=== PATIENT | female | born 1960 | race Caucasian/White ===

== ENCOUNTER 2016-11-03 15:41 | Emergency (ER) | payer BC, OTHER ==
[~2016-11-03] VITALS: Ht 160 cm; Wt 48.4 kg
[~2016-11-03 15:41] MED LIST: ACET-1256 PO; APR10 PO; ASPEC81 PO; ATV5 PO; B-COTAB18 PO; DICY20TA10 PO; HYDR25TA5 PO; LSN40 PO; MELO15TA4 PO; MORP1TAB13 PO; MULTTAB58 PO; NIFE60TA57 PO; OMEP40CA41 PO; OXYC-609 PO; POTA1CAP PO; PROP40TA5 PO; ZNF4 PO
[2016-11-03 15:48] VITALS: O2SAT 94
[2016-11-03 15:54] VITALS: TEMP 36.9; Ht 160 cm; Wt 48.4 kg
[2016-11-03] MEDS ORDERED: NIFEdipine 30 MG CR TAB PO STA (15:54)
[2016-11-03] MEDS ORDERED: PROPRANOLOL HCL 80 MG TAB PO STA (15:54)
[2016-11-03] MEDS ORDERED: LISINOPRIL 20 MG TAB PO STA (15:54)
[2016-11-03] MEDS ORDERED: ONDANSETRON INJ 2 MG/ML 2 ML VIAL IV STA (15:54)
[2016-11-03] MEDS ORDERED: HydrALAZINE HCL 20 MG/ML VIAL IV. STA (15:54)
[2016-11-03] MEDS ORDERED: MoRPHine SULFATE 4 MG/ML 1 ML CARP\\VIAL IV PRN (16:00)
[2016-11-03 16:04] LABS: BASO % 0.8 %; BASO ABS # 0.08 K/uL (0-0.2); COMPLETE YES; EOS % 1.3 %; HEMATOCRIT 40.8 % (37-47); IG% 0.3 %; LYMPH % 30.1 %; LYMPH ABS # 3.11 K/uL (1.2-3.4); MEAN CELL VOLUME 91.9 fL (80-100); MEAN CORPUSCULAR HEMOGLOBIN 29.7 pg (25-34); MEAN CORPUSCULAR HGB CONC 32.4 g/dl (32-36); MEAN PLATELET VOLUME 9.3 fL (7.4-10.4); NEUT % 61.5 %; PLATELET COUNT 314 K/uL (130-400); RED BLOOD COUNT 4.44 M/uL (4.2-5.4); WHITE BLOOD COUNT 10.34 K/uL (4.8-10.8)
--- NOTE | 2016-11-03 16:04 | EMERGENCY ROOM VISIT NOTE ---
History Report prepared by Candido: Ghada Manzanares Under the Supervision of: Dr. Fam Miller D.O. First contact with patient: 15:44 Chief Complaint: CHEST PAIN Stated Complaint: CHEST PAIN, HTN, HEADACHE History of Present Illness The patient is a 56 year old female who presents to the Emergency Room with complaints of persistent left chest pain that began prior to arrival. The patient states that today she developed a migraine today and additionally noted dizziness and nausea. She reports a history of migraines. The patient states that she was found to be hypertensive today. She reports a history of hypertension, but states that she has not taken her medications in many months because she cannot afford it. Today, the patient additionally notes left jaw pain and shortness of breath. She reports that she is a smoker, but denies any alcohol use. Source of History: patient Onset: prior to arrival Position: chest (left) Symptom Intensity: 10 Timing: other (persistent) Associated Symptoms: + headache (migraine), + SOB, + nausea Note: Associated Symptoms: left jaw pain, dizziness Review of Systems See HPI for pertinent positives & negatives. A total of 10 systems reviewed and were otherwise negative. Past Medical & Surgical Medical Problems: (1) Chronic abdominal pain (2) Chronic back pain (3) HTN (hypertension) (4) Right cervical radiculopathy (5) Right shoulder pain Family History Cancer Diabetes mellitus Gallbladder disease Heart disease Hypertension Lung disease Social History Smoking Status: Current Every Day Smoker Alcohol Use: none Marital Status: Housing Status: lives with significant other Occupation Status: employed Current/Historical Medications Scheduled Aspirin (Aspirin Ec), 81 MG PO DAILY Dicyclomine Hcl (Dicyclomine Hcl), 20 MG PO BID Hydralazine Hcl (Apresoline), 10 MG PO TID Hydralazine Hcl (Apresoline), 1 TAB PO TID Hydrochlorothiazide (Hydrochlorothiazide), 12.5 MG PO DAILY Hydrochlorothiazide (Hctz), 1 CAP PO DAILY Lisinopril (Lisinopril), 40 MG PO DAILY Lisinopril (Zestril), 1 TAB PO DAILY Meloxicam (Meloxicam), 15 MG PO DAILY Morphine Sulfate (Morphine Sulfate Er), 1 TAB PO BID Multiple Vitamin (Multivitamin), 1 TAB PO DAILY Nifedipine (Procardia Xl Ext Rel), 1 TAB PO DAILY Nifedipine Ext Rel (Procardia Xl Ext Rel), 60 MG PO DAILY Omeprazole (Prilosec), 40 MG PO DAILY Oxycodone HCl (Oxycodone HCl), 10 MG PO DIRECTED Propranolol Hcl (Propranolol Hcl), 80 MG PO BID Propranolol Hcl (Propranolol Hcl), 2 TAB PO BID Tizanidine (Zanaflex ), 4 MG PO TID Scheduled PRN Ytjzjbc-Kdhbjxcbrfmuq-Mpxnnuyu (Excedrin Migraine), 1 TAB PO DIRECTED PRN for Migraine Allergies Coded Allergies: No Known Allergies (Unverified , 11/03/16) Physical Exam Vital Signs Date Time Temp Pulse Resp B/P (MAP) Pulse Ox O2 Delivery O2 Flow Rate FiO2 11/03/16 17:10 81 18 163/95 94 Room Air 11/03/16 16:02 80 11/03/16 15:54 95 Room Air 11/03/16 15:54 36.9 87 17 150/98 95 Room Air 11/03/16 15:48 94 Room Air Physical Exam GENERAL: Patient is awake, alert, and in no acute distress. Patient is resting comfortably and showing no signs of anxiety EYES: The conjunctivae are clear. The pupils are round and reactive. EARS, NOSE, MOUTH AND THROAT: The nose is without any evidence of any deformity. Mucous membranes are moist tongue is midline NECK: The neck is nontender and supple. RESPIRATORY: Normal respiratory effort is noted there is no evidence of wheezing rhonchi or rales CARDIOVASCULAR: Regular rate and rhythm noted there no murmurs rubs or gallops normal S1 normal S2 GASTROINTESTINAL: The abdomen is soft. Bowel sounds are present in all quadrants. Abdomen is nontender MUSCULOSKELETAL/EXTREMITIES: There is no evidence of gross deformity full range of motion is noted in the hips and shoulders SKIN: There is no obvious evidence of any rash. There are no petechiae, pallor or cyanosis noted. NEUROLOGIC: Patient is awake alert and oriented x3 strength is symmetric patellar reflexes are 2+ bilaterally Medical Decision & Procedures ER Provider Diagnostic Interpretation: Radiology results as stated below per my review and radiologist interpretation: CT HEAD WITHOUT CONTRAST (CT) CLINICAL HISTORY: Headache COMPARISON STUDY: 01/19/2016 TECHNIQUE: Axial CT of the brain is performed from the vertex to the skull base. IV contrast was not administered for this examination. CT DOSE: 537.48 mGy.cm FINDINGS: No intra or extra-axial mass lesions are visualized. There is no CT evidence of acute cortical infarction. There is no evidence of midline shift. There is no acute hemorrhage. No calvarial fractures are visualized. There is no evidence of pathologic ventricular dilatation. There is no evidence of acute sinusitis IMPRESSION: No acute intracranial findings Electronically signed by: Roque Goodwin M.D. 11/03/2016 4:31 PM Dictated Date/Time: 11/03/2016 4:29 PM CHEST ONE VIEW PORTABLE CLINICAL HISTORY: Difficult chest pain. Hypertension. Headache. COMPARISON STUDY: 01/19/2016 FINDINGS: The cardiac and mediastinal contours remain stable. There is mild elevation of the interstitium unchanged the prior study. There is no focal pulmonary consolidation. There are no pleural effusions.[ IMPRESSION: Subtle interstitial thickening, likely chronic. No evidence of focal pulmonary consolidation Electronically signed by: Roque Goodwin M.D. 11/03/2016 4:15 PM Dictated Date/Time: 11/03/2016 4:14 PM Laboratory Results 11/03/16 15:45 Red Blood Count 4.44, Mean Corpuscular Volume 91.9, Mean Corpuscular Hemoglobin 29.7, Mean Corpuscular Hemoglobin Concent 32.4, Mean Platelet Volume 9.3, Neutrophils (%) (Auto) 61.5, Lymphocytes (%) (Auto) 30.1, Monocytes (%) (Auto) 6.0, Eosinophils (%) (Auto) 1.3, Basophils (%) (Auto) 0.8, Neutrophils # (Auto) 6.37, Lymphocytes # (Auto) 3.11, Monocytes # (Auto) 0.62, Eosinophils # (Auto) 0.13, Basophils # (Auto) 0.08 11/03/16 15:45 Test 11/03/16 15:45 White Blood Count 10.34 K/uL (4.8-10.8) Red Blood Count 4.44 M/uL (4.2-5.4) Hemoglobin 13.2 g/dL (12.0-16.0) Hematocrit 40.8 % (37-47) Mean Corpuscular Volume 91.9 fL (80-100) Mean Corpuscular Hemoglobin 29.7 pg (25-34) Mean Corpuscular Hemoglobin Concent 32.4 g/dl (32-36) Platelet Count 314 K/uL (130-400) Mean Platelet Volume 9.3 fL (7.4-10.4) Neutrophils (%) (Auto) 61.5 % Lymphocytes (%) (Auto) 30.1 % Monocytes (%) (Auto) 6.0 % Eosinophils (%) (Auto) 1.3 % Basophils (%) (Auto) 0.8 % Neutrophils # (Auto) 6.37 K/uL (1.4-6.5) Lymphocytes # (Auto) 3.11 K/uL (1.2-3.4) Monocytes # (Auto) 0.62 K/uL (0.11-0.59) Eosinophils # (Auto) 0.13 K/uL (0-0.5) Basophils # (Auto) 0.08 K/uL (0-0.2) RDW Standard Deviation 46.8 fL (36.4-46.3) RDW Coefficient of Variation 14.1 % (11.5-14.5) Immature Granulocyte % (Auto) 0.3 % Immature Granulocyte # (Auto) 0.03 K/uL (0.00-0.02) Prothrombin Time 10.0 SECONDS (9.0-12.0) Prothromb Time International Ratio 0.9 (0.9-1.1) Activated Partial Thromboplast Time 28.5 SECONDS (21.0-31.0) Partial Thromboplastin Ratio 1.1 Anion Gap 11.0 mmol/L (3-11) Est Creatinine Clear Calc Drug Dose 49.1 ml/min Estimated GFR () 74.0 Estimated GFR (Non- 63.8 BUN/Creatinine Ratio 17.7 (10-20) Calcium Level 8.4 mg/dl (8.5-10.1) Magnesium Level 2.2 mg/dl (1.8-2.4) Total Bilirubin 0.3 mg/dl (0.2-1) Direct Bilirubin < 0.1 mg/dl (0-0.2) Aspartate Amino Transf (AST/SGOT) 15 U/L (15-37) Alanine Aminotransferase (ALT/SGPT) 17 U/L (12-78) Alkaline Phosphatase 92 U/L (45-117) Total Creatine Kinase 68 U/L (26-192) Creatine Kinase MB 0.6 ng/ml (0.5-3.6) Creatine Kinase MB Ratio 0.9 (0-3.0) Troponin I < 0.015 ng/ml (0-0.045) Total Protein 7.3 gm/dl (6.4-8.2) Albumin 3.7 gm/dl (3.4-5.0) Lipase 106 U/L (73-393) Laboratory results per my review. Medications Administered Medications (Trade) Dose Ordered Sig/Akshat Route Start Time Stop Time Status Last Admin Dose Admin Morphine Sulfate (MoRPHine SULFATE INJ) 4 mg Q15M PRN IV 11/03/16 16:00 11/17/16 15:59 11/03/16 16:09 4 MG Ondansetron HCl (Zofran Inj) 4 mg NOW STAT IV 11/03/16 15:54 11/03/16 15:58 DC 11/03/16 16:08 4 MG Hydralazine HCl (HydrALAZINE INJ) 10 mg NOW STAT IV. 11/03/16 15:54 11/03/16 15:58 DC 11/03/16 16:08 10 MG Lisinopril (Zestril Tab) 40 mg NOW STAT PO 11/03/16 15:54 11/03/16 15:58 DC 11/03/16 16:08 40 MG Nifedipine (Procardia Xl Tab) 60 mg NOW STAT PO 11/03/16 15:54 11/03/16 15:58 DC 11/03/16 16:08 60 MG Propranolol HCl (Inderal Tab) 80 mg ONE STAT PO 11/03/16 15:54 11/03/16 15:58 DC 11/03/16 16:09 80 MG ECG Indication: chest pain Rate (beats per minute): 84 Rhythm: normal sinus Findings: no ectopy, other (no acute ST segment abnormalities) Comparison ECG Date: 01/19/16 Change: no significant change ED Course 1548: The patient was evaluated in room C7. A complete history and physical examination were performed. 1554: Ordered Inderal Tab 80 mg PO, Nifedipine 60 mg PO, Lisinopril 40 mg PO, Hydralazine HCl 10 mg IV, Zofran Inj 4 mg IV. 1600: Ordered Morphine Sulfate 4 mg IV. 1657: I reevaluated the patient and she is resting comfortably. I discussed the exam findings with her and I discussed the treatment plan. She verbalized complete understanding and agreement. She is ready to go home. Medical Decision Differential diagnosis: Etiologies such as cardiac ischemia, aortic dissection, pulmonary embolism, pneumonia, pneumothorax, musculoskeletal, infections, pericarditis, myocarditis , esophageal rupture, gastrointestinal, as well as others were entertained. Medication Reconciliation: I attest that I have personally reviewed the patient' s current medications list. Blood pressure screening: Patient was found to have an elevated blood pressure and was referred to their primary doctor for recheck and further treatment. The patient is a 56-year-old female who presented to the emergency department for an evaluation of blood pressure which was out of control as well as chest pain. The patient has been having problems over the last 5-6 months with elevated blood pressure as well as headache. The patient does not have any focal neurologic deficit. She was seen in our facility recently and had a workup previous. The patient was seen by her primary care physician for her chest discomfort and elevated blood pressure today and was sent to the emergency department. The patient was treated with her blood pressure medication in the emergency department. She was also treated with some pain medication. On subsequent reevaluation her blood pressure was significantly improved. I discussed the patient's laboratory and radiographic studies with her. I also discussed the limitations of the emergency department workup with her. She was encouraged to rest and avoid any strenuous activity. She was also encouraged to follow-up with her family doctor this week for reevaluation. I discussed her case with the emergency Department case hardener. The patient has not had her blood pressure medication prescriptions filled since April of 2016. She was encouraged to restart her blood pressure medication and I was able to give her prescriptions for 30 days. She was also encouraged to discuss the possibility with her family doctor that she may require further studies such as a stress test or further neuro imaging or even a referral to a neurologist. She was also encouraged return to the emergency department immediately if symptoms change worsen or the need arises. Impression Primary Impression: Precordial chest pain Additional Impressions: Hypertension Noncompliance with medication regimen Scribe Attestation The scribe's documentation has been prepared under my direction and personally reviewed by me in its entirety. I confirm that the note above accurately reflects all work, treatment, procedures, and medical decision making performed by me. Departure Information Dispostion Home / Self-Care Prescriptions Hydrochlorothiazide (HCTZ) 12.5 Mg Cap 1 CAP PO DAILY for 30 Days, #30 CAP Prov: Fam Miller, DO 11/03/16 Propranolol Hcl (PROPRANOLOL HCL) 40 Mg Tab 2 TAB PO BID for 30 Days, #120 TAB Prov: Fam Miller, DO 11/03/16 Nifedipine (PROCARDIA XL EXT REL) 60 Mg Tab 1 TAB PO DAILY for 30 Days, #30 TAB Prov: Fam Miller, DO 11/03/16 Lisinopril (ZESTRIL) 40 Mg Tab 1 TAB PO DAILY for 30 Days, #30 TAB Prov: Fam Miller, DO 11/03/16 Hydralazine Hcl (APRESOLINE) 10 Mg Tab 1 TAB PO TID, #90 TAB Prov: Fam Miller, DO 11/03/16 Referrals Bekah Wong (PCP) Forms HOME CARE DOCUMENTATION FORM, IMPORTANT VISIT INFORMATION, Work Instructions Patient Instructions ED Chest Pain Atypical Unkn Cause, Hypertension Control, [facility] Additional Instructions Call your family doctor in the morning to schedule a follow-up appointment. Continue all medications as prescribed. Rest and avoid any strenuous activity. Discussed the possibility with your doctor that you may require further studies to evaluate the cause of your headache possibly a referral to a neurologist. You may also require a stress test in the near future. Discussed this with your family doctor. Problem Qualifiers
[2016-11-03 16:13] LABS: INR 0.9 (0.9-1.1); PARTIAL THROMBOPLASTIN RATIO 1.1
[2016-11-03 16:16] LABS: ALT/SGPT 17 U/L (12-78); AST/SGOT 15 U/L (15-37); BLOOD UREA NITROGEN 18 mg/dl (7-18); BUN/CREATININE RATIO 17.7 (10-20); CALCIUM 8.4 mg/dl (8.5-10.1); CARBON DIOXIDE 25 mmol/L (21-32); CHLORIDE 105 mmol/L (98-107); GLUCOSE 91 mg/dl (70-99); MAGNESIUM 2.2 mg/dl (1.8-2.4); POTASSIUM 3.5 mmol/L (3.5-5.1); SODIUM 141 mmol/L (136-145)
--- NOTE | 2016-11-03 16:16 | DIAGNOSTIC IMAGING REPORT ---
CHEST ONE VIEW PORTABLE CLINICAL HISTORY: Difficult chest pain. Hypertension. Headache. COMPARISON STUDY: 01/19/2016 FINDINGS: The cardiac and mediastinal contours remain stable. There is mild elevation of the interstitium unchanged the prior study. There is no focal pulmonary consolidation. There are no pleural effusions.[ IMPRESSION: Subtle interstitial thickening, likely chronic. No evidence of focal pulmonary consolidation Electronically signed by: Roque Goodwin M.D. 11/03/2016 4:15 PM Dictated Date/Time: 11/03/2016 4:14 PM
[2016-11-03 16:19] LABS: ALKALINE PHOSPHATASE 92 U/L (45-117); CKMB/CK RATIO 0.9 (0-3.0)
--- NOTE | 2016-11-03 16:32 | DIAGNOSTIC IMAGING REPORT ---
CT HEAD WITHOUT CONTRAST (CT) CLINICAL HISTORY: Headache COMPARISON STUDY: 01/19/2016 TECHNIQUE: Axial CT of the brain is performed from the vertex to the skull base. IV contrast was not administered for this examination. CT DOSE: 537.48 mGy.cm FINDINGS: No intra or extra-axial mass lesions are visualized. There is no CT evidence of acute cortical infarction. There is no evidence of midline shift. There is no acute hemorrhage. No calvarial fractures are visualized. There is no evidence of pathologic ventricular dilatation. There is no evidence of acute sinusitis IMPRESSION: No acute intracranial findings Electronically signed by: Roque Goodwin M.D. 11/03/2016 4:31 PM Dictated Date/Time: 11/03/2016 4:29 PM
[2016-11-03] MEDS ORDERED: ASPI-390 PO (16:40)
[2016-11-03] MEDS ORDERED: ASPI81TA28 PO (16:40)
[2016-11-03] MEDS ORDERED: HYDR-4715 PO ×2 (16:40→17:26)
[2016-11-03] MEDS ORDERED: LISI40TA PO (17:26)
[2016-11-03] MEDS ORDERED: PROP40TA5 PO (17:27)
[2016-11-03] MEDS ORDERED: NIFE60TA55 PO (17:27)
[2016-11-03] MEDS ORDERED: HYDR12.56 PO (17:27)
[2016-11-03 18:08] VITALS: BP 156/101; PULSE 79; O2SAT 97
== END 2016-11-03 18:10 | disposition home or self-care (01) ==
LOC: EDBD 15:41 → C.EDC 15:42
DX: R07.2 Precordial pain (principal); I10 Essential (primary) hypertension; Z91.19 Patient's noncompliance with other medical treatment and regimen; G89.29 Other chronic pain; F17.200 Nicotine dependence, unspecified, uncomplicated; Z79.82 Long term (current) use of aspirin; Z79.899 Other long term (current) drug therapy; Z80.9 Family history of malignant neoplasm, unspecified; Z83.3 Family history of diabetes mellitus; Z83.79 Family history of other diseases of the digestive system; Z82.49 Family history of ischemic heart disease and other diseases of the circulatory system

== ENCOUNTER 2017-04-25 16:52 | Emergency (ER) | payer OTHER ==
[~2017-04-25] VITALS: Ht 162.6 cm; Wt 52.3 kg
[~2017-04-25 16:52] MED LIST changes: -ACET-1256 PO; -APR10 PO; -ASPEC81 PO; +ASPI-390 PO; +ASPI81TA28 PO; -ATV5 PO; -B-COTAB18 PO; +HYDR-4715 PO; -POTA1CAP PO
[2017-04-25 16:55] VITALS: TEMP 36.5; Ht 162.6 cm; Wt 52.3 kg
--- NOTE | 2017-04-25 17:08 | EMERGENCY ROOM VISIT NOTE ---
History Report prepared by Candido: Parish Smith Under the Supervision of: Dr. Fam Miller D.O. First contact with patient: 16:59 Chief Complaint: EYE ASSESSMENT Stated Complaint: EYE SWELLING PAIN BEHIND EYE FEVER History of Present Illness The patient is a 56 year old female who presents to the Emergency Room with complaints of worsening left eye discomfort that started a few days ago. She states that the "other day" she was in the passenger seat of a car heading to work, and then abruptly something flew into her eye. She says that it was something like dust, but she looked in the mirror and did not see anything. The patient states that when she got to work, she put in eye drops, which did not help. She says that that same day she was using "some sort of chemical" at work , which caused more irritation in the left eye. She states that she saw a "little dot' on her eye, and then it started swelling. The patient adds that she then began to get severe pain and pressure behind the eye, and the pain was the most severe this morning. She notes that she also had an episode of numbness down her cheek into her jaw bone. The patient adds that her left eye feels dry. She notes that she still is having blurry vision. The patient states that she went to [facility] prior to arrival and was told to come here because she may have a cyst. She notes that she has not taken her blood pressure medication today. Source of History: patient Onset: A few days ago Position: eye (left) Symptom Intensity: severe Quality: other (something flew into eye) Timing: worsening Associated Symptoms: + numbness (down left side of face) Note: Associated symptoms: Blurry vision. Pain and pressure on and behind left eye. Swelling in eye. Review of Systems See HPI for pertinent positives & negatives. A total of 10 systems reviewed and were otherwise negative. Past Medical & Surgical Medical Problems: (1) Chronic abdominal pain (2) Chronic back pain (3) HTN (hypertension) (4) Right cervical radiculopathy (5) Right shoulder pain Family History Cancer Diabetes mellitus Gallbladder disease Heart disease Hypertension Lung disease Social History Smoking Status: Current Every Day Smoker Alcohol Use: none Marital Status: Housing Status: lives with significant other Occupation Status: employed Current/Historical Medications Scheduled Aspirin (Aspirin Ec), 81 MG PO DAILY Cephalexin Monohydrate (Keflex), 500 MG PO QID Dicyclomine Hcl (Dicyclomine Hcl), 20 MG PO BID Hydralazine Hcl (Apresoline), 10 MG PO TID Hydrochlorothiazide (Hydrochlorothiazide), 12.5 MG PO DAILY Lisinopril (Lisinopril), 40 MG PO DAILY Meloxicam (Meloxicam), 15 MG PO DAILY Morphine Sulfate (Morphine Sulfate Er), 1 TAB PO BID Multiple Vitamin (Multivitamin), 1 TAB PO DAILY Nifedipine Ext Rel (Procardia Xl Ext Rel), 60 MG PO DAILY Omeprazole (Prilosec), 40 MG PO DAILY Oxycodone HCl (Oxycodone HCl), 10 MG PO DIRECTED Propranolol Hcl (Propranolol Hcl), 80 MG PO BID Sulfa/Trimethoprim (Bactrim Ds 800MG/160MG), 1 TAB PO BID Tizanidine (Zanaflex ), 4 MG PO TID Scheduled PRN Zqjehep-Xxyxiulskwiou-Roxgcmvl (Excedrin Migraine), 1 TAB PO DIRECTED PRN for Migraine Allergies Coded Allergies: No Known Allergies (Unverified , 04/25/17) Physical Exam Vital Signs Date Time Temp Pulse Resp B/P (MAP) Pulse Ox O2 Delivery O2 Flow Rate FiO2 04/25/17 20:17 68 18 173/118 98 Room Air 04/25/17 18:25 90 18 164/129 98 Room Air 04/25/17 16:55 36.5 99 18 195/122 97 Room Air Physical Exam GENERAL: Patient is awake, alert, and in no acute distress. Patient is resting comfortably and showing no signs of anxiety EYES: Pupils are equal, round, and reactive to light. Conjunctiva are clear. There was a small sub-centimeter ulceration on the inner lower lid. There is erythema on the lower periorbital region of his left eye. EARS, NOSE, MOUTH AND THROAT: The nose is without any evidence of any deformity. Mucous membranes are moist tongue is midline NECK: The neck is nontender and supple. RESPIRATORY: Normal respiratory effort is noted there is no evidence of wheezing rhonchi or rales CARDIOVASCULAR: Regular rate and rhythm noted there no murmurs rubs or gallops normal S1 normal S2 GASTROINTESTINAL: The abdomen is soft. Bowel sounds are present in all quadrants. Abdomen is nontender MUSCULOSKELETAL/EXTREMITIES: There is no evidence of gross deformity full range of motion is noted in the hips and shoulders SKIN: There is no obvious evidence of any rash. There are no petechiae, pallor or cyanosis noted. NEUROLOGIC: Patient is awake alert and oriented x3 strength is symmetric patellar reflexes are 2+ bilaterally Medical Decision & Procedures ER Provider Diagnostic Interpretation: CT results as stated below per my review and radiologist interpretation. FACIAL-MAXILLOFACIAL WITH HISTORY: 56 years-old Female pain behind left eye acute left-sided pain COMPARISON: CT head 11/03/2016 TECHNIQUE: Multiaxial CT images of the maxillofacial bones were obtained following the intravenous administration of 94 no Optiray 320 IV contrast. A dose lowering technique was used consistent with the principals of JUNO. FINDINGS: No significant periportal soft tissue swelling, post septal or intraconal inflammatory changes. Bilateral globes appear normal and are symmetric. No focal mass or abnormal enhancement identified. No focal fluid collections. Parotid and submandibular glands are within normal limits. No pathologic adenopathy of the neck identified. Image intracranial structures demonstrate no acute abnormality. The left vertebral artery appears dominant. There is mild plaquing of the bilateral carotid bulbs with patency of the bilateral carotid vasculature. Mastoid air cells and middle ear cavities are clear. Paranasal sinuses are also generally clear. Multilevel facet arthropathy and endplate spurring of the cervical spine. The patient is edentulous. Sigmoidal curvature of the nasal septum. No acute facial bone fracture or subluxation. IMPRESSION: 1. No significant soft tissue swelling, abnormal enhancement or focal orbital abnormality. 2. No acute facial bone fracture or subluxation. 3. No significant paranasal sinus disease. The above report was generated using voice recognition software. It may contain grammatical, syntax or spelling errors. Electronically signed by: Weston Holman M.D. 04/25/2017 7:12 PM Dictated Date/Time: 04/25/2017 7:01 PM Laboratory Results 04/25/17 17:30 Red Blood Count 4.78, Mean Corpuscular Volume 94.1, Mean Corpuscular Hemoglobin 32.6, Mean Corpuscular Hemoglobin Concent 34.7, Mean Platelet Volume 9.6, Neutrophils (%) (Auto) 63.6, Lymphocytes (%) (Auto) 29.0, Monocytes (%) (Auto) 5.3, Eosinophils (%) (Auto) 1.2, Basophils (%) (Auto) 0.6, Neutrophils # (Auto) 6.66, Lymphocytes # (Auto) 3.03, Monocytes # (Auto) 0.55, Eosinophils # (Auto) 0.13, Basophils # (Auto) 0.06 04/25/17 17:30 Test 04/25/17 17:30 04/25/17 17:41 White Blood Count 10.46 K/uL (4.8-10.8) Red Blood Count 4.78 M/uL (4.2-5.4) Hemoglobin 15.6 g/dL (12.0-16.0) Hematocrit 45.0 % (37-47) Mean Corpuscular Volume 94.1 fL (80-100) Mean Corpuscular Hemoglobin 32.6 pg (25-34) Mean Corpuscular Hemoglobin Concent 34.7 g/dl (32-36) Platelet Count 289 K/uL (130-400) Mean Platelet Volume 9.6 fL (7.4-10.4) Neutrophils (%) (Auto) 63.6 % Lymphocytes (%) (Auto) 29.0 % Monocytes (%) (Auto) 5.3 % Eosinophils (%) (Auto) 1.2 % Basophils (%) (Auto) 0.6 % Neutrophils # (Auto) 6.66 K/uL (1.4-6.5) Lymphocytes # (Auto) 3.03 K/uL (1.2-3.4) Monocytes # (Auto) 0.55 K/uL (0.11-0.59) Eosinophils # (Auto) 0.13 K/uL (0-0.5) Basophils # (Auto) 0.06 K/uL (0-0.2) RDW Standard Deviation 46.1 fL (36.4-46.3) RDW Coefficient of Variation 13.4 % (11.5-14.5) Immature Granulocyte % (Auto) 0.3 % Immature Granulocyte # (Auto) 0.03 K/uL (0.00-0.02) Erythrocyte Sedimentation Rate 40 mm/hr (0-21) Est Creatinine Clear Calc Drug Dose 67.2 ml/min Estimated GFR () 98.4 Estimated GFR (Non- 84.9 BUN/Creatinine Ratio 21.6 (10-20) Calcium Level 9.3 mg/dl (8.5-10.1) Total Bilirubin 0.4 mg/dl (0.2-1) Direct Bilirubin < 0.1 mg/dl (0-0.2) Aspartate Amino Transf (AST/SGOT) 24 U/L (15-37) Alanine Aminotransferase (ALT/SGPT) 24 U/L (12-78) Alkaline Phosphatase 95 U/L (45-117) C-Reactive Protein < 0.29 mg/dl (0-0.29) Total Protein 8.4 gm/dl (6.4-8.2) Albumin 4.2 gm/dl (3.4-5.0) Bedside Hemoglobin 15.6 g/dl (12.0-16.0) Bedside Hematocrit 46 % (37-47) Bedside Sodium 139 mEq/L (135-144) Bedside Potassium 3.3 mEq/L (3.3-5.0) Bedside Chloride 101 mEq/L (101-112) Bedside Total CO2 26 mEq/l (24-31) Anion Gap 16.0 mmol/L (16-25) Bedside Blood Urea Nitrogen 18 mg/dl (7-18) Bedside Creatinine 0.7 mg/dl (0.6-1.3) Bedside Glucose (other) 101 mg/dl (70-99) Bedside Ionized Calcium (Chriss) 1.11 mmol/l (1.12-1.32) Laboratory results per my review. Medications Administered Medications (Trade) Dose Ordered Sig/Akshat Route Start Time Stop Time Status Last Admin Dose Admin Lisinopril (Zestril Tab) 40 mg NOW STAT PO 04/25/17 17:11 04/25/17 17:13 DC 04/25/17 17:58 40 MG Nifedipine (Procardia Xl Tab) 60 mg NOW STAT PO 04/25/17 17:11 04/25/17 17:13 DC 04/25/17 18:24 60 MG Propranolol HCl (Inderal LA Cap) 80 mg ONE STAT PO 04/25/17 17:11 04/25/17 17:13 DC 04/25/17 17:58 80 MG Proparacaine HCl (Alcaine 0.5% Oph Soln) 2 drops NOW STAT OP 04/25/17 17:11 04/25/17 17:13 DC 04/25/17 17:58 2 DROPS Hydralazine HCl (Apresoline Tab) 10 mg NOW STAT PO 04/25/17 17:46 04/25/17 17:47 DC 04/25/17 17:57 10 MG Oxycodone HCl (Roxicodone Immediate Rel 5MG Home Pack) 1 homepack UD ONCE PO 04/25/17 20:00 04/25/17 20:01 DC 04/25/17 20:22 1 HOMEPACK Cephalexin Monohydrate (Keflex Cap) 500 mg NOW ONCE PO 04/25/17 20:00 04/25/17 20:01 DC 04/25/17 20:22 500 MG Cephalexin Monohydrate (Keflex 500MG Home Pack) 1 homepack NOW ONCE PO 04/25/17 20:00 04/25/17 20:01 DC 04/25/17 20:22 1 HOMEPACK Trimethoprim/ Sulfamethoxazole (Septra Ds 800/ 160MG Tab) 1 tab NOW ONCE PO 04/25/17 20:00 04/25/17 20:01 DC 04/25/17 20:21 1 TAB Trimethoprim/ Sulfamethoxazole (Sulfameth/ Trimeth Ds 800/ 160MG Home Pack) 1 homepack UD ONCE PO 04/25/17 20:00 04/25/17 20:01 DC 04/25/17 20:22 1 HOMEPACK Procedure Slit Lamp Examination Indication: Left eye swelling and pain. The left eye was prepped with 2 drops of Alcaine. Slit lamp examination was performed in the standard fashion. Fluorescein was placed on left eye with no uptake on cornea. Anterior chamber was clear. Fluorescein examination performed and revealed no uptake on cornea. No foreign bodies noted under upper or lower lid. Negative Florencio sign. The patient tolerated the procedure well without complication. ED Course 1700: The patient was evaluated in room B6. A complete history and physical examination were performed. 1710: Ordered Alcaine 0.5% Oph Soln 2 drops OP, Inderal LA Cap 80 mg PO, Procardia Xl Tab 60 mg PO, Zestril Tab 40 mg PO, Apresoline Tab 10 mg PO. 3: I reevaluated the patient and her intraocular pressure in the right eye was17, the left eye was 14. A slit lamp exam was performed (see procedure note). 0: Upon reevaluation, the patient is resting. I discussed the results and treatment plan with her. She verbalized agreement of the treatment plan. She will be discharged home. 1944: I discussed the patient with Dr. Jonna Albrecht [facility] - ophthalmology - he will see the patient tomorrow. 2000: Ordered Sulfameth/Trimeth Ds 800/160MG Home Pack 1 homepack PO, Septra Ds 800/160MG Tab 1 tab PO, Keflex 500MG Home Pack 1 homepack PO, Keflex Cap 500 mg PO, Roxicodone Immediate Rel 5MG Home Pack 1 homepack PO. Medical Decision Differential diagnosis: Etiologies such as trauma, corneal abrasion, corneal ulcer, foreign body, globe penetration, hyphema, hypopyon, and orbital cellulitis, periorbital cellulitis, as well as others were entertained. Nursing notes reviewed. The patient is a 56-year-old female who presented to the emergency department for an evaluation of left eye pain. The patient was found have very significantly elevated blood pressure. She states that she has not refilled her antihypertensive medication. She was treated with her blood pressure medication in the emergency department as well as antibiotics. I discussed the patient's laboratory and radiographic studies with her. She does not have any signs of orbital cellulitis. She may have mild periorbital cellulitis but given the small ulceration under her lower eyelid it is possible this represents a viral infection. I discussed her case with the on-call general education instructor. The patient was encouraged to follow-up with the general education instructor tomorrow for reevaluation or return to the emergency department immediately if symptoms change worsen or the need arises. Otherwise she was encouraged to continue all medications as prescribed and follow-up with her primary care physician about her hypertension. I encouraged her to go to the pharmacy and have her blood pressure medications refilled. Medication Reconcilliation Current Medication List: was personally reviewed by me Blood Pressure Screening Patient's blood pressure: Elevated blood pressure Due to medication noncompliance. Consults Time Called: 1939 Consulting Physician: Dr. Jonna [facility] Returned Call: 1944 I discussed the patient with Dr. Jonna Albrecht [facility] - ophthalmology - he will see the patient tomorrow. Impression Primary Impression: Periorbital cellulitis Scribe Attestation The scribe's documentation has been prepared under my direction and personally reviewed by me in its entirety. I confirm that the note above accurately reflects all work, treatment, procedures, and medical decision making performed by me. Departure Information Dispostion Home / Self-Care Prescriptions Sulfa/Trimethoprim (Bactrim Ds 800MG/160MG) Tab 1 TAB PO BID, #14 TAB Prov: Fam Miller, DO 04/25/17 Cephalexin Monohydrate (KEFLEX) 500 Mg Cap 500 MG PO QID, #28 CAP Prov: Fam Miller, DO 04/25/17 Referrals Bekah Wong (PCP) Tristin Coyle M.D. Forms HOME CARE DOCUMENTATION FORM, IMPORTANT VISIT INFORMATION, WORK / SCHOOL INSTRUCTIONS, Work Instructions Patient Instructions ED Cellulitis Kaylee Orbital, Hypertension Dc, My [facility] Additional Instructions Continue all medications as prescribed. Call the general education instructor in the morning to schedule a follow-up appointment. Go to the pharmacy to get your medications that your taking previously especially your blood pressure medications filled. Call your family to schedule a follow-up appointment for your blood pressure because it was very elevated in the emergency department today. Problem Qualifiers Primary Impression: Periorbital cellulitis Laterality: left Qualified Codes: L03.213 - Periorbital cellulitis
[2017-04-25] MEDS ORDERED: LISINOPRIL 20 MG TAB PO STA (17:11)
[2017-04-25] MEDS ORDERED: PROPRANOLOL HCL 80 MG LA CAP PO STA (17:11)
[2017-04-25] MEDS ORDERED: PROPARACAINE HCL 0.5% OP SOLN 15 ML BTL OP STA (17:11)
[2017-04-25] MEDS ORDERED: NIFEdipine 30 MG CR TAB PO STA (17:11)
[2017-04-25] MEDS ORDERED: OPTIRAY 320 IV PRN (17:45)
[2017-04-25] MEDS ORDERED: HydrALAZINE 10 MG TAB PO STA (17:46)
[2017-04-25 17:48] LABS: BASO % 0.6 %; BASO ABS # 0.06 K/uL (0-0.2); COMPLETE YES; EOS % 1.2 %; IG% 0.3 %; LYMPH ABS # 3.03 K/uL (1.2-3.4); MEAN CELL VOLUME 94.1 fL (80-100); MEAN CORPUSCULAR HEMOGLOBIN 32.6 pg (25-34); MEAN CORPUSCULAR HGB CONC 34.7 g/dl (32-36); MEAN PLATELET VOLUME 9.6 fL (7.4-10.4); MONO % 5.3 %; NEUT % 63.6 %; PLATELET COUNT 289 K/uL (130-400); RED BLOOD COUNT 4.78 M/uL (4.2-5.4); WHITE BLOOD COUNT 10.46 K/uL (4.8-10.8)
[2017-04-25 18:13] LABS: ALT/SGPT 24 U/L (12-78); AST/SGOT 24 U/L (15-37); BLOOD UREA NITROGEN 17 mg/dl (7-18); BUN/CREATININE RATIO 21.6 (10-20); CALCIUM 9.3 mg/dl (8.5-10.1); CARBON DIOXIDE 27 mmol/L (21-32); CHLORIDE 101 mmol/L (98-107); CREATININE 0.79 mg/dl (0.60-1.20); GLUCOSE 98 mg/dl (70-99); POTASSIUM 3.3 mmol/L (3.5-5.1); SODIUM 135 mmol/L (136-145)
[2017-04-25 18:16] LABS: ALKALINE PHOSPHATASE 95 U/L (45-117); C-REACTIVE PROTEIN < 0.29 mg/dl (0-0.29)
[2017-04-25 18:26] LABS: ISTAT CREATININE 0.7 mg/dl (0.6-1.3); ISTAT HEMOGLOBIN 15.6 g/dl (12.0-16.0); ISTAT IONIZED CALCIUM 1.11 mmol/l (1.12-1.32)
--- NOTE | 2017-04-25 19:13 | DIAGNOSTIC IMAGING REPORT ---
FACIAL-MAXILLOFACIAL WITH HISTORY: 56 years-old Female pain behind left eye acute left-sided pain COMPARISON: CT head 11/03/2016 TECHNIQUE: Multiaxial CT images of the maxillofacial bones were obtained following the intravenous administration of 94 no Optiray 320 IV contrast. A dose lowering technique was used consistent with the principals of JUNO. FINDINGS: No significant periportal soft tissue swelling, post septal or intraconal inflammatory changes. Bilateral globes appear normal and are symmetric. No focal mass or abnormal enhancement identified. No focal fluid collections. Parotid and submandibular glands are within normal limits. No pathologic adenopathy of the neck identified. Image intracranial structures demonstrate no acute abnormality. The left vertebral artery appears dominant. There is mild plaquing of the bilateral carotid bulbs with patency of the bilateral carotid vasculature. Mastoid air cells and middle ear cavities are clear. Paranasal sinuses are also generally clear. Multilevel facet arthropathy and endplate spurring of the cervical spine. The patient is edentulous. Sigmoidal curvature of the nasal septum. No acute facial bone fracture or subluxation. IMPRESSION: 1. No significant soft tissue swelling, abnormal enhancement or focal orbital abnormality. 2. No acute facial bone fracture or subluxation. 3. No significant paranasal sinus disease. The above report was generated using voice recognition software. It may contain grammatical, syntax or spelling errors. Electronically signed by: Weston Holman M.D. 04/25/2017 7:12 PM Dictated Date/Time: 04/25/2017 7:01 PM
[2017-04-25] MEDS ORDERED: SULF800T23 PO (19:50)
[2017-04-25] MEDS ORDERED: CEPH500C2 PO (19:50)
[2017-04-25] MEDS ORDERED: CEPHALEXIN MONOHYDRATE 250 MG CAP PO ONE (20:00)
[2017-04-25] MEDS ORDERED: OXYCODONE IR HOME PACK PO ONE (20:00)
[2017-04-25] MEDS ORDERED: SEPTRA DS HOME PACK 1 EA VIAL PO ONE (20:00)
[2017-04-25] MEDS ORDERED: SULFAMETHOXAZOLE/TRIMETHOPRIM DS 800/160MG TAB PO ONE (20:00)
[2017-04-25] MEDS ORDERED: CEPHALEXIN 500MG HOME PACK 1 EA BTL PO ONE (20:00)
[2017-04-25 20:17] VITALS: BP 173/118; PULSE 68; O2SAT 98
== END 2017-04-25 20:20 | disposition home or self-care (01) ==
LOC: C.EDB 16:53
DX: L03.213 Periorbital cellulitis (principal); I10 Essential (primary) hypertension; M54.5 Low back pain; R10.9 Unspecified abdominal pain; G89.29 Other chronic pain; M54.12 Radiculopathy, cervical region; Z80.9 Family history of malignant neoplasm, unspecified; Z83.3 Family history of diabetes mellitus; Z83.79 Family history of other diseases of the digestive system; Z82.49 Family history of ischemic heart disease and other diseases of the circulatory system; Z83.6 Family history of other diseases of the respiratory system; F17.210 Nicotine dependence, cigarettes, uncomplicated; Z79.82 Long term (current) use of aspirin; Z79.899 Other long term (current) drug therapy

== ENCOUNTER 2023-06-18 13:11 | Observation (INO) ==
[2023-06-18 14:00] LABS: iSTAT Creatinine 1.7 mg/dl (0.6-1.3); iSTAT Hemoglobin 12.6 g/dl (12.0-16.0); iSTAT Ionized Calcium 1.27 mmol/l (1.12-1.32); iSTAT Potassium 4.7 mmol/L (3.3-5.0)
--- NOTE | 2023-06-18 14:26 | Emergency Department Note ---
History of Present Illness General Chief complaint: Stroke/CVA Symptoms Stated complaint: R SIDE WEAKNESS Time Seen by Provider: 06/18/23 13:40 Source: patient, RN notes reviewed and old records reviewed (Attempted but there are no old records in the EMR) Mode of arrival: EMS Limitations: no limitations History of Present Illness This patient is a 62-year-old female who comes in after having right-sided numbness and weakness. This actually started last Wednesday evening. She said she felt like she got hot and she was weak and numb on the right side she said throughout the week is persisted but gotten better at times but since sometime last night she has been worse although she says at present she feels better than she was. She was seen at the [facility] and they sent her here she had no fall no fever she has had a slight chronic cough and she has been on oxygen since having pneumonia at the end of last year. No change in vision she has had some mild fuzziness in her head. Some's difficulty speaking at times Home Medications Medication Instructions Recorded Confirmed Type amlodipine 10 mg tablet 10 mg PO QAM 06/18/23 06/18/23 History aspirin 81 mg tablet,delayed 81 mg PO QAM 06/18/23 06/18/23 History release atorvastatin 40 mg tablet 40 mg PO QAM 06/18/23 06/18/23 History buspirone 15 mg tablet 15 mg PO TID 06/18/23 06/18/23 History escitalopram oxalate 20 mg tablet 20 mg PO QAM 06/18/23 06/18/23 History hydroxyzine pamoate 50 mg capsule 50 mg PO Q6 PRN Anxiety 06/18/23 06/18/23 History labetalol 200 mg tablet 200 mg PO DAILY 06/18/23 06/18/23 History losartan 50 mg tablet 50 mg PO QAM 06/18/23 06/18/23 History trazodone 50 mg tablet 50 mg PO HS PRN Insomnia 06/18/23 06/18/23 History Allergies Allergy/AdvReac Type Severity Reaction Status Date / Time No Known Allergies Allergy Unverified 06/18/23 16:30 Past Med/Surg History Medical History CKD (chronic kidney disease), stage III History of tobacco use Generalized anxiety disorder Depression Hyperlipidemia HTN (hypertension) Surgical History History of endometrial ablation Social History (Updated 06/18/23 @ 16:58 by ANDRE Castro) Smoking Status: Former smoker Feels Safe at Home: Yes Immunizations: Past medical historyhypertension and renal insufficiency. She tells me her kidney doctor told her she cannot have IV contrast. No diabetes. 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 She quit smoking. Does not drink or use drugs. Review of Systems A total of 10 systems reviewed and were otherwise negative Physical Exam Vital Signs Vital Signs - 24 hr 06/18/23 13:22 06/18/23 14:51 06/18/23 15:34 Temperature 36.8 C Temperature Source Oral Pulse Rate 55 L Pulse Rate [Apical] 51 L 77 Pulse Rhythm Regular Pulse Rhythm [Apical] Regular Regular Pulse Strength Normal Pulse Strength [Apical] Normal Normal Respiratory Rate 16 19 18 Respiratory Effort / Characteristics Non-Labored Spontaneous Non-Labored Spontaneous Non-Labored Spontaneous Respiratory Depth Normal Normal Normal Respiratory Pattern Regular Regular Regular Blood Pressure 161/102 H Blood Pressure [Right Arm] 138/70 171/112 H Blood Pressure Mean 121 Blood Pressure Mean [Right Arm] 92 131 Blood Pressure Position [Right Arm] Pulse Oximetry 99 98 95 Oxygen Delivery Method Room Air Room Air Room Air Sepsis Recent Fever Within 48 Hours No Sepsis New/Unexplained Change in Mental Status No Sepsis Action Taken by Nursing No Action Required 06/18/23 16:12 06/18/23 16:50 06/18/23 17:30 Temperature Temperature Source Pulse Rate 69 Pulse Rate [Apical] 57 L 64 Pulse Rhythm Pulse Rhythm [Apical] Regular Regular Pulse Strength Pulse Strength [Apical] Normal Normal Respiratory Rate 18 19 Respiratory Effort / Characteristics Non-Labored Spontaneous Non-Labored Spontaneous Respiratory Depth Normal Normal Respiratory Pattern Regular Regular Blood Pressure Blood Pressure [Right Arm] 139/99 156/111 H Blood Pressure Mean Blood Pressure Mean [Right Arm] 112 126 Blood Pressure Position [Right Arm] Pulse Oximetry 95 95 Oxygen Delivery Method Room Air Room Air Sepsis Recent Fever Within 48 Hours Sepsis New/Unexplained Change in Mental Status Sepsis Action Taken by Nursing 06/18/23 19:00 Temperature Temperature Source Pulse Rate Pulse Rate [Apical] 56 L Pulse Rhythm Pulse Rhythm [Apical] Regular Pulse Strength Pulse Strength [Apical] Normal Respiratory Rate 19 Respiratory Effort / Characteristics Non-Labored Spontaneous Respiratory Depth Normal Respiratory Pattern Regular Blood Pressure Blood Pressure [Right Arm] 130/75 Blood Pressure Mean Blood Pressure Mean [Right Arm] 93 Blood Pressure Position [Right Arm] Lying Pulse Oximetry 96 Oxygen Delivery Method Room Air Sepsis Recent Fever Within 48 Hours Sepsis New/Unexplained Change in Mental Status Sepsis Action Taken by Nursing General: Well developed well nourished middle-age male who appears in no acute distress, breathing comfortably on room air. Speech is not slurred and there is no word salad but seems slightly thick. HEENT: Normal cephalic atraumatic. Pupils are equal round and reactive to light. Extraocular movements are intact. Oropharynx is pink with moist mucous membranes. No swelling of the mouth lips or tongue. Neck: Supple with a midline trachea. No meningeal signs or stiffness, no JVD or bruits. No Stridor. Chest: Clear to auscultation bilaterally. No wheezes or rhonchi. No increased work of breathing. Heart: Regular rate and rhythm without murmurs or gallops. Abdomen: Soft nontender, nondistended without rebound guarding or rigidity. Extremities: No cyanosis clubbing or edema. No calf tenderness or assymetry Spine/Back. Non tender to palpation. No CVA tenderness Skin: Good turgor without rashes. Neurologic exam: Cranial nerves two through 12 are intact. Motor and sensation are intact and symmetrical throughout with exception she feels some decrease sensation on the right arm and leg and on my exam she may be slightly weaker than the left. There is no definite facial droop. Course Administered Medications Discontinued Medications Aspirin (Aspirin 81 Mg Chew) 324 mg PO NOW STA Stop: 06/18/23 15:26 Last Admin: 06/18/23 15:32 Dose: 324 mg Documented By: SUSAN Medical Decision Making Differential Diagnosis CVA, TIA, intracranial process, electrolyte or metabolic abnormality, infection Medical Records Attestation: I reviewed the patient's medical records. Home Medications Current Medication List: was personally reviewed by me Laboratory Data Attestation: I reviewed the patient's lab results. 06/18/23 Unknown 06/18/23 Unknown Lab Results 06/18/23 06/18/23 06/18/23 Range/Units 13:45 13:46 14:19 WBC (4.8-10.8) K/ul RBC (4.20-5.40) M/uL Hgb (12.0-16.0) g/dl POC Hgb 12.6 (12.0-16.0) g/dl Hct (37.0-47.0) % POC Hct 37 (37-47) % MCV (80.0-100.0) fL MCH (25.0-34.0) pg MCHC (32.0-36.0) g/dL RDW Std Deviation (36.4-46.3) fL RDW Coeff of Khoa (11.5-14.5) % Plt Count (130-400) K/uL MPV (9.4-12.4) fL Immature Gran % (Auto) % Neut % (Auto) % Lymph % (Auto) % [place] % (Auto) % Eos % (Auto) % Baso % (Auto) % Neut # (Auto) (1.40-6.50) K/uL Lymph # (Auto) (1.20-3.40) K/uL [place] # (Auto) (0.11-0.59) K/uL Eos # (Auto) (0.00-0.50) K/uL Baso # (Auto) (0.00-0.20) K/uL Immature Gran # (Auto) (0.01-0.20) K/uL PT (9.0-12.0) Seconds INR (0.9-1.1) APTT (21-31) Seconds PTT Ratio POC Sodium 142 (135-144) mmol/L Sodium (136-145) mmol/L POC Potassium 4.7 (3.3-5.0) mmol/L Potassium (3.5-5.1) mmol/L POC Chloride 108 (101-112) mmol/L Chloride (98-107) mmol/L Carbon Dioxide (21-32) mmol/L POC Total CO2 22 L (24-31) mmol/L Anion Gap (3-11) POC Anion Gap 17.0 (16-25) mmol/L POC BUN 21 H (7-18) mg/dl BUN (6-23) mg/dl Creatinine (0.6-1.2) mg/dl POC Creatinine 1.7 H (0.6-1.3) mg/dl Est Cr Clr Drug Dosing ml/min Est GFR ( Amer) ml/min Est GFR (Non-Af Amer) ml/min BUN/Creatinine Ratio (10-20) Glucose (70-99(Fasting)) mg/dl POC Glucose 95 (70-99) mg/dl POC Glucose (other) 95 (70-99) mg/dl Calcium (8.6-10.3) mg/dl POC Ioniz Calcium Chriss 1.27 (1.12-1.32) mmol/l Magnesium (1.7-2.4) mg/dl Total Bilirubin (0.2-1.0) mg/dl AST (13-39) U/L ALT (7-52) U/L Alkaline Phosphatase (34-104) U/L Troponin I High Sens (0-14) pg/ml Total Protein (6.0-8.3) gm/dl Albumin (3.4-5.0) gm/dl Globulin (2.5-4.0) gm/dl Albumin/Globulin Ratio (0.9-2) Blood Type A Positive Antibody Screen NEGATIVE 06/18/23 Range/Units Unknown WBC 7.33 (4.8-10.8) K/ul RBC 4.12 L (4.20-5.40) M/uL Hgb 12.1 (12.0-16.0) g/dl POC Hgb (12.0-16.0) g/dl Hct 37.3 (37.0-47.0) % POC Hct (37-47) % MCV 90.5 (80.0-100.0) fL MCH 29.4 (25.0-34.0) pg MCHC 32.4 (32.0-36.0) g/dL RDW Std Deviation 44.0 (36.4-46.3) fL RDW Coeff of Khoa 13.4 (11.5-14.5) % Plt Count 253 (130-400) K/uL MPV 9.6 (9.4-12.4) fL Immature Gran % (Auto) 0.3 % Neut % (Auto) 65.8 % Lymph % (Auto) 22.1 % [place] % (Auto) 8.5 % Eos % (Auto) 2.2 % Baso % (Auto) 1.1 % Neut # (Auto) 4.83 (1.40-6.50) K/uL Lymph # (Auto) 1.62 (1.20-3.40) K/uL [place] # (Auto) 0.62 H (0.11-0.59) K/uL Eos # (Auto) 0.16 (0.00-0.50) K/uL Baso # (Auto) 0.08 (0.00-0.20) K/uL Immature Gran # (Auto) 0.02 (0.01-0.20) K/uL PT 10.9 (9.0-12.0) Seconds INR 1.0 (0.9-1.1) APTT 28 (21-31) Seconds PTT Ratio 1.0 POC Sodium (135-144) mmol/L Sodium 139 (136-145) mmol/L POC Potassium (3.3-5.0) mmol/L Potassium 4.5 (3.5-5.1) mmol/L POC Chloride (101-112) mmol/L Chloride 108 H (98-107) mmol/L Carbon Dioxide 23 (21-32) mmol/L POC Total CO2 (24-31) mmol/L Anion Gap 8 (3-11) POC Anion Gap (16-25) mmol/L POC BUN (7-18) mg/dl BUN 20 (6-23) mg/dl Creatinine 1.55 H (0.6-1.2) mg/dl POC Creatinine (0.6-1.3) mg/dl Est Cr Clr Drug Dosing 36.5 ml/min Est GFR ( Amer) 41.7 ml/min Est GFR (Non-Af Amer) 36.0 ml/min BUN/Creatinine Ratio 12.9 (10-20) Glucose 91 (70-99(Fasting)) mg/dl POC Glucose (70-99) mg/dl POC Glucose (other) (70-99) mg/dl Calcium 9.8 (8.6-10.3) mg/dl POC Ioniz Calcium Chriss (1.12-1.32) mmol/l Magnesium 2.0 (1.7-2.4) mg/dl Total Bilirubin 0.8 (0.2-1.0) mg/dl AST 30 (13-39) U/L ALT 26 (7-52) U/L Alkaline Phosphatase 71 (34-104) U/L Troponin I High Sens 3.6 (0-14) pg/ml Total Protein 7.3 (6.0-8.3) gm/dl Albumin 4.5 (3.4-5.0) gm/dl Globulin 2.8 (2.5-4.0) gm/dl Albumin/Globulin Ratio 1.6 (0.9-2) Blood Type Antibody Screen Imaging Data Attestation: I personally reviewed and interpreted this imaging study as follows: My Impression: Head CTno hemorrhage or mass effect seen Radiologist's Impression: Head CT 06/18/23 13:[address] DOSE: 547.75 mGy.cm HISTORY: Right-sided weakness. Slurred speech. neuro deficit, acute stroke suspected TECHNIQUE: Multiaxial CT images of the head were performed without the use of intravenous contrast. Automated exposure control was utilized for this study. A dose lowering technique was utilized adhering to the principles of ALARA. Comparison: Head CT 11/03/2016. Findings: The paranasal sinuses and mastoid air cells are clear. The calvarium and skull base are intact. There is no mass, hematoma, midline shift, acute infarct. White matter hypodensity is nonspecific but suggestive of microvascular ischemic change. The ventricles and sulci demonstrate mild age-related involutional changes. Old punctate lacunar infarcts within the right basal ganglia and left thalamus. There is an old small infarct within the left cerebellar hemisphere. Impression: No acute intracranial abnormality. Atrophy and microvascular ischemic changes. Old small infarcts as described above. ACT 112: Negative or not required by law. Electronically signed by: Marek Abrams M.D. 06/18/2023 2:41 PM Brain MRI 06/18/23 16:30 MR brain wo con CLINICAL HISTORY: stroke symptoms TECHNIQUE: Multiplanar and multisequence MR images of the brain were obtained without intravenous contrast. Comparison: Comparison is made to CT head performed June 18, 2023 FINDINGS: No abnormal restricted diffusion is identified. Foci of T2 and FLAIR hyperintensity are noted in the paraventricular areas consistent with chronic small vessel ischemic disease. Ex vacuo ventriculomegaly and sulcal enlargement is noted compatible with diffuse volume loss. Focal encephalomalacia is seen in the bilateral basal ganglia as well as in the left cerebellum which may represent prior infarcts. No mass is seen. There is no mass effect or midline shift. There is no evidence of acute intraparenchymal hemorrhage. No extra axial fluid collections are seen. The corpus callosum, pituitary gland, and cerebellar tonsils appear grossly unremarkable. Flow voids of the major intracranial arterial vessels are identified. The imaged portions of the paranasal sinuses, mastoid air cells, and orbits are unremarkable. IMPRESSION: Chronic volume loss and age related white matter changes without evidence of acute abnormality. ACT 112: Negative or not required by law. Electronically signed by: Adan Fonseca M.D. 06/18/2023 6:33 PM ECG Data Attestation: I personally reviewed and interpreted this ECG as follows: Indication: + weakness Rate (beats per minute): 55 Rhythm: + sinus bradycardia ECG Intervals/blocks: + Normal QRS, + Normal QT and + Normal ME ECG Monitor: + Normal ECG Findings: no PACs or no PVCs Comparison ECG Date: from (11/03/2016) Change: no significant change MDM Narrative This patient comes in as described above. She was placed in room B11 I went and saw her promptly. Her symptoms been going on for 6 days therefore she is well outside the window for tPA and intervention from a vascular standpoint. They have gotten worse since last night. I did a full stroke workup I did not do angiography as initially because she does have significant renal insufficiency and her wellness manager told her never to have IV contrast according the patient. Multiple blood testing was obtained was placed on a residential monitor. CAT scan of the head was unremarkable. EKG shows no acute ischemic changes or ectopy. Her troponin is not elevated. She has baseline renal insufficiency but no other acute abnormalities. Her symptoms seem to be vague and do wax and wane. I do think she needs to be admitted/observed for further neurologic workup. At this point, she is certainly not a candidate for vascular intervention or thrombolytics. I did consult the [facility] Hospitalist team Dr. Miri roper and they saw the patient and will admit/observe for further further neurologic workup and observation. Continuous cardiac monitoring: Orders placed in EMR for continuous residential monitor: Pulm evaluation patient to be normal sinus rhythm rate of 60 Impression & Plan Right sided weakness, CKD (chronic kidney disease), stage III, HTN (hypertension), Hyperlipidemia Discharge Plan Visit Data Chief Complaint: Stroke/CVA Symptoms Stated Complaint: R SIDE WEAKNESS ED Provider: Clarence Erickson Discharge Problem: Right sided weakness, CKD (chronic kidney disease), stage III, HTN (hypertension), Hyperlipidemia Forms Stand Alone Forms: My [facility] [address] Prescriptions Prescriptions: No Action hydroxyzine pamoate 50 mg capsule 50 mg PO Q6 PRN (Reason: Anxiety) aspirin 81 mg tablet,delayed release (DR/EC) 81 mg PO QAM escitalopram oxalate 20 mg tablet 20 mg PO QAM atorvastatin 40 mg tablet 40 mg PO QAM buspirone 15 mg tablet 15 mg PO TID losartan 50 mg tablet 50 mg PO QAM labetalol 200 mg tablet 200 mg PO DAILY trazodone 50 mg tablet 50 mg PO HS PRN (Reason: Insomnia) amlodipine 10 mg tablet 10 mg PO QAM Referrals Referrals: Sunshine Capellan DO [Primary Care Provider] - Discharge Problem: CKD (chronic kidney disease), stage III Qualifiers: Chronic kidney disease stage 3 subtype: unspecified whether 3a or 3b Qualified Code(s): N18.30 - Chronic kidney disease, stage 3 unspecified
[2023-06-18 14:30] LABS: Basophils # (auto) 0.08 K/uL (0.00-0.20); Basophils % (auto) 1.1 %; Eosinophils # (auto) 0.16 K/uL (0.00-0.50); Eosinophils % (auto) 2.2 %; Hematocrit (blood only) 37.3 % (37.0-47.0); Hemoglobin 12.1 g/dl (12.0-16.0); Immature Granulocytes # (auto) 0.02 K/uL (0.01-0.20); Immature Granulocytes % (auto) 0.3 %; Lymphocytes # (auto) 1.62 K/uL (1.20-3.40); Lymphocytes % (auto) 22.1 %; Mean Corpuscular Hemoglobin 29.4 pg (25.0-34.0); Mean Corpuscular Hgb Conc 32.4 g/dL (32.0-36.0); Mean Corpuscular Volume 90.5 fL (80.0-100.0); Mean Platelet Volume 9.6 fL (9.4-12.4); Monocytes # (auto) 0.62 K/uL (0.11-0.59); Monocytes % (auto) 8.5 %; Neutrophils # (auto) 4.83 K/uL (1.40-6.50); Neutrophils % (auto) 65.8 %; Platelet Count 253 K/uL (130-400); RDW Coefficient of Variation 13.4 % (11.5-14.5); Red Blood Count 4.12 M/uL (4.20-5.40); White Blood Count 7.33 K/ul (4.8-10.8)
[2023-06-18 14:43] LABS: Albumin Globulin Ratio 1.6 (0.9-2); Albumin Level 4.5 gm/dl (3.4-5.0); BUN Creatinine Ratio 12.9 (10-20); Bilirubin,Total 0.8 mg/dl (0.2-1.0); Calcium 9.8 mg/dl (8.6-10.3); Creatinine Clr Calc Pharmacy 36.5 ml/min; Est GFR (African American) 41.7 ml/min; Globulin 2.8 gm/dl (2.5-4.0); Potassium 4.5 mmol/L (3.5-5.1); Total Protein 7.3 gm/dl (6.0-8.3)
--- NOTE | 2023-06-18 14:43 | CT Scan Report ---
HEAD CT NONCONTRAST CT DOSE: 547.75 mGy.cm HISTORY: Right-sided weakness. Slurred speech. neuro deficit, acute stroke suspected TECHNIQUE: Multiaxial CT images of the head were performed without the use of intravenous contrast. A utomated exposure control was utilized for this study. A dose lowering technique was utilized adheri ng to the principles of ALARA. Comparison: Head CT 11/03/2016. Findings: The paranasal sinuses and mastoid air cells are clear. The calvarium and skull base are int act. There is no mass, hematoma, midline shift, acute infarct. White matter hypodensity is nonspecifi c but suggestive of microvascular ischemic change. The ventricles and sulci demonstrate mild age-rela lopez involutional changes. Old punctate lacunar infarcts within the right basal ganglia and left thala mus. There is an old small infarct within the left cerebellar hemisphere. Impression: No acute intracranial abnormality. Atrophy and microvascular ischemic changes. Old small infarcts as described above. ACT 112: Negative or not required by law. Electronically signed by: Marek Abrams M.D. 06/18/2023 2:41 PM
[2023-06-18 14:48] LABS: Troponin I High Sensitivity 3.6 pg/ml (0-14)
[2023-06-18 14:55] LABS: Partial Thromboplastin Time 28 Seconds (21-31); Prothrombin Time 10.9 Seconds (9.0-12.0)
[2023-06-18] MEDS: ASPIRIN 81 MG CHEW PO STA (15:32)
--- NOTE | 2023-06-18 16:49 | History & Physical Report ---
Date of Service June 18, 2023 Assessment & Plan (1) Right sided weakness: Plan: Admit to telemetry Patient presenting by referral PCPs office for evaluation of right-sided weakness and right facial numbness x 6 days. In the ED, head CT negative for acute findings, shows old small infarcts. Brain MRI, carotid ultrasound, echo History of contrast-induced HERMILO, would avoid CTA studies S/p full dose aspirin in the ED, continue with home ASA 81mg and statin Consider neurology consult pending MRI results (2) CKD (chronic kidney disease), stage III: Plan: Creatinine 1.5, at baseline Monitor renal functions (3) HTN (hypertension): Plan: BP intermittently elevated ED, may be situational Continue home amlodipine, labetalol, losartan for now, making adjustments as needed (4) Depression: (5) Generalized anxiety disorder: Plan: Chronic, stable Continue home meds DVT PROPHYLAXIS SCDs for now Patient seen in collaboration with Dr. Lamb. I spent a total of 75 minutes coordinating, documenting, and providing care for this patient excluding time spent in the performance of separately billed services. This included personally reviewing all current laboratories and imaging studies, medication reconciliation, outpatient chart review, and discussion with specialists. History of Present Illness Chief Complaint: Right-sided weakness Primary Care Provider: Sunshine Capellan DO 62-year-old female PMH HLD, HTN, osteoarthritis, depression, anxiety, former tobacco use, and other problems listed below who presents to the ED for evaluation of right-sided weakness. History is obtained from the patient and review of outpatient PCP records. Patient reports that 6 days ago, she developed right arm and right leg weakness. Symptoms have been progressively getting worse. Patient reports difficulty ambulating. Yesterday, she reports she developed right cheek numbness and a right-sided headache. She has had some intermittent difficulty swallowing and feels as though her speech is abnormal. Patient was seen by PCP today and sent to the ED for further evaluation. Patient denies headache and blurred vision. No lightheadedness, dizziness, diaphoresis, syncopal events. She denies chest pain or shortness of breath. No abdominal pain, nausea, vomiting, diarrhea. Denies any other recent illnesses, fevers, chills. No urinary symptoms. In the ED, labs are unremarkable. Head CT negative for acute findings. Patient was given full dose aspirin. Allergies Allergy/AdvReac Type Severity Reaction Status Date / Time No Known Allergies Allergy Unverified 06/18/23 16:30 Home Medications Medication Instructions Recorded Confirmed Type amlodipine 10 mg tablet 10 mg PO QAM 06/18/23 06/18/23 History aspirin 81 mg tablet,delayed 81 mg PO QAM 06/18/23 06/18/23 History release atorvastatin 40 mg tablet 40 mg PO QAM 06/18/23 06/18/23 History buspirone 15 mg tablet 15 mg PO TID 06/18/23 06/18/23 History escitalopram oxalate 20 mg tablet 20 mg PO QAM 06/18/23 06/18/23 History hydroxyzine pamoate 50 mg capsule 50 mg PO Q6 PRN Anxiety 06/18/23 06/18/23 History labetalol 200 mg tablet 200 mg PO DAILY 06/18/23 06/18/23 History losartan 50 mg tablet 50 mg PO QAM 06/18/23 06/18/23 History trazodone 50 mg tablet 50 mg PO HS PRN Insomnia 06/18/23 06/18/23 History Past Med/Surg History Medical History CKD (chronic kidney disease), stage III History of tobacco use Generalized anxiety disorder Depression Hyperlipidemia HTN (hypertension) Surgical History History of endometrial ablation Social History (Updated 06/18/23 @ 16:58 by ANDRE Castro) Smoking Status: Former smoker Second Hand Exposure: Yes; Do You Dip or Chew Tobacco: No; Tobacco Cessation Education Requested by Patient: No Hx Alcohol Use: No Hx Substance Use: No Preferred Language: Zambian Communication Ability: Effective Leather Dresser Required: No Beliefs That Will Affect Care: None Current Living Situation: Rehab Current Living Situation Comment: [facility] Other Information That Helps Us Care for You: No Feels Safe at Home: Yes Safety Concerns: Feels Safe At This Time Assistive Devices: Cane Physical Exam Constitutional: WD/WN, vitals as above no acute distress Eyes: PERRL, conjunctivae normal, anicteric sclerae ENMT: external ear and nose normal, oropharynx normal Respiratory: normal respiratory effort, lungs clear to auscultation Cardiovascular: Rate/Rhythm: regular rate and regular rhythm Vessels: normal peripheral pulses Extremities: no edema Gastrointestinal (Abdomen): normal bowel sounds, soft, nontender, no hepatosplenomegaly Musculoskeletal: Extremities: no cyanosis and no clubbing Skin: no rashes, warm and dry Neurologic: PERRL, EOMI, accommodation nl, no face palsy, no dysarthria moves all extremities Motor/Sensory: + sensory deficit (Decree sensation right cheek); no pronator drift Coordination: + abnormal joalob-wz-ivjm test (slower on right, no ataxia) and + abnormal ajjr-ly-vyaf test (slower on right, no ataxia) mild RLE weakness, strength 4/5 RLE, 5/5 LLE Psychiatric: A+Ox3, euthymic affect Results & Data Results & Data Vital Signs (Past 12 Hours) Vital Signs Temp Pulse Pulse Resp BP BP Pulse Ox 06/18/23 16:12 69 06/18/23 15:34 77 18 171/112 H 95 06/18/23 14:51 51 L 19 138/70 98 06/18/23 13:22 36.8 C 55 L 16 161/102 H 99 O2 Del Method 06/18/23 16:12 06/18/23 15:34 Room Air 06/18/23 14:51 Room Air 06/18/23 13:22 Room Air Laboratory Results Short CBC 06/18/23 Range/Units Unknown WBC 7.33 (4.8-10.8) K/ul Hgb 12.1 (12.0-16.0) g/dl Hct 37.3 (37.0-47.0) % Plt Count 253 (130-400) K/uL BMP 06/18/23 Unknown Sodium 139 Potassium 4.5 Chloride 108 H Carbon Dioxide 23 BUN 20 Creatinine 1.55 H Glucose 91 Calcium 9.8 Liver Function 06/18/23 Range/Units Unknown Total Bilirubin 0.8 (0.2-1.0) mg/dl AST 30 (13-39) U/L ALT 26 (7-52) U/L Alkaline Phosphatase 71 (34-104) U/L Albumin 4.5 (3.4-5.0) gm/dl Diagnostic Findings Head CT 06/18/23 13:[address] DOSE: 547.75 mGy.cm HISTORY: Right-sided weakness. Slurred speech. neuro deficit, acute stroke suspected TECHNIQUE: Multiaxial CT images of the head were performed without the use of intravenous contrast. Automated exposure control was utilized for this study. A dose lowering technique was utilized adhering to the principles of ALARA. Comparison: Head CT 11/03/2016. Findings: The paranasal sinuses and mastoid air cells are clear. The calvarium and skull base are intact. There is no mass, hematoma, midline shift, acute infarct. White matter hypodensity is nonspecific but suggestive of microvascular ischemic change. The ventricles and sulci demonstrate mild age-related involutional changes. Old punctate lacunar infarcts within the right basal ganglia and left thalamus. There is an old small infarct within the left cerebellar hemisphere. Impression: No acute intracranial abnormality. Atrophy and microvascular ischemic changes. Old small infarcts as described above. ACT 112: Negative or not required by law. Electronically signed by: Marek Abrams M.D. 06/18/2023 2:41 PM Code Status & VTE Plan VTE Prophylaxis Plan VTE Prophylaxis will be ordered: Yes Supervising Physician Co-Signing Physician Notes Pt seen and examined by myself, Rachelle Lamb MD on the day of service. Care was coordinated with Miri Jim PA-C. 62yoF with PMHx significant for CKD, HLD, HTN, osteoarthritis, depression, anxiety, former tobacco use presenting with concerning R sided weakness. Pt states that the right sided weakness started on Wednesday, about 5 days [employer] and worsened the next day. Weakness is in right arm and leg and has a right sided headache/pain. States she was seen by her PCP and advised to present to the ED. Cr 1.[address] noting old small infarcts, no new lesions Brain MRI with no acute abnormalities Carotid doppler with no significant stenosis EKG with sinus bradycardia On exam, alert and oriented. Strength 5/5 on the left, decreased on the right in both upper and lower extremities R sided muscle weakness/headache- Stroke workup, PT/OT eval, speech eval, Neurology consult-appreciate recs. CKD- cr appears to be at baseline, monitor with AM labs, avoid contrast as able, continue home ARB at this time. Otherwise as above.
--- NOTE | 2023-06-18 18:34 | Magnetic Resonance Report ---
MR brain wo con CLINICAL HISTORY: stroke symptoms TECHNIQUE: Multiplanar and multisequence MR images of the brain were obtained without intravenous con trast. Comparison: Comparison is made to CT head performed June 18, 2023 FINDINGS: No abnormal restricted diffusion is identified. Foci of T2 and FLAIR hyperintensity are noted in the paraventricular areas consistent with chronic small vessel ischemic disease. Ex vacuo ventriculomegal y and sulcal enlargement is noted compatible with diffuse volume loss. Focal encephalomalacia is seen in the bilateral basal ganglia as well as in the left cerebellum which may represent prior infarcts. No mass is seen. There is no mass effect or midline shift. There is no evidence of acute intraparenc hymal hemorrhage. No extra axial fluid collections are seen. The corpus callosum, pituitary gland, an d cerebellar tonsils appear grossly unremarkable. Flow voids of the major intracranial arterial vessels are identified. The imaged portions of the para nasal sinuses, mastoid air cells, and orbits are unremarkable. IMPRESSION: Chronic volume loss and age related white matter changes without evidence of acute abnormality. ACT 112: Negative or not required by law. Electronically signed by: Adan Fonseca M.D. 06/18/2023 6:33 PM
[2023-06-18] MEDS ORDERED: hydrOXYzine HCl 25 MG TAB PO PRN (19:38)
[2023-06-18] MEDS ORDERED: PHARMACIST DISCHARGE MED REC CONSULT PRN (19:38)
[2023-06-18] MEDS: busPIRone 15 MG TAB PO SCH (20:37)
[2023-06-18] MEDS: traZODone HCL 50 MG TAB PO PRN (21:22)
--- OUTSIDE RECORDS SUMMARY | 2023-06-19 04:31 | External Medical Summary | Summary of Care ---
Author Name Unknown Organization [facility] Address [address] [facility] [place] [address] Phone [phone] Care Team Providers Care Licensed Clinical Social Worker Name Role Phone CapellanSunshine carter Primary Care Provider [phone] Encounter Details Date Type Department Care Team (Late st Contact Info) Description 05/24/2023 2:30 PM EST Imaging Radiology [address] [place] [address] Encounter for screening mammogram for breast cancer Allergies No known active allergiesdocumented as of this encounter (statuses as of 05/25/2023) Medications Medication Sig Dispensed Refills Start Date End Date Status oxygen IN GAS Administer 2 L/min(Oxygen) into nostril continuous. 1 Each 0 02/03/2023 Active amLODIPine Besylate 10 MG Oral Tablet (Norvasc) Take 1 Tablet by mouth in the morning. 90 Tablet 1 02/16/2023 Active Atorvastatin Calcium 40 MG Oral Tablet (Lipitor) Take 1 Tablet by mouth in the morning. 90 Tablet 1 02/16/2023 Active Labetalol HCl 200 MG Oral Tablet (Normodyne) Take 1 Tablet by mouth daily. 90 Tablet 1 02/16/2023 Active Losartan Potassium 50 MG Oral Tablet (Cozaar) Take 1 Tablet by mouth in the morning. 90 Tablet 1 02/16/2023 Active traZODone HCl 50 MG Oral Tablet (Desyrel) Take 1 Tablet by mouth at bedtime. 30 Tablet 0 02/16/2023 Active Nicotine 7 MG/24HR Transdermal Patch 24 Hour (Nicoderm CQ) One 7 mg patch daily for 2 weeks; Remove old patch daily; and then stop. 14 Patch 1 02/16/2023 Active Aspirin 81 MG Oral Tablet Delayed Release (Aspirin 81) Take 1 Tablet by mouth in the morning. 90 Tablet 1 02/25/2023 Active Nicotine 14 MG/24HR Transdermal Patch 24 Hour (Nicoderm CQ) One 14 mg patch daily for 2 wks; then one 7 mg patch daily for 2 wks. Remove old patch daily Do not start before March 30, 2023. 14 Patch 2 03/30/2023 Active Naltrexone HCl 50 MG Oral Tablet (Revia) Take 0.5 Tablets by mouth in the morning. 0 03/16/2023 Active busPIRone HCl 5 MG Oral Tablet (Buspar) Take 1 Tablet by mouth in the morning and 1 Tablet before bedtime. 0 03/16/2023 Active hydrOXYzine HCl 50 MG Oral Tablet Take 1 Tablet by mouth every 6 hours as needed for Anxiety. 0 03/16/2023 Active Escitalopram Oxalate 20 MG Oral Tablet (Lexapro) Take 1 Tablet by mouth in the morning. 0 04/02/2023 Active documented as of this encounter (statuses as of 05/25/2023) Active Problems Problem Noted Date Diagnosed Date Abnormal CXR 03/16/2023 History of pneumonia 02/16/2023 Hyperlipidemia with target LDL less than 100 07/2022 Major depressive disorder in partial remission 1 History of alcohol abuse 02/16/2023 History of tobacco use 02/16/2023 Degeneration of lumbosacral intervertebral disc 10/21/2009 Overview: L4-5 HTN, GOAL BELOW 140/90 03/22/2009 Overview: Modified per HTN Taxonomy. Tobacco use disorder Generalized osteoarthritis Generalized anxiety disorder documented as of this encounter (statuses as of 05/25/2023) Resolved Problems Problem Noted Date Diagnosed Date Resolved Date Alcohol abuse 02/16/2023 02/16/2023 Shortness of breath 02/03/2023 02/17/20 23 HTN, goal below 140/90 03/22 Overview: Modified per HTN Taxonomy. Adjustment disorder with depressed mood 02/16/2023 documented as of this encounter (statuses as of 05/25/2023) Immunizations Name Administration Dates Next Due Pneumococcal Conjugate Vaccine, 20-valent (Prevn ar20) 03/16/2023 Pneumococcal Polysaccharide PPV23 (Pneumovax) Seasonal Influenza, PF, 6 M & above, IM , (FluLaval or Fluzone) 03/05/2023 Seasonal Influenza, Split, IIV3, With Preserve, Inj 04/11/2010 TDAP (age 11 and older)(Adacel) 08/15/2008 documented as of this encounter Social History Tobacco Use Types Packs/Day Years Used Date Smoking Tobacco: Former Cigarettes 0.5 31 Q uit: 09/2022 Smokeless Tobacco: Never Comments:age 18, did quit in Alcohol Use Standard Drinks/Week Comments Not Currently 0 (1 standard drink = 0.6 oz pure alcohol) heavy alcohol use in the past Sex and Gender Information Value Date Recorded Sex Assigned at Not on file Gender Identity Not on file Sexual Orientation Not on file Job Start Date Occupation Industry Not on file Not on file Not on file documented as of this encounter Plan of Treatment Upcoming Encounters Date Type Department Care Team (Latest Contact Info) Description 08/05/2023 1:00 PM EDT Hospital Encounter ENDO [facility], Endoscopy Room [facility] [address] [place] [phone] Blair Card MD [address] [place] [address] 08/05/2023 1:00 PM EDT - 08/05/2023 1:30 PM EDT Surgery ENDO [facility], Endoscopy Room [facility] [address] [place] [phone] Blair Card MD [address] [place] [address] COLONOSCOPY FLEXIBLE PROXIMAL DIAGNOSTIC 09/14/2023 1:50 PM EDT Office Visit Family [address] [phone] Timi Sunshine Franco, [address] [place] [address] 10/15/2023 2:30 PM EDT Office Visit Nephrology, Mistylisbeth Jacki [address] [facility] [place] [address] Zemait[place], Glendy Hinton PA-C [address] [place] [address] Scheduled Procedures Name Priority Associated Diagnoses Date/Ti me COLONOSCOPY FLEXIBLE PROXIMAL DIAGNOSTIC Special screening for malignant neoplasms, colon 08/05/2023 1:00 PM EDT Health Maintenance Due Date Last Done Comments COVID-19 Vaccine (#1) 1962 Depression Screening 1974 HIV Screening 1977 Hepatitis C Screening 1980 HPV/Co-Test 1992 Cologuard 2007 Colonoscopy 2007 Colorectal Cancer Screening 2007 Fecal Occult Blood Test 2007 Sigmoidoscopy 2007 Cervical Cancer Screening 07/20/2011 Pap Smear 07/20/2011 07/19/2008 (Done elsewhere) Zoster Vaccines (1 of 2) 2012 DTaP,Tdap,and Td Vaccines (2 - Td or Tdap) 08/15/2018 08/15/2008 GFR 05/24/2024 05/24/2023, 03/17, 03/26/2023, Additional history exists Mammogram 05/24/2024 05/24/2023, 07/15, 10/01/2011, Additional history exists Albumin/Creatinine Ratio 03/16/2026 03/16/2023, 07/2022 Diabetes Screening 05/24/2026 05/24/2023, 1 06/02/2022, 03/26/2023, Additional history exists Lipid Panel 03/03/2028 03/03/2023, 06/2022, 10/22/2008 Influenza Vaccine (FLU shot) Completed 03/05/2023, 04/11/2010 Pneumococcal Vaccine: Pediatrics (0 to 5 Years) and At-Risk Patients (6 to 64 Years) Aged Out 03/16/2023, 10/22/2008 No longer eligibl e based on patient's age to complete this topic GARDASIL-HPV IMMUNIZATION SERIES Aged Out No longer eligible based on patient's age to complete this topic Hepatitis B Aged Out No longer eligi ble based on patient's age to complete this topic MENINGOCOCCAL (MENACTRA/MENVEO) Aged Out No longer eligible based on patient's age to complete this topic documented as of this encounter Medical Devices Not on filedocumented as of this encounter Procedures Procedure Name Priority Date/Time Associated Diagnosis Comments MAMMOGRAM SCREENING ARTHUR BILATERAL Routine 05/24/2023 2:41 PM EST Encounter for screening mammogram for breast cancer documented in this encounter Results * MAMMOGRAM SCREENING ARTHUR BILATERAL (05/24/2023 2:41 PM EST) Anatomical Region Laterality Modality Breast Bilateral Mammography Narrative 05/24/2023 4:47 PM EST Result MAMMOGRAM SCREENING ARTHUR BILATERAL History Encounter for screening mammogram for breast cancer The patient has no documented relevant family history. Films Compared 07/26/2012 MAMMOGRAM, DIAGNOSTIC, BILAT, 07/26/2012 US - BREAST(S), 10/02/2011 MAMMOGRAM, SCREENING, BILAT, 10/01/2011 MAMMOGRAM, SCREENING, BILAT, 09/23/2010 MAMMOGRAM, SCREENING, BILAT, and 08/01/2008 MAMMOGRAM SCREENING-BILATERAL Findings The breasts have scattered areas of fibroglandular density. There is no evidence of suspicious masses, calcifications, or other abnormal findings. Impression Bilateral No mammographic evidence of malignancy. BI-RADS Category: 1 - Negative. Recommendation Screening mammogram in 1 year is recommended for both breasts. Digital breast tomosynthesis was performed. This digital mammogram has been analyzed with the computer aided detection system. This notice contains the results of your recent mammogram, including information about breast density. If your mammogram shows that your breast tissue is dense, you should know that dense breast tissue is a common finding and is not abnormal. Statistics show many women could have dense or highly dense breasts. Dense breast tissue can make it harder to find cancer on a mammogram and may be associated with an increased risk of cancer. This information about the result of your mammogram is given to you to raise your awareness and to inform your conversations with your physician. Together, you can decide which screening options are right for you, based on your mammogram results, individual risk factors or physical examination. A report of your results was sent to your physician. Your mammographic breast density on today's study is described above. There are four categories of breast density on mammography. Fatty breasts and those with scattered fibroglandular tissue are not considered dense. Heterogeneously dense or extremely dense tissue is considered "dense". Please understand that assessment of breast density may vary from year to year. This examination was performed at [facility], [address] [place] [address] [place] [address]. Sunshine Capellan DO RAD MAMMOGRAPHY documented in this encounter Visit Diagnoses Diagnosis Encounter for screening mammogram for breast cancer Special screening for malignant neoplasms, colon documented in this encounter Care Teams Licensed Clinical Social Worker Relationship Specialty Start Date End Date Sunshine Capellan DO [address] [place] [address] [place] [address] PCP - General Internal Medicine 02/16/23 documented as of this encounter
--- OUTSIDE RECORDS SUMMARY | 2023-06-19 04:32 | External Medical Summary | Summary of Care ---
Author Name Unknown Organization [facility] Address [address] [facility] [address] Phone [phone] Care Team Providers Care Ice Skater Name Role Phone Sunshine Capellan DO Primary Care Provider Reason for Visit * Reason Onset Date Comments Advice 03/29/2023 Encounter Details Date Type Department Care Team (Late st Contact Info) Description 03/29/2023 Telephone Family Medicine [address] [phone] Sunshine Capellan DO [address] [place], [place] [address] [address] Advice Allergies No known active allergiesdocumented as of this encounter (statuses as of 03/29/2023) Medications Medication Sig Dispensed Refills Start Date [...] then stop. 14 Patch 1 02/16/2023 Active hydroCHLOROthiazide 12.5 MG Oral Capsule (Hydrodiuril) Take 1 Capsule by mouth in the morning. 90 Capsule 1 02/16/2023 Active Aspirin 81 MG Oral [...] mouth in the morning. 0 03/16/2023 Active Escitalopram Oxalate 10 MG Oral Tablet (Lexapro)Indication s:Major depressive disorder in partial remission, unspecified whether recurrent (HCC) Take 2 Tablets by mouth in the morning. 0 03/16/2023 Active busPIRone HCl 5 MG Oral Tablet (Buspar) Take 1 Tablet by mouth in the morning and 1 Tablet before bedtime. 0 03/16/2023 Active hydrOXYzine HCl 50 MG Oral Tablet Take 1 Tablet by mouth every 6 hours as needed for Anxiety. 0 03/16/2023 Active documented as of this encounter (statuses as of 03/29/2023) Active Problems Problem Noted Date Diagnosed Date [...] as of this encounter (statuses as of 03/29/2023) Resolved Problems Problem Noted Date Diagnosed Date Resolved Date Alcohol abuse 02/16/2023 02/16/2023 Shortness of breath 02/03/2023 02/17/20 23 HTN, goal below 140/90 03/22 Overview: Modified per HTN Taxonomy. Adjustment disorder with depressed mood 02/16/2023 documented as of this encounter (statuses as of 03/29/2023) Immunizations Name Administration Dates Next Due Pneumococcal Conjugate Vaccine, 20-valent (Prevn ar20) 03/16/2023 Pneumococcal Polysaccharide PPV23 (Pneumovax) SEASONAL INFLUENZA, PF, 6 M & Above, IM , (FLULAVAL or FLUZONE) 03/05/2023 Seasonal Influenza, Split, IIV3, With Preserve, [...] on file documented as of this encounter Miscellaneous Notes * Telephone Encounter - Lilly Copeland OSA - 03/29/2023 10:[address] Jon is calling in regards to discharging the PT today from the hospital and is looking to speakto someone regarding it. Transferred to [place] in clinic for further assistance. documented in this encounter Plan of Treatment Upcoming Encounters Date Type Department Care Team (Late st Contact Info) Description 04/02/2023 12:30 PM EST Office Visit [address] [phone] Capellan, Sunshine Franco[address] [place] [address] 04/19/2023 1:00 PM EST Imaging Radiology [address] [place] [address] 09/14/2023 1:50 PM EDT Office Visit Family Medicine [address] [place] [phone] Sunshine Capellan[address] [place] [address] Health Maintenance Due Date Last Done Comments COVID-19 Vaccine (#1) 1962 Depression Screening 1974 HIV Screening 1977 Hepatitis C Screening 1980 HPV/Co-Test 1992 Cologuard 2007 Colonoscopy 2007 Colorectal Cancer Screening 2007 Fecal Occult Blood Test 2007 Sigmoidoscopy 2007 Cervical Cancer Screening 07/20/2011 Pap Smear 07/20/2011 07/19/2008 (Done elsewhere) Zoster Vaccines (1 of 2) 2012 Mammogram 07/26/2013 07/26/2012, 09/14, 10/01/2011, Additional history exists DTaP,Tdap,and Td Vaccines (2 - Td or Tdap) 08/15/2018 08/15/2008 GFR 03/16/2024 03/16/2023, 02/14, 03/02/2023, Additional history exists Albumin/Creatinine Ratio 03/16/2026 03/16/2023, 07/2022 Diabetes Screening 03/16/2026 03/16/2023, 1 , 03/02/2023, Additional history exists Lipid Panel 03/03/2028 03/03/2023, 090 06/2022, 10/22/2008 Influenza Vaccine (FLU shot) Completed [...] Not on filedocumented as of this encounter Care Teams Ice Skater Relationship Specialty Start Date End Date Sunshine Capellan DO [address] [place] [address] [place] [address] PCP - General Internal Medicine 02/16/23 documented as of this encounter
--- OUTSIDE RECORDS SUMMARY | 2023-06-19 04:32 | External Medical Summary | Summary of Care ---
Author Name Unknown Organization [facility] Address [address] [facility] [address] Phone [phone] Care Team Providers Care Assistant City Attorney Name Role Phone Sunshine Capellan Primary Care Provider + [phone] Reason for Visit * Reason Comments Outpatient Testing Encounter Details Date Type Department Care Team (Late st Contact Info) Description 05/24/2023 2:50 PM EST Laboratory Laboratory [address] [place] [phone] [place] [address] Stage 3b chronic kidney disease (HCC) Allergies No known active allergiesdocumented as of this encounter (statuses as of 05/24/2023) Medications Medication Sig Dispensed Refills Start Date [...] as of this encounter (statuses as of 05/24/2023) Active Problems Problem Noted Date Diagnosed Date [...] as of this encounter (statuses as of 05/24/2023) Resolved Problems Problem Noted Date Diagnosed Date Resolved Date Alcohol abuse 02/16/2023 02/16/2023 Shortness of breath 02/03/2023 02/17/20 23 HTN, goal below 140/90 03/22 Overview: Modified per HTN Taxonomy. Adjustment disorder with depressed mood 02/16/2023 documented as of this encounter (statuses as of 05/24/2023) Immunizations Name Administration Dates Next Due Pneumococcal [...] EDT Hospital Encounter [facility], Endoscopy Room [facility] [address] [place] [phone] Blair Card MD [address] [place] [address] 08/05/2023 1:00 PM EDT - 08/05/2023 1:30 PM EDT Surgery ENDO [facility], Endoscopy Room [facility] [address] [place] [phone] Blair Card MD [address] [place] [address] COLONOSCOPY FLEXIBLE PROXIMAL DIAGNOSTIC 09/14/2023 1:50 PM EDT Office Visit Family Medicine [address] [place] [phone] Timi Sunshine [address] [place] [address] 10/15/2023 2:30 PM EDT Office Visit Nephrology, [place] [address] [place] [address] ZemaitisGlendy PA-C [address] [place] [address] Pending Results Name Type Priority Associated Diagnoses Date /Time BASIC METABOLIC PANEL Lab Routine Stage 3b chronic kidney disease (HCC) 05/24/2023 2:30 PM EST PROTEIN/ CREATININE RATIO, URINE Lab Routine Stage 3b chronic kidney disease (HCC) 05/24/2023 2:30 PM EST Scheduled Procedures Name Priority Associated Diagnoses Date/Ti [...] - Td or Tdap) 08/15/2018 08/15/2008 GFR 04/02/2024 04/02/2023, 03/17, 03/16/2023, Additional history exists Albumin/Creatinine Ratio 03/16/2026 03/16/2023, 07/2022 Diabetes Screening 04/02/2026 04/02/2023, 1 05/26/2022, 03/16/2023, Additional history exists Lipid Panel 03/03/2028 03/03/2023, [...] Not on filedocumented as of this encounter Visit Diagnoses Diagnosis Stage 3b chronic kidney disease (HCC) Special screening for malignant neoplasms, colon documented in this encounter Care Teams Assistant City Attorney Relationship Specialty Start Date End Date Sunshine Capellan DO [address] [place] [address] [place] [address] PCP - General Internal Medicine 02/16/23 documented as of this encounter
--- OUTSIDE RECORDS SUMMARY | 2023-06-19 04:32 | External Medical Summary | Summary of Care ---
Author Name Unknown Organization [facility] Address [address] [facility] [address] Phone [phone] Care Team Providers Care Contract Technical Writer Name Role Phone Sunshine Capellan DO Primary Care Provider [phone] Encounter Details Date Type Department Care Team (Late st Contact Info) Description 03/29/2023 Orders Only Family Medicine [address] [place] [address] Sunshine Capellan DO [address] [place] [address] [place] [address] Allergies No known active allergiesdocumented as of [...] Description 04/02/2023 12:30 PM EST Office Visit Family Medicine [address] [phone] Sunshine Capellan, [address] [place] [address] 04/19/2023 1:00 PM EST Imaging Radiology [address] [place] [address] 09/14/2023 1:50 PM EDT Office Visit Family Medicine [address] [place] [phone] Sunshine Capellan, [address] [place] [address] Health Maintenance Due Date Last Done Comments [...] Td or Tdap) 08/15/2018 08/15/2008 GFR 03/16/2024 03/26/2023, 02/16, 03/03/2023, Additional history exists Albumin/Creatinine Ratio 03/16/2026 03/16/2023, 1007/2022 Diabetes Screening 03/16/2026 03/26/2023, 1 , 03/03/2023, Additional history exists Lipid Panel 03/03/2028 03/03/2023, [...] Procedure Name Priority Date/Time Associated Diagnosis Comments CHEMISTRY-OUTSIDE Routine 03/26/2023 documented in this encounter Results * (ABNORMAL) CHEMISTRY-OUTSIDE (03/26/2023) Not all results display below - see scan for full detail OUTSIDE LAB (SEE SCANNED REPORT) Comment:SCAN INCLUDES: UA, C BCD, CMP, LIPASE, MG, TROP, FLU A&B RNA, SARS COV2 RNA CREATININE-OUTSI DE LAB 1.96(A) 0.55 - 1.02 MG/DL OUTSIDE LAB (SEE SCANNED REPORT) EGFR-OUTSIDE LAB 29(A) >=60 ML/MIN O UTSIDE LAB (SEE SCANNED REPORT) POTASSIUM-OUTSID E LAB 4.5 3.5 - 5.1 MMOL/L OUTSIDE LAB (SEE SCANNED REPORT) GLUCOSE-OUTSIDE LAB 97 70 - 110 MG/DL OUTSIDE LAB (SEE SCANNED REPORT) HOURS FASTING OUTSID E LAB (SEE SCANNED REPORT) TRIGLYCERIDES-OU TSIDE LAB OUTSIDE LAB (SEE SCANNED REPORT) CHOLESTEROL-OUTS [facility] OUTSIDE LAB (SEE SCANNED REPORT) HDL-OUTSIDE LAB OUTS [facility] (SEE SCANNED REPORT) CHOL/HDL RATIO-OUTSIDE LAB OUTSIDE LAB (SEE SCANNED REPORT) LDL (CALCULATED)-OUT SIDE LAB OUTSIDE LAB (SEE SCANNED REPORT) LDL (DIRECT MEASURE)-OUTSIDE LAB OUTSIDE LAB (SEE SCANNED REPORT) HEMOGLOBIN, N9X-APRBHZM LAB OUTSIDE LAB (SEE SCANNED REPORT) PHOSPHORUS-OUTSI DE LAB OUTSIDE LAB (SEE SCANNED REPORT) PTH-OUTSIDE LAB OUTS [facility] (SEE SCANNED REPORT) MICROALBUMIN RATIO-OUTSIDE LAB OUTSIDE LAB (SEE SCANNED REPORT) PROTEIN, UA-OUTSIDE LAB TRACE(A) NEGATIVE OUTSIDE LAB (SEE SCANNED REPORT) HEMOGLOBIN-OUTSI DE LAB 11.6(A) 12.0 - 16.0 GM/DL OUTSIDE LAB (SEE SCANNED REPORT) 03/26/2023 History Per Patient LABORATORY OUTSIDE LAB (SEE SCANNED REPORT) documented in this encounter Care Teams Contract Technical Writer Relationship Specialty Start Date End Date Sunshine Capellan DO [address] [place] [address] [place] [phone] PCP - General Internal Medicine 02/16/23 documented as of this encounter
--- OUTSIDE RECORDS SUMMARY | 2023-06-19 04:32 | External Medical Summary | Summary of Care ---
Author Name Unknown Organization [facility] Address [address] [place] [facility] [place] [address] Phone [phone] Care Team Providers Care Rustic Terrazzo Setter Name Role Phone Sunshine Capellan DO Primary Care Provider + [phone] Reason for Visit * Reason Onset Date Comments Medical Records Request 05/24/2023 SAMEER BARRY [employer] Encounter Details Date Type Department Care Team (Late st Contact Info) Description 05/24/2023 Telephone Family [address] [phone] Sunshine Capellan [address] [place] [phone] Medical Records Request (HALINA BARRY ... Allergies No known active allergiesdocumented as of [...] encounter Miscellaneous Notes * Telephone Encounter - Irwin Hester OSA - 05/24/2023 2:46 PM EST Recd request for records 05/24/2023 from HALINA BARRY MANAGER OF [employer]ODUCTION. Auth and legal release was faxed to HIM at [phone] on 05/24/2023. Faxed due to pt signed auth back in February, but records weren't sent. To check status of records, please call HIM directly at [phone]. documented in this encounter Plan of Treatment Upcoming Encounters Date Type Department Care Team (Latest Contact Info) Description 08/05/2023 1:00 PM EDT Hospital Encounter ENDO [facility], Endoscopy Room [facility] [address] [place] [phone] Blair Card MD [address] [place] [address] 08/05/2023 1:00 PM EDT - 08/05/2023 1:30 PM EDT Surgery ENDO [facility], Endoscopy Room [facility] [address] [place] [phone] Blair Card MD [address] [place] [address] COLONOSCOPY FLEXIBLE PROXIMAL DIAGNOSTIC 09/14/2023 1:50 PM EDT Office Visit Family Medicine [address] [phone] Sunshine Capellan[address] [place] [address] 10/15/2023 2:30 PM EDT Office Visit Nephrology, Demi [place] [address] [place] [address] ZemaitisGlendy PA-C [address] [place] [address] Scheduled Procedures Name Priority Associated Diagnoses Date/Ti [...] filedocumented as of this encounter Care Teams Rustic Terrazzo Setter Relationship Specialty Start Date End Date Sunshine Capellan DO [address] [place] [address] [place] [address] PCP - General Internal Medicine 02/16/23 documented as of this encounter
--- OUTSIDE RECORDS SUMMARY | 2023-06-19 04:32 | External Medical Summary | Summary of Care ---
Author Name Unknown Organization [facility] Address [address] [facility] [address] Phone [phone] Care Team Providers Care Transport Tech Name Role Phone Sunshine Capellan DO Primary Care Provider Reason for Visit * Reason Onset Date Comments Test Results 03/26/2023 Encounter Details Date Type Department Care Team (Late st Contact Info) Description 03/26/2023 Telephone Family Medicine [address] [phone] Sunshine Capellan DO [address] [place], [place] [address] [address] Test Results Allergies No known active allergiesdocumented as of this encounter (statuses as of 03/26/2023) Medications Medication Sig Dispensed Refills Start Date [...] as of this encounter (statuses as of 03/26/2023) Active Problems Problem Noted Date Diagnosed Date [...] as of this encounter (statuses as of 03/26/2023) Resolved Problems Problem Noted Date Diagnosed Date Resolved Date Alcohol abuse 02/16/2023 02/16/2023 Shortness of breath 02/03/2023 02/17/20 23 HTN, goal below 140/90 03/22 Overview: Modified per HTN Taxonomy. Adjustment disorder with depressed mood 02/16/2023 documented as of this encounter (statuses as of 03/26/2023) Immunizations Name Administration Dates Next Due Pneumococcal [...] encounter Miscellaneous Notes * Telephone Encounter - Sunshine Capellan DO - 03/26/2023 4:02 PM EST Noted. * Telephone Encounter - Barb Peter CMA - 03/26/2023 3:52 PM EST I called and spoke to Chaplain Watson and she said Cynthia went to the ER because she has been in bed due to pain x 2 days. She is at the [facility]. * Telephone Encounter - Sunshine Capellan DO - 03/26/2023 10:00 AM EST See message below as well and discuss that with patient as well. Kidney ultrasound shows multiple cysts. Given this finding and her decreased kidney function, I want her to see a kidney doctor. Route back to me after speaking with patient. * Telephone Encounter - Sunshine Capellan DO - 03/26/2023 8:31 AM EST Please call patient: The spot on her CXR is still there. I would like to get a CT scan to evaluate this further. Route back to me after speaking with patient and I will place the order. documented in this encounter Plan of Treatment Upcoming Encounters Date Type Department Care Team (Late st Contact Info) Description 04/19/2023 1:00 PM EST Imaging Radiology [address] [place] [address] 09/14/2023 1:50 PM EDT Office Visit Family Medicine [address] [place] [phone] Sunshine Capellan DO [address] [place] [address] [place] [address] Health Maintenance Due Date Last Done Comments [...] filedocumented as of this encounter Care Teams Transport Tech Relationship Specialty Start Date End Date Sunshine Capellan DO [address] [place] [address] [place] [address] PCP - General Internal Medicine 02/16/23 documented as of this encounter
--- OUTSIDE RECORDS SUMMARY | 2023-06-19 04:32 | External Medical Summary | Summary of Care ---
Author Name Unknown Organization [facility] Address [address] [facility] [address] Phone [phone] Care Team Providers Care Clothing And Textiles Teacher Name Role Phone Sunshine Capellan Primary Care Provider + [phone] Reason for Visit * Reason Onset Date Comments Advice 02/09/2023 Still not O2 Encounter Details Date Type Department Care Team (Late st Contact Info) Description 02/09/2023 Telephone Family [address] [phone] Estelle Joy PA-C [address] [place] [address] [place] [address] Advice (Still not O2 ) Allergies No known active allergiesdocumented as of this encounter (statuses as of 05/11/2023) Medications Medication Sig Dispensed Refills Start Date End Date Status oxygen IN GAS Administer 2 L/min(Oxygen) into nostril continuous. 1 Each 0 02/03/2023 Active Escitalopram Oxalate 10 MG Oral Tablet (Lexapro) Take 1 Tablet by mouth in the morning. 0 3 Discontinued(Refi ll) Labetalol HCl 200 MG Oral Tablet (Normodyne) Take 1 Tablet by mouth daily. 0 3 Discontinued(Refi ll) LORazepam 0.5 MG Oral Tablet (Ativan) Take 1 Tablet by mouth 2 times a day as needed. 0 3 Discontinued Nicotine 21 MG/24HR Transdermal Patch 24 Hour (Nicoderm CQ) Place 1 Patch topically on the skin daily. 0 3 Discontinued traZODone HCl 50 MG Oral Tablet (Desyrel) Take 1 Tablet by mouth at bedtime. 0 3 Discontinued(Refi ll) amLODIPine Besylate 10 MG Oral Tablet (Norvasc) Take 1 Tablet by mouth in the morning. 0 3 Discontinued(Refi ll) Aspirin 81 MG Oral Tablet Delayed Release (Aspirin 81) Take 1 Tablet by mouth in the morning. 0 3 Discontinued(Refi ll) Atorvastatin Calcium 40 MG Oral Tablet (Lipitor) Take 1 Tablet by mouth in the morning. 0 3 Discontinued(Refi ll) Losartan Potassium 50 MG Oral Tablet (Cozaar) Take 1 Tablet by mouth in the morning. 0 3 Discontinued(Refi ll) documented as of this encounter (statuses as of 05/11/2023) Active Problems Problem Noted Date Diagnosed Date [...] as of this encounter (statuses as of 05/11/2023) Resolved Problems Problem Noted Date Diagnosed Date Resolved Date Alcohol abuse 02/16/2023 02/16/2023 Shortness of breath 02/03/2023 02/17/20 23 HTN, goal below 140/90 03/22 Overview: Modified per HTN Taxonomy. Adjustment disorder with depressed mood 02/16/2023 documented as of this encounter (statuses as of 05/11/2023) Immunizations Name Administration Dates Next Due Pneumococcal Polysaccharide PPV23 (Pneumovax) Seasonal Influenza, Split, IIV3, With Preserve, Inj 04/11/2010 TDAP (age 11 and older)(Adacel) 08/15/2008 documented as of this encounter Social History Tobacco Use Types Packs/Day Years Used Date Smoking Tobacco: Every Day Cigarettes 0.5 31 Comments:age 18, did quit in Alcohol Use Standard Drinks/Week Comments Yes 0 (1 standard drink = 0.6 oz pur e alcohol) Sex and Gender Information Value Date Recorded Sex Assigned at Not on file Gender Identity Not on file Sexual Orientation Not on file Job Start Date Occupation Industry Not on file Not on file Not on file documented as of this encounter Miscellaneous Notes * Telephone Encounter - Yuriy Ward LPN - 02/10/2023 5:37 PM EDT Provider to address: Estelle Joy PA-C Reason for Call: Advice (Still not O2 ) Contact: In Clinic Contact Type: Orders Outcome: Called patient Received fax from [facility] stating they need new oxygen order with COPD J44.9 dx on script Tried to contact patient to see if she got her oxygen yet or if order still needs corrected due to note below was being supplied by P Left VM on pt home # Total Time including non face to face (minutes): 5 * Telephone Encounter - Regina Yadav LPN - 02/09/2023 10:20 AM EDT Re faxed all information to P & told them we were not notified that anything was wrong with the order & they need to contact us, if there is an issue with this. Put STAT on the cover sheet, as this has been a week & pt is still without oxygen. Spoke with Ghada, states that pt is taking it easy & if her oxygen continues to drop, they will go to the ER but right now they are monitoring it. * Telephone Encounter - Verena Roger OSA - 02/09/2023 9:38 AM EDT Pt was to be on Oxygen & there was no diagnosis was on the order so the [facility] [employer] [facility] sent it back & never told them. So now she is still does not have Oxygen & SATS are in the 80's. [facility] documented in this encounter Plan of Treatment Upcoming Encounters Date Type Department Care Team (Latest Contact Info) Description 05/24/2023 2:30 PM EST Imaging Radiology [address] [place] [address] 08/05/2023 1:00 PM EDT Hospital Encounter [facility], Endoscopy Room [facility] [address] [place] [phone] Blair Card MD [address] [place] [address] 08/05/2023 1:00 PM EDT - 08/05/2023 1:30 PM EDT Surgery ENDO [facility], Endoscopy Room [facility] [address] [place] [phone] Blair Card MD [address] [place] [address] COLONOSCOPY FLEXIBLE PROXIMAL DIAGNOSTIC 09/14/2023 1:50 PM EDT Office Visit Family Medicine [address] [place] [phone] Sunshine Capellan [address] [place] [address] 10/15/2023 2:30 PM EDT [facility] [address] [facility] [place] [address] ZeGlendy armendariz PA-C [address] [place] [address] Scheduled Procedures Name Priority Associated Diagnoses Date/Ti [...] Albumin/Creatinine Ratio 03/16/2026 03/16/2023, 1007/2022 Diabetes Screening 04/02/2026 04/02/2023, 1 05/26/2022, 03/16/2023, Additional history exists Lipid Panel 03/03/2028 03/03/2023, 0906/2022, 10/22/2008 Influenza Vaccine (FLU shot) Completed 03/05/2023, [...] filedocumented as of this encounter Care Teams Clothing And Textiles Teacher Relationship Specialty Start Date End Date Sunshine Capellan DO [address] [place] [address] [place] [phone] PCP - General Internal Medicine 02/16/23 documented as of this encounter
--- OUTSIDE RECORDS SUMMARY | 2023-06-19 04:32 | External Medical Summary | Summary of Care ---
Author Name Unknown Organization [facility] Address [address] [facility] [place] [address] Phone [phone] Care Team Providers Care Improvement Analyst Name Role Phone Sunshine Capellan DO Primary Care Provider + [phone] Reason for Visit * Reason Comments NEW PATIENT * Evaluate & Treat - Unlimited Visits (Within 10 days (routine)) - Pending Review Specialty Diagnoses / Procedures Referred By Qasim gallegos Referred To Contact Nephrology Diagnoses Stage 3 chronic kidney disease, unspecified whether stage 3a or 3b CKD (HCC) Sunshine Capellan, [address] [place] [address] [place] [address] Referral ID Status Reason Start Date Expiration Date Visits Requested Visits Authorized [id number] Pending Review Specialty Services Required [phone] Encounter Details Date Type Department Care Team (Late st Contact Info) Description 04/12/2023 2:20 PM EST Office Visit Nephrology, [address] [place] [address] Annie Vraghese MD [address] [place] [address] [place] [id number] Stage 3b chronic kidney disease (HCC)*; HERMILO (acute kidney injury) (HCC); HTN, goal below 140/90; Complex renal cyst Allergies No known active allergiesdocumented as of this encounter (statuses as of 04/12/2023) Medications Medication Sig Dispensed Refills Start Date [...] as of this encounter (statuses as of 04/12/2023) Active Problems Problem Noted Date Diagnosed Date [...] as of this encounter (statuses as of 04/12/2023) Resolved Problems Problem Noted Date Diagnosed Date Resolved Date Alcohol abuse 02/16/2023 02/16/2023 Shortness of breath 02/03/2023 02/17/20 23 HTN, goal below 140/90 03/22 Overview: Modified per HTN Taxonomy. Adjustment disorder with depressed mood 02/16/2023 documented as of this encounter (statuses as of 04/12/2023) Immunizations Name Administration Dates Next Due Pneumococcal [...] on file documented as of this encounter Last Filed Vital Signs Vital Sign Reading Time Taken Comments Blood Pressure 142/76 04/12/2023 2:24 PM EST Pulse 67 04/12/2023 2:24 PM EST Temperature 36 C (96.8 F) 04/12/2023 2:24 PM EST Respiratory Rate - - Oxygen Saturation - - Inhaled Oxygen Concentration - - Weight 69.4 kg (153 lb 1.6 oz) 04/12/2023 2:24 P M EST Height 158 cm (5' 2.21") 04/12/2023 2:24 PM EST Body Mass Index 27.82 04/12/2023 2:24 PM EST documented in this encounter Progress Notes * Annie Varghese MD - 04/12/2023 2:45 PM EST REASON FOR CONSULT: Acute kidney injury Requesting physician:Sunshine Capellan DO HPI: Cynthia Whittaker is a 62 year old female seen in initial consultation for acute kidney injury. Past medical history of hypertension, osteoarthritis, anxiety, ex-smoker quit in December 2022 and recent hospitalization for colitis complicated by acute kidney injury with creatinine peak of 1.9 on 02/23/2023. Patient also received CT for contrast as well as Ketoralac for pain the same day. She was on ibuprofen for her chronic pain but stopped a month ago. Now on tylenol. She was admitted in [facility] for Pneumonia and just got out 2 weeks ago. Does not drink enough fluids. No urinary symptoms and no shortness of breath. Recent labs reviewed with patient Review of Systems: General ROS: negative for - chills or fever Psychological ROS: negative for - mood swings ENT ROS: negative for - nasal congestion or nasal discharge Endocrine ROS: negative Respiratory ROS: no cough, shortness of breath, or wheezing Cardiovascular ROS: no chest pain or dyspnea on exertion Gastrointestinal ROS: no abdominal pain, change in bowel habits, or black or bloody stools Genito-Urinary ROS: no dysuria, trouble voiding, or hematuria Musculoskeletal ROS: negative for - muscle pain Neurological ROS: no TIA or stroke symptoms Dermatological ROS: negative for rash Past Medical History: Diagnosis Date Adjustment disorder with depressed mood Degeneration of lumbosacral intervertebral disc 10/21/09 L4-5 Generalized anxiety disorder Generalized osteoarthritis HTN, goal below 140/90 Tobacco use disorder Past Surgical History: Procedure Laterality Date HYSTEROSCOPY;ENDOMETRIAL ABLAT 02/21/2009 [facility] MRI LUMBAR SPINE WO CONTRAST 12/09/09 Lower lumbar degenerative changes, with herniations MAMMOGRAM SCREENING-BILATERAL 07/23/08 category 1 normal Review of patient's allergies indicates: No Known Allergies Current Outpatient Medications Medication Sig Dispense Refill oxygen IN GAS Administer 2 L/min(Oxygen) into nostril continuous. 1 Each 0 amLODIPine Besylate 10 MG Oral Tablet (Norvasc) Take 1 Tablet by mouth in the morning. 90 Tablet 1 Atorvastatin Calcium 40 MG Oral Tablet (Lipitor) Take 1 Tablet by mouth in the morning. 90 Tablet 1 Labetalol HCl 200 MG Oral Tablet (Normodyne) Take 1 Tablet by mouth daily. 90 Tablet 1 Losartan Potassium 50 MG Oral Tablet (Cozaar) Take 1 Tablet by mouth in the morning. 90 Tablet 1 traZODone HCl 50 MG Oral Tablet (Desyrel) Take 1 Tablet by mouth at bedtime. 30 Tablet 0 Nicotine 7 MG/24HR Transdermal Patch 24 Hour (Nicoderm CQ) One 7 mg patch daily for 2 weeks; Removeold patch daily; and then stop. 14 Patch 1 Aspirin 81 MG Oral Tablet Delayed Release (Aspirin 81) Take 1 Tablet by mouth in the morning. 90 Tablet 1 Nicotine 14 MG/24HR Transdermal Patch 24 Hour (Nicoderm CQ) One 14 mg patch daily for 2 wks; then one 7 mg patch daily for 2 wks. Remove old patch daily Do not start before March 30, 2023. 14 Patch 2 busPIRone HCl 5 MG Oral Tablet (Buspar) Take 1 Tablet by mouth in the morning and 1 Tablet before bedtime. hydrOXYzine HCl 50 MG Oral Tablet Take 1 Tablet by mouth every 6 hours as needed for Anxiety. Escitalopram Oxalate 20 MG Oral Tablet (Lexapro) Take 1 Tablet by mouth in the morning. Naltrexone HCl 50 MG Oral Tablet (Revia) Take 0.5 Tablets by mouth in the morning. (Patient not taking: Reported on 04/12/2023) No current facility-administered medications for this visit. Family History Problem Relation Age of Onset Cancer Father Hypertension Father No Past Hx None NO FM HX of [employer] [place] Social History Socioeconomic History Marital status: Spouse name: Not on file Number of children: Not on file Years of education: Not on file Highest education level: Not on file Occupational History Not on file Tobacco Use Smoking status: Former Packs/day: 0.50 Years: 31.00 Additional pack years: 0.00 Total pack years: 15.50 Types: Cigarettes Quit date: 09/2022 Years since quittin.5 Smokeless tobacco: Never Tobacco comments: age 18, did quit in Vaping Use Vaping Use: Some days Substances: THC Substance and Sexual Activity Alcohol use: Not Currently Comment: heavy alcohol use in the past Drug use: No Sexual activity: Yes Partners: Male Other Topics Concern Not on file Social History Narrative Not on file Social Determinants of Health Financial Resource Strain: Not on file Food Insecurity: Not on file Transportation Needs: Not on file Physical Activity: Not on file Stress: Not on file Social Connections: Not on file Intimate Partner Violence: Not on file Housing Stability: Not on file Filed Vitals: 04/12/23 1424 BP: 142/76 Pulse: 67 Temp: 36 C (96.8 F) TempSrc: Tympanic Weight: 69.4 kg (153 lb 1.6 oz) Height: 1.58 m (5' 2.21") PHYSICAL EXAM: GENERAL: Well-appearing, Alert, in no acute distress. EYES: PERRL, conjunctivae anicteric. ENT: Mucous membranes moist, oropharynx clear. NECK: Supple, no JVD. LYMPH: No cervical or supraclavicular lymphadenopathy. LUNGS: Clear to auscultation bilaterally, no respiratory distress. CARDIAC: Regular rate and rhythm, normal S1/S2, no murmurs, rubs, or gallops. ABDOMEN: Soft, non-tender, non-distended, bowel sounds present. EXT/MSK: No clubbing, cyanosis, or edema. SKIN: No rash, no jaundice. NEURO: Oriented x3, No tremor, no asterixis. LABS/STUDIES: Recent Labs Units 04/02/23 1312 03/26/23 0000 03/16/23 1349 03/03/23 0000 03/02/23 1237 02/03/23 0903 SODIUM - [facility] mmol/L 143 -- 139 -- 142 141 POTASSIUM - [facility] mmol/L 4.6 -- 5.1 -- 4.8 4.4 POTASSIUM-OUTSIDE LAB MMOL/L -- 4.5 -- 4.5 -- -- CHLORIDE - [facility] mmol/L 106 -- 106 -- 106 104 CO2 - [facility] mmol/L 24 -- 23 -- BUN - [facility] mg/dL 45* -- 31* -- 26* 28* CREATININE - [facility] mg/dL 1.6* -- 1.5* -- 1.3* 1.4* CREATININE-OUTSIDE LAB MG/DL -- 1.96* -- 1.36* -- -- Recent Labs Units 03/26/23 0000 03/03/23 0000 02/03/23 0903 WBC AUTO - [facility] K/uL -- -- 10.30 HGB - [facility] g/dL -- -- 11.4* HEMOGLOBIN-OUTSIDE LAB GM/DL 11.6* 11.7* -- PLATELET AUTO - [facility] K/uL -- -- 273 Recent Labs Units 04/02/23 1312 03/16/23 1349 03/02/23 1237 02/03/23 0903 01/16/23 0000 CALCIUM - [facility] mg/dL 9.9 9.4 9.5 9.6 -- PHOSPHORUS - [facility] mg/dL -- 4.8 -- -- -- PHOSPHORUS-OUTSIDE LAB MG/DL -- -- -- -- 4.3 Recent Labs Units 01/16/23 0000 HEMOGLOBIN, [id number] LAB % 5.7* No results for input(s): "MICROALBUMIN", "PROCRRATIO" in the last 62777 hours. ASSESSMENT/PLAN: Cynthia was seen today for new patient. 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 Baseline creatinine is around 1. Patient with recent worsening renal function with a creatinine peak of 1.9 during recent hospitalization for colitis. Creatinine is downtrending to most recently 1.6. other etiologies for worsening renal function include NSAID use and infection. Discussed need to avoid NSAIDs going forward. Patient will increase water intake aiming for at least 64 oz of fluids daily. Repeat BMP and urine protein next week. HTN, goal below 140/90 Blood pressure is controlled on current regimen Complex renal cyst: Patient has the minimally complex renal cyst which is stable on recent CT abdomen. She will need follow-up imaging in about a year. Follow Up: Return in about 6 months (around 10/11/2023). Annie Varghese MD Nephrology, [facility] [address] [place] [address] This note was generated with the help of voice recognition software. Please excuse for errors. documented in this encounter Nursing Notes * Mela Solares LPN - 04/12/2023 2:19 PM EST New patient- referred by PCP for "Stage 3 chronic kidney disease, unspecified whether stage 3a or 3b CKD" Pt has been in the hospital on and off since Jan. Pt has swelling in her legs. documented in this encounter Plan of Treatment Upcoming Encounters Date Type Department Care Team (Latest Contact Info) Description 04/19/2023 1:00 PM EST Imaging Radiology [address] [place] [address] 08/05/2023 1:00 PM EDT Hospital Encounter ENDO [facility], Endoscopy Room [facility] [address] [place] [phone] Blair Card MD [address] [place] [address] 08/05/2023 1:00 PM EDT - 08/05/2023 1:30 PM EDT Surgery ENDO [facility], Endoscopy Room [facility] [address] [place] [phone] Blair Card MD [address] [place] [address] COLONOSCOPY FLEXIBLE PROXIMAL DIAGNOSTIC 09/14/2023 1:50 PM EDT Office Visit Family Medicine [address] [place] [phone] [address] [place] [address] 12/20/2023 2:20 PM EDT Office Visit Nephrology, [facility] [address] [place] [address] Annie Varghese MD [address] [place] [phone] Scheduled Orders Name Type Priority Associated Diagnoses Orde r Schedule BASIC METABOLIC PANEL Lab Routine Stage 3b chronic kidney disease (HCC) Expected: 04/19/2023, Expires: 04/12/2024 PROTEIN/ CREATININE RATIO, URINE Lab Routine Stage 3b chronic kidney disease (HCC) Expected: 04/19/2023, Expires: 04/12/2024 Scheduled Procedures Name Priority Associated Diagnoses Date/Ti [...] Diagnoses Diagnosis Stage 3b chronic kidney disease (HCC)- Primary HERMILO (acute kidney injury) (HCC) Acute kidney failure, unspecified HTN, goal below 140/90 Unspecified essential hypertension Complex renal cyst Other specified congenital cystic kidney disease Special screening for malignant neoplasms, colon documented in this encounter Care Teams Improvement Analyst Relationship Specialty Start Date End Date Sunshine Capellan DO [address] [place] [address] [place] [address] PCP - General Internal Medicine 02/16/23 documented as of this encounter
--- OUTSIDE RECORDS SUMMARY | 2023-06-19 04:32 | External Medical Summary | Summary of Care ---
Author Name Unknown Organization [facility] [address] [facility] [address] Phone [phone] Care Team Providers Care Gasket Maker Name Role Phone Sunshine Capellan Primary Care Provider [phone] Reason for Visit * Reason Onset Date Comments Appointment 04/06/2023 Encounter Details Date Type Department Care Team (Late st Contact Info) Description 04/06/2023 Telephone NephrologyDemi [address] [place] [address] Marquez Arrieta MD [address] [facility] [place] [place] [address] Appointment Allergies No known active allergiesdocumented as of this encounter (statuses as of 04/06/2023) Medications Medication Sig Dispensed Refills Start Date [...] as of this encounter (statuses as of 04/06/2023) Active Problems Problem Noted Date Diagnosed Date [...] as of this encounter (statuses as of 04/06/2023) Resolved Problems Problem Noted Date Diagnosed Date Resolved Date Alcohol abuse 02/16/2023 02/16/2023 Shortness of breath 02/03/2023 02/17/20 23 HTN, goal below 140/90 03/22 Overview: Modified per HTN Taxonomy. Adjustment disorder with depressed mood 02/16/2023 documented as of this encounter (statuses as of 04/06/2023) Immunizations Name Administration Dates Next Due Pneumococcal [...] encounter Miscellaneous Notes * Telephone Encounter - Chelsea Galvan RN - 04/06/2023 12:44 PM EST Please schedule pt with next available with Dr Arrieta due to worsening labs. * Telephone Encounter - Chelsea Galvan RN - 04/06/2023 12:44 PM EST ----- Message from Marquez Arrieta MD sent at 04/06/2023 12:35 PM EST ----- Regarding: RE: nephro referral Will do. ----- Message ----- From: Sunshine Capellan DO Sent: 04/05/2023 2:25 PM EST To: Marquez Arrieta MD Subject: nephro referral Dr. Arrieta, This patient is schedule to see you in consultation for worsening renal function, but didn't get anappointment until November. Her renal function has dropped significantly in the past few months - normal in early January, creatinine now 1.6. Is there any way she can be seen sooner or added to a cance llation list? Sunshine Capellan DO documented in this encounter Plan of Treatment Upcoming Encounters Date Type Department Care Team (Late st Contact Info) Description 04/19/2023 1:00 PM EST Imaging Radiology [address] [place] [address] 09/14/2023 1:50 PM EDT Office Visit Family Medicine [address] [place] [phone] Sunshine Capellan DO [address] [place] [address] [place] [address] 12/10/2023 10:00 AM EDT Office Visit Nephrology, [facility] [address] [facility] [place] [address] Marquez Arrieta MD [address] [facility] [place] [address] Health Maintenance Due Date Last Done Comments [...] filedocumented as of this encounter Care Teams Gasket Maker Relationship Specialty Start Date End Date Sunshine Capellan DO [address] [place] [address] [place] [address] PCP - General Internal Medicine 02/16/23 documented as of this encounter
--- OUTSIDE RECORDS SUMMARY | 2023-06-19 04:32 | External Medical Summary ---
Author Name Unknown Address Unknown Organization K01:[facility] - [address] [place] [address] Laboratory Report Ordering Provider Test Date Status KENDAL MCNAMARA 05/24/2023 14:30:13 Final Normal: <150 mg/ g creatinine
High: 150-500 mg/g creatinine
Very High: >500 mg/g creatinine
Nephrotic: >3000 mg/g creatinine Observation Date Value Abnormality Reference (Units ) Status Protein/Creatinine [Ratio] in Urine 05/24/2023 14:30:13 133 <150 (mg/g ) Final Protein, Urine 05/24/2023 14:30:13 13 (mg/dL) Final Creatinine, Urine 05/24/2023 14:30:13 98 (mg/dL) Final Performing Location [facility] - [address] [place] [address]
--- OUTSIDE RECORDS SUMMARY | 2023-06-19 04:32 | External Medical Summary | Summary of Care ---
Author Name Unknown Organization [facility] Address [address] [facility] [place] [address] Phone [phone] Care Team Providers Care Production Recovery Operator Name Role Phone CapellanShannanSunshine Franco Primary Care Provider [phone] Encounter Details Date Type Department Care Team (Late st Contact Info) Description 03/27/2023 Result Scan Unspecified Department <No scans attached> Allergies No known active allergiesdocumented as of [...] Description 04/19/2023 1:00 PM EST Imaging Radiology [address] [place] [address] 09/14/2023 1:50 PM EDT Office Visit Family Medicine [address] [place] [phone] [place] [address] Health Maintenance Due Date Last Done Comments [...] Procedure Name Priority Date/Time Associated Diagnosis Comments RADIOLOGY SCANNED RESULT 03/27/2023 RADIOLOGY SCANNED RESULT 03/27/2023 RADIOLOGY SCANNED RESULT 03/26/2023 documented in this encounter Results * RADIOLOGY SCANNED RESULT (03/27/2023) 03/27/2023 No Physician Data Unknown DIAGNOSTIC RAD IOLOGY SERVICES * RADIOLOGY SCANNED RESULT (03/27/2023) 03/27/2023 No Physician Data Unknown DIAGNOSTIC RAD IOLOGY SERVICES * RADIOLOGY SCANNED RESULT (03/26/2023) 03/26/2023 No Physician Data Unknown DIAGNOSTIC RAD IOLOGY SERVICES documented in this encounter Care Teams Production Recovery Operator Relationship Specialty Start Date End Date Sunshine Capellan DO [address] [place] [address] [place] [phone] PCP - General Internal Medicine 02/16/23 documented as of this encounter
--- OUTSIDE RECORDS SUMMARY | 2023-06-19 04:32 | External Medical Summary | Summary of Care ---
Author Name Unknown Organization [facility] Address 100 [facility] [address] Phone [phone] Care Team Providers Care Set Up Mechanic Stamping Machines Name Role Phone Sunshine Capellan DO Primary Care Provider [phone] Reason for Referral * Ancillary Services (Within 10 days (routine)) - Pending Review Specialty Diagnoses / Procedures Referred By Qasim gallegos Referred To Contact Gastroenterology Diagnoses Special screening for malignant neoplasms, colon Sunshine Capellan DO [address] [place] [address] [place] [address] Referral ID Status Reason Start Date Expiration Date Visits Requested Visits Authorized [id number] Pending Review Ancillary Services Required 3 [phone] Question Answer Referral Priority Within 10 days (routine) Where should this appointment be scheduled? [facility] Comments ALERT: Do not order for pediatric patients (18 years or younger). Cancel off screen and order PEDS GASTROENTEROLOGY CONSULT (Type: 1 visit only-Evaluate and Treat) The following Pt. Instructions are available: - Gastro Colonoscopy Prep Instructions [[id number]] - Gastro Colonoscopy Prep Instructions (Armenian Version) [[id number]] Go to the Pt. Instructions section within the Visit Navigator to access. Colonoscopy ASGE Guidelines: Average risk screening (begin at age 50, 10 year intervals) ADDITIONAL INFORMATION 1. Is the patient on Coumadin? No 2. Is the patient on Pradaxa? No * Evaluate & Treat - Unlimited Visits (Within 10 days (routine)) - Pending Review Specialty Diagnoses / Procedures Referred By Qasim gallegos Referred To Contact Nephrology Diagnoses Stage 3 chronic kidney disease, unspecified whether stage 3a or 3b CKD (HCC) Sunshine Capellan [address] [place] [address] Referral ID Status Reason Start Date Expiration Date Visits Requested Visits Authorized [id number] Pending Review Specialty Services Required 3 [phone] Question Answer Referral Priority Within 10 days (routine) Where should this appointment be scheduled? [facility] What condition is this patient being seen for? Chronic kidney disease * Precert (Within 10 days (routine)) - Pending Review Specialty Diagnoses / Procedures Referred By Qasim gallegos Referred To Contact Radiology Diagnoses Abnormal CXR Procedures CT CHEST WO CONTRAST Sunshine Capellan [address] [place] [address] Referral ID Status Reason Start Date Expiration Date V isits Requested Visits Authorized [id number] Pending Review 04/02/[phone] Reason for Visit * Reason Onset Date Comments Hospital Follow-Up Pt states fee ling " Hospital Follow-Up 04/02/2023 Encounter Details Date Type Department Care Team (Late st Contact Info) Description 04/02/2023 12:30 PM EST Office Visit Family Medicine [address] [place] [phone] Sunshine Capellan [address] [place] [address] Hospital discharge follow-up*; HERMILO (acute kidney injury) (HCC); Stage 3 chronic kidney disease, unspecified whether stage 3a or 3b CKD (HCC); Viral gastroenteritis; Abnormal CXR; Major depressive disorder in partial remission, unspecified whether recurrent (HCC); Special screening for malignant neoplasms, colon Allergies No known active allergiesdocumented as of this encounter (statuses as of 04/02/2023) Medications Medication Sig Dispensed Refills Start Date [...] mouth in the morning. 0 04/02/2023 Active hydroCHLOROthiazi de 12.5 MG Oral Capsule (Hydrodiuril) Take 1 Capsule by mouth in the morning. 90 Capsule 1 02/16/2023 3 Discontinued Escitalopram Oxalate 10 MG Oral Tablet (Lexapro)Indicati ons:Major depressive disorder in partial remission, unspecified whether recurrent (HCC) Take 2 Tablets by mouth in the morning. 0 03/16/2023 3 Discontinued documented as of this encounter (statuses as of 04/02/2023) Active Problems Problem Noted Date Diagnosed Date [...] as of this encounter (statuses as of 04/02/2023) Resolved Problems Problem Noted Date Diagnosed Date Resolved Date Alcohol abuse 02/16/2023 02/16/2023 Shortness of breath 02/03/2023 02/17/20 23 HTN, goal below 140/90 03/22 Overview: Modified per HTN Taxonomy. Adjustment disorder with depressed mood 02/16/2023 documented as of this encounter (statuses as of 04/02/2023) Immunizations Name Administration Dates Next Due Pneumococcal [...] Sign Reading Time Taken Comments Blood Pressure 122/68 04/02/2023 12:30 PM EST Pulse 66 04/02/2023 12:30 PM EST Temperature 36.1 C (96.9 F) 04/02/2023 12:[address] Respiratory Rate - - Oxygen Saturation 94% 04/02/2023 12:30 PM EST Inhaled Oxygen Concentration - - Weight 66 kg (145 lb 9.6 oz) 04/02/2023 12:30 PM EST Height - - Body Mass Index 26.63 03/16/2023 12:59 PM EDT documented in this encounter Progress Notes * Sunshine Capellan, - 04/02/2023 12:31 PM EST SUBJECTIVE: Cynthia Whittaker is a 62 year old female. Chief Complaint Patient presents with Hospital Follow-Up Pt states feeling " Hospital Follow-Up Recent Admission: Patient was recently admitted to [facility]. The date of discharge was 03/29/23. Discharge report received and reviewed. Admitted with HERMILO secondary to viral enteritis. Hospital coursewas unremarkable. HPI: Cynthia Whittaker presents today for HD follow up. There was a viral illness doing around the place she lives prior to her becoming sick. She spent the day before her hospitalization in bed. Today she still feels a bit weak, but she appears to be stronger than she was. No n/v/d. Appetite is not as good as it was. A caregiver in her facility is making sure she is drinking regularly and eating as well. She has not taken her water pill for the past few days - BP is good here today. She is willing to see nephrology for her decreased renal function. Also willing to have a chest CT in follow up of her lung opacity that has not completely resolved. Mental health is doing okay; she continues to follow with psychiatry. Patient Active Problem List Diagnosis Code Tobacco use disorder F17.200 Generalized osteoarthritis M15.9 Generalized anxiety disorder F41.1 HTN, GOAL BELOW 140/90 I10 Degeneration of lumbosacral intervertebral disc M51.37 History of pneumonia Z87.01 Hyperlipidemia with target LDL less than 100 E78.5 Major depressive disorder in partial remission (HCC) F32.4 History of alcohol abuse F10.11 History of tobacco use Z87.891 Abnormal CXR R93.89 Current Outpatient Medications Medication Sig Dispense Refill [...] daily; and then stop. 14 Patch 1 hydroCHLOROthiazide 12.5 MG Oral Capsule (Hydrodiuril) Take 1 Capsule by mouth in the morning. 90 Capsule 1 Aspirin 81 MG Oral Tablet Delayed Release (Aspirin 81) Take 1 Tablet by mouth in the morning. 90 Tablet 1 Nicotine 14 MG/24HR Transdermal Patch 24 Hour (Nicoderm CQ) One 14 mg patch daily for 2 wks; then one 7 mg patch daily for 2 wks. Remove old patch daily Do not start before March 30, 2023. 14 Patch 2 Naltrexone HCl 50 MG Oral Tablet (Revia) Take 0.5 Tablets by mouth in the morning. Escitalopram Oxalate 10 MG Oral Tablet (Lexapro) Take 2 Tablets by mouth in the morning. busPIRone HCl 5 MG Oral Tablet (Buspar) Take 1 Tablet by mouth in the morning and 1 Tablet before bedtime. hydrOXYzine HCl 50 MG Oral Tablet Take 1 Tablet by mouth every 6 hours as needed for Anxiety. No current facility-administered medications for this visit. Current and discharge medications have been reconciled. Review of patient's allergies indicates: No Known Allergies OBJECTIVE: BP 122/68 | Pulse 66 | Temp 36.1 C (96.9 F) | Wt 66 kg (145 lb 9.6 oz) | SpO2 94% | BMI 26.63 kg/m | BSA 1.7 m Review Of Systems: Skin: negative Eyes: negative Ears/Nose/Throat: negative Respiratory: negative Cardiovascular: negative Gastrointestinal: negative Genitourinary: negative Musculoskeletal: negative Neurologic: negative Psychiatric: doing well Hematologic/Lymphatic/Immunologic: negative Endocrine: negative PHYSICAL EXAM: General: alert, healthy, no distress, well nourished, and well developed Neck: supple, no adenopathy, thyroid normal size, non-tender, without nodularity Heart: regular rate & rhythm and no murmur Lungs: chest symmetric with normal AP diameter, no chest deformities noted, normal respiratory rateand rhythm, lungs clear to auscultation Abdomen: abdomen soft, non-tender, and normal bowel sounds Extremities: no joint deformities, effusion, or inflammation, no edema Neuro Exam: alert & oriented x 3 with fluent speech, no focal motor/sensory deficits, gait normal Skin: skin color, texture, turgor are normal, no rashes or significant lesions ASSESSMENT/PLAN: Hospital discharge follow-up (Primary) - DISCH MED RECON CUR MED LIS HERMILO (acute kidney injury) (HCC) - update BMP. Continue to push fluids. Stage 3 chronic kidney disease, unspecified whether stage 3a or 3b CKD (HCC) - BASIC METABOLIC PANEL; Future; Expected date: 04/02/2023 - NEPHROLOGY REFERRAL OP Viral gastroenteritis - resolved. Abdominal pain is improved. Abnormal CXR - check CT chest - CT CHEST WO CONTRAST Major depressive disorder in partial remission, unspecified whether recurrent (HCC) - stable, follows with psychiatry. Special screening for malignant neoplasms, colon - COLONOSCOPY, GI REFERRAL OP Follow Up: Return for as scheduled. | For: as scheduled | Check-out note: Labs today. I spent a total of 40-54 minutes (exact time 45 mins) minutes on the date of service in preparation, delivery, and documentation of the care provided to Cynthia Whittaker excluding any time spent in performance of separately billed services. Sunshine Capellan DO documented in this encounter Plan of Treatment Upcoming Encounters Date Type Department Care Team (Late st Contact Info) Description 04/05/2023 1:30 PM EST Imaging Radiology [facility] 1st Floor, [address] [place] [address] 04/19/2023 1:00 PM EST Imaging Radiology [address] [place] [address] 09/14/2023 1:50 PM EDT Office Visit Family Medicine [address] [place] [phone] [place] [address] 12/10/2023 10:00 AM EDT Office Visit Nephrology, Demi Echeverria [address] [place] [address] Marquez Arrieta MD [address] [place] [address] Pending Results Name Type Priority Associated Diagnoses Date /Time BASIC METABOLIC PANEL Lab Routine Stage 3 chronic kidney disease, unspecified whether stage 3a or 3b CKD (HCC) 04/02/2023 1:12 PM EST Scheduled Orders Name Type Priority Associated Diagnoses Orde r Schedule BASIC METABOLIC PANEL Lab Routine Stage 3 chronic kidney disease, unspecified whether stage 3a or 3b CKD (HCC) Expected: 04/02/2023 (Approximate), Expires: 04/01/2024 CT CHEST WO CONTRAST Medical Imaging Routine Abnormal CXR Ordered: 04/02/2023 Scheduled Referrals Name Type Priority Associated Diagnoses Orde r Schedule NEPHROLOGY REFERRAL OP Referral Within 10 days (routine) Stage 3 chronic kidney disease, unspecified whether stage 3a or 3b CKD (HCC) Ordered: 04/02/2023 COLONOSCOPY, GI REFERRAL OP Referral Within 10 days (routine) Special screening for malignant neoplasms, colon Ordered: 04/02/2023 Health Maintenance Due Date Last Done Comments [...] - Td or Tdap) 08/15/2018 08/15/2008 GFR 03/26/2024 03/26/2023, 02/16, 03/03/2023, Additional history exists Albumin/Creatinine Ratio 03/16/2026 03/16/2023, 1007/2022 Diabetes Screening 03/26/2026 03/26/2023, 1 , 03/03/2023, Additional history exists [...] as of this encounter Visit Diagnoses Diagnosis Hospital discharge follow-up- Primary Other follow-up examination HERMILO (acute kidney injury) (HCC) Acute kidney failure, unspecified Stage 3 chronic kidney disease, unspecified whether stage 3a or 3b CKD (HCC) Viral gastroenteritis Intestinal infection due to other organism, not elsewhere classified Abnormal CXR Other nonspecific abnormal finding of lung field Major depressive disorder in partial remission, unspecified whether recurrent (HCC) Special screening for malignant neoplasms, colon documented in this encounter Care Teams Set Up Mechanic Stamping Machines Relationship Specialty Start Date End Date Sunshine Capellan DO [address] [place] [address] [place] [phone] PCP - General Internal Medicine 02/16/23 documented as of this encounter
--- OUTSIDE RECORDS SUMMARY | 2023-06-19 04:32 | External Medical Summary | Summary of Care ---
Author Name Unknown Organization [facility] Address 100 [facility] [place] [address] Phone [phone] Care Team Providers Care Leasing Machine Tender Name Role Phone Sunshine Capellan DO Primary Care Provider [phone] Reason for Visit * Reason Onset Date Comments Hospital Follow-Up 03/29/2023 Encounter Details Date Type Department Care Team (Late st Contact Info) Description 03/29/2023 Telephone Family Medicine [address] [phone] Sunshine Capellan DO [address] [place] [address] [place] [address] Hospital Follow-Up Allergies No known active allergiesdocumented as of [...] Telephone Encounter - Sunshine Capellan DO - 04/02/2023 1:46 PM EST Pt seen. * Telephone Encounter - Tammy Martin LPN - 03/29/2023 10:[address] Pena from [facility] calling- pt is hospitalized for HERMILO, kidney function still elevated, good urine output, sx have improved. In her records she said there was something abnormal from [facility]- I let her know that was the CXR and labs, which Dr. Capellan recommends CT and then referred to nephrology for her abnormal lab. She plans to discharge her today, follow up outpatient. Pt scheduled with Dr. Capellan for Wednesday at 12:15. * Telephone Encounter - Sunshine Hernandez OSA - 03/29/2023 10:56 AM EST No Appointments Available Patient declined appointments?: No What Visit Type is needed? Hospital Discharge If Acute Visit Type is needed, were surrounding clinics offered to patient (Yes/No)? N/A Was patient offered appointments with other available providers (Yes/No)? N/A See Call Details? (Yes or No): Yes documented in this encounter Plan of Treatment Upcoming Encounters Date Type Department Care Team (Late st Contact Info) Description 04/05/2023 1:30 PM EST Imaging Radiology [facility] [address] [place] [address] 04/19/2023 1:00 PM EST Imaging Radiology [address] [place] [address] 09/14/2023 1:50 PM EDT Office Visit Family Medicine [address] [place] [phone] [place] [address] 12/10/2023 10:00 AM EDT Office Visit Nephrology, Demi Echeverria [facility] [place] [address] Marquez Arrieta MD [facility] [place] [address] Health Maintenance Due Date Last Done Comments [...] Albumin/Creatinine Ratio 03/16/2026 03/16/2023, 07/2022 Diabetes Screening 03/26/2026 03/26/2023, 1 , 03/03/2023, [...] filedocumented as of this encounter Care Teams Leasing Machine Tender Relationship Specialty Start Date End Date Sunshine Capellan DO [address] [place] [address] [place] [address] PCP - General Internal Medicine 02/16/23 documented as of this encounter
--- OUTSIDE RECORDS SUMMARY | 2023-06-19 04:32 | External Medical Summary | Summary of Care ---
Author Name Unknown Organization [facility] Address 100 [facility] [address] Phone [phone] Care Team Providers Care Occupational Health Coordinator Name Role Phone Sunshine Capellan DO Primary Care Provider [phone] Reason for Visit * Reason Comments Outpatient Testing Encounter Details Date Type Department Care Team (Late st Contact Info) Description 04/02/2023 1:10 PM EST Laboratory Laboratory [address] [place] [phone] [address] [place] [address] Stage 3 chronic kidney disease, unspecified whether stage 3a or 3b CKD (HCC) Allergies No known active allergiesdocumented as [...] Description 04/05/2023 1:30 PM EST Imaging Radiology [address] [place] [address] 04/19/2023 1:00 PM EST Imaging Radiology [address] [place] [address] 09/14/2023 1:50 PM EDT Office Visit Family Medicine [address] [place] [phone] [address] [place] [address] 12/10/2023 10:00 AM EDT Office Visit Nephrology, [address] [place] [address] Marquez Arrieta MD [address] [place] [address] Pending Results Name Type Priority Associated Diagnoses Date /Time BASIC METABOLIC PANEL Lab Routine Stage 3 chronic kidney disease, unspecified whether stage 3a or 3b CKD (HCC) 04/02/2023 1:12 PM EST Health Maintenance Due Date Last Done Comments [...] of this encounter Visit Diagnoses Diagnosis Stage 3 chronic kidney disease, unspecified whether stage 3a or 3b CKD (HCC) documented in this encounter Care Teams Occupational Health Coordinator Relationship Specialty Start Date End Date Sunshine Capellan DO [address] [place] [address] [place] [phone] PCP - General Internal Medicine 02/16/23 documented as of this encounter
--- OUTSIDE RECORDS SUMMARY | 2023-06-19 04:32 | External Medical Summary | Summary of Care ---
Author Name Unknown Organization [facility] Address [address] [facility] [address] Phone [phone] Care Team Providers Care Damper Worker Name Role Phone Sunshine Capellan Primary Care Provider [phone] Reason for Visit * Reason Onset Date Comments Appointment 04/06/2023 Encounter Details Date Type Department Care Team (Late st Contact Info) Description 04/06/2023 Telephone NephrologyDemi [address] [place] [address] Marquez Arrieta MD 200 [facility] [place] [address] Appointment Allergies No known active allergiesdocumented as of this encounter (statuses as of 04/07/2023) Medications Medication Sig Dispensed Refills Start Date [...] as of this encounter (statuses as of 04/07/2023) Active Problems Problem Noted Date Diagnosed Date [...] as of this encounter (statuses as of 04/07/2023) Resolved Problems Problem Noted Date Diagnosed Date Resolved Date Alcohol abuse 02/16/2023 02/16/2023 Shortness of breath 02/03/2023 02/17/20 23 HTN, goal below 140/90 03/22 Overview: Modified per HTN Taxonomy. Adjustment disorder with depressed mood 02/16/2023 documented as of this encounter (statuses as of 04/07/2023) Immunizations Name Administration Dates Next Due Pneumococcal [...] Telephone Encounter - Chelsea Galvan RN - 04/07/2023 8:54 AM EST Please schedule with next available nephro provider at [facility]. * Telephone Encounter - Chelsea Galvan RN [...] Description 04/19/2023 1:00 PM EST Imaging Radiology [address] [place] [address] 09/14/2023 1:50 PM EDT Office Visit Family Medicine [address] [place] [phone] Sunshine Capellan DO [address] [place] [address] [place] [address] 12/10/2023 10:00 AM EDT Office Visit Nephrology, Demi Mabie 200 [facility] [place] [address] Marquez Arrieta MD 200 [facility] [place] [address] Health Maintenance Due Date Last Done Comments [...] filedocumented as of this encounter Care Teams Damper Worker Relationship Specialty Start Date End Date Sunshine Capellan DO [address] [place] [address] [place] [address] PCP - General Internal Medicine 02/16/23 documented as of this encounter
--- OUTSIDE RECORDS SUMMARY | 2023-06-19 04:32 | External Medical Summary | Summary of Care ---
Author Name Unknown Organization [facility] Address [address] [facility] [place] [address] Phone [phone] Care Team Providers Care Powertrain Calibration Engineer Name Role Phone Sunshine Capellan DO Primary Care Provider [phone] Reason for Visit * Reason Onset Date Comments Appointment 04/02/2023 Colonoscopy Encounter Details Date Type Department Care Team (Late st Contact Info) Description 04/02/2023 Telephone Family [address] [place] [phone] Sunshine Capellan DO [address] [place] [address] [place] [address] Appointment (Colonoscopy ) Allergies No known active allergiesdocumented as of this encounter (statuses as of 04/09/2023) Medications Medication Sig Dispensed Refills Start Date [...] as of this encounter (statuses as of 04/09/2023) Active Problems Problem Noted Date Diagnosed Date [...] as of this encounter (statuses as of 04/09/2023) Resolved Problems Problem Noted Date Diagnosed Date Resolved Date Alcohol abuse 02/16/2023 02/16/2023 Shortness of breath 02/03/2023 02/17/20 HTN, goal below 140/90 03/22 Overview: Modified per HTN Taxonomy. Adjustment disorder with depressed mood 02/16/2023 documented as of this encounter (statuses as of 04/09/2023) Immunizations Name Administration Dates Next Due Pneumococcal [...] encounter Miscellaneous Notes * Telephone Encounter - Lj Rose OSA - 04/09/2023 12:23 PM EST Spoke to pt, colonoscopy scheduled on 08/04 w/ ezequiel * Telephone Encounter - Lj Rose OSA - 04/02/2023 2:56 PM EST LMOM for pt to call back to schedule * Telephone Encounter - Lynette Chávez OSA - 04/02/2023 2:48 PM EST Cynthia needs scheduled for colonoscopy for: Special screening for malignant neoplasms, colon [Z12.11] documented in this encounter Plan of Treatment Upcoming Encounters Date Type Department Care Team (Latest Contact Info) Description 04/12/2023 2:20 PM EST Office Visit Nephrology, [facility] 200 [facility] [address] Annie Varghese MD [address] [facility] [address] 04/19/2023 1:00 PM EST Imaging Radiology [address] [place] [address] 08/05/2023 1:00 PM EDT Hospital Encounter ENDO [facility], Endoscopy Room [facility] [address] [place] [phone] Blair Card MD [address] [place] [address] 08/05/2023 1:00 PM EDT - 08/05/2023 1:30 PM EDT Surgery ENDO [facility], Endoscopy Room [facility] [address] [place] [phone] Blair Card MD [address] [place] [address] COLONOSCOPY [facility] 09/14/2023 1:50 PM EDT Office Visit Family Medicine [address] [place] [phone] Sunshine Capellan [address] [place] [address] Scheduled Procedures Name Priority Associated Diagnoses Date/Ti [...] filedocumented as of this encounter Care Teams Powertrain Calibration Engineer Relationship Specialty Start Date End Date Sunshine Capellan DO [address] [place] [address] [place] [phone] PCP - General Internal Medicine 02/16/23 documented as of this encounter
--- OUTSIDE RECORDS SUMMARY | 2023-06-19 04:32 | External Medical Summary ---
Author Name Unknown Address Unknown Organization K01:LABORATORY [facility] - [facility] [address] [facility] [address] [facility] [address] Laboratory Report Ordering Provider Test Date Status KENDAL MCNAMARA 05/24/2023 14:30:13 Final Observation Date Value Abnormality Reference (Units ) Status BUN 05/24/2023 14:30:13 33 Above high normal 6-20 (mg/dL) Final Creatinine 05/24/2023 14:30:13 1.5 Above high normal 0.5-1.0 (mg/dL) Final Glomerular filtration rate/1.73 sq M.predicted [Volume Rate/Area] in Serum, Plasma or Blood by Creatinine-based formula (CKD-EPI) 05/24/2023 14:30:13 41 Below low normal >=60 (mL/min) Final eGFR is calculated based on the CKD-EPI 2020 equation SODIUM 05/24/2023 14:30:13 140 135-146 (m mol/L) Final Potassium 05/24/2023 14:30:13 4.7 3.5-5.1 (m mol/L) Final Cl 05/24/2023 14:30:13 103 98-107 (mm ol/L) Final CO2 05/24/2023 14:30:13 22 22-32 (mmo l/L) Final Anion gap 05/24/2023 14:30:13 15 7-15 (mmol /L) Final Glucose 05/24/2023 14:30:13 86 70-120 (mg /dL) Final Calcium 05/24/2023 14:30:13 9.3 8.4-10.2 ( mg/dL) Final Performing Location LABORATORY [facility] - [address] [place] [address]
--- OUTSIDE RECORDS SUMMARY | 2023-06-19 04:32 | External Medical Summary | Summary of Care ---
Author Name Unknown Organization [facility] Address [address] [facility] [address] Phone [phone] Care Team Providers Care Rn Orthopaedic Name Role Phone Sunshine Capellan DO Primary Care Provider [phone] Reason for Visit * Reason Onset Date Comments Appointment 04/02/2023 Colonoscopy Encounter Details Date Type Department Care Team (Late st Contact Info) Description 04/02/2023 Telephone Family Medicine [address] [phone] Sunshine Capellan DO [address] [place], [place] [address] [address] Appointment (Colonoscopy ) Allergies No known [...] Description 04/05/2023 1:30 PM EST Imaging Radiology [address] [place] [address] [phone] 04/19/2023 1:00 PM EST Imaging Radiology [address] [place] [address] 09/14/2023 1:50 PM EDT Office Visit Family Medicine [address] [place] [phone] Sunshine Capellan[address] [place] [address] 12/10/2023 10:00 AM EDT Office Visit Nephrology, Demi [place] [address] [facility] [place] [address] Marquez Arrieta MD [address] [place] [address] Health Maintenance Due Date Last Done Comments [...] filedocumented as of this encounter Care Teams Rn Orthopaedic Relationship Specialty Start Date End Date Sunshine Capellan DO [address] [place] [address] [place] [address] PCP - General Internal Medicine 02/16/23 documented as of this encounter
--- OUTSIDE RECORDS SUMMARY | 2023-06-19 04:32 | External Medical Summary ---
Author Name Unknown Address Unknown Organization K01:[place] [facility] [facility] [place] [facility] [address] [facility] [address] Laboratory Report Ordering Provider Test Date Status KEL LUND 04/02/2023 13:12:33 Final Observation Date Value Abnormality Reference (Units ) Status BUN 04/02/2023 13:12:33 45 Above high normal 6-20 (mg/dL) Final Creatinine 04/02/2023 13:12:33 1.6 Above high normal 0.5-1.0 (mg/dL) Final Glomerular filtration rate/1.73 sq M.predicted [Volume Rate/Area] in Serum, Plasma or Blood by Creatinine-based formula (CKD-EPI) 04/02/2023 13:12:33 37 Below low normal >=60 (mL/min) Final eGFR is calculated based on the CKD-EPI 2020 equation SODIUM 04/02/2023 13:12:33 143 135-146 (m mol/L) Final Potassium 04/02/2023 13:12:33 4.6 3.5-5.1 (m mol/L) Final Cl 04/02/2023 13:12:33 106 98-107 (mm ol/L) Final CO2 04/02/2023 13:12:33 24 22-32 (mmo l/L) Final Anion gap 04/02/2023 13:12:33 13 7-15 (mmol /L) Final Glucose 04/02/2023 13:12:33 70 70-120 (mg /dL) Final Calcium 04/02/2023 13:12:33 9.9 8.4-10.2 ( mg/dL) Final Performing Location [facility] [place] [facility] [place] [address]
--- OUTSIDE RECORDS SUMMARY | 2023-06-19 04:33 | External Medical Summary | Summary of Care ---
Author Name Unknown Organization [facility] Address [address] [facility] [address] Phone [phone] Care Team Providers Care Reefer Engineer Name Role Phone Ashely Begum DO Primary Care Provider [phone] Reason for Visit * Reason Onset Date Comments Med Request 03/02/2023 Encounter Details Date Type Department Care Team Description 03/02/2023 Refill Family Medicine [address] [phone] Ashely Begum DO [address] [place] [address] [place] [phone] Allergies No known active allergiesdocumented as of this encounter (statuses as of 03/02/2023) Medications Medication Sig Dispensed Refills Start Date End Date Status oxygen IN GAS Administer 2 L/min(Oxygen) into nostril continuous. 1 Each 0 02/03/2023 Active Escitalopram Oxalate 10 MG Oral Tablet (Lexapro)Indicati ons:Major depressive disorder in partial remission, unspecified whether recurrent (HCC) Take 1 Tablet by mouth in the morning. 30 Tablet 0 02/16/2023 Active amLODIPine Besylate 10 MG Oral Tablet [...] then stop. 14 Patch 1 02/16/2023 Active hydroCHLOROthiazi de 12.5 MG Oral Capsule [...] 30, 2023. 14 Patch 2 03/30/2023 Active Nicotine 14 MG/24HR Transdermal Patch 24 Hour (Nicoderm CQ) One 14 mg patch daily for 2 wks; then one 7 mg patch daily for 2 wks. Remove old patch daily Do not start before March 30, 2023. 14 Patch 2 03/30/2023 3 Discontinue d(Refill) documented as of this encounter (statuses as of 03/02/2023) Active Problems Problem Noted Date History of pneumonia 02/16/2023 Hyperlipidemia with target LDL less than 100 02/16/2023 Major depressive disorder in partial rem ission 02/16/2023 History of alcohol abuse 02/16/2023 History of tobacco use 02/16/2023 Degeneration of lumbosacral intervertebr al disc 10/21/2009 Overview: L4-5 HTN, GOAL BELOW 140/90 03/22/2009 Overview: Modified per HTN Taxonomy. Tobacco use disorder Generalized osteoarthritis Generalized anxiety disorder documented as of this encounter (statuses as of 03/02/2023) Resolved Problems Problem Noted Date Resolved Date Alcohol abuse 02/16/2023 02/16/2023 Shortness of breath 02/03/2023 02/16/2023 HTN, goal below 140/90 9 Overview: Modified per HTN Taxonomy. Adjustment disorder with depressed mood 02/16/2023 documented as of this encounter (statuses as of 03/02/2023) Immunizations Name Administration Dates Next Due Pneumococcal [...] heavy alcohol use in the past Sex Assigned at Date Recorded Not on file Job Start Date Occupation Industry Not on file Not on file Not on file documented as of this encounter Miscellaneous Notes * Telephone Encounter - Ashely Begum DO - 03/02/2023 4:10 PM EDTSigned Prescriptions: Disp Refills Nicotine 14 MG/24HR Transdermal Patch 24 H*14 Pat*2 Sig: One 14 mg patch daily for 2 wks; then one 7 mg patch daily for 2 wks. Remove old patch daily Do not start before March 30, 2023.Authorizing Provider: ASHELY BEGUM * Telephone Encounter - Barb Peter CMA - 03/02/2023 2:13 PM EDT Patient called because the pharmacy said they don't have her 14mg patches. It says it is futured inthe chart for 03/30/2023. Can you send it now? I pended a new prescription to be [facility] to [facility]. documented in this encounter Plan of Treatment Upcoming Encounters Date Type Specialty Care Team Description 03/19/2023 Imaging Radiology 09/14/2023 Office Visit Family Medicine Ashely Begum, [address] [place] [address] Health Maintenance Due Date Last Done Comments [...] (2 - Td or Tdap) 08/15/2018 08/15/2008 Influenza Vaccine (FLU shot) (#1) 2023 04/11/2010 GFR 02/04/2024 02/03/2023, 01/16/2023 Diabetes Screening 02/03/2026 02/03/2023, 0 01/16/2023, 10/22/2008 Albumin/Creatinine Ratio 02/16/2026 02/16/2023 Lipid Panel 01/17/2028 01/16/2023, 10/22/2008 Pneumococcal Vaccine: Pediatrics (0 to 5 Years) and At-Risk Patients (6 to 64 Years) Aged Out 10/22/2008 No longer eligible based on patient's age [...] filedocumented as of this encounter Care Teams Reefer Engineer Relationship Specialty Start Date End Date Ashely Begum, [address] [place] [address] PCP - General Internal Medicine 02/16/23 documented as of this encounter
--- OUTSIDE RECORDS SUMMARY | 2023-06-19 04:33 | External Medical Summary ---
Author Name Unknown Address Unknown Organization K01:[facility] [place] [address] [place] [address] Laboratory Report Ordering Provider Test Date Status KEL LUND 03/16/2023 13:49:37 Final Normal: <30 mg/g creatinine< br/>High: 30-300 mg/g creatinine
Very High: >300 mg/g creatinine
Nephrotic: >2200 mg/g creatinine Observation Date Value Abnormality Reference (Units ) Status Albumin, Urine 03/16/2023 13:49:37 <1.20 (mg/dL) Final Creatinine, Urine 03/16/2023 13:49:37 93 (mg/dL) Final Albumin/Creatinine [Mass Ratio] in Urine 03/16/2023 13:49:37 <13 <30 (mg/g Creat) Final Performing Location [facility] [place] [address] [place] [address]
--- OUTSIDE RECORDS SUMMARY | 2023-06-19 04:33 | External Medical Summary | Summary of Care ---
Author Name Unknown Organization [facility] Address [address] [facility] [address] Phone [phone] Care Team Providers Care Clay Transporter Name Role Phone Sunshine Capellan DO Primary Care Provider [phone] Reason for Visit * Reason Comments Outpatient Testing Encounter Details Date Type Department Care Team (Late st Contact Info) Description 03/16/2023 1:50 PM EDT Laboratory Laboratory [address] [place] [phone] [address] [place] [address] Stage 3 chronic kidney disease, unspecified whether stage 3a or 3b CKD (HCC) Allergies No known active allergiesdocumented as of this encounter (statuses as of 03/16/2023) Medications Medication Sig Dispensed Refills Start Date [...] as of this encounter (statuses as of 03/16/2023) Active Problems Problem Noted Date Diagnosed Date [...] as of this encounter (statuses as of 03/16/2023) Resolved Problems Problem Noted Date Diagnosed Date Resolved Date Alcohol abuse 02/16/2023 02/16/2023 Shortness of breath 02/03/2023 02/17/20 23 HTN, goal below 140/90 03/22 Overview: Modified per HTN Taxonomy. Adjustment disorder with depressed mood 02/16/2023 documented as of this encounter (statuses as of 03/16/2023) Immunizations Name Administration Dates Next Due Pneumococcal [...] Care Team (Late st Contact Info) Description 03/19/2023 1:00 PM EDT Imaging Radiology [address] [place] [address] 03/19/2023 1:30 PM EDT Imaging Radiology [address] [place] [address] 04/19/2023 1:00 PM EST Imaging Radiology [address] [place] [address] 09/14/2023 1:50 PM EDT Office Visit Family Medicine [address] [place] [phone] [address] [place] [address] Pending Results Name Type Priority Associated Diagnoses Date /Time RENAL FUNCTION PANEL Lab Routine Stage 3 chronic kidney disease, unspecified whether stage 3a or 3b CKD (HCC) 03/16/2023 1:49 PM EDT ALBUMIN / CREATININE RATIO, URINE Lab Routine Stage 3 chronic kidney disease, unspecified whether stage 3a or 3b CKD (HCC) 03/16/2023 1:49 PM EDT Health Maintenance Due Date Last [...] - Td or Tdap) 08/15/2018 08/15/2008 GFR 03/03/2024 03/03/2023, 02/14, 02/03/2023, Additional history exists Albumin/Creatinine Ratio 02/16/2026 02/16/2023 Diabetes Screening 03/03/2026 03/03/2023, 1 , 02/03/2023, Additional history exists Lipid Panel 01/17/2028 01/16/2023, 10/22/2008 Influenza Vaccine (FLU shot) Completed 03/05/2023, [...] (HCC) documented in this encounter Care Teams Clay Transporter Relationship Specialty Start Date End Date Sunshine Capellan DO [address] [place] [address] [place] [address] PCP - General Internal Medicine 02/16/23 documented as of this encounter
--- OUTSIDE RECORDS SUMMARY | 2023-06-19 04:33 | External Medical Summary | Summary of Care ---
Author Name Unknown Organization [facility] Address [address] [facility] [address] Phone [phone] Care Team Providers Care Market Maker Name Role Phone Sunshine Capellan DO Primary Care Provider [phone] Encounter Details Date Type Department Care Team (Late st Contact Info) Description 03/18/2023 Orders Only Family Medicine [address] [place] [phone] Sunshine Capellan DO [address] [place] [address] [place] [address] Allergies No known active allergiesdocumented as of this encounter (statuses as of 03/18/2023) Medications Medication Sig Dispensed Refills Start Date [...] as of this encounter (statuses as of 03/18/2023) Active Problems Problem Noted Date Diagnosed Date [...] as of this encounter (statuses as of 03/18/2023) Resolved Problems Problem Noted Date Diagnosed Date Resolved Date Alcohol abuse 02/16/2023 02/16/2023 Shortness of breath 02/03/2023 02/17/20 23 HTN, goal below 140/90 03/22 Overview: Modified per HTN Taxonomy. Adjustment disorder with depressed mood 02/16/2023 documented as of this encounter (statuses as of 03/18/2023) Immunizations Name Administration Dates Next Due Pneumococcal [...] Description 03/19/2023 1:00 PM EDT Imaging Radiology [address] [place] [address] 03/19/2023 1:30 PM EDT Imaging Radiology [address] [place] [address] 04/19/2023 1:00 PM EST Imaging Radiology [address] [place] [address] 09/14/2023 1:50 PM EDT Office Visit Family Medicine [address] [place] [phone] Capellan, Sunshine Franco[address] [place] [address] Health Maintenance Due Date Last Done Comments [...] , 03/02/2023, Additional history exists Lipid Panel 01/17/2028 03/03/2023, 06/2022, 10/22/2008 Influenza Vaccine (FLU shot) [...] Procedure Name Priority Date/Time Associated Diagnosis Comments OUTSIDE LAB-CORONAVIRUS (COVID-19) Routine 03/03/2023 CHEMISTRY-OUTSIDE Routine 03/03/2023 documented in this encounter Results * (ABNORMAL) CHEMISTRY-OUTSIDE (03/03/2023) Not all results display below - see scan for full detail OUTSIDE LAB (SEE SCANNED REPORT) Comment:SCAN INCLUDES - INPT LABS: LIPID PANEL CREATININE-OUTSID E LAB OUTSIDE LAB (SEE SCANNED REPORT) EGFR-OUTSIDE LAB OUT SIDE LAB (SEE SCANNED REPORT) POTASSIUM-OUTSIDE LAB OUTSIDE LAB (SEE SCANNED REPORT) GLUCOSE-OUTSIDE LAB OUTSIDE LAB (SEE SCANNED REPORT) HOURS FASTING OUTSID E LAB (SEE SCANNED REPORT) TRIGLYCERIDES-OUT SIDE LAB 115 30 - 200 MG/DL OUTSIDE LAB (SEE SCANNED REPORT) CHOLESTEROL-OUTSI DE LAB 165 <=200 MG/DL OUTSIDE LAB (SEE SCANNED REPORT) HDL-OUTSIDE LAB 64.0(A) 40.0 - 59.0 MG/DL OUTSIDE LAB (SEE SCANNED REPORT) CHOL/HDL RATIO-OUTSIDE LAB OUTSIDE LA B (SEE SCANNED REPORT) LDL (CALCULATED)-OUTS [facility] 78.00 <=100 MG/DL OUTSIDE LAB (SEE SCANNED REPORT) LDL (DIRECT MEASURE)-OUTSIDE LAB OUTSIDE LAB (SEE SCANNED REPORT) HEMOGLOBIN, [id number] LAB OUTSIDE LAB (SEE SCANNED REPORT) PHOSPHORUS-OUTSID E LAB OUTSIDE LAB (SEE SCANNED REPORT) PTH-OUTSIDE LAB OUTS [facility] (SEE SCANNED REPORT) MICROALBUMIN RATIO-OUTSIDE LAB OUTSIDE LA B (SEE SCANNED REPORT) PROTEIN, UA-OUTSIDE LAB OUTSIDE LAB (SEE SCANNED REPORT) HEMOGLOBIN-OUTSID E LAB OUTSIDE LAB (SEE SCANNED REPORT) 03/03/2023 History Per Patient LABORATORY OUTSIDE LAB (SEE SCANNED REPORT) * OUTSIDE LAB-CORONAVIRUS (COVID-19) (03/03/2023) [id number] DE LAB NOT DETECTED NOT DETECTED OUTSIDE LAB (SEE SCANNED REPORT) 03/03/2023 Josh Hastings MD LABORATORY OUTSIDE LAB (SEE SCANNED REPORT) documented in this encounter Care Teams Market Maker Relationship Specialty Start Date End Date Sunshine Capellan DO [address] [place] [address] [place] [phone] PCP - General Internal Medicine 02/16/23 documented as of this encounter
--- OUTSIDE RECORDS SUMMARY | 2023-06-19 04:33 | External Medical Summary | Summary of Care ---
Author Name Unknown Organization [facility] Address [address] [facility] [address] Phone [phone] Care Team Providers Care Biology Instructor Name Role Phone Sunshine Capellan DO Primary Care Provider [phone] Reason for Visit * Reason Onset Date Comments Med Request 02/22/2023 Encounter Details Date Type Department Care Team Description 02/22/2023 Telephone Family Medicine [address] [phone] Sunshine Capellan DO [address] [place] [address] [place] [address] Med Request Allergies No known active allergiesdocumented as of this encounter (statuses as of 03/05/2023) Medications Medication Sig Dispensed Refills Start Date [...] the morning. 90 Tablet 1 02/25/2023 Active Aspirin 81 MG Oral Tablet Delayed Release (Aspirin 81) Take 1 Tablet by mouth in the morning. 0 3 Discontinue d(Refill) Nicotine 14 MG/24HR Transdermal Patch 24 Hour (Nicoderm CQ) One 14 mg patch daily for 2 wks; then one 7 mg patch daily for 2 wks. Remove old patch daily Do not start before March 30, 2023. 14 Patch 2 03/30/2023 3 Discontinue d(Refill) documented as of this encounter (statuses as of 03/05/2023) Active Problems Problem Noted Date History of [...] as of this encounter (statuses as of 03/05/2023) Resolved Problems Problem Noted Date Resolved Date Alcohol abuse 02/16/2023 02/16/2023 Shortness of breath 02/03/2023 02/16/2023 HTN, goal below 140/90 9 Overview: Modified per HTN Taxonomy. Adjustment disorder with depressed mood 02/16/2023 documented as of this encounter (statuses as of 03/05/2023) Immunizations Name Administration Dates Next Due Pneumococcal [...] encounter Miscellaneous Notes * Telephone Encounter - Barb Peter CMA - 03/05/2023 10:23 AM EDT The patches were sent in from a separate phone encounter when the patient called again. * Telephone Encounter - Kenna Knapp RN - 02/24/2023 9:58 AM EDT Message left for pt to call us back, there are 2 doses of patches that have been sent to pharmacy, what dose is she currently taking? [facility]? * Telephone Encounter - NICHOLE Polk - 02/22/2023 10:35 AM EDT Rev Vannesa Watson is calling. [phone]. Pt was supposed to about have a lower does of her prescribed of her Nicotine patches. Has not been called in yet. Along with baby Asprin. Please advise. documented in this encounter Plan of Treatment Upcoming Encounters Date Type Specialty Care Team Description 03/19/2023 Imaging Radiology 09/14/2023 Office Visit Family Medicine Sunshine Capellan[address] [place] [phone] Health Maintenance Due Date Last Done Comments [...] Vaccine (FLU shot) (#1) 2023 04/11/2010 GFR 03/03/2024 03/03/2023, 02/14, 02/03/2023, Additional history exists Albumin/Creatinine Ratio 02/16/2026 02/16/2023 Diabetes Screening 03/03/2026 03/03/2023, 1 , 02/03/2023, Additional history exists Lipid Panel 01/17/2028 01/16/2023, 10/22/2008 Pneumococcal Vaccine: [...] filedocumented as of this encounter Care Teams Biology Instructor Relationship Specialty Start Date End Date Sunshine Capellan, [address] [place] [phone] PCP - General Internal Medicine 02/16/23 documented as of this encounter
--- OUTSIDE RECORDS SUMMARY | 2023-06-19 04:33 | External Medical Summary | Summary of Care ---
Author Name Unknown Organization [facility] Address [address] [facility] [address] Phone [phone] Care Team Providers Care Rack Maker Name Role Phone Sunshine Capellan Primary Care Provider [phone] Encounter Details Date Type Department Care Team Description 03/03/2023 Result Scan Unspecified Department <No scans attached> Allergies No known active allergiesdocumented as of this encounter (statuses as of 03/04/2023) Medications Medication Sig Dispensed Refills Start Date [...] 30, 2023. 14 Patch 2 03/30/2023 Active documented as of this encounter (statuses as of 03/04/2023) Active Problems Problem Noted Date History of [...] as of this encounter (statuses as of 03/04/2023) Resolved Problems Problem Noted Date Resolved Date Alcohol abuse 02/16/2023 02/16/2023 Shortness of breath 02/03/2023 02/16/2023 HTN, goal below 140/90 200 9 Overview: Modified per HTN Taxonomy. Adjustment disorder with depressed mood 02/16/2023 documented as of this encounter (statuses as of 03/04/2023) Immunizations Name Administration Dates Next Due Pneumococcal [...] Radiology 09/14/2023 Office Visit Family Medicine Sunshine Capellan[address] [place] [address] Health Maintenance Due [...] Vaccine (FLU shot) (#1) 2023 04/11/2010 GFR 03/02/2024 03/03/2023, 02/14, 02/03/2023, Additional history exists Albumin/Creatinine Ratio 02/16/2026 02/16/2023 Diabetes Screening 03/02/2026 03/03/2023, 1 , 02/03/2023, Additional history exists [...] Procedure Name Priority Date/Time Associated Diagnosis Comments EKG SCANNED RESULT 03/03/2023 EKG SCANNED RESULT 03/03/2023 documented in this encounter Results * EKG SCANNED RESULT (03/03/2023) 03/03/2023 No Physician Data Unknown EKG * EKG SCANNED RESULT (03/03/2023) 03/03/2023 No Physician Data Unknown EKG documented in this encounter Care Teams Rack Maker Relationship Specialty Start Date End Date Sunshine Capellan, [address] [place] [phone] PCP - General Internal Medicine 02/16/23 documented as of this encounter
--- OUTSIDE RECORDS SUMMARY | 2023-06-19 04:33 | External Medical Summary | Summary of Care ---
Author Name Unknown Organization [facility] Address [address] [facility] [place] [address] Phone [phone] Care Team Providers Care Steel Post Installer Supervisor Name Role Phone Sunshine Capellan DO Primary Care Provider + [phone] Encounter Details Date Type Department Care Team Description 03/04/2023 Orders Only Family Medicine [address] [phone] Sunshine Capellan [address] [place] [address] Allergies No known active allergiesdocumented as of [...] Radiology 09/14/2023 Office Visit Family Medicine Sunshine Capellan, [address] [place] [address] Health Maintenance Due [...] Priority Date/Time Associated Diagnosis Comments CHEMISTRY-OUTSIDE Routine 03/03/2023 documented in this encounter Results * (ABNORMAL) CHEMISTRY-OUTSIDE (03/03/2023) Not all results display below - see scan for full detail OUTSIDE LAB (SEE SCANNED REPORT) Comment:SEE SCAN; CBCD CREATININE-OUTSID E LAB OUTSIDE LAB (SEE SCANNED REPORT) EGFR-OUTSIDE LAB OUT SIDE LAB (SEE SCANNED REPORT) POTASSIUM-OUTSIDE LAB OUTSIDE LAB (SEE SCANNED REPORT) GLUCOSE-OUTSIDE LAB OUTSIDE LAB (SEE SCANNED REPORT) HOURS FASTING OUTSID E LAB (SEE SCANNED REPORT) TRIGLYCERIDES-OUT SIDE LAB OUTSIDE LAB (SEE SCANNED REPORT) CHOLESTEROL-OUTSI DE LAB OUTSIDE LAB (SEE SCANNED REPORT) HDL-OUTSIDE LAB OUTS [facility] (SEE SCANNED REPORT) CHOL/HDL RATIO-OUTSIDE LAB OUTSIDE LA B (SEE SCANNED REPORT) LDL (CALCULATED)-OUTS [facility] OUTSIDE LAB (SEE SCANNED REPORT) LDL (DIRECT MEASURE)-OUTSIDE LAB OUTSIDE LAB (SEE SCANNED REPORT) HEMOGLOBIN, [id number] LAB OUTSIDE LAB (SEE SCANNED REPORT) PHOSPHORUS-OUTSID E LAB OUTSIDE LAB (SEE SCANNED REPORT) PTH-OUTSIDE LAB OUTS [facility] (SEE SCANNED REPORT) MICROALBUMIN RATIO-OUTSIDE LAB OUTSIDE LA B (SEE SCANNED REPORT) PROTEIN, UA-OUTSIDE LAB OUTSIDE LAB (SEE SCANNED REPORT) HEMOGLOBIN-OUTSID E LAB 11.7(A) 12 - 16 G/DL OUTSIDE LAB (SEE SCANNED REPORT) 03/03/2023 History Per Patient LABORATORY OUTSIDE LAB (SEE SCANNED REPORT) documented in this encounter Care Teams Steel Post Installer Supervisor Relationship Specialty Start Date End Date Sunshine Capellan, [address] [place] [address] PCP - General Internal Medicine 02/16/23 documented as of this encounter
--- OUTSIDE RECORDS SUMMARY | 2023-06-19 04:33 | External Medical Summary | Summary of Care ---
Author Name Unknown Organization [facility] Address [address] [facility] [place] [address] Phone [phone] Care Team Providers Care Glass Wool Blanket Machine Feeder Name Role Phone Sunshine Capellan DO Primary Care Provider [phone] Reason for Visit * Reason Onset Date Comments Re-Check Hospital Follow-Up Hospital Follow-Up 03/16/2023 Encounter Details Date Type Department Care Team (Late st Contact Info) Description 03/16/2023 1:10 PM EDT Office Visit Family Medicine [address] [phone] Sunshine Capellan [address] [place] [id number] Hospital discharge follow-up*; Major depressive disorder in partial remission, unspecified whether recurrent (HCC); Need for pneumococcal vaccination; HTN, GOAL BELOW 140/90; Hyperlipidemia with target LDL less than 100; Abnormal CXR; Stage 3 chronic kidney disease, unspecified whether stage 3a or 3b CKD (HCC); Encounter for screening mammogram for breast cancer [...] for Anxiety. 0 03/16/2023 Active Escitalopram Oxalate 10 MG Oral Tablet (Lexapro)Indicati ons:Major depressive disorder in partial remission, unspecified whether recurrent (HCC) Take 1 Tablet by mouth in the morning. 30 Tablet 0 02/16/2023 3 Discontinue d(Refill) documented as of this [...] Sign Reading Time Taken Comments Blood Pressure 118/70 03/16/2023 12:59 PM EDT Pulse 56 03/16/2023 12:59 PM EDT Temperature 36 C (96.8 F) 03/16/2023 12:59 PM EDT Respiratory Rate 18 03/16/2023 12:59 PM EDT Oxygen Saturation - - Inhaled Oxygen Concentration - - Weight 66.2 kg (146 lb) 03/16/2023 12:59 PM EDT Height 157.5 cm (5' 2") 03/16/2023 12:59 PM EDT Body Mass Index 26.7 03/16/2023 12:59 PM EDT documented in this encounter Progress Notes * Sunshine Capellan, DO - 03/16/2023 1:03 PM EDT SUBJECTIVE: Cynthia Whittaker is a 62 year old female. Chief Complaint Patient presents with Re-Check Hospital Follow-Up Hospital Follow-Up Recent Admission: Patient was recently admitted to [facility]. The date of discharge was 03/08/23. ER notereviewed. Discharge summary requested but unavailable at the time of the appointment. Admitted for anxiety/depression; felt her meds needed adjusted. HPI: Cynthia Whittaker presents today for HD follow up. Today she reports feeling much better. A little anxious today as she came at the wrong time for her appointment this morning. She was also prescribed naltrexone. The plan is to eventually transition her to injection based naltrexone. She continues to live in a [facility] based program. Someone who lived at the program and was disruptive has since gone to live elsewhere. She will see [facility] back tomorrow. BP is well controlled here today. No lightheadedness or dizziness. She was advised to follow up here for her newly diagnosed CKD. She does use ibuprofen - up 400 mg BID. Willing to use tylenol instead. She admits to probably not drinking enough fluid. Patient Active Problem List Diagnosis Code Tobacco use disorder F17.200 Generalized osteoarthritis M15.9 Generalized anxiety disorder F41.1 HTN, GOAL BELOW 140/90 I10 Degeneration of lumbosacral intervertebral disc M51.37 History of pneumonia Z87.01 Hyperlipidemia with target LDL less than 100 E78.5 Major depressive disorder in partial remission (HCC) F32.4 History of alcohol abuse F10.11 History of tobacco use Z87.891 Current Outpatient Medications Medication Sig Dispense Refill Naltrexone HCl 50 MG Oral Tablet (Revia) [...] every 6 hours as needed for Anxiety. oxygen IN GAS Administer 2 L/min(Oxygen) into [...] mouth in the morning. 90 Tablet 1 [START ON 03/30/2023] Nicotine 14 MG/24HR Transdermal Patch 24 Hour (Nicoderm CQ) One 14 mg patch daily for 2 wks; then one 7 mg patch daily for 2 wks. Remove old patch daily Do not start before March 30, 2023. 14 Patch 2 No current facility-administered medications for this visit. Current and discharge medications have been reconciled. Review of patient's allergies indicates: No Known Allergies OBJECTIVE: Temp 36 C (96.8 F) | Resp 18 | Ht 1.575 m (5' 2") | Wt 66.2 kg (146 lb) | BMI 26.70 kg/m | BSA 1.7 m Review Of Systems: Skin: negative Eyes: negative Ears/Nose/Throat: negative Respiratory: negative Cardiovascular: negative Gastrointestinal: negative Genitourinary: negative Musculoskeletal: (+) arthritis pain Neurologic: negative Psychiatric: (+) see HPI Hematologic/Lymphatic/Immunologic: negative Endocrine: negative PHYSICAL EXAM: General: alert, healthy, no distress, well nourished, and well developed Neck: supple, no adenopathy, thyroid normal size, non-tender, without nodularity Heart: regular rate & rhythm and no murmur Lungs: chest symmetric with normal AP diameter, no chest deformities noted, normal respiratory rateand rhythm, lungs clear to auscultation Abdomen: abdomen soft and non-tender Extremities: no joint deformities, effusion, or inflammation, no edema Neuro Exam: alert & oriented x 3 with fluent speech, no focal motor/sensory deficits, gait normal Skin: skin color, texture, turgor are normal, no rashes or significant lesions ASSESSMENT/PLAN: Hospital discharge follow-up (Primary) - DISCH MED RECON CUR MED LIS Major depressive disorder in partial remission, unspecified whether recurrent (HCC) - with associated anxiety. She is doing much better on her current regimen and has follow up scheduled with psychiatry tomorrow. Need for pneumococcal vaccination - PNEUMOCOCCAL VACC, PCV20, IM ([id number]) HTN, GOAL BELOW 140/90 - much better on current regimen, although may need to adjust her meds depending upon her LE edema/renal function. Hyperlipidemia with target LDL less than 100 - continue atorvastatin. Abnormal CXR - will do repeat imaging later this week. Stage 3 chronic kidney disease, unspecified whether stage 3a or 3b CKD (HCC) - RENAL FUNCTION PANEL; Future; Expected date: 03/16/2023 - ALBUMIN / CREATININE RATIO, URINE; Future; Expected date: 03/16/2023 - US RENAL; Future; Expected date: 03/16/2023 Encounter for screening mammogram for breast cancer - MAMMOGRAM SCREENING ARTHUR BILATERAL; Future; Expected date: 03/16/2023 Follow Up: Return for as scheduled. | For: as scheduled | Check-out note: Coordinate renal US with CXR schedule on 03/19/23. Sunshine Capellan DO I spent a total of 30-39 minutes (exact time 38 mins) on the date of service in preparation, delivery, and documentation of the care provided to Cynthia Jeaneth Whittaker excluding any time spent in the performance of separately billed services. documented in this encounter Nursing Notes * Kenna Knapp RN - 03/16/2023 12:59 PM EDT Hospital follow up pt is on 1/2 tab of Naltrexone daily, buspar, lexapr and hydroxyzine. Feeling better now documented in this encounter Plan of Treatment Upcoming Encounters Date Type Department Care Team (Late st Contact Info) Description 03/19/2023 1:00 PM EDT Imaging Radiology [address] [place] [id number] 03/19/2023 1:30 PM EDT Imaging Radiology [address] [place] [address] 09/14/2023 1:50 PM EDT Office Visit Family Medicine [address] [place] [phone] Sunshine Capellan DO [address] [place] [address] [place] [id number] Pending Results Name Type Priority Associated Diagnoses Date /Time RENAL FUNCTION PANEL Lab Routine Stage 3 chronic kidney disease, unspecified whether stage 3a or 3b CKD (HCC) 03/16/2023 1:49 PM EDT ALBUMIN / CREATININE RATIO, URINE Lab Routine Stage 3 chronic kidney disease, unspecified whether stage 3a or 3b CKD (HCC) 03/16/2023 1:49 PM EDT Scheduled Orders Name Type Priority Associated Diagnoses Orde r Schedule RENAL FUNCTION PANEL Lab Routine Stage 3 chronic kidney disease, unspecified whether stage 3a or 3b CKD (HCC) Expected: 03/16/2023 (Approximate), Expires: 03/15/2024 ALBUMIN / CREATININE RATIO, URINE Lab Routine Stage 3 chronic kidney disease, unspecified whether stage 3a or 3b CKD (HCC) Expected: 03/16/2023 (Approximate), Expires: 03/15/2024 US RENAL Medical Imaging Routine Stage 3 chronic kidney disease, unspecified whether stage 3a or 3b CKD (HCC) Expected: 03/16/2023, Expires: 04/15/2024 MAMMOGRAM SCREENING ARTHUR BILATERAL Medical Imaging Routine Encounter for screening mammogram for breast cancer Expected: 03/16/2023, Expires: 04/15/2024 Health Maintenance Due Date Last Done Comments [...] Hospital discharge follow-up- Primary Other follow-up examination Major depressive disorder in partial remission, unspecified whether recurrent (HCC) Need for pneumococcal vaccination Need for prophylactic vaccination against streptococcus pneumoniae (pneumococcus) HTN, GOAL BELOW 140/90 Unspecified essential hypertension Hyperlipidemia with target LDL less than 100 Other and unspecified hyperlipidemia Abnormal CXR Other nonspecific abnormal finding of lung field Stage 3 chronic kidney disease, unspecified whether stage 3a or 3b CKD (HCC) Encounter for screening mammogram for breast cancer documented in this encounter Care Teams Glass Wool Blanket Machine Feeder Relationship Specialty Start Date End Date Sunshine Capellan DO [address] [place] [address] [place] [id number] PCP - General Internal Medicine 02/16/23 documented as of this encounter
--- OUTSIDE RECORDS SUMMARY | 2023-06-19 04:33 | External Medical Summary ---
Author Name Unknown Address Unknown Organization [id number]:LABORATORY [facility] [place] - [facility] [address] [id number] Laboratory Report Ordering Provider Test Date Status KEL LUND 03/16/2023 13:49:37 Final Observation Date Value Abnormality Reference (Units ) Status BUN 03/16/2023 13:49:37 31 Above high normal 6-20 (mg/dL) Final Creatinine 03/16/2023 13:49:37 1.5 Above high normal 0.5-1.0 (mg/dL) Final Glomerular filtration rate/1.73 sq M.predicted [Volume Rate/Area] in Serum, Plasma or Blood by Creatinine-based formula (CKD-EPI) 03/16/2023 13:49:37 39 Below low normal >=60 (mL/min) Final eGFR is calculated based on the CKD-EPI 2020 equation SODIUM 03/16/2023 13:49:37 139 135-146 (m mol/L) Final Potassium 03/16/2023 13:49:37 5.1 3.5-5.1 (m mol/L) Final Cl 03/16/2023 13:49:37 106 98-107 (mm ol/L) Final CO2 03/16/2023 13:49:37 23 22-32 (mmo l/L) Final Anion gap 03/16/2023 13:49:37 10 7-15 (mmol /L) Final Glucose 03/16/2023 13:49:37 82 70-120 (mg /dL) Final Calcium 03/16/2023 13:49:37 9.4 8.4-10.2 ( mg/dL) Final Albumin 03/16/2023 13:49:37 4.7 3.8-5.0 (g /dL) Final Phosphate 03/16/2023 13:49:37 4.8 2.5-4.8 (m g/dL) Final Performing Location [facility]ORY [facility] [place] - [address] [place] [address]
--- OUTSIDE RECORDS SUMMARY | 2023-06-19 04:34 | External Medical Summary ---
Author Name Unknown Address Unknown Organization [id number]:LABORATORY [facility] [place] - [facility] [address] [facility] [address] Laboratory Report Ordering Provider Test Date Status KEL LUND 03/02/2023 12:37:47 Final Observation Date Value Abnormality Reference (Units ) Status BUN 03/02/2023 12:37:47 26 Above high normal 6-20 (mg/dL) Final Creatinine 03/02/2023 12:37:47 1.3 Above high normal 0.5-1.0 (mg/dL) Final Glomerular filtration rate/1.73 sq M.predicted [Volume Rate/Area] in Serum, Plasma or Blood by Creatinine-based formula (CKD-EPI) 03/02/2023 12:37:47 46 Below low normal >=60 (mL/min) Final eGFR is calculated based on the CKD-EPI 2020 equation SODIUM 03/02/2023 12:37:47 142 135-146 (m mol/L) Final Potassium 03/02/2023 12:37:47 4.8 3.5-5.1 (m mol/L) Final Cl 03/02/2023 12:37:47 106 98-107 (mm ol/L) Final CO2 03/02/2023 12:37:47 23 22-32 (mmo l/L) Final Anion gap 03/02/2023 12:37:47 13 7-15 (mmol /L) Final Glucose 03/02/2023 12:37:47 90 70-120 (mg /dL) Final Calcium 03/02/2023 12:37:47 9.5 8.4-10.2 ( mg/dL) Final Performing Location LABORATORY [facility] [place] - [facility] [address] [facility] [address]
--- OUTSIDE RECORDS SUMMARY | 2023-06-19 04:34 | External Medical Summary | Summary of Care ---
Author Name Unknown Organization [facility] Address [address] [facility] [place] [address] Phone [phone] Care Team Providers Care Farmworker Rice Name Role Phone Sunshine Capellan DO Primary Care Provider [phone] Reason for Visit * Reason Comments NEW PATIENT Establishing with Dr Racheal Capellan. Medication Problem Pt is not able to ve rify med list. Encounter Details Date Type Department Care Team Description 02/16/2023 Office Visit Family Medicine [address] [place] [phone] Sunshine Capellan DO [address] [place] [address] [place] [address] HTN, GOAL BELOW 140/90*; Tobacco use disorder; History of pneumonia; Hyperlipidemia with target LDL less than 100; Major depressive disorder in partial remission, unspecified whether recurrent (HCC); History of alcohol abuse Allergies No known active allergiesdocumented as of this encounter (statuses as of 02/16/2023) Medications Medication Sig Dispensed Refills Start Date End Date Status Aspirin 81 MG Oral Tablet Delayed Release (Aspirin 81) Take 1 Tablet by mouth in the morning. 0 Active oxygen IN GAS Administer 2 L/min(Oxygen) into nostril continuous. 1 Each 0 3 Active Escitalopram Oxalate 10 MG Oral Tablet (Lexapro)Indicat ions:Major depressive disorder in partial remission, unspecified whether recurrent (HCC) Take 1 Tablet by mouth in the morning. 30 Tablet 0 3 Active amLODIPine Besylate 10 MG Oral Tablet (Norvasc) Take 1 Tablet by mouth in the morning. 90 Tablet 1 3 Active Atorvastatin Calcium 40 MG Oral Tablet (Lipitor) Take 1 Tablet by mouth in the morning. 90 Tablet 1 3 Active Labetalol HCl 200 MG Oral Tablet (Normodyne) Take 1 Tablet by mouth daily. 90 Tablet 1 3 Active Losartan Potassium 50 MG Oral Tablet (Cozaar) Take 1 Tablet by mouth in the morning. 90 Tablet 1 3 Active traZODone HCl 50 MG Oral Tablet (Desyrel) Take 1 Tablet by mouth at bedtime. 30 Tablet 0 3 Active Nicotine 14 MG/24HR Transdermal Patch 24 Hour (Nicoderm CQ) One 14 mg patch daily for 2 wks; then one 7 mg patch daily for 2 wks. Remove old patch daily Do not start before March 30, 2023. 14 Patch 2 3 04/13/20 23 Active Nicotine 7 MG/24HR Transdermal Patch 24 Hour (Nicoderm CQ) One 7 mg patch daily for 2 weeks; Remove old patch daily; and then stop. 14 Patch 1 3 Active hydroCHLOROthiaz liz 12.5 MG Oral Capsule (Hydrodiuril) Take 1 Capsule by mouth in the morning. 90 Capsule 1 3 Active Escitalopram Oxalate 10 MG Oral Tablet (Lexapro) Take 1 Tablet by mouth in the morning. 0 02/17/20 23 Discontinued(Ref ill) Labetalol HCl 200 MG Oral Tablet (Normodyne) Take 1 Tablet by mouth daily. 0 02/17/20 23 Discontinued(Ref ill) LORazepam 0.5 MG Oral Tablet (Ativan) Take 1 Tablet by mouth 2 times a day as needed. 0 02/17/20 23 Discontinued Nicotine 21 MG/24HR Transdermal Patch 24 Hour (Nicoderm CQ) Place 1 Patch topically on the skin daily. 0 02/17/20 23 Discontinued traZODone HCl 50 MG Oral Tablet (Desyrel) Take 1 Tablet by mouth at bedtime. 0 02/17/20 23 Discontinued(Ref ill) amLODIPine Besylate 10 MG Oral Tablet (Norvasc) Take 1 Tablet by mouth in the morning. 0 02/17/20 23 Discontinued(Ref ill) Atorvastatin Calcium 40 MG Oral Tablet (Lipitor) Take 1 Tablet by mouth in the morning. 0 02/17/20 23 Discontinued(Ref ill) Losartan Potassium 50 MG Oral Tablet (Cozaar) Take 1 Tablet by mouth in the morning. 0 02/17/20 23 Discontinued(Ref ill) documented as of this encounter (statuses as of 02/16/2023) Active Problems Problem Noted Date History of [...] as of this encounter (statuses as of 02/16/2023) Resolved Problems Problem Noted Date Resolved Date Alcohol abuse 02/16/2023 02/16/2023 Shortness of breath 02/03/2023 02/16/2023 HTN, goal below 140/90 9 Overview: Modified per HTN Taxonomy. Adjustment disorder with depressed mood 02/16/2023 documented as of this encounter (statuses as of 02/16/2023) Immunizations Name Administration Dates Next Due Pneumococcal [...] Sign Reading Time Taken Comments Blood Pressure 146/84 02/16/2023 10:16 AM EDT Pulse 62 02/16/2023 10:16 AM EDT Temperature 36.4 C (97.5 F) 02/16/2023 10:16 AM E DT Respiratory Rate - - Oxygen Saturation 100% 02/16/2023 10:16 AM EDT Inhaled Oxygen Concentration - - Weight 65.5 kg (144 lb 6.4 oz) 02/16/2023 10:16 AM EDT Height 157.5 cm (5' 2") 02/16/2023 10:16 AM EDT Body Mass Index 26.41 02/16/2023 10:16 AM EDT documented in this encounter Progress Notes * Sunshine Capellan, DO - 02/16/2023 10:11 AM EDT Subjective: Cynthia Whittaker is a 62 year old female. Chief Complaint Patient presents with NEW PATIENT Establishing with Dr. Capellan. Medication Problem Pt is not able to verify med list. HPI: Cynthia Whittaker presents today to establish care. She was recently admitted to [facility] for pneumonia and subsequently transferred to the behavioral health unit for treatment of MDD. She was started on lexapro which has helped some, although she still feels quite depressed. No SI. She did miss her appointment with outpatient behavioral health appointment, but she will call to reschedule. Will give her a short course of lexapro to hold her over until she can get into them. She is currently using nicotine patches to try to quit smoking. She vaped something a friend provided her and tested positive for marijuana but she denies regular drug use. PMH: Patient Active Problem List Diagnosis Code Tobacco use disorder F17.200 Generalized osteoarthritis M15.9 Generalized anxiety disorder F41.1 Adjustment disorder with depressed mood F43.21 HTN, GOAL BELOW 140/90 I10 Degeneration of lumbosacral intervertebral disc M51.37 Shortness of breath R06.02 History of pneumonia Z87.01 Alcohol abuse F10.10 Hyperlipidemia with target LDL less than 100 E78.5 Major depressive disorder in partial remission (HCC) F32.4 Current Outpatient Medications Medication Sig Dispense Refill Escitalopram Oxalate 10 MG Oral Tablet (Lexapro) Take 1 Tablet by mouth in the morning. Labetalol HCl 200 MG Oral Tablet (Normodyne) Take 1 Tablet by mouth daily. Nicotine 21 MG/24HR Transdermal Patch 24 Hour (Nicoderm CQ) Place 1 Patch topically on the skin daily. traZODone HCl 50 MG Oral Tablet (Desyrel) Take 1 Tablet by mouth at bedtime. amLODIPine Besylate 10 MG Oral Tablet (Norvasc) Take 1 Tablet by mouth in the morning. Aspirin 81 MG Oral Tablet Delayed Release (Aspirin 81) Take 1 Tablet by mouth in the morning. Atorvastatin Calcium 40 MG Oral Tablet (Lipitor) Take 1 Tablet by mouth in the morning. Losartan Potassium 50 MG Oral Tablet (Cozaar) Take 1 Tablet by mouth in the morning. oxygen IN GAS Administer 2 L/min(Oxygen) into nostril continuous. 1 Each 0 No current facility-administered medications for this visit. Review of patient's allergies indicates: No Known Allergies Objective: BP 146/84 | Pulse 62 | Temp 36.4 C (97.5 F) | Ht 1.575 m (5' 2") | Wt 65.5 kg (144 lb 6.4 oz) |SpO2 100% | BMI 26.41 kg/m | BSA 1.69 m General: alert, healthy, no distress, well nourished, [...] fluent speech, no focal motor/sensory deficits, gait normal, speech is slow Skin: skin color, texture, turgor are normal, no rashes or significant lesions ASSESSMENT/PLAN: HTN, GOAL BELOW 140/90 (Primary) - continue same meds - refills given. Start HCTZ. - EKG; Future; Expected date: 02/16/2023 - ALBUMIN / CREATININE RATIO, URINE; Future; Expected date: 02/16/2023 - BASIC METABOLIC PANEL; Future; Expected date: 03/02/2023 Tobacco use disorder - she has not been smoking since on nicotine patches. History of pneumonia - repeat CXR in 4 weeks. - XR CHEST 2 VIEWS; Future; Expected date: 03/19/2023 Hyperlipidemia with target LDL less than 100 - continue statin. Major depressive disorder in partial remission, unspecified whether recurrent (HCC) - continue Lexapro. Pt advised to reschedule her follow up with [facility]. - Escitalopram Oxalate 10 MG Oral Tablet (Lexapro); Take 1 Tablet by mouth in the morning. History of alcohol abuse - she states she has not been drinking in many years. Other orders - amLODIPine Besylate 10 MG Oral Tablet (Norvasc); Take 1 Tablet by mouth in the morning. - Atorvastatin Calcium 40 MG Oral Tablet (Lipitor); Take 1 Tablet by mouth in the morning. - Labetalol HCl 200 MG Oral Tablet (Normodyne); Take 1 Tablet by mouth daily. - Losartan Potassium 50 MG Oral Tablet (Cozaar); Take 1 Tablet by mouth in the morning. - traZODone HCl 50 MG Oral Tablet (Desyrel); Take 1 Tablet by mouth at bedtime. - Nicotine 14 MG/24HR Transdermal Patch 24 Hour (Nicoderm CQ); One 14 mg patch daily for 2 wks; then one 7 mg patch daily for 2 wks. Remove old patch daily Do not start before March 30, 2023. - Nicotine 7 MG/24HR Transdermal Patch 24 Hour (Nicoderm CQ); One 7 mg patch daily for 2 weeks; Remove old patch daily; and then stop. - hydroCHLOROthiazide 12.5 MG Oral Capsule (Hydrodiuril); Take 1 Capsule by mouth in the morning. Follow-up: Return in about 6 months (around 08/18/2023). | Check-out note: 40 minutes please. CXR in 1 month. Labs in 2 weeks. Sunshine Capellan DO documented in this encounter Plan of Treatment Scheduled Orders Name Type Priority Associated Diagnoses Orde r Schedule XR CHEST 2 VIEWS Medical Imaging Routine History of pneumonia Expected: 03/19/2023, Expires: 03/19/2024 EKG EKG Routine HTN, GOAL BELOW 140/90 Expected: 02/16/2023 (Approximate), Expires: 03/19/2024 ALBUMIN / CREATININE RATIO, URINE Lab Routine HTN, GOAL BELOW 140/90 Expected: 02/16/2023 (Approximate), Expires: 02/16/2024 BASIC METABOLIC PANEL Lab Routine HTN, GOAL BELOW 140/90 Expected: 03/02/2023 (Approximate), Expires: 02/16/2024 Health Maintenance Due Date Last Done Comments COVID-19 Vaccine (#1) 1962 Depression Screening 1974 HIV Screening 1977 Albumin/Creatinine Ratio 1980 Hepatitis C Screening 1980 HPV/Co-Test 1992 Cologuard 2007 Colonoscopy 2007 Colorectal Cancer Screening 2007 Fecal Occult Blood Test 2007 Sigmoidoscopy 2007 Pneumococcal Vaccine: Pediatrics (0 to 5 Years) and At-Risk Patients (6 to 64 Years) (2 - PCV) 10/22/2009 10/22/2008 Cervical Cancer Screening 07/20/2011 Pap Smear 07/20/2011 07/19/2008 (Done elsewhere) Zoster Vaccines (1 of 2) 2012 Mammogram 07/26/2013 07/26/2012, 09/14, 10/01/2011, Additional history exists DTaP,Tdap,and Td Vaccines (2 - Td or Tdap) 08/15/2018 08/15/2008 Influenza Vaccine (FLU shot) (#1) 2023 04/11/2010 GFR 02/04/2024 02/03/2023, 01/16/2023 Diabetes Screening 02/03/2026 02/03/2023, 0 01/16/2023, 10/22/2008 Lipid Panel 01/17/2028 01/16/2023, 10/22/2008 GARDASIL-HPV IMMUNIZATION SERIES Aged Out No longer [...] as of this encounter Visit Diagnoses Diagnosis HTN, GOAL BELOW 140/90- Primary Unspecified essential hypertension Tobacco use disorder History of pneumonia Personal history of pneumonia (recurrent) Hyperlipidemia with target LDL less than 100 Other and unspecified hyperlipidemia Major depressive disorder in partial remission, unspecified whether recurrent (HCC) History of alcohol abuse Nondependent alcohol abuse, in remission documented in this encounter Care Teams Farmworker Rice Relationship Specialty Start Date End Date Sunshine Capellan[address] [place] [phone] PCP - General Internal Medicine 02/16/23 documented as of this encounter
--- OUTSIDE RECORDS SUMMARY | 2023-06-19 04:34 | External Medical Summary | Summary of Care ---
Author Name Unknown Organization [facility] Address [address] [facility] [place] [address] Phone [phone] Care Team Providers Care Lead Operator Name Role Phone Sunshine Capellan Primary Care Provider [phone] Reason for Visit * Reason Comments Outpatient Testing Encounter Details Date Type Department Care Team Description 03/02/2023 Laboratory Laboratory [address] [place] [address] [facility] Lab [address] [place] [address] HTN, GOAL BELOW 140/90 Allergies No known active allergiesdocumented as of this encounter (statuses as of 03/02/2023) Medications Medication Sig Dispensed Refills Start Date End Date Status oxygen IN GAS Administer 2 L/min(Oxygen) into nostril continuous. 1 Each 0 02/03/2023 Active Escitalopram Oxalate 10 MG Oral Tablet (Lexapro)Indicatio ns:Major depressive disorder in partial remission, unspecified whether [...] bedtime. 30 Tablet 0 02/16/2023 Active Nicotine 14 MG/24HR Transdermal Patch 24 Hour (Nicoderm CQ) One 14 mg patch daily for 2 wks; then one 7 mg patch daily for 2 wks. Remove old patch daily Do not start before March 30, 2023. 14 Patch 2 03/30/2023 04/13/2023 Active Nicotine 7 MG/24HR Transdermal Patch 24 Hour (Nicoderm CQ) One 7 mg patch daily for 2 weeks; Remove old patch daily; and then stop. 14 Patch 1 02/16/2023 Active hydroCHLOROthiazid e 12.5 MG Oral Capsule (Hydrodiuril) Take 1 Capsule by mouth in the morning. 90 Capsule 1 02/16/2023 Active Aspirin 81 MG Oral Tablet Delayed Release (Aspirin 81) Take 1 Tablet by mouth in the morning. 90 Tablet 1 02/25/2023 Active documented as of this encounter (statuses [...] Radiology 09/14/2023 Office Visit Family Medicine Sunshine Capellan[address] [place] [address] Pending Results Name Type Priority Associated Diagnoses Date /Time BASIC METABOLIC PANEL Lab Routine HTN, GOAL BELOW 140/90 03/02/2023 12:37 PM EDT Health Maintenance Due Date Last [...] encounter Visit Diagnoses Diagnosis HTN, GOAL BELOW 140/90 Unspecified essential hypertension documented in this encounter Care Teams Lead Operator Relationship Specialty Start Date End Date Sunshine Capellan[address] [place] [phone] PCP - General Internal Medicine 02/16/23 documented as of this encounter
--- OUTSIDE RECORDS SUMMARY | 2023-06-19 04:34 | External Medical Summary ---
Author Name Unknown Address Unknown Organization [id number]:[facility] [place] [address] [place] [id number] Laboratory Report Ordering Provider Test Date Status KEL LUND 02/16/2023 10:56:45 Final Normal: <30 mg/g creatinine< br/>High: 30-300 mg/g creatinine
Very High: >300 mg/g creatinine
Nephrotic: >2200 mg/g creatinine Observation Date Value Abnormality Reference (Units ) Status Albumin, Urine 02/16/2023 10:56:45 <1.20 (mg/dL) Final Creatinine, Urine 02/16/2023 10:56:45 46 (mg/dL) Final Albumin/Creatinine [Mass Ratio] in Urine 02/16/2023 10:56:45 <26 <30 (mg/g Creat) Final Performing Location LAB[facility]AT[facility] [place] - [address] [place] [id number]
--- OUTSIDE RECORDS SUMMARY | 2023-06-19 04:34 | External Medical Summary | Summary of Care ---
Author Name Unknown Organization [facility] Address [address] [place] [address] Phone [phone] Care Team Providers Care Helmet Hat Sweatband Puncher Name Role Phone Unavailable Primary Care Provider Unavailabl e Reason for Visit * Reason Onset Date Comments Fax 02/03/2023 Encounter Details Date Type Department Care Team Description 02/03/[address] [address] Services, Scheduling [address] [place] [address] Fax Allergies No known active allergiesdocumented as of this encounter (statuses as of 02/03/2023) Medications Medication Sig Dispensed Refills Start Date End Date Status Escitalopram Oxalate 10 MG Oral Tablet (Lexapro) Take 1 Tablet by mouth in the morning. 0 Active Labetalol HCl 200 MG Oral Tablet (Normodyne) Take 1 Tablet by mouth daily. 0 Active LORazepam 0.5 MG Oral Tablet (Ativan) Take 1 Tablet by mouth 2 times a day as needed. 0 Active Nicotine 21 MG/24HR Transdermal Patch 24 Hour (Nicoderm CQ) Place 1 Patch topically on the skin daily. 0 Active traZODone HCl 50 MG Oral Tablet (Desyrel) Take 1 Tablet by mouth at bedtime. 0 Active amLODIPine Besylate 10 MG Oral Tablet (Norvasc) Take 1 Tablet by mouth in the morning. 0 Active Aspirin 81 MG Oral Tablet Delayed Release (Aspirin 81) Take 1 Tablet by mouth in the morning. 0 Active Atorvastatin Calcium 40 MG Oral Tablet (Lipitor) Take 1 Tablet by mouth in the morning. 0 Active Losartan Potassium 50 MG Oral Tablet (Cozaar) Take 1 Tablet by mouth in the morning. 0 Active oxygen IN GAS Administer 2 L/min(Oxygen) into nostril continuous. 1 Each 0 02/03/2023 Active documented as of this encounter (statuses as of 02/03/2023) Active Problems Problem Noted Date Degeneration of lumbosacral intervertebr al disc 10/21/2009 Overview: L4-5 HTN, GOAL BELOW 140/90 03/22/2009 Overview: Modified per HTN Taxonomy. Tobacco use disorder Generalized osteoarthritis Generalized anxiety disorder Adjustment disorder with depressed mood documented as of this encounter (statuses as of 02/03/2023) Resolved Problems Problem Noted Date Resolved Date HTN, goal below 140/90 9 Overview: Modified per HTN Taxonomy. documented as of this encounter (statuses as of 02/03/2023) Immunizations Name Administration Dates Next Due Pneumococcal [...] = 0.6 oz pur e alcohol) Sex Assigned at Date Recorded Not on file Job Start Date Occupation Industry Not on file Not on file Not on file documented as of this encounter Miscellaneous Notes * Telephone Encounter - NICHOLE Jarquin - 02/03/2023 2:22 PM EDT I faxed the notes requested to the fax # provided in message. * Telephone Encounter - NICHOLE Muro - 02/03/2023 1:36 PM EDT Caller requesting the following information to be faxed: Name/Company of caller: [employer] [place] Information requested to be faxed: office notes and walk/at rest test Fax number: [phone] Attention to Name/Company: [employer] Any additional information?: this is in regards to oxygen order documented in this encounter Plan of Treatment Upcoming Encounters Date Type Specialty Care Team Description 02/16/2023 Office Visit Family Medicine Sunshine Capellan, [address] [place] [address] Health Maintenance Due Date Last Done Comments GFR 1962 COVID-19 Vaccine (#1) 1962 Depression Screening 1974 [...] 07/26/2013 07/26/2012, 09/14, 10/01/2011, Additional history exists Lipid Panel 10/22/2013 10/22/2008 DTaP,Tdap,and Td Vaccines (2 - Td or Tdap) 08/15/2018 08/15/2008 Influenza Vaccine (FLU shot) (#1) 2023 04/11/2010 GARDASIL-HPV IMMUNIZATION SERIES Aged Out No longer [...]
--- OUTSIDE RECORDS SUMMARY | 2023-06-19 04:34 | External Medical Summary | Summary of Care ---
Author Name Unknown Organization [facility] Address [address] [place] [facility] [place] [place] [address] Phone [phone] Care Team Providers Care Animal Treatment Investigator Name Role Phone Unavailable Primary Care Provider Unavailabl e Reason for Visit * Reason Comments NEW PATIENT Encounter Details Date Type Department Care Team Description 02/03/2023 Office Visit Family Medicine [address] [place] [address] Estelle Joy PA-C [address] [place] [address] [place] [address] Shortness of breath*; Generalized anxiety disorder; Adjustment disorder with depressed mood; Generalized osteoarthritis; HTN, GOAL BELOW 140/90; Tobacco use disorder Allergies No known active allergiesdocumented as of this encounter (statuses as of 02/05/2023) Medications Medication Sig Dispensed Refills Start Date [...] nostril continuous. 1 Each 0 02/03/2023 Active DAILY MULTIVITAMIN PO TABS one daily 0 07/19/2008 3 Discontinued [facility] NICOTINE 14 MG/24HR TD [id number]:Tob acco use disorder 1 PATCH DAILY 30 Patch 5 10/21/2009 3 Discontinued TRAMADOL HCL 50 MG PO TABSIndications:Deg eneration of lumbosacral intervertebral disc,Sprain lumbar region TAKE 1 TABLET EVERY 4 HOURS NEEDED FOR PAIN. TAKE ALONG WITH 500MGTYLENOL 40 Tab 0 04/05/2010 3 Discontinued HYDROCODONE-ACETAMI NOPHEN 5-500 MG PO TABSIndications:Spr ain lumbar region One pill every 6 hours as needed for pain 30 Tab 0 04/11/2010 3 Discontinued HYDROCHLOROTHIAZIDE 25 MG PO TABSIndications:HTN , goal below 140/90 TAKE ONE TABLET BY MOUTH EVERY DAY 90 Tab 1 04/18/2010 3 Discontinued VERAPAMIL HCL 180 MG PO [id number]:HTN , goal below 140/90 one daily 90 Cap 3 04/18/2010 3 Discontinued VALIUM 5 MG PO TABSIndications:Gen eralized anxiety disorder TAKE ONE TABLET BY MOUTH TWICE DAILY 60 Tab 0 05/06/2010 3 Discontinued BACLOFEN 20 MG PO TABSIndications:Spr ain lumbar region One pill by mouth 2 times a day as needed 30 Tab 0 06/09/2010 3 Discontinued documented as of this encounter (statuses as of 02/05/2023) Active Problems Problem Noted Date Degeneration of lumbosacral intervertebr al disc 10/21/2009 Overview: L4-5 HTN, GOAL BELOW 140/90 03/22/2009 Overview: Modified per HTN Taxonomy. Tobacco use disorder Generalized osteoarthritis Generalized anxiety disorder Adjustment disorder with depressed mood documented as of this encounter (statuses as of 02/05/2023) Resolved Problems Problem Noted Date Resolved Date HTN, goal below 140/90 9 Overview: Modified per HTN Taxonomy. documented as of this encounter (statuses as of 02/05/2023) Immunizations Name Administration Dates Next Due Pneumococcal [...] Sign Reading Time Taken Comments Blood Pressure 128/78 02/03/2023 8:33 AM EDT Pulse 68 02/03/2023 8:33 AM EDT Temperature 36.1 C (97 F) 02/03/2023 8:33 AM EDT Respiratory Rate 18 02/03/2023 8:33 AM EDT Oxygen Saturation - - Inhaled Oxygen Concentration - - Weight 64.5 kg (142 lb 3.2 oz) 02/03/2023 8:33 A M EDT Height - - Body Mass Index - - documented in this encounter Progress Notes * Estelle Joy PA-C - 02/03/2023 8:35 AM EDT Chief Complaint Patient presents with NEW PATIENT Pt here today to establish. Pt with PMH of HTN, COPD, OA, anxiety/depression, tobacco use disorder,dyslipidemia. We have no records. She states that she was seeing a doctor in [place] but hasn't seen him in a long time. She was just in [facility] for pneumonia. She was admitted on 01/11 and dc'd on 01/23. We have no records from this hospital visit. Pulse ox is 81% on room air. She doesn't feel well. She feels SOB. Pt doesn't have any home O2. Pt denies fever, chills. Pt states that she used to see cardiology and pulm but she hasn't seen them in years. Review of patient's allergies indicates: No Known Allergies Current Outpatient Medications Medication Sig Dispense Refill Escitalopram Oxalate 10 MG Oral Tablet (Lexapro) Take 1 Tablet by mouth in the morning. Labetalol HCl 200 MG Oral Tablet (Normodyne) Take 1 Tablet by mouth daily. LORazepam 0.5 MG Oral Tablet (Ativan) Take 1 Tablet by mouth 2 times a day as needed. Nicotine 21 MG/24HR Transdermal Patch 24 Hour [...] 1 Tablet by mouth in the morning. No current facility-administered medications for this visit. Past Medical History: Diagnosis Date Adjustment disorder with depressed mood Degeneration of lumbosacral intervertebral disc 10/21/09 L4-5 Generalized anxiety disorder Generalized osteoarthritis HTN, goal below 140/90 Tobacco use disorder Social History Socioeconomic History Marital status: Spouse name: Not on file Number of children: Not on file Years of education: Not on file Highest education level: Not on file Occupational History Not on file Tobacco Use Smoking status: Every Day Packs/day: 0.50 Years: 31.00 Pack years: 15.50 Types: Cigarettes Smokeless tobacco: Not on file Tobacco comments: age 18, did quit in Substance and Sexual Activity Alcohol use: Yes Drug use: No Sexual activity: Yes Partners: [...] on file Housing Stability: Not on file Past Surgical History: Procedure Laterality Date HYSTEROSCOPY;ENDOMETRIAL ABLAT 02/21/2009 IOF MRI LUMBAR SPINE WO CONTRAST 12/09/09 Lower lumbar degenerative changes, with herniations MAMMOGRAM SCREENING-BILATERAL 07/23/08 category 1 normal Family History Problem Relation Age of Onset Cancer Father Hypertension Father No Past Hx None NO FM 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 rate 18, weight 64.5 kg (142 lb 3.2 oz). GENERAL: alert and no distress. Wearing our O2 NECK: supple, no adenopathy, no bruits, thyroid normal size, non-tender, without nodularity EYES: PERRLA, conjunctiva are pink and non-injected, sclera clear EARS: External ears normal, Canals clear, TM's Normal NOSE: no mucosal erythema, no mucosal edema, no purulent discharge OROPHARYNX: no exudate, no erythema, lips, buccal mucosa, and tongue normal, and mucous membranes are moist HEART: regular rate & rhythm, no murmur, and no gallops LUNGS: chest symmetric with normal AP diameter, no chest deformities noted, no chest wall tenderness, lungs clear to auscultation ABDOMEN: abdomen soft, non-tender, normal bowel sounds, and no masses or organomegaly A:Shortness of breath (Primary) - PULSE OX W/ REST/EXERCISE, MULTIPLE (OP) - XR CHEST 2 VIEWS Generalized anxiety disorder Adjustment disorder with depressed mood Generalized osteoarthritis HTN, GOAL BELOW 140/90 - COMPREHENSIVE METABOLIC PANEL; Future; Expected date: 02/03/2023 - CBC WITH WBC DIFFERENTIAL AND ANEMIA REFLEX WORKUP; Future; Expected date: 02/03/2023 Tobacco use disorder Other orders - oxygen IN GAS; Administer 2 L/min(Oxygen) into nostril continuous. Will xray chest. Will check some labs. Script for home O2. Needs to est with a doc in a couple of weeks. Any questions/problems, please call. If anything changes, worsens, develops new sx, please call [facility]. If SOB worsens, please go to ER [facility]. Follow Up: Return in 2 weeks (on 02/17/2023), or if symptoms worsen or fail to improve, for est witha doc. | For: est with a doc | Check-out note: Make appt with a doc in the next couple weeks. Estelle Joy PA-C documented in this encounter Miscellaneous Notes * Addendum Note - Yuriy Ward LPN - 02/03/2023 9:44 AM EDTAddended by: YURIY WARD on: 02/03/2023 09:44 AM Modules accepted: Orders documented in this encounter Plan of Treatment Upcoming Encounters Date Type Specialty Care Team Description 02/16/2023 Office Visit Family Medicine Sunshine Capellan[address] [place] [address] Health Maintenance Due [...] (FLU shot) (#1) 2023 04/11/2010 GFR 02/04/2024 02/03/2023 GARDASIL-HPV IMMUNIZATION SERIES Aged Out No longer [...] Procedure Name Priority Date/Time Associated Diagnosis Comments XR CHEST 2 VIEWS Routine 02/03/2023 9:12 AM EDT Shortness of breath PULSE OX W/ REST/EXERCISE, MULTIPLE (OP) Routine 02/03/2023 Shortness of breath documented in this encounter Results * XR CHEST 2 VIEWS (02/03/2023 9:12 AM EDT) Anatomical Region Laterality Modality Chest Computed Radiogr aphy 02/04/2023 11:1 2 AM EDT Impressions 02/04/2023 11:09 AM EDT IMPRESSION 1. Subtle opacities in the right mid and lower zones. With this may represent residual inflammatory changes given history of prior pneumonia. Follow-up radiographs recommended in 6 weeks for reassessment. (In compliance with Act 112, the JUMA was contacted to invoke system generated communication of the patient's results.) Narrative 02/04/2023 11:09 AM EDT EXAM XR CHEST 2 VIEWS-02/03/2023 9:12 am HISTORY pneumonia FU COMPARISON None. TECHNIQUE Frontal and lateral chest radiographs obtained. FINDINGS The heart size is within normal limits. Subtle opacities in the right mid and lower zones. With this may represent residual inflammatory changes given history of prior pneumonia. No pleural effusions or pneumothorax. No acute osseous process. Procedure Note Trent Cosby MD - 02/04/2023 EXAM XR CHEST 2 VIEWS-02/03/2023 9:12 am HISTORY pneumonia FU COMPARISON None. TECHNIQUE Frontal and lateral chest radiographs obtained. FINDINGS The heart size is within normal limits. Subtle opacities in the right mid and lower zones. With this mayrepresent residual inflammatory changes given history of priorpneumonia. No pleural effusions or pneumothorax. No acute osseous process. IMPRESSION IMPRESSION 1. Subtle opacities in the right mid and lower zones. With this mayrepresent residual inflammatory changes given history of prior pneumonia.Follow-up radiographs recommended in 6 weeks for reassessment. (In compliance with Act 112, the JU[facility] was contacted to invoke systemgenerated communication of the patient's results.) Estelle Joy PA-C RADIOLOGY (RAD GEN ERAL) * (ABNORMAL) COMPREHENSIVE METABOLIC PANEL (02/03/2023 9:03 AM EDT) BUN 28(H) 6 - 20 mg/dL 02/03/2023 3:03 PM EDT [facility] Creatinine 1.4(H) 0.5 - 1.0 mg/dL 02/03/2023 3:03 PM EDT [facility] Estimated Glomerular Filtration Rate 43(L) >=60 mL/min 02/03/2023 3:03 PM EDT [facility] Comment:eGFR is calculated b ased on the CKD-EPI 2020 equation Sodium 141 135 - 146 mmol/L 02/03/2023 3:03 PM EDT [facility] Potassium 4.4 3.5 - 5.1 mmol/L 02/03/2023 3:03 PM EDT [facility] Chloride 104 98 - 107 mmol/L 02/03/2023 3:03 PM EDT [facility] CO2 23 22 - 32 mmol/L 02/03/2023 3:03 PM EDT [facility] Anion Gap 14 7 - 15 mmol/L 02/03/2023 3:03 PM EDT [facility] Glucose 91 70 - 120 mg/dL 02/03/2023 3:03 PM EDT [facility] Albumin 4.7 3.8 - 5.0 g/dL 02/03/2023 3:03 PM EDT [facility] AST 21 10 - 35 U/L 02/03/2023 3:03 PM EDT [facility] Alkaline Phosphatase 98 35 - 130 U/L 02/03/2023 3:03 PM EDT [facility] Bilirubin, Total 0.6 <=1.2 mg/dL 02/03/2023 3:03 PM EDT [facility] Calcium 9.6 8.4 - 10.2 mg/dL 02/03/2023 3:03 PM EDT [facility] Protein 6.9 6.0 - 8.3 g/dL 02/03/2023 3:03 PM EDT [facility] ALT 21 10 - 35 U/L 02/03/2023 3:03 PM EDT [facility] Blood Venous blood specimen / Unknown Venipuncture / Unknown 02/03/2023 9:03 AM EDT 02/03/2023 9:03 AM EDT Estelle Joy PA-C LAB BLOOD ORDERABL ES [facility] [address], [place] [id number] * PULSE OX W/ REST/EXERCISE, MULTIPLE (OP) (02/03/2023) Pulse Oximetry-Initia l Rest 95% Comment:Pulse 65 Room Air Pulse Oximetry-During Exercise 81% Comment:Pulse 74 Room Air Pulse Oximetry-During Exercise 96% Comment:Pulse 72 O2: 2L/min Pulse Oximetry-Post Exercise 96% Comment:Pulse 64 O2: 2L/min Estelle Joy PA-C MEDICINE documented in this encounter Visit Diagnoses Diagnosis Shortness of breath- Primary Generalized anxiety disorder Adjustment disorder with depressed mood Generalized osteoarthritis Generalized osteoarthrosis, unspecified site HTN, GOAL BELOW 140/90 Unspecified essential hypertension Tobacco use disorder documented in this encounter"
--- OUTSIDE RECORDS SUMMARY | 2023-06-19 04:34 | External Medical Summary | Summary of Care ---
Author Name Unknown Organization [facility] Address [address] [facility] [place] [address] Phone [phone] Care Team Providers Care Winery Worker Name Role Phone Estelle Joy PA-C Primary Care Provider [phone] Reason for Visit * Reason Onset Date Comments Med Request 02/03/2023 Encounter Details Date Type Department Care Team Description 02/03/2023 Telephone Family Medicine [address] [place] [address] Estelle Joy PA-C [address] [place] [address] [place] [address] Med Request Allergies No known active allergiesdocumented as of this encounter (statuses as of 02/08/2023) Medications Medication Sig Dispensed Refills Start Date [...] as of this encounter (statuses as of 02/08/2023) Active Problems Problem Noted Date Degeneration of lumbosacral intervertebr al disc 10/21/2009 Overview: L4-5 HTN, GOAL BELOW 140/90 03/22/2009 Overview: Modified per HTN Taxonomy. Tobacco use disorder Generalized osteoarthritis Generalized anxiety disorder Adjustment disorder with depressed mood documented as of this encounter (statuses as of 02/08/2023) Resolved Problems Problem Noted Date Resolved Date HTN, goal below 140/90 9 Overview: Modified per HTN Taxonomy. documented as of this encounter (statuses as of 02/08/2023) Immunizations Name Administration Dates Next Due Pneumococcal [...] encounter Miscellaneous Notes * Telephone Encounter - Kenna Knapp RN - 02/08/2023 4:48 PM EDT See 02/05/23 encounter regarding Oxygen. Pt was told by Estelle she does not order Lorazepam. She can discuss this with Dr capellan when she establishes on 02-16-23 * Telephone Encounter - Pia Brower CPhT - 02/05/2023 3:13 PM EDT Caregiver calling looking for the Lorazepam.On her discharge summary it states to continue. Patient no longer sees Pysch and would need a script. Also she is looking for the Oxygen. I reached out and spoke to Tammy (nurse) and transferred the call. Thank you, Pia Brower CPhT Director Of Golf [facility] ([facility])(formerly telepharmacy) 02/05/2023,3:19 PM * Telephone Encounter - Estelle Joy PA-C - 02/04/2023 3:53 PM EDT This medicine should continue to come from psych. * Telephone Encounter - Kenna Knapp RN - 02/04/2023 10:19 AM EDT Estelle you saw pt yesterday, nothing was discussed about this. Do you feel she needs it? * Telephone Encounter - Joao Mcnally [facility] - 02/03/2023 3:10 PM EDT I have reviewed the patients controlled substance dispensing history in the Prescription Drug Monitoring Program in compliance with the [place] regulations before prescribing a controlled substance. PDMP checked on 02/03/2023. Pending Prescriptions: Disp Refills LORazepam 0.5 MG Oral Tablet (Ativan) Sig: Take 1 Tablet by mouth 2 times a day as needed for Anxiety. Last Visit: 02/03/2023 (in office), Visit date not found (telemedicine) Next Visit: 02/16/2023 Date medication was last filled: 01/23/23 Date medication is due for refill: 01/27/23 Pharmacy: [id number] Is this request for a controlled substance? Yes and Urine Drug Screen Not completed Toxicology results: No results found for this or any previous visit. Please approve if appropriate. Thanks, Joao Mcnally PharmD Clinical Pharmacist [facility] Services ([facility]) (formerly Telepharmacy) [phone] 02/03/2023, 3:10 PM * Telephone Encounter - JADON Genao - 02/03/2023 2:56 PM EDT Forwarding to [facility] for PDMP Pt calling requesting the following medication below that is listed as "Historical". The following information was provided: Medication Name: Lorazepam Strength: 0.5 MG Directions: 1 TAB by mouth 2 times a day as needed Preferred Quantity: 60 TAB Previous Prescriber: Lenny Sandoval- Psychiatry Preferred Pharmacy: [facility] #[id number] Please review and approve if appropriate. Thank you, Marleni Santoro Cisco Engineer I [facility] Pharm[facility] Services [facility] (formerly Telepharmacy) 02/03/2023,2:57 PM documented in this encounter Plan of Treatment Upcoming Encounters Date Type Specialty Care Team Description 02/16/2023 Office Visit Family Medicine Sunshine Capellan, [address] [place] [address] Health Maintenance Due [...] (#1) 2023 04/11/2010 GFR 02/04/2024 02/03/2023, 01/16/2023 Lipid Panel 01/17/2028 01/16/2023, 10/22/2008 GARDASIL-HPV IMMUNIZATION [...] filedocumented as of this encounter Care Teams Winery Worker Relationship Specialty Start Date End Date Estelle Joy PA-C [address] [place] [address] [place] [address] PCP - General Physician Rocket Scientist 02/05/23 documented as of this encounter
--- OUTSIDE RECORDS SUMMARY | 2023-06-19 04:34 | External Medical Summary | Summary of Care ---
Author Name Unknown Organization [facility] Address [address] [facility] [place] [address] Phone [phone] Care Team Providers Care Aluminum Molder Name Role Phone Unavailable Primary Care Provider Unavailabl e Reason for Visit * Reason Onset Date Comments Med Request 02/03/2023 Encounter Details Date Type Department Care Team Description 02/03/2023 Telephone Family Medicine [address] [place] [address] Estelle Joy PA-C [address] [place] [address] [place] [phone] Med Request Allergies No known active allergiesdocumented [...] encounter Miscellaneous Notes * Telephone Encounter - Estelle Joy PA-C - 02/04/2023 3:53 PM EDT This medicine should continue to come from psych. * Telephone Encounter - Kenna Knapp RN - 02/04/2023 10:19 AM EDT Estelle you saw pt yesterday, nothing was discussed about this. Do you feel she needs it? * Telephone Encounter - Joao Mcnally [facility] - 02/03/2023 3:10 PM EDT I have reviewed the patients controlled substance dispensing history in the Prescription Drug Monitoring Program in compliance with the [facility] regulations before prescribing a controlled substance. PDMP checked on 02/03/2023. Pending Prescriptions: Disp Refills LORazepam 0.5 MG Oral Tablet (Ativan) Sig: Take 1 Tablet by mouth 2 times a day as needed for Anxiety. Last Visit: 02/03/2023 (in office), Visit date not found (telemedicine) Next Visit: 02/16/2023 Date medication was last filled: 01/23/23 Date medication is due for refill: 01/27/23 Pharmacy: [facility] [id number] [place] [address] Is this request for a controlled substance? Yes and Urine Drug Screen Not completed Toxicology results: No results found for this or any previous visit. Please approve if appropriate. Thanks, Joao Mcnally PharmD Clinical Pharmacist [facility] Pharmacy Services (CCPS) (formerly Telepharmacy) [phone] 02/03/2023, 3:10 PM * Telephone Encounter - JADON Genao - 02/03/2023 2:56 PM EDT Forwarding to [facility] for PDMP Pt calling requesting the following medication below that is listed as "Historical". The following information was provided: Medication Name: Lorazepam Strength: 0.5 MG Directions: 1 TAB by mouth 2 times a day as needed Preferred Quantity: 60 TAB Previous Prescriber: Lenny Sandoval- Psychiatry Preferred Pharmacy: [facility] [address] [place] [address] Please review and approve if appropriate. Thank you, Marleni Santoro Wet Roaster I [facility] Pharmacy Services [facility]PS (formerly Telepharmacy) 02/03/2023,2:57 PM documented in this encounter Plan of Treatment Upcoming Encounters Date Type Specialty Care Team Description 02/16/2023 Office Visit Family Medicine Sunshine Capellan[address] [place] [phone] Health Maintenance Due Date Last Done Comments [...]
--- OUTSIDE RECORDS SUMMARY | 2023-06-19 04:34 | External Medical Summary | Summary of Care ---
Author Name Unknown Organization [facility] Address [address] [facility] [place] [address] Phone [phone] Care Team Providers Care Manager Office Name Role Phone Estelle Joy PA-C Primary Care Provider [phone]- [phone] Encounter Details Date Type Department Care Team Description 02/05/[address] [place] [address] Estelle Joy PA-C [address] [place] [address] [place] [address] Allergies No known active allergiesdocumented as of [...] encounter Miscellaneous Notes * Telephone Encounter - Tammy CHRISTOS Martin - 02/05/2023 3:19 PM EDT Pt's caregiver called- states pt is having difficulty breathing with activity, she has still not gotten her oxygen that was ordered yet. I recommended that pt go to the ER if she's having difficulty breathing, pt/pt's caregiver refused and stated they will just have her take it easy at home. I toldthem I'd fax the order, demographics, and note to [facility] in [place], which is where the caregiver states they took the order the first time and they told them they'd call but have not called yet. Pt's caregiver states pt was incarcerated, then she was hospitalized, then sent to [facility] and they picked her up from the hospital, so she doesn't really know what was going on either. * Telephone Encounter - Estelle Joy PA-C - 02/05/2023 9:18 AM EDT Please call pt and let her know that her labs look ok. Her chest xray shows some inflammation from her recent pneumonia. Will repeat chest xray in a few weeks. Make sure she keeps her appt to establish with Dr. Capellan. documented in this encounter Plan of Treatment Upcoming Encounters Date Type Specialty Care Team Description 02/16/2023 Office Visit Family Medicine Sunshine Capellan, [address] [place] [address] Health Maintenance Due [...] filedocumented as of this encounter Care Teams Manager Office Relationship Specialty Start Date End Date Estelle Joy PA-Raza [address] [place] [address] [place] [phone] PCP - General Physician Guide Tour 02/05/23 documented as of this encounter
--- OUTSIDE RECORDS SUMMARY | 2023-06-19 04:34 | External Medical Summary | Summary of Care ---
Author Name Unknown Organization [facility] Address [address] [facility] [place] [address] Phone [phone] Care Team Providers Care Box Blank Machine Operator Name Role Phone Unavailable Primary Care Provider Unavailabl e Reason for Visit * Reason Comments NEW PATIENT Encounter Details Date Type Department Care Team Description 02/03/2023 Office Visit Family Medicine [address] [place] [address] Estelle Joy PA-C [address] [place] [address] [place] [address] Shortness of breath*; Generalized [...] 3 Discontinued [facility] NICOTINE 14 MG/24HR TD [id number]:Tob acco use disorder 1 PATCH DAILY 30 [...] 3 Discontinued VERAPAMIL HCL 180 MG PO [id number]:HTN , goal below 140/90 one daily 90 [...] that she was seeing a doctor in [place] but hasn't seen him in a long time. She was just in [facility] for pneumonia. 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 [place] O:Blood pressure 128/78, pulse 68, temperature [...] Description 02/16/2023 Office Visit Family Medicine Sunshine Capellan[address] [place] [address] Pending Results Name Type Priority Associated Diagnoses Date/Time XR CHEST 2 VIEWS Medical Imaging Routine Shortness of breath 02/03/2023 9:12 AM EDT COMPREHENSIVE METABOLIC PANEL Lab Routine HTN, GOAL BELOW 140/90 02/03/2023 9:03 AM EDT CBC WITH WBC DIFFERENTIAL AND ANEMIA REFLEX WORKUP Lab Routine HTN, GOAL BELOW 140/90 02/03/2023 9:03 AM EDT Scheduled Orders Name Type Priority Associated Diagnoses Orde r Schedule COMPREHENSIVE METABOLIC PANEL Lab Routine HTN, GOAL BELOW 140/90 Expected: 02/03/2023 (Approximate), Expires: 02/03/2024 CBC WITH WBC DIFFERENTIAL AND ANEMIA REFLEX WORKUP Lab Routine HTN, GOAL BELOW 140/90 Expected: 02/03/2023 (Approximate), Expires: 02/04/2024 Health Maintenance Due Date Last Done Comments [...] Procedure Name Priority Date/Time Associated Diagnosis Comments PULSE OX W/ REST/EXERCISE, MULTIPLE (OP) Routine 02/03/2023 Shortness of breath documented in this encounter Results * PULSE OX W/ REST/EXERCISE, MULTIPLE (OP) [...]
--- OUTSIDE RECORDS SUMMARY | 2023-06-19 04:34 | External Medical Summary | Summary of Care ---
Author Name Unknown Organization [facility] Address [address] [facility] [place] [address] Phone [phone] Care Team Providers Care Instructor Adjunct Pharmacy Technician Name Role Phone Sunshine Capellan DO Primary Care Provider [phone] Reason for Visit * Reason Comments NEW PATIENT Establishing with Dr Racheal Capellan. Medication Problem Pt is not able to ve rify med list. Encounter Details Date Type Department Care Team Description 02/16/2023 Office Visit Family Medicine [address] [place] [address] Sunshine Capellan DO [address] [place] [address] [place] [address] HTN, GOAL BELOW 140/90*; [...] establish care. She was recently admitted to [facility] for pneumonia and subsequently transferred to the [...] Sunshine Capellan DO documented in this encounter Miscellaneous Notes * Addendum Note - Tammy Martin LPN - 02/16/2023 11:21 AM EDTAddended by: TAMMY MARTIN on: 02/16/2023 11:21 AM Modules accepted: Orders documented in this encounter Plan of Treatment Upcoming Encounters Date Type Specialty Care Team Description 03/19/2023 Imaging Radiology 09/14/2023 Office Visit Family Medicine Sunshine Capellan, [address] [place] [address] Scheduled Orders Name Type Priority Associated Diagnoses [...] PULSE OX W/ REST/EXERCISE, MULTIPLE (OP) Routine 02/16/2023 History of pneumonia documented in this encounter Results * PULSE OX W/ REST/EXERCISE, MULTIPLE (OP) (02/16/2023) Pulse Oximetry-Initia l Rest 96% Comment:Pulse 56 | Room Air Pulse Oximetry-During Exercise 84% Comment:Pulse 66 | Room Air Pulse Oximetry-During Exercise 98% Comment:Pulse 63 | Oxygen 2L /min via NC Pulse Oximetry-Post Exercise 99% Comment:Pulse 64 | Oxygen 2L /min via NC Sunshine Capellan DO MEDICINE documented in this encounter Visit Diagnoses Diagnosis HTN, GOAL BELOW 140/90- Primary Unspecified essential hypertension Tobacco use disorder History of pneumonia Personal history of pneumonia (recurrent) Hyperlipidemia with target LDL less than 100 Other and unspecified hyperlipidemia Major depressive disorder in partial remission, unspecified whether recurrent (HCC) History of alcohol abuse Nondependent alcohol abuse, in remission documented in this encounter Care Teams Instructor Adjunct Pharmacy Technician Relationship Specialty Start Date End Date Sunshine Capellan DO [address] [place] [address] [place] [address] PCP - General Internal Medicine 02/16/23 documented as of this encounter
--- OUTSIDE RECORDS SUMMARY | 2023-06-19 04:34 | External Medical Summary | Summary of Care ---
Author Name Unknown Organization [facility] Address [address] [place] [place] [place] [address] Phone [phone] Care Team Providers Care Scrap Piler Name Role Phone Unavailable Primary Care Provider Unavailabl e Reason for Visit * Reason Comments NEW PATIENT Encounter Details Date Type Department Care Team Description 02/03/2023 Office Visit Family Medicine [address] [place] [address] Estelle Joy PA-C [address] [place] [address] [place] [address] Shortness of breath*; Generalized [...] 3 Discontinued [facility]S NICOTINE 14 MG/24HR TD [id number]:Tob acco use disorder 1 PATCH DAILY 30 [...] 3 Discontinued VERAPAMIL HCL 180 MG PO [id number]:HTN , goal below 140/90 one daily 90 [...] that she was seeing a doctor in [place] but hasn't seen him in a long time. She was just in [facility] for pneumonia. 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
--- OUTSIDE RECORDS SUMMARY | 2023-06-19 04:34 | External Medical Summary | Summary of Care ---
Author Name Unknown Organization [facility] Address [address] [place] [address] Phone [phone] Care Team Providers Care Artillery Specialist Name Role Phone Unavailable Primary Care Provider Unavailabl e Reason for Visit * Reason Onset Date Comments Test Results 02/04/2023 Unexpected or In determinate Result Encounter Details Date Type Department Care Team Description 02/04/2023 Telephone Laboratory, [place] [address] [place] [address] Estelle Joy PA-C [address] [place] [address] [place] [address] Test Results (Unexpected or Indeterminate ... Allergies No known active allergiesdocumented as of this encounter (statuses as of 02/04/2023) Medications Medication Sig Dispensed Refills Start Date [...] as of this encounter (statuses as of 02/04/2023) Active Problems Problem Noted Date Degeneration of lumbosacral intervertebr al disc 10/21/2009 Overview: L4-5 HTN, GOAL BELOW 140/90 03/22/2009 Overview: Modified per HTN Taxonomy. Tobacco use disorder Generalized osteoarthritis Generalized anxiety disorder Adjustment disorder with depressed mood documented as of this encounter (statuses as of 02/04/2023) Resolved Problems Problem Noted Date Resolved Date HTN, goal below 140/90 9 Overview: Modified per HTN Taxonomy. documented as of this encounter (statuses as of 02/04/2023) Immunizations Name Administration Dates Next Due Pneumococcal [...] Miscellaneous Notes * Telephone Encounter - NICHOLE Guevara - 02/04/2023 1:16 PM EDT Renee- The radiologist discovered an unexpected or indeterminate finding on Cynthia Whittaker ([id number]) and asks that you review the following report. Study Type: XR CHEST 2 VIEWS 02/03/2023 IMPRESSION 1. Subtle opacities in the right mid and lower zones. With this may represent residual inflammatorychanges given history of prior pneumonia. Follow-up radiographs recommended in 6 weeks for reassessment. Please respond to this encounter to acknowledge receipt of this message and take responsibility to ensure this report is reviewed. Thank you, NICHOLE Guevara Client Service Rep [facility] documented in this encounter Plan of Treatment Upcoming Encounters Date Type Specialty Care Team Description 02/16/2023 Office Visit Family Medicine Sunshine Capellan, [address] [place] [address] Health Maintenance Due [...]
--- OUTSIDE RECORDS SUMMARY | 2023-06-19 04:34 | External Medical Summary | Summary of Care ---
Author Name Unknown Organization [facility] Address [address] [facility] [place] [address] Phone [phone] Care Team Providers Care Access Clinician Name Role Phone Estelle Joy PA-C Primary Care Provider +1- [phone] Reason for Visit * Reason Onset Date Comments Med Request 02/03/2023 Encounter Details Date Type Department Care Team Description 02/03/2023 Telephone Family Medicine [address] [place] [address] Estelle Joy PA-C [address] [place] [address] [place] [address] Med Request Allergies No [...] encounter Miscellaneous Notes * Telephone Encounter - Pia Brower CPhT - 02/05/2023 3:13 PM EDT Caregiver calling looking for the Lorazepam.On her discharge summary it states to continue. Patient no longer sees Pysch and would need a script. Also she is looking for the Oxygen. I reached out and spoke to Tammy (nurse) and transferred the call. Thank you, Pia Brower CPhT Sanitation Truck Driver Centralized Clinical Pharmacy Services (CCPS)(formerly telepharmacy) 02/05/2023,3:19 PM * Telephone Encounter - Estelle Joy PA-C - 02/04/2023 3:53 PM EDT This medicine should continue to come from psych. * Telephone Encounter - Kenna Knapp RN - 02/04/2023 10:19 AM EDT Estelle you saw pt yesterday, nothing was discussed about this. Do you feel she needs it? * Telephone Encounter - Joao Mcnally RP - 02/03/2023 3:10 PM EDT I have reviewed the patients controlled substance dispensing history in the Prescription Drug Monitoring Program in compliance with the [facility] regulations before prescribing a controlled substance. PDMP checked on 02/03/2023. Pending Prescriptions: Disp Refills LORazepam 0.5 MG Oral Tablet (Ativan) Sig: Take 1 Tablet by mouth 2 times a day as needed for Anxiety. Last Visit: 02/03/2023 (in office), Visit date not found (telemedicine) Next Visit: 02/16/2023 Date medication was last filled: 01/23/23 Date medication is due for refill: 01/27/23 Pharmacy: [id number] [address] [facility] Is this request for a controlled substance? Yes and Urine Drug Screen Not completed Toxicology results: No results found for this or any previous visit. Please approve if appropriate. Thanks, Joao Mcnally, PharmD Clinical Pharmacist Centralized Clinical Pharmacy Services (CCPS) (formerly Telepharmacy) [phone] 02/03/2023, 3:10 PM * Telephone Encounter - JADON Genao - 02/03/2023 2:56 PM EDT Forwarding to [facility] for PDMP Pt calling requesting the following medication below that is listed as "Historical". The following information was provided: Medication Name: Lorazepam Strength: 0.5 MG Directions: 1 TAB by mouth 2 times a day as needed Preferred Quantity: 60 TAB Previous Prescriber: Lenny Sandoval- Psychiatry Preferred Pharmacy: [facility] [id number] Please review and approve if appropriate. Thank you, Marleni Santoro Assistant I Centralized Clinical Pharmacy Services [facility]PS (formerly Telepharmacy) 02/03/2023,2:57 PM documented in this encounter Plan of Treatment Upcoming Encounters Date Type Specialty Care Team Description 02/16/2023 Office Visit Family Medicine Sunshine Capellan, [address] [place] [address] Health Maintenance Due [...] filedocumented as of this encounter Care Teams Access Clinician Relationship Specialty Start Date End Date Estelle Joy PA-C [address] [place] [address] [place] [address] PCP - General Physician Facility Examiner 02/05/23 documented as of this encounter
--- OUTSIDE RECORDS SUMMARY | 2023-06-19 04:34 | External Medical Summary | Summary of Care ---
Author Name Unknown Organization [facility] Address [address] [facility] [place] [address] Phone [phone] Care Team Providers Care Electrical Technician Name Role Phone Unavailable Primary Care Provider Unavailabl e Reason for Visit * Reason Comments NEW PATIENT Encounter Details Date Type Department Care Team Description 02/03/2023 Office Visit Family Medicine [address] [place] [address] Estelle Joy PA-C [address] [place] [address] [place] [address] Shortness of breath*; Generalized anxiety disorder; Adjustment disorder with depressed mood; Generalized osteoarthritis; HTN, GOAL BELOW 140/90; Tobacco use disorder Allergies No known active allergiesdocumented as of this encounter (statuses as of 02/09/2023) Medications Medication Sig Dispensed Refills Start Date [...] 3 Discontinued [facility]S NICOTINE 14 MG/24HR TD [id number]:Tob acco use disorder 1 PATCH DAILY 30 [...] 3 Discontinued VERAPAMIL HCL 180 MG PO [id number]:HTN , goal below 140/90 one daily 90 [...] as of this encounter (statuses as of 02/09/2023) Active Problems Problem Noted Date Degeneration of lumbosacral intervertebr al disc 10/21/2009 Overview: L4-5 HTN, GOAL BELOW 140/90 03/22/2009 Overview: Modified per HTN Taxonomy. Tobacco use disorder Generalized osteoarthritis Generalized anxiety disorder Adjustment disorder with depressed mood documented as of this encounter (statuses as of 02/09/2023) Resolved Problems Problem Noted Date Resolved Date HTN, goal below 140/90 9 Overview: Modified per HTN Taxonomy. documented as of this encounter (statuses as of 02/09/2023) Immunizations Name Administration Dates Next Due Pneumococcal [...] that she was seeing a doctor in [place] but hasn't seen him in a long time. She was just in [facility] for pneumonia. 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
--- OUTSIDE RECORDS SUMMARY | 2023-06-19 04:34 | External Medical Summary | Summary of Care ---
Author Name Unknown Organization [facility] Address [address] [place] [address] Phone [phone] Care Team Providers Care Safety Instructor Name Role Phone Unavailable Primary Care Provider Unavailabl e Encounter Details Date Type Department Care Team Description 02/05/2023 Orders Only Family Medicine [address] [place] [address] Estelle Joy PA-C [address] [place] [address] [place] [address] Allergies No known active [...] 02/16/2023 Office Visit Family Medicine Sunshine Capellan, [address] [place] [address] Health Maintenance Due [...] 10/01/2011, Additional history exists Lipid Panel 10/22/2013 01/16/2023, 10/22/2008 DTaP,Tdap,and Td Vaccines (2 - Td or Tdap) 08/15/2018 08/15/2008 Influenza Vaccine (FLU shot) (#1) 2023 04/11/2010 GFR 02/04/2024 02/03/2023, 01/16/2023 GARDASIL-HPV IMMUNIZATION SERIES Aged Out No longer [...] Priority Date/Time Associated Diagnosis Comments CHEMISTRY-OUTSIDE Routine 01/16/2023 TSH Routine 01/16/2023 documented in this encounter Results * TSH (01/16/2023) TSH - OUTSIDE LAB 1.130 0.360 - 3.740 MCIU/ML OUTSIDE LAB (SEE SCANNED REPORT) Blood Venous blood specimen / Unknown 01/16/2023 Sheila Bradshaw DO LAB BLOOD OR DERABLES OUTSIDE LAB (SEE SCANNED REPORT) * (ABNORMAL) CHEMISTRY-OUTSIDE (01/16/2023) Not all results display below - see scan for full detail OUTSIDE LAB (SEE SCANNED REPORT) Comment:SEE SCAN - CMP,A1C,M PG,LIPID,MAG,PHOS,FOLATE,T4 FREE,TSH,B12,VIT D,CBC CREATININE-OUTSID E LAB 0.98 0.55 - 1.02 MG/DL OUTSIDE LAB (SEE SCANNED REPORT) EGFR-OUTSIDE LAB 66 >60 ML/MIN/1.7 3M2 OUTSIDE LAB (SEE SCANNED REPORT) POTASSIUM-OUTSIDE LAB 4.0 3.5 - 5.1 MMOL/L OUTSIDE LAB (SEE SCANNED REPORT) GLUCOSE-OUTSIDE LAB 97 70 - 110 MG/DL OUTSIDE LAB (SEE SCANNED REPORT) HOURS FASTING OUTSID E LAB (SEE SCANNED REPORT) TRIGLYCERIDES-OUT SIDE LAB 108 30 - 200 MG/DL OUTSIDE LAB (SEE SCANNED REPORT) CHOLESTEROL-OUTSI DE LAB 136 <200 MG/DL OUTSIDE LAB (SEE SCANNED REPORT) HDL-OUTSIDE LAB 38.0(A) 40.0 - 59.0 MG/DL OUTSIDE LAB (SEE SCANNED REPORT) CHOL/HDL RATIO-OUTSIDE LAB OUTSIDE LA B (SEE SCANNED REPORT) LDL (CALCULATED)-OUTS [facility] 76.40 <100 MG/DL OUTSIDE LAB (SEE SCANNED REPORT) LDL (DIRECT MEASURE)-OUTSIDE LAB OUTSIDE LAB (SEE SCANNED REPORT) HEMOGLOBIN, B3P-IRIQDLG LAB 5.7(A) 3.8 - 5.6 % OUTSIDE LAB (SEE SCANNED REPORT) PHOSPHORUS-OUTSID E LAB 4.3 2.5 - 4.9 MG/DL OUTSIDE LAB (SEE SCANNED REPORT) PTH-OUTSIDE LAB OUTS [facility] (SEE SCANNED REPORT) MICROALBUMIN RATIO-OUTSIDE LAB OUTSIDE LA B (SEE SCANNED REPORT) PROTEIN, UA-OUTSIDE LAB OUTSIDE LAB (SEE SCANNED REPORT) HEMOGLOBIN-OUTSID E LAB 10.9(A) 12.0 - 16.0 GM/DL OUTSIDE LAB (SEE SCANNED REPORT) 01/16/2023 Sheila Bradshaw DO LABORATORY OUTSIDE LAB (SEE SCANNED REPORT) documented in this encounter
--- OUTSIDE RECORDS SUMMARY | 2023-06-19 04:34 | External Medical Summary | Summary of Care ---
Author Name Unknown Organization [facility] Address [address] [facility] [place] [address] Phone [phone] Care Team Providers Care Chargeback Analyst Name Role Phone Sunshine Capellan DO Primary Care Provider [phone] Reason for Visit * Reason Comments NEW PATIENT Establishing with Dr Racheal Capellan. Medication Problem Pt is not able to ve rify med list. Encounter Details Date Type Department Care Team Description 02/16/2023 Office Visit Family Medicine [address] [place] [address] Sunshine Capellan DO [address] [place] [address] [place] [address] HTN, GOAL BELOW 140/90*; [...] establish care. She was recently admitted to [facility] for pneumonia and subsequently transferred to [...] remission documented in this encounter Care Teams Chargeback Analyst Relationship Specialty Start Date End Date Sunshine Capellan[address] [place] [phone] PCP - General Internal Medicine 02/16/23 documented as of this encounter
--- OUTSIDE RECORDS SUMMARY | 2023-06-19 04:35 | External Medical Summary ---
Author Name Unknown Address Unknown Organization K01:LABORATORY [facility] [place] - [address] [place] [address] [place] [address] Laboratory Report Ordering Provider Test Date Status GODFREY MARAVILLA 02/03/2023 09:03:01 Final Observation Date Value Abnormality Reference (Units ) Status BUN 02/03/2023 09:03:01 28 Above high normal 6-20 (mg/dL) Final Creatinine 02/03/2023 09:03:01 1.4 Above high normal 0.5-1.0 (mg/dL) Final Glomerular filtration rate/1.73 sq M.predicted [Volume Rate/Area] in Serum, Plasma or Blood by Creatinine-based formula (CKD-EPI) 02/03/2023 09:03:01 43 Below low normal >=60 (mL/min) Final eGFR is calculated based on the CKD-EPI 2020 equation SODIUM 02/03/2023 09:03:01 141 135-146 (m mol/L) Final Potassium 02/03/2023 09:03:01 4.4 3.5-5.1 (m mol/L) Final Cl 02/03/2023 09:03:01 104 98-107 (mm ol/L) Final CO2 02/03/2023 09:03:01 23 22-32 (mmo l/L) Final Anion gap 02/03/2023 09:03:01 14 7-15 (mmol /L) Final Glucose 02/03/2023 09:03:01 91 70-120 (mg /dL) Final Albumin 02/03/2023 09:03:01 4.7 3.8-5.0 (g /dL) Final AST (Aspartate aminotransferase) 02/03/2023 09:03:01 21 10-35 (U/L) Final Alk Phos 02/03/2023 09:03:01 98 35-130 (U/ L) Final Bilirubin, Total 02/03/2023 09:03:01 0.6 <=1 .2 (mg/dL) Final Calcium 02/03/2023 09:03:01 9.6 8.4-10.2 ( mg/dL) Final Protein 02/03/2023 09:03:01 6.9 6.0-8.3 (g /dL) Final ALT (Alanine aminotransferase) 02/03/2023 09:03:01 21 10-35 (U/L) Final Performing Location LABORATORY [facility] [place] - [address] [facility] [address]
--- OUTSIDE RECORDS SUMMARY | 2023-06-19 04:35 | External Medical Summary ---
Author Name Unknown Address Unknown Organization K01:[place] [facility] [place] [address] [place] [address] Laboratory Report Ordering Provider Test Date Status GODFREY MARAVILLA 02/03/2023 09:03:01 Final Observation Date Value Abnormality Reference (Units ) Status Folic Acid 02/03/2023 09:03:01 10.8 >4.5 (ng/ mL) Final Performing Location [facility] [place] [address] [place] [address]
--- OUTSIDE RECORDS SUMMARY | 2023-06-19 04:35 | External Medical Summary | Summary of Care ---
Author Name Unknown Organization [facility] Address [address] [facility] [place] [address] Phone [phone] Care Team Providers Care Glassware Defect Repairer Name Role Phone Unavailable Primary Care Provider Unavailabl e Reason for Visit * Reason Comments Outpatient Testing Encounter Details Date Type Department Care Team Description 02/03/2023 Laboratory Laboratory [address] [place] [address] [facility] [address] [place] [address] HTN, GOAL BELOW 140/90 Allergies No known [...] 02/16/2023 Office Visit Family Medicine Sunshine Capellan, [address] [place] [address] Pending Results Name Type Priority Associated Diagnoses Date /Time COMPREHENSIVE METABOLIC PANEL Lab Routine HTN, GOAL BELOW 140/90 02/03/2023 9:03 AM EDT CBC WITH WBC DIFFERENTIAL AND ANEMIA REFLEX WORKUP Lab Routine HTN, GOAL BELOW 140/90 02/03/2023 9:03 AM EDT ANEMIA CBC Lab Routine HTN, GOAL BELOW 140/90 02/03/2023 9:03 AM EDT DIFFERENTIAL, AUTOMATED Lab Routine HTN, GOAL BELOW 140/90 02/03/2023 9:03 AM EDT ANEMIA REFLEX CHEMISTRY HOLD Lab Routine HTN, GOAL BELOW 140/90 02/03/2023 9:03 AM EDT Health Maintenance Due Date Last Done [...]
--- OUTSIDE RECORDS SUMMARY | 2023-06-19 04:35 | External Medical Summary ---
Author Name Unknown Address Unknown Organization K01:LABORATORY [facility] [place] - [address] [place] [address] Laboratory Report Ordering Provider Test Date Status GODFREY MARAVILLA 02/03/2023 09:03:01 Final Observation Date Value Abnormality Reference (Units ) Status WBC, Total 02/03/2023 09:03:01 10.30 4.00-10.8 0 (K/uL) Final RBC 02/03/2023 09:03:01 3.97 3.85-5.15 (M/uL) Final Hemoglobin 02/03/2023 09:03:01 11.4 Below low normal 12 .0-15.3 (g/dL) Final Anemia reflex testing trigge rs on a HGB < 12.0 for Females and HGB < 13.0 for Males in accordance with the WHO Anemia Guidelines
Anemia reflex testing triggers on a HGB < 12.0 for Females and HGB < 13.0 for Males in accordance with the WHO Anemia Guidelines HCT 02/03/2023 09:03:01 37.8 36.0-45.2 (%) Final MCV 02/03/2023 09:03:01 95.2 81.5-97.5 (fL) Final MCH 02/03/2023 09:03:01 28.7 27.0-34.0 (pg) Final MCHC 02/03/2023 09:03:01 30.2 32.0-36.0 (g/dL) Final RDW 02/03/2023 09:03:01 13.7 11.5-15.5 (%) Final Platelets 02/03/2023 09:03:01 273 140-400 (K /uL) Final MPV 02/03/2023 09:03:01 10.4 6.6-11.1 ( fL) Final Nucleated erythrocytes/100 leukocytes [Ratio] in Blood by Automated count 02/03/2023 09:03:01 0 <=0 (/100 WBCs) Fi nal Performing Location LABORATORY [facility] [place] - [facility] [address]. [facility] [address]
--- OUTSIDE RECORDS SUMMARY | 2023-06-19 04:35 | External Medical Summary ---
Author Name Unknown Address Unknown Organization K01:[facility]ORY [facility] [place] - [address] [place] [address] Laboratory Report Ordering Provider Test Date Status GODFREY MARAVILLA 02/03/2023 09:03:01 Final Observation Date Value Abnormality Reference (Units ) Status TSH 02/03/2023 09:03:01 1.61 0.27-4.20 (uIU/mL) Final Performing Location LABORATORY C - [address] [place] [address]
--- OUTSIDE RECORDS SUMMARY | 2023-06-19 04:35 | External Medical Summary ---
Author Name Unknown Address Unknown Organization K01:[facility]ATORY [facility] [place] [address] [address] Laboratory Report Ordering Provider Test Date Status DELPHINE MARAVILLAHoney 02/03/2023 09:03:01 Final Observation Date Value Abnormality Reference (Units ) Status Iron 02/03/2023 09:03:01 61 33-151 (ug /dL) Final Iron-binding capacity 02/03/2023 09:03:01 327 250-425 (ug/dL) Final Transferrin Sat % 02/03/2023 09:03:01 19 15 -55 (%) Final Performing Location LABORATORY [facility] [place] - [address] [place] [address]
--- OUTSIDE RECORDS SUMMARY | 2023-06-19 04:35 | External Medical Summary | Summary of Care ---
Author Name Unknown Organization [facility] Address [address] [place] [facility] [place] [address] Phone [phone] Care Team Providers Care Maintenance Chief Name Role Phone Unavailable Primary Care Provider Unavailabl e Reason for Visit * Reason Comments NEW PATIENT Encounter Details Date Type Department Care Team Description 02/03/2023 Office Visit Family Medicine [address] [place] [address] Estelle Joy PA-C [address] [place] [address] [place] [address] Shortness of breath*; Generalized [...] 3 Discontinued [facility] NICOTINE 14 MG/24HR TD [id number]:Tob acco use disorder 1 PATCH DAILY 30 [...] 3 Discontinued VERAPAMIL HCL 180 MG PO [id number]:HTN , goal below 140/90 one daily 90 [...] that she was seeing a doctor in [place] but hasn't seen him in a long time. She was just in [facility] for pneumonia. 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 O:Blood pressure 128/78, pulse 68, temperature [...] 02/16/2023 Office Visit Family Medicine Sunshine Capellan, [address] [place] [address] Pending Results Name Type Priority Associated Diagnoses [...] Pulse Oximetry-Initia l Rest 95% Comment:Pulse 65 Pulse Oximetry-During Exercise 81% Comment:Pulse 74 Pulse Oximetry-Post Exercise 96% Comment:Pulse 66 Pulse Oximetry-Post Nebulizer Estelle Joy PA-C MEDICINE documented in this encounter Visit Diagnoses Diagnosis Shortness of breath- Primary Generalized anxiety disorder Adjustment disorder with depressed mood Generalized osteoarthritis Generalized osteoarthrosis, unspecified site HTN, GOAL BELOW 140/90 Unspecified essential hypertension Tobacco use disorder documented in this encounter"
--- OUTSIDE RECORDS SUMMARY | 2023-06-19 04:35 | External Medical Summary ---
Author Name Unknown Address Unknown Organization K01:[facility] [place] [address] [address] Laboratory Report Ordering Provider Test Date Status GODFREY MARAVILLA 02/03/2023 09:03:01 Final Observation Date Value Abnormality Reference (Units ) Status Vitamin B12 02/03/2023 09:03:01 085 295-9578 (pg/mL) Final Performing Location LABOR[facility] [place] [address] [place] [address]
--- OUTSIDE RECORDS SUMMARY | 2023-06-19 04:35 | External Medical Summary ---
Author Name Unknown Address Unknown Organization K01:LABORATORY [facility] [place] - [address] [place] [address] Laboratory Report Ordering Provider Test Date Status DELPHINE MARAVILLAHoney 02/03/2023 09:03:01 Final Observation Date Value Abnormality Reference (Units ) Status Ferritin 02/03/2023 09:03:01 78 13-150 (ng /mL) Final Postmenopausal women have hi gher ferritin levels than pre-menopausal women. The above reference interval is based on pre-menopausal women. Performing Location LABORATORY [facility] [place] - [address] [place] [address]
--- OUTSIDE RECORDS SUMMARY | 2023-06-19 04:35 | External Medical Summary ---
Author Name Unknown Address Unknown Organization K01:LABORATORY [facility] [place] - [address] [facility][1] [place] [address] Laboratory Report Ordering Provider Test Date Status GODFREY MARAVILLA 02/03/2023 09:03:01 Final Observation Date Value Abnormality Reference (Units ) Status SYNC LEUKOCYTES IN BLOOD BY AUTOMATED COUNT 02/03/2023 09:03:01 10.30 4.00-10.80 (K/uL) Final Segs 02/03/2023 09:03:01 74.4 40.0-75.0 (%) Final Lymphs % 02/03/2023 09:03:01 13.7 Below low normal 18.0-42.0 (%) Final Monos 02/03/2023 09:03:01 7.0 1.0-11.0 (%) Final Eosinophils 02/03/2023 09:03:01 3.8 0.0-6.0 (%) Final Basos 02/03/2023 09:03:01 0.8 0.0-2.0 (%) Final Immature Granulocyte, Percent 02/03/2023 09:03:01 0.3 0.0-2.0 (%) Final Absolute Segs 02/03/2023 09:03:01 7.67 1.80-7.70 (K/uL) Final Lymphs, absolute 02/03/2023 09:03:01 1.41 1.00-4.80 (K/ul) Final Monos, Abs 02/03/2023 09:03:01 0.72 0.00-1.10 (K/uL) Final Eos, Abs 02/03/2023 09:03:01 0.39 0.00-0.70 (K/uL) Final Basos, Abs 02/03/2023 09:03:01 0.08 0.00-0.20 (K/uL) Final Immature Granulocytes, Number 02/03/2023 09:03:01 0.03 0.00-0.20 (K/uL) Final Performing Location LABORATORY [facility] [place] - [facility] [address] [facility] [address]
--- OUTSIDE RECORDS SUMMARY | 2023-06-19 04:35 | External Medical Summary ---
Author Name Unknown Address Unknown Organization K01:LABORATORY [place] [address] [address] [facility] [place] [address] Laboratory Report Ordering Provider Test Date Status DELPHINE MARAVILLAHoney 02/03/2023 09:03:01 Final Observation Date Value Abnormality Reference (Units ) Status Retic, % (auto) 02/03/2023 09:03:01 1.48 0.80-1.90 (%) Final Reticulocytes, Absolute 02/03/2023 09:03:01 59.2 31.3-100.1 (K/uL) Final Reticulocyte fraction, immature 02/03/2023 09:03:01 9.1 2.5-20.6 (%) Final Reticulocyte HGB 02/03/2023 09:03:01 32.6 29.7-37.4 (pg) Final Performing Location [facility] [facility] [place] - [facility] [place] [address]
[2023-06-19 06:31] LABS: Basophils # (auto) 0.06 K/uL (0.00-0.20); Eosinophils # (auto) 0.26 K/uL (0.00-0.50); Eosinophils % (auto) 4.1 %; Hematocrit (blood only) 35.6 % (37.0-47.0); Hemoglobin 11.4 g/dl (12.0-16.0); Immature Granulocytes # (auto) 0.01 K/uL (0.01-0.20); Immature Granulocytes % (auto) 0.2 %; Lymphocytes % (auto) 31.8 %; Mean Corpuscular Hemoglobin 29.2 pg (25.0-34.0); Mean Platelet Volume 9.5 fL (9.4-12.4); Monocytes # (auto) 0.75 K/uL (0.11-0.59); Monocytes % (auto) 11.9 %; Platelet Count 244 K/uL (130-400); RDW Coefficient of Variation 13.4 % (11.5-14.5); RDW Standard Deviation 44.4 fL (36.4-46.3); Red Blood Count 3.91 M/uL (4.20-5.40); White Blood Count 6.28 K/ul (4.8-10.8)
[2023-06-19 06:52] LABS: BUN Creatinine Ratio 20.1 (10-20); Calcium 9.1 mg/dl (8.6-10.3); Chol HDL Ratio 2.4 (0-5); Creatinine Clr Calc Pharmacy 40.5 ml/min; Est GFR (African American) 47.6 ml/min; Est GFR (Non-African American) 41.1 ml/min; Potassium 3.9 mmol/L (3.5-5.1)
[2023-06-19 07:08] LABS: Estimated Average Glucose 111 mg/dl; Hemoglobin A1C 5.5 % (4.5-5.6)
--- NOTE | 2023-06-19 07:25 | Ultrasound Report ---
US carotid doppler BI CLINICAL HISTORY: 62 years-old Female with stroke symptoms. Acute strokelike symptoms COMPARISON: None TECHNIQUE: Multiple real time sonographic images of the carotid bifurcations were obtained assessing barksdale scale, color Doppler and spectral wave form appearance FINDINGS: RIGHT CAROTID: The peak systolic velocity measured 95 cm/sec. The end diastolic velocity measured 3 8 cm/sec. The ICA to CCA ratio measured 1.3 which correlates with a stenosis of 0-50%. There is prom inent atherosclerotic plaque throughout the common and internal carotid artery. LEFT CAROTID: The peak systolic velocity measured 62 cm/sec. The end diastolic velocity measured 22 cm/sec. The ICA to CCA ratio measured 0.8 which correlates with a stenosis of 0-50%. There is promi nent atherosclerotic plaques throughout the common and internal carotid artery. There is normal antegrade vertebral flow bilaterally. IMPRESSION: 1. Atherosclerosis without hemodynamically significant stenosis. 2. Normal antegrade vertebral flow bilaterally. ACT 112: Negative or not required by law. The above report was generated using voice recognition software. It may contain grammatical, syntax o r spelling errors. Electronically signed by: Shlomo Holman M.D. 06/19/2023 7:23 AM
[2023-06-19] MEDS: LABETALOL HCL 200 MG TAB PO SCH (08:09)
[2023-06-19] MEDS: ESCITALOPRAM OXALATE 20 MG TAB PO SCH (08:09)
[2023-06-19] MEDS: LOSARTAN POTASSIUM 50 MG TAB PO SCH (08:09)
[2023-06-19] MEDS: amLODIPine BESYLATE 5 MG TAB PO SCH (08:09)
[2023-06-19] MEDS: ASPIRIN 81 MG ECTAB PO SCH (08:09)
[2023-06-19] MEDS: ATORVASTATIN 40 MG TAB PO SCH (08:09)
--- OUTSIDE RECORDS SUMMARY | 2023-06-19 08:44 | External Medical Summary | Summary of Care ---
Author Name Unknown Organization [facility] Address [address] [facility] [place] [address] Phone [phone] Care Team Providers Care Tin Assorter Name Role Phone Sunshine Capellan Primary Care Provider + [phone] Reason for Visit * Reason Comments Acute Encounter Details Date Type Department Care Team (Late st Contact Info) Description 06/18/2023 12:00 PM EST Office Visit Family Medicine [address] [place] [address] Miles Rivas MD [address] [place] [address] [place] [address] Weakness of right lower extremity*; Weakness of right upper extremity Allergies No known active allergiesdocumented as of this encounter (statuses as of 06/18/2023) Medications Medication Sig Dispensed Refills Start Date [...] at bedtime. 30 Tablet 0 02/16/2023 Active Aspirin 81 MG Oral Tablet Delayed Release (Aspirin 81) Take 1 Tablet by mouth in the morning. 90 Tablet 1 02/25/2023 Active busPIRone HCl 5 MG Oral Tablet (Buspar) Take 1 Tablet by mouth in the morning and 1 Tablet before bedtime. 0 03/16/2023 Active hydrOXYzine HCl 50 MG Oral Tablet Take 1 Tablet by mouth every 6 hours as needed for Anxiety. 0 03/16/2023 Active Escitalopram Oxalate 20 MG Oral Tablet (Lexapro) Take 1 Tablet by mouth in the morning. 0 04/02/2023 Active Nicotine 7 MG/24HR Transdermal Patch 24 Hour (Nicoderm CQ) One 7 mg patch daily for 2 weeks; Remove old patch daily; and then stop. 14 Patch 1 02/16/2023 06/18/2023 Discontinue d(Patient preference/ discontinua tion) Nicotine 14 MG/24HR Transdermal Patch 24 Hour (Nicoderm CQ) One 14 mg patch daily for 2 wks; then one 7 mg patch daily for 2 wks. Remove old patch daily Do not start before March 30, 2023. 14 Patch 2 03/30/2023 06/18/2023 Discontinue d(Patient preference/ discontinua tion) Naltrexone HCl 50 MG Oral Tablet (Revia) Take 0.5 Tablets by mouth in the morning. 0 03/16/2023 06/18/2023 Discontinue d(Patient preference/ discontinua tion) documented as of this encounter (statuses as of 06/18/2023) Active Problems Problem Noted Date Diagnosed Date [...] as of this encounter (statuses as of 06/18/2023) Resolved Problems Problem Noted Date Diagnosed Date Resolved Date Alcohol abuse 02/16/2023 02/16/2023 Shortness of breath 02/03/2023 02/17/20 23 HTN, goal below 140/90 03/22 Overview: Modified per HTN Taxonomy. Adjustment disorder with depressed mood 02/16/2023 documented as of this encounter (statuses as of 06/18/2023) Immunizations Name Administration Dates Next Due Pneumococcal [...] Sign Reading Time Taken Comments Blood Pressure 146/94 06/18/2023 12:07 PM EST Pulse 60 06/18/2023 12:07 PM EST Temperature 36.2 C (97.1 F) 06/18/2023 12:[address] Respiratory Rate - - Oxygen Saturation 95% 06/18/2023 12:07 PM EST Inhaled Oxygen Concentration - - Weight 70.6 kg (155 lb 9.6 oz) 06/18/2023 12:07 PM EST Height - - Body Mass Index 28.27 04/12/2023 2:24 PM EST documented in this encounter Progress Notes * Miles Rivas MD - 06/18/2023 12:02 PM EST Subjective: HPI: Cynthia Whittaker is a 62 year old female with hx of HTN, HLD, Depression, MAY, DDD seen for R facial pain and R arm and leg numbness and weakness - started 6 days ago - per pt symptoms got better but now getting worse - denied any syncope - also stated that she might have had slur speech - no worsening vision Patient Active Problem List Diagnosis Code Tobacco [...] by mouth at bedtime. 30 Tablet 0 Aspirin 81 MG Oral Tablet Delayed Release (Aspirin 81) Take 1 Tablet by mouth in the morning. 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 Social History Tobacco Use Smoking status: Former Packs/day: 0.50 Years: 31.00 Additional pack years: 0.00 Total pack years: 15.50 Types: Cigarettes Quit date: 09/2022 Years since quittin.7 Smokeless tobacco: Never Tobacco comments: age 18, did quit in Substance Use Topics Alcohol use: Not Currently Comment: heavy alcohol use in the past Vaping/E-Cigarette Use Vaping/E-Cigarette Use Current Some Day User Vaping/E-Cigarette Substances THC Yes Vaping/E-Cigarette Devices ROS: -Per HPI OBJECTIVE: BP 146/94 | Pulse 60 | Temp 36.2 C (97.1 F) | Wt 70.6 kg (155 lb 9.6 oz) | SpO2 95% | BMI 28.27kg/m | BSA 1.76 m PHYSICAL EXAM: Vitals are reviewed General:. NAD HEENT:. Normal Conjunctiva, EOMI Cardiac:. Normal S1, S2, no murmur Lungs:. CTA, no wheezing or crackles Neuro: PERRLA, very slight weakness on the RUE and RLE gilberto against resistance. Intact sensation ASSESSMENT/PLAN: Due to worsening unilateral weakness will send the pt to the ER to r/o acute CVA - called ambulance Weakness of right lower extremity (Primary) Weakness of right upper extremity I spent a total of 30-39 minutes (exact time 35 mins) on the date of service in preparation, delivery, and documentation of the care provided to Cynthia Eric Remedios excluding any time spent in the performance of separately billed services. Miles Rivas MD [place] [phone] documented in this encounter Nursing Notes * Barb Peter CMA - 06/18/2023 12:04 PM EST She is here for weakness and pain. She says it is primarily on the right side of her body. It is a burning pain. She also has a headache. This started on Wednesday evening and seemed to improved but then happened again but only worse. The dizziness and weakness was worse the second time. The second episode was on Wednesday. She has taken some tylenol for it. documented in this encounter Plan of Treatment Upcoming Encounters Date Type Department Care Team (Latest Contact Info) Description 08/05/2023 1:00 PM EDT Hospital Encounter ENDO [facility], Endoscopy Room [facility] [address] [address] [id number] Blair Card MD [address] [place] [address] [address] 08/05/2023 1:00 PM EDT - 08/05/2023 1:30 PM EDT Surgery ENDO [facility], Endoscopy Room [facility] [address] [place] [id number] Blair Card MD [address] [place] [address] COLONOSCOPY FLEXIBLE PROXIMAL DIAGNOSTIC 09/14/2023 1:50 PM EDT Office Visit Family Medicine [address] [place] [phone] Sunshine Capellan[address] [place] [address] 10/15/2023 2:30 PM EDT Office Visit Nephrology, Demi Echeverria [address] [place] [address] Zemaitis, Glendy Hinton PA-C [address] [place] [address] Scheduled Procedures Name Priority Associated Diagnoses Date/Ti [...] as of this encounter Visit Diagnoses Diagnosis Weakness of right lower extremity- Primary Weakness of right upper extremity Other musculoskeletal symptoms referable to limbs Special screening for malignant neoplasms, colon documented in this encounter Care Teams Tin Assorter Relationship Specialty Start Date End Date Sunshine Capellan DO [address] [place] [address] [place] [phone] PCP - General Internal Medicine 02/16/23 documented as of this encounter"
[2023-06-19] MEDS: ACETAMINOPHEN 325 MG TAB PO PRN (10:46)
--- NOTE | 2023-06-19 12:32 | Hospitalist Progress Note ---
Date of Service June 19, 2023 Assessment & Plan (1) Right sided weakness: Plan: Patient presenting by referral PCPs office for evaluation of right-sided weakness and right facial numbness x 6 days. Has had minimal dysarthria but no problem with swallowing or visual disturbances CT scan of the head did show old punctate lacunar infarct in the right basal ganglia and left thalamus She has been feeling a little improved this morning and he still has the pres enting symptoms of weakness in the right side Brain MRI-surprisingly did not show any infarction Carotid ultrasound unremarkable Echo of the heart showed-normal LV with concentric LVH, LV wall motion is normal with EF 65 to 70%, aortic valve sclerosis without significant stenosis, focal calcification and thickening of the the noncoronary cusp, trace mitral regurgitation and trace tricuspid regurgitation, Doppler finding do not suggest pulmonary hypertension, interatrial septum is intact with no evidence of ASD and injection of contrast did not show any increase in interatrial shunt Lipids profile have been unremarkable, hemoglobin A1c 5.5 Will check TSH tomorrow S/p full dose aspirin in the ED, continue with home ASA 81mg and statin Neurology has been consulted for further evaluation and recommendation (2) CKD (chronic kidney disease), stage III: Plan: Creatinine 1.5, at baseline Monitor renal functions Advised to drink more fluid Creatinine has been improving from 1.7-1.39 (3) HTN (hypertension): Plan: BP intermittently elevated ED, may be situational Continue home amlodipine, labetalol, losartan for now, making adjustments as needed (4) Depression: (5) Generalized anxiety disorder: Plan: Chronic, stable Continue home meds DVT PROPHYLAXIS SCDs for now Heparin Admission and Anticipated Discharge Date Admission Date: June 18, 2023 Subjective 06/19/2023 The patient was seen and examined in telemetry unit She was admitted with weakness of the extremities on the right , minimal dysarthria but no problems swallowing or ambulation . She has been feeling better since admission Still has minimal weakness involving the right-sided extremities and questionable dysarthria Denies any other significant symptoms Review of Systems Review of Systems: All systems reviewed and are unremarkable except as noted below Physical Exam Physical Exam: Walking around in the room without any acute distress Constitutional: well developed, well nourished and + ill appearing Eyes: PERRL, conjunctivae normal, anicteric sclerae ENMT: external ear and nose normal, oropharynx normal Neck: trachea midline, no thyromegaly Respiratory: no respiratory distress Auscultation: lungs clear to auscultation bilaterally Cardiovascular: Rate/Rhythm: regular rate and regular rhythm; not tachycardic Heart Sounds: normal S1 and normal S2; no murmur Extremities: no edema Gastrointestinal (Abdomen): Inspection/Auscultation: normal bowel sounds; abdomen not distended Percussion/Palpation: abdomen soft; abdomen nontender Musculoskeletal: No acute arthritis involving any of the joint Neurologic: normal touch/pain/proprioception, moves all extremities and + focal motor deficit (Minimal weakness involving the right upper and lower extremities) Results & Data Results & Data Vital Signs (Past 12 Hours) Vital Signs Temp Pulse Resp BP Pulse Ox O2 Del Method 06/19/23 10:54 36.3 C L 79 17 121/76 98 Room Air 06/19/23 07:36 36.4 C L 58 L 18 132/83 96 Room Air 06/19/23 03:40 36.7 C 72 18 120/79 97 Room Air Laboratory Results Short CBC 06/18/23 06/19/23 Range/Units Unknown 05:43 WBC 7.33 6.28 (4.8-10.8) K/ul Hgb 12.1 11.4 L (12.0-16.0) g/dl Hct 37.3 35.6 L (37.0-47.0) % Plt Count 253 244 (130-400) K/uL BMP 06/18/23 06/19/23 Unknown 05:43 Sodium 139 141 Potassium 4.5 3.9 Chloride 108 H 111 H Carbon Dioxide 23 22 BUN 20 28 H Creatinine 1.55 H 1.39 H Glucose 91 96 Calcium 9.8 9.1 Liver Function 06/18/23 Range/Units Unknown Total Bilirubin 0.8 (0.2-1.0) mg/dl AST 30 (13-39) U/L ALT 26 (7-52) U/L Alkaline Phosphatase 71 (34-104) U/L Albumin 4.5 (3.4-5.0) gm/dl Medications Administered Current Inpatient Medications Acetaminophen (Acetaminophen 325 Mg Tab) 650 mg PO Q4H PRN PRN Reason: Pain or Fever Stop: 07/18/23 19:37 Last Admin: 06/19/23 10:46 Dose: 650 mg Amlodipine Besylate (Amlodipine Besylate 5 Mg Tab) 10 mg PO [facility] Stop: 07/19/23 08:59 Last Admin: 06/19/23 08:09 Dose: 10 mg Aspirin (Aspirin 81 Mg Ectab) 81 mg PO QAM [facility] Stop: 07/19/23 08:59 Last Admin: 06/19/23 08:09 Dose: 81 mg Atorvastatin Calcium ([facility]atin 40 Mg Tab) [facility] [place]: 07/19/23 08:59 Last Admin: 06/19/23 08:09 Dose: 40 mg Buspirone HCl (Buspirone 15 Mg Tab) 15 mg PO TID [facility] Stop: 07/18/23 20:59 Last Admin: 06/19/23 08:09 Dose: 15 mg Escitalopram Oxalate (Escitalopram Oxalate 20 Mg Tab) 20 mg PO QAM [facility] Stop: 07/19/23 08:59 Last Admin: 06/19/23 08:09 Dose: 20 mg Hydroxyzine HCl (Hydroxyzine Hcl 25 Mg Tab) 50 mg PO Q6 PRN PRN Reason: Anxiety Stop: 07/18/23 19:37 Labetalol HCl (Labetalol Hcl 200 Mg Tab) 200 mg PO DAILY [facility] Stop: 07/19/23 08:59 Last Admin: 06/19/23 08:09 Dose: 200 mg Losartan Potassium (Losartan Potassium 50 Mg Tab) [facility] [place] Stop: 07/19/23 08:59 Last Admin: 06/19/23 08:09 Dose: 50 mg Miscellaneous Information (Pharmacist Discharge Med Rec Consult) 1 each N/A UD PRN PRN Reason: Consult Stop: 07/18/23 19:37 Trazodone HCl (Trazodone Hcl 50 Mg Tab) 50 mg PO HS PRN PRN Reason: Insomnia Stop: 07/18/23 19:37 Last Admin: 06/18/23 21:22 Dose: 50 mg (2) CKD (chronic kidney disease), stage III Chronic kidney disease stage 3 subtype: unspecified whether 3a or 3b Qualified Code(s): N18.30 - Chronic kidney disease, stage 3 unspecified
--- NOTE | 2023-06-19 13:51 | Neurology Consultation ---
Date of Consultation June 19, 2023 Assessment & Plan (1) TIA (transient ischemic attack): Reported right upper and lower weakness resolved- suspect possible TIA Concern for crescendo-decrescendo pattern = recommend further vascular imaging Would benefit from CTA however recommend attempt MRA to see if able to visualize cerebro-vasculature effectively Echocardiogram as part of complete stroke workup Continue frequent neurological assessments Obtain stat CT brain without contrast for any acute neurological decline Continue to monitor/control blood pressure & blood glucose Metabolic workup should include hgbA1c, fasting lipids, homocysteine, TSH, D Dimer Recommend DAPT for at least 3 weeks Recommend high dose statin therapy Ok from neurology perspective for VTE prophylaxis PT/OT/SLT to eval and treat Discussed directly with primary/hospitalist team Dr. Moody If angiographic imaging is unremarkable then dispo per primary team Follow up with adult neurology Telehealth Consultation Telehealth Information Telehealth Information: I performed this visit using a real-time telehealth connection between my location and the patients location ([facility]). After connecting through interactive tele-video, patient was identified by name and date of and/or wristband check.Patient (or authorized healthcare pest control service representative) was informed that this was a telemedicine visit and it was being conducted confidentially over secure lines. My office door was closed and no one else was present in the room with me.Patient (or authorized healthcare pest control service representative) provided consent to proceed with the visit, expressed an understanding of privacy and security of the telemedicine visit, and gave permission to have a hospital pest control service representative in the room in order to assist with the visit and to conduct portions of the visit, as needed. I informed the patient (or authorized healthcare pest control service representative) that I reviewed their record and presented the opportunity for them to ask any questions regarding the visit today. The patient agreed to participate. History of Present Illness Reason for Consultation: Stroke like symptoms Requesting Physician: Dr. Moody Attending Physician: Miguel A Moody MD History of Present Illness 62 yo female presented to ER with several days of reported right sided weakness. She had gone to her PCP who referred to ER due to concern of stroke. She has hx of HTN, CKD, MAY and depression. She has undergone CT brain without contrast revealing no evidence of hemorrhage. She has not undergone CT angiographic studies but instead has undergone carotid US revealing areas of concern for bilateral atherosclerotic disease. MRI brain has been performed which does not reveal evidence of acute restricted diffusion. No evidence of subacute or chronic infarcts accounting for patients report of symptoms. I have performed televideo consultation and appreciate patient able to demonstrate nonlateralizing/nonfocal neurological exam in terms of motor strength and coordination. She is able to answer all questions and follow commands without difficulty. There is no apparent weakness or drift in RUE or RLE. she does report feeling of "stiffness" RLE>RUE. She is fluency able to name objects repeat phrases and follow multistep/embedded commands. She denies pain/denies falls or trauma. No reported cephalgia or cervicalgia. Denies chest pain/palpitations or shortness of breath. No reported changes in vision hearing dizziness syncope seizure like activity. Denies recent fevers chills nausea vomiting changes in bowels or bladder. Denies recent medication changes, recent illness or sick contacts, no reported recent travel. She is agreeable to try MRA to evaluate cerebral vasculature. She reports taking daily ASA and is agreeable to the addition of clopidogrel She states she is willing to continue outpatient follow up with adult neurology. All questions answered Allergies Allergy/AdvReac Type Severity Reaction Status Date / Time No Known Allergies Allergy Unverified 06/18/23 16:30 Home Medications Medication Instructions Recorded Confirmed Type amlodipine 10 mg tablet 10 mg PO QAM 06/18/23 06/18/23 History aspirin 81 mg tablet,delayed 81 mg PO QAM 06/18/23 06/18/23 History release atorvastatin 40 mg tablet 40 mg PO QAM 06/18/23 06/18/23 History buspirone 15 mg tablet 15 mg PO TID 06/18/23 06/18/23 History escitalopram oxalate 20 mg tablet 20 mg PO QAM 06/18/23 06/18/23 History hydroxyzine pamoate 50 mg capsule 50 mg PO Q6 PRN Anxiety 06/18/23 06/18/23 History labetalol 200 mg tablet 200 mg PO DAILY 06/18/23 06/18/23 History losartan 50 mg tablet 50 mg PO QAM 06/18/23 06/18/23 History trazodone 50 mg tablet 50 mg PO HS PRN Insomnia 06/18/23 06/18/23 History Patient History Medical History CKD (chronic kidney disease), stage III History of tobacco use Generalized anxiety disorder Depression Hyperlipidemia HTN (hypertension) Surgical History History of endometrial ablation Social History (Updated 06/18/23 @ 16:58 by ANDRE Castro) Smoking Status: Former smoker Second Hand Exposure: Yes; Do You Dip or Chew Tobacco: No; Tobacco Cessation Education Requested by Patient: No Hx Alcohol Use: No Hx Substance Use: No Preferred Language: Turkmen Communication Ability: Effective Produce Shipper Required: No Beliefs That Will Affect Care: None Current Living Situation: Rehab Current Living Situation Comment: long-term Other Information That Helps Us Care for You: No Feels Safe at Home: Yes Safety Concerns: Feels Safe At This Time Assistive Devices: Cane Physical Exam Neurological Examination: Mental Status: Awake and alert. Oriented to person, place, and time. Fluency naming repetition and comprehension appear grossly intact. Affect remains appropriate. CN testing: I: Denies changes in ability to smell II:Reports no changes in visual acuity III/IV/: No evidence of gaze preference, hippus, nystagmus or roving eye movements V: Facial sensation reportedly grossly intact to light touch bilaterally VII: Facial movements appear without evidence of asymmetry VIII: Hearing appears grossly intact to loud voice bilaterally IX/X: Palate is difficult to reliably visualize XI: Shoulder shrug appears symmetric/ grossly intact bilaterally XII: Tongue protrudes midline without evidence of biting Motor exam: Strength appears grossly intact/symmetric in all extremities Sensory: Reported "stiffness right upper and lower extremity Coordination: No apparent evidence of dysmetria or dysdiadochokinesia Reflexes: Deferred Gait: Deferred Results & Data Vital Signs (Past 12 Hours) Vital Signs Temp Pulse Resp BP Pulse Ox O2 Del Method 06/19/23 10:54 36.3 C L 79 17 121/76 98 Room Air 06/19/23 07:36 36.4 C L 58 L 18 132/83 96 Room Air 06/19/23 03:40 36.7 C 72 18 120/79 97 Room Air Laboratory Results Abnormal lab results 06/18/23 06/19/23 Range/Units Unknown 05:43 RBC 4.12 L 3.91 L (4.20-5.40) M/uL Hgb 11.4 L (12.0-16.0) g/dl Hct 35.6 L (37.0-47.0) % [place] # (Auto) 0.62 H 0.75 H (0.11-0.59) K/uL Chloride 108 H 111 H (98-107) mmol/L BUN 28 H (6-23) mg/dl Creatinine 1.55 H 1.39 H (0.6-1.2) mg/dl BUN/Creatinine Ratio 20.1 H (10-20) Diagnostic Findings Head CT 06/18/23 13:[address] DOSE: 547.75 mGy.cm HISTORY: Right-sided weakness. Slurred speech. neuro deficit, acute stroke suspected TECHNIQUE: Multiaxial CT images of the head were performed without the use of intravenous contrast. Automated exposure control was utilized for this study. A dose lowering technique was utilized adhering to the principles of ALARA. Comparison: Head CT 11/03/2016. Findings: The paranasal sinuses and mastoid air cells are clear. The calvarium and skull base are intact. There is no mass, hematoma, midline shift, acute infarct. White matter hypodensity is nonspecific but suggestive of microvascular ischemic change. The ventricles and sulci demonstrate mild age-related involutional changes. Old punctate lacunar infarcts within the right basal ganglia and left thalamus. There is an old small infarct within the left cerebellar hemisphere. Impression: No acute intracranial abnormality. Atrophy and microvascular ischemic changes. Old small infarcts as described above. ACT 112: Negative or not required by law. Electronically signed by: Marek Abrams M.D. 06/18/2023 2:41 PM Brain MRI 06/18/23 16:30 MR brain wo con CLINICAL HISTORY: stroke symptoms TECHNIQUE: Multiplanar and multisequence MR images of the brain were obtained without intravenous contrast. Comparison: Comparison is made to CT head performed June 18, 2023 FINDINGS: No abnormal restricted diffusion is identified. Foci of T2 and FLAIR hyperintensity are noted in the paraventricular areas consistent with chronic small vessel ischemic disease. Ex vacuo ventriculomegaly and sulcal enlargement is noted compatible with diffuse volume loss. Focal encephalomalacia is seen in the bilateral basal ganglia as well as in the left cerebellum which may represent prior infarcts. No mass is seen. There is no mass effect or midline shift. There is no evidence of acute intraparenchymal hemorrhage. No extra axial fluid collections are seen. The corpus callosum, pituitary gland, and cerebellar tonsils appear grossly unremarkable. Flow voids of the major intracranial arterial vessels are identified. The imaged portions of the paranasal sinuses, mastoid air cells, and orbits are un remarkable. IMPRESSION: Chronic volume loss and age related white matter changes without evidence of acute abnormality. ACT 112: Negative or not required by law. Electronically signed by: Adan Fonseca M.D. 06/18/2023 6:33 PM Carotid Doppler Study 06/18/23 19:38 US carotid doppler BI CLINICAL HISTORY: 62 years-old Female with stroke symptoms. Acute strokelike symptoms COMPARISON: None TECHNIQUE: Multiple real time sonographic images of the carotid bifurcations were obtained assessing barksdale scale, color Doppler and spectral wave form appearance FINDINGS: RIGHT CAROTID: The peak systolic velocity measured 95 cm/sec. The end diastolic velocity measured 38 cm/sec. The ICA to CCA ratio measured 1.3 which correlates with a stenosis of 0-50%. There is prominent atherosclerotic plaque throughout the common and internal carotid artery. LEFT CAROTID: The peak systolic velocity measured 62 cm/sec. The end diastolic velocity measured 22 cm/sec. The ICA to CCA ratio measured 0.8 which correlates with a stenosis of 0-50%. There is prominent atherosclerotic plaques throughout the common and internal carotid artery. There is normal antegrade vertebral flow bilaterally. IMPRESSION: 1. Atherosclerosis without hemodynamically significant stenosis. 2. Normal antegrade vertebral flow bilaterally. ACT 112: Negative or not required by law. The above report was generated using voice recognition software. It may contain grammatical, syntax or spelling errors. Electronically signed by: Shlomo Hloman M.D. 06/19/2023 7:23 AM Medications Administered Home Medications Medication Instructions Recorded Confirmed Last Taken amlodipine 10 mg tablet 10 mg PO QAM 06/18/23 06/18/23 Unknown aspirin 81 mg tablet,delayed 81 mg PO QAM 06/18/23 06/18/23 Unknown release atorvastatin 40 mg tablet 40 mg PO QAM 06/18/23 06/18/23 Unknown buspirone 15 mg tablet 15 mg PO TID 06/18/23 06/18/23 Unknown escitalopram oxalate 20 mg tablet 20 mg PO QAM 06/18/23 06/18/23 Unknown hydroxyzine pamoate 50 mg capsule 50 mg PO Q6 PRN Anxiety 06/18/23 06/18/23 Unknown labetalol 200 mg tablet 200 mg PO DAILY 06/18/23 06/18/23 Unknown losartan 50 mg tablet 50 mg PO QAM 06/18/23 06/18/23 Unknown trazodone 50 mg tablet 50 mg PO HS PRN Insomnia 06/18/23 06/18/23 Unknown Active Medications Generic Name Dose Route Start Last Admin Trade Name Freq PRN Reason Stop Dose Admin Acetaminophen 650 mg 06/18/23 19:38 06/19/23 10:46 Acetaminophen 325 Mg Tab PO 07/18/23 19:37 650 mg Q4H PRN Administration Pain or Fever Amlodipine Besylate 10 mg 06/19/23 09:00 06/19/23 08:09 Amlodipine Besylate 5 Mg Tab PO 07/19/23 08:59 10 mg QAM MARIAH Administration Aspirin 81 mg 06/19/23 09:00 06/19/23 08:09 Aspirin 81 Mg Ectab PO 07/19/23 08:59 81 mg QAM MARIAH Administration Atorvastatin Calcium 40 mg 06/19/23 09:00 06/19/23 08:09 Atorvastatin 40 Mg Tab PO 07/19/23 08:59 40 mg QAM MARIAH Administration Buspirone HCl 15 mg 06/18/23 21:00 06/19/23 13:11 Buspirone 15 Mg Tab PO 07/18/23 20:59 15 mg TID MARIAH Administration Escitalopram Oxalate 20 mg 06/19/23 09:00 06/19/23 08:09 Escitalopram Oxalate 20 Mg Tab PO 07/19/23 08:59 20 mg QAM MARIAH Administration Labetalol HCl 200 mg 06/19/23 09:00 06/19/23 08:09 Labetalol Hcl 200 Mg Tab PO 07/19/23 08:59 200 mg DAILY MARIAH Administration Losartan Potassium 50 mg 06/19/23 09:00 06/19/23 08:09 Losartan Potassium 50 Mg Tab PO 07/19/23 08:59 50 mg QAM MARIAH Administration Trazodone HCl 50 mg 06/18/23 19:38 06/18/23 21:22 Trazodone Hcl 50 Mg Tab PO 07/18/23 19:37 50 mg HS PRN Administration Insomnia
[2023-06-19] MEDS: CLOPIDOGREL BISULFATE 75 MG TAB PO SCH (14:55)
--- NOTE | 2023-06-19 15:27 | Magnetic Resonance Report ---
MR angio neck wo con HISTORY: 62 years-old Female R/O Stenosis acute strokelike symptoms COMPARISON: Brain MRI June 18, 2023, carotid ultrasound June 18, 2023 TECHNIQUE: Multiplanar multisequence MRA of the neck was obtained without the use of IV contrast. 3-D coronal and sagittal images were obtained and submitted for review. All measurements were obtained a ccording to NASCET criteria. FINDINGS: Mildly motion degraded exam. Three-vessel morphology of the thoracic aortic arch. Patency of the comm on and internal carotid arteries. Dominant left vertebral artery. The vertebral arteries are patent. No aneurysm, dissection, high-grade stenosis or arterial occlusion identified. IMPRESSION: Motion degraded exam. Unremarkable MRA of the neck. ACT 112: Negative or not required by law. The above report was generated using voice recognition software. It may contain grammatical, syntax o r spelling errors. Electronically signed by: Shlomo Holman M.D. 06/19/2023 3:25 PM
[2023-06-19] MEDS: HEPARIN SOD 5,000 UNIT/0.5 ML VIAL SQ SCH (20:21)
--- NOTE | 2023-06-19 22:34 | Electrocardiogram Report ---
Test Reason : Blood Pressure : / mmHG Vent. Rate : 055 BPM Atrial Rate : 055 BPM P-R Int : 166 ms QRS Dur : 084 ms QT Int : 422 ms P-R-T Axes : 071 012 019 degrees QTc Int : 403 ms Sinus bradycardia Otherwise normal ECG When compared with ECG of 03-NOV-2016 15:48, Vent. rate has decreased BY 29 BPM Confirmed by Livan Nieto ([id number]) on 06/19/2023 10:33:40 PM Referred By: REFERRED SELF Confirmed By:Livan Nieto
[2023-06-20 06:56] LABS: BUN Creatinine Ratio 28.2 (10-20); Calcium 9.2 mg/dl (8.6-10.3); Creatinine Clr Calc Pharmacy 43.1 ml/min; Est GFR (African American) 51.2 ml/min; Est GFR (Non-African American) 44.1 ml/min; Potassium 4.4 mmol/L (3.5-5.1)
[2023-06-20 06:58] LABS: Basophils # (auto) 0.08 K/uL (0.00-0.20); Basophils % (auto) 1.3 %; Eosinophils # (auto) 0.32 K/uL (0.00-0.50); Hematocrit (blood only) 35.4 % (37.0-47.0); Hemoglobin 11.3 g/dl (12.0-16.0); Immature Granulocytes # (auto) 0.02 K/uL (0.01-0.20); Immature Granulocytes % (auto) 0.3 %; Lymphocytes # (auto) 1.88 K/uL (1.20-3.40); Lymphocytes % (auto) 29.6 %; Mean Corpuscular Hgb Conc 31.9 g/dL (32.0-36.0); Mean Corpuscular Volume 90.8 fL (80.0-100.0); Mean Platelet Volume 9.6 fL (9.4-12.4); Monocytes # (auto) 0.82 K/uL (0.11-0.59); Monocytes % (auto) 12.9 %; Neutrophils # (auto) 3.24 K/uL (1.40-6.50); Neutrophils % (auto) 50.9 %; Platelet Count 228 K/uL (130-400); RDW Coefficient of Variation 13.2 % (11.5-14.5); RDW Standard Deviation 43.7 fL (36.4-46.3); White Blood Count 6.36 K/ul (4.8-10.8)
--- NOTE | 2023-06-20 13:00 | Pharmacy Report ---
- Date of Service June 20, 2023 - Pharmacy CVA/TIA Medication Review Medications to Prevent Stroke handout has been added to the patients discharge packet. Antiplatelet(s) * Aspirin and clopidogrel. DAPT OK'd by neurology. Cholesterol * High intensity statin: atorvastatin 40 mg daily DVT Prophylaxis * Heparin SQ Therapeutic Anticoagulation * No history of Afib/Aflutter noted Type 2 Diabetes * Patient does not have T2DM
--- NOTE | 2023-06-20 13:43 | Hospitalist Progress Note ---
Date of Service June 20, 2023 Assessment & Plan (1) Right sided weakness: Plan: Patient presenting by referral PCPs office for evaluation of right-sided weakness and right facial numbness x 6 days. Has had minimal dysarthria but no problem with swallowing or visual disturbances CT scan of the head did show old punctate lacunar infarct in the right basal ganglia and left thalamus She has been feeling a little improved this morning and he still has the pres enting symptoms of weakness in the right side Brain MRI-surprisingly did not show any infarction Carotid ultrasound unremarkable Echo of the heart showed-normal LV with concentric LVH, LV wall motion is normal with EF 65 to 70%, aortic valve sclerosis without significant stenosis, focal calcification and thickening of the the noncoronary cusp, trace mitral regurgitation and trace tricuspid regurgitation, Doppler finding do not suggest pulmonary hypertension, interatrial septum is intact with no evidence of ASD and injection of contrast did not show any increase in interatrial shunt Lipids profile have been unremarkable, hemoglobin A1c 5.5 Will check TSH tomorrow S/p full dose aspirin in the ED, continue with home ASA 81mg and statin Appreciate neurology input and recommendation-will have at least 21 days of DAPT treatment. She has been already on statin. Will get TSH done Clinically much better today Lower back pain Mostly on the right side of the lower back with some tenderness Has had some physical activity prior to admission Complains to radiation but clinically no radiation Will give diclofenac locally to decrease the inflammation (2) CKD (chronic kidney disease), stage III: Plan: Creatinine 1.5, at baseline Monitor renal functions Advised to drink more fluid Creatinine has been improving from 1.7-1.39 (3) HTN (hypertension): Plan: BP intermittently elevated ED, may be situational Continue home amlodipine, labetalol, losartan for now, making adjustments as needed (4) Depression: (5) Generalized anxiety disorder: Plan: Chronic, stable Continue home meds DVT PROPHYLAXIS SCDs for now Heparin Admission and Anticipated Discharge Date Admission Date: June 18, 2023 Subjective 06/19/2023 The patient was seen and examined in telemetry unit She was admitted with weakness of the extremities on the right , minimal dysarthria but no problems swallowing or ambulation . She has been feeling better since admission Still has minimal weakness involving the right-sided extremities and questionable dysarthria Denies any other significant symptoms 06/20/2023 The patient was seen and examined in the telemetry unit She has been complaining of right lower back pain with radiation to the right leg since this morning She has had some furniture removal at home prior to this admission Denies any problem with urine or bowel habit Denies any other new symptoms Review of Systems Review of Systems: All systems reviewed and are unremarkable except as noted below Physical Exam Physical Exam: Walking around in the room without any acute distress Constitutional: well developed, well nourished and + ill appearing Eyes: PERRL, conjunctivae normal, anicteric sclerae ENMT: external ear and nose normal, oropharynx normal Neck: trachea midline, no thyromegaly Respiratory: no respiratory distress Auscultation: lungs clear to auscu ltation bilaterally Cardiovascular: Rate/Rhythm: regular rate and regular rhythm; not tachycardic Heart Sounds: normal S1 and normal S2; no murmur Extremities: no edema Gastrointestinal (Abdomen): Inspection/Auscultation: normal bowel sounds; abdomen not distended Percussion/Palpation: abdomen soft; abdomen nontender Musculoskeletal: Localized tenderness in the lower lumbar area on the right side. Clinically no evidence of radiculopathy Neurologic: normal touch/pain/proprioception, moves all extremities and + focal motor deficit (Minimal weakness involving the right upper and lower extremities) Results & Data Results & Data Vital Signs (Past 12 Hours) Vital Signs Temp Pulse Resp BP Pulse Ox O2 Del Method 06/20/23 11:35 36.4 C L 74 18 96/64 L 95 Room Air 06/20/23 07:31 36.4 C L 78 17 139/83 93 Room Air 06/20/23 05:49 36.4 C L 70 14 131/80 95 Room Air Laboratory Results Short CBC 06/20/23 Range/Units 05:45 WBC 6.36 (4.8-10.8) K/ul Hgb 11.3 L (12.0-16.0) g/dl Hct 35.4 L (37.0-47.0) % Plt Count 228 (130-400) K/uL BMP 06/20/23 05:45 Sodium 140 Potassium 4.4 Chloride 109 H Carbon Dioxide 24 BUN 37 H Creatinine 1.31 H Glucose 98 Calcium 9.2 Medications Administered Current Inpatient Medications Acetaminophen (Acetaminophen 325 Mg Tab) 650 mg PO Q4H PRN PRN Reason: Pain or Fever Stop: 07/18/23 19:37 Last Admin: 06/20/23 09:59 Dose: 650 mg Amlodipine Besylate (Amlodipine Besylate 5 Mg Tab) 10 mg PO [facility] Stop: 07/19/23 08:59 Last Admin: 06/20/23 09:58 Dose: 10 mg Aspirin (Aspirin 81 Mg Ectab) 81 mg PO [facility] Stop: 07/19/23 08:59 Last Admin: 06/20/23 09:58 Dose: 81 mg Atorvastatin Calcium (Atorvastatin 40 Mg Tab) 40 mg PO [facility] Stop: 07/19/23 08:59 Last Admin: 06/20/23 09:58 Dose: 40 mg Buspirone HCl (Buspirone 15 Mg Tab) 15 mg PO TID [facility] Stop: 07/18/23 20:59 Last Admin: 06/20/23 09:58 Dose: 15 mg Clopidogrel Bisulfate (Clopidogrel Bisulfate 75 Mg Tab) 75 mg PO [facility] Stop: 07/19/23 13:44 Last Admin: 06/20/23 09:58 Dose: 75 mg Diclofenac Sodium (Diclofenac Sod 1% Gel 100 Gm Tube) 2 gm EXT QID [facility]; Protocol Stop: 07/20/23 12:59 Escitalopram Oxalate (Escitalopram Oxalate 20 Mg Tab) 20 mg PO [facility] Stop: 07/19/23 08:59 Last Admin: 06/20/23 09:58 Dose: 20 mg Heparin Sodium (Porcine) (Heparin Sod 5,000 Unit/0.5 Ml Vial) 5,000 units SQ Q12 [facility] Stop: 07/19/23 20:59 Last Admin: 06/20/23 09:58 Dose: 5,000 units Hydroxyzine HCl (Hydroxyzine Hcl 25 Mg Tab) 50 mg PO Q6 PRN PRN Reason: Anxiety Stop: 07/18/23 19:37 Labetalol HCl (Labetalol Hcl 200 Mg Tab) 200 mg PO DAILY [facility] Stop: 07/19/23 08:59 Last Admin: 06/20/23 09:58 Dose: 200 mg Losartan Potassium (Losartan Potassium 50 Mg Tab) 50 mg PO [facility] Stop: 07/19/23 08:59 Last Admin: 06/20/23 09:58 Dose: 50 mg Trazodone HCl (Trazodone Hcl 50 Mg Tab) 50 mg PO HS PRN PRN Reason: Insomnia Stop: 07/18/23 19:37 Last Admin: 06/19/23 20:29 Dose: 50 mg (2) CKD (chronic kidney disease), stage III Chronic kidney disease stage 3 subtype: unspecified whether 3a or 3b Qualified Code(s): N18.30 - Chronic kidney disease, stage 3 unspecified
[2023-06-20] MEDS: DICLOFENAC SOD 1% GEL 100 GM TUBE EXT SCH (14:32)
[2023-06-21 06:24] LABS: Basophils # (auto) 0.06 K/uL (0.00-0.20); Basophils % (auto) 0.9 %; Eosinophils # (auto) 0.23 K/uL (0.00-0.50); Eosinophils % (auto) 3.4 %; Hemoglobin 11.2 g/dl (12.0-16.0); Immature Granulocytes # (auto) 0.02 K/uL (0.01-0.20); Immature Granulocytes % (auto) 0.3 %; Lymphocytes # (auto) 1.95 K/uL (1.20-3.40); Lymphocytes % (auto) 29.1 %; Mean Corpuscular Hemoglobin 29.3 pg (25.0-34.0); Mean Corpuscular Hgb Conc 32.9 g/dL (32.0-36.0); Mean Platelet Volume 9.6 fL (9.4-12.4); Monocytes # (auto) 0.69 K/uL (0.11-0.59); Monocytes % (auto) 10.3 %; Neutrophils # (auto) 3.76 K/uL (1.40-6.50); Platelet Count 230 K/uL (130-400); RDW Coefficient of Variation 13.2 % (11.5-14.5); Red Blood Count 3.82 M/uL (4.20-5.40); White Blood Count 6.71 K/ul (4.8-10.8)
[2023-06-21 06:32] LABS: BUN Creatinine Ratio 26.3 (10-20); Calcium 9.2 mg/dl (8.6-10.3); Creatinine Clr Calc Pharmacy 42.5 ml/min; Est GFR (African American) 50.2 ml/min; Est GFR (Non-African American) 43.3 ml/min; Potassium 3.9 mmol/L (3.5-5.1)
[2023-06-21 06:46] LABS: Thyroid Stimulating Hormone 0.738 uIu/ml (0.300-4.500)
--- NOTE | 2023-06-21 15:12 | Hospitalist Progress Note ---
Date of Service June 21, 2023 Assessment & Plan (1) Right sided weakness: Plan: Patient presenting by referral PCPs office for evaluation of right-sided weakness and right facial numbness x 6 days. Has had minimal dysarthria but no problem with swallowing or visual disturbances CT scan of the head did show old punctate lacunar infarct in the right basal ganglia and left thalamus She has been feeling a little improved this morning and he still has the pres enting symptoms of weakness in the right side Brain MRI-surprisingly did not show any infarction Carotid ultrasound unremarkable Echo of the heart showed-normal LV with concentric LVH, LV wall motion is normal with EF 65 to 70%, aortic valve sclerosis without significant stenosis, focal calcification and thickening of the the noncoronary cusp, trace mitral regurgitation and trace tricuspid regurgitation, Doppler finding do not suggest pulmonary hypertension, interatrial septum is intact with no evidence of ASD and injection of contrast did not show any increase in interatrial shunt Lipids profile have been unremarkable, hemoglobin A1c 5.5 Will check TSH tomorrow S/p full dose aspirin in the ED, continue with home ASA 81mg and statin Appreciate neurology input and recommendation-will have at least 21 days of DAPT treatment. She has been already on statin. Will get TSH done TSH has been normal at 0.738 She has had physical therapy and did very well and recommended can go home She will be discharged home this afternoon Lower back pain Mostly on the right side of the lower back with some tenderness Has had some physical activity prior to admission Complains to radiation but clinically no radiation Will give diclofenac locally to decrease the inflammation Back pain is controlled and does not have radiation (2) CKD (chronic kidney disease), stage III: Plan: Creatinine 1.5, at baseline Monitor renal functions Advised to drink more fluid Creatinine has been improving from 1.7-1.39 Remains stable at 1.33 (3) HTN (hypertension): Plan: BP intermittently elevated ED, may be situational Continue home amlodipine, labetalol, losartan for now, making adjustments as needed (4) Depression: (5) Generalized anxiety disorder: Plan: Chronic, stable Continue home meds DVT PROPHYLAXIS SCDs for now Heparin Admission and Anticipated Discharge Date Admission Date: June 21, 2023 Subjective 06/19/2023 The patient was seen and examined in telemetry unit She was admitted with weakness of the extremities on the right , minimal dysarthria but no problems swallowing or ambulation . She has been feeling better since admission Still has minimal weakness involving the right-sided extremities and questionable dysarthria Denies any other significant symptoms 06/20/2023 The patient was seen and examined in the telemetry unit She has been complaining of right lower back pain with radiation to the right leg since this morning She has had some furniture removal at home prior to this admission Denies any problem with urine or bowel habit Denies any other new symptoms 06/21/2023 The patient was seen and examined in telemetry unit She has been feeling much better Has had physical therapy and recommended home with a walker at home Her back pain is controlled with current medication does not have radiation Review of Systems Review of Systems: All systems reviewed and are unremarkable except as noted below Physical Exam Physical Exam: Walking around in the room without any acute distress Constitutional: well developed, well nourished and + ill appearing Eyes: PERRL, conjunctivae normal, anicteric sclerae ENMT: external ear and nose normal, oropharynx normal Neck: trachea midline, no thyromegaly Respiratory: no respiratory distress Auscultation: lungs clear to auscultation bilaterally Cardiovascular: Rate/Rhythm: regular rate and regular rhythm; not tachycardic Heart Sounds: normal S1 and normal S2; no murmur Extremities: no edema Gastrointestinal (Abdomen): Inspection/Auscultation: normal bowel sounds; abdomen not distended Percussion/Palpation: abdomen soft; abdomen nontender Neurologic: normal touch/pain/proprioception, moves all extremities and + focal motor deficit (Minimal weakness involving the right upper and lower extremities) Results & Data Results & Data Vital Signs (Past 12 Hours) Vital Signs Temp Pulse Pulse Resp BP Pulse Ox O2 Del Method 06/21/23 11:27 36.7 C 68 18 132/80 94 Room Air 06/21/23 07:30 36.9 C 80 18 164/84 H 97 Room Air 06/21/23 07:16 55 L 06/21/23 03:11 37.2 C 79 19 121/70 93 Room Air Laboratory Results Short CBC 06/21/23 Range/Units 06:00 WBC 6.71 (4.8-10.8) K/ul Hgb 11.2 L (12.0-16.0) g/dl Hct 34.0 L (37.0-47.0) % Plt Count 230 (130-400) K/uL BMP 06/21/23 06:00 Sodium 139 Potassium 3.9 Chloride 109 H Carbon Dioxide 22 BUN 35 H Creatinine 1.33 H Glucose 95 Calcium 9.2 Medications Administered Current Inpatient Medications Acetaminophen (Acetaminophen 325 Mg Tab) 650 mg PO Q4H PRN PRN Reason: Pain or Fever Stop: 07/18/23 19:37 Last Admin: 06/21/23 15:05 Dose: 650 mg Amlodipine Besylate (Amlodipine Besylate 5 Mg Tab) 10 mg PO [facility] Stop: 07/19/23 08:59 Last Admin: 06/21/23 08:36 Dose: 10 mg Aspirin (Aspirin 81 Mg Ectab) 81 mg PO [facility] Stop: 07/19/23 08:59 Last Admin: 06/21/23 08:38 Dose: 81 mg Atorvastatin Calcium (Atorvastatin 40 Mg Tab) 40 mg PO [facility] Stop: 07/19/23 08:59 Last Admin: 06/21/23 08:37 Dose: 40 mg Buspirone HCl (Buspirone 15 Mg Tab) 15 mg PO TID [facility] Stop: 07/18/23 20:59 Last Admin: 06/21/23 15:06 Dose: 15 mg Clopidogrel Bisulfate (Clopidogrel Bisulfate 75 Mg Tab) 75 mg PO [facility] Stop: 07/19/23 13:44 Last Admin: 06/21/23 08:36 Dose: 75 mg Diclofenac Sodium (Diclofenac Sod 1% Gel 100 Gm Tube) 2 gm EXT QID [facility]; Protocol Stop: 07/20/23 12:59 Last Admin: 06/21/23 15:06 Dose: 2 gm Escitalopram Oxalate (Escitalopram Oxalate 20 Mg Tab) 20 mg PO [facility] Stop: 07/19/23 08:59 Last Admin: 06/21/23 08:38 Dose: 20 mg Heparin Sodium (Porcine) (Heparin Sod 5,000 Unit/0.5 Ml Vial) 5,000 units SQ Q12 [facility] Stop: 07/19/23 20:59 Last Admin: 06/21/23 08:38 Dose: 5,000 units Hydroxyzine HCl (Hydroxyzine Hcl 25 Mg Tab) 50 mg PO Q6 PRN PRN Reason: Anxiety Stop: 07/18/23 19:37 Labetalol HCl (Labetalol Hcl 200 Mg Tab) 200 mg PO DAILY [facility] Stop: 07/19/23 08:59 Last Admin: 06/21/23 08:37 Dose: 200 mg Losartan Potassium (Losartan Potassium 50 Mg Tab) 50 mg PO QAM [facility] Stop: 07/19/23 08:59 Last Admin: 06/21/23 08:37 Dose: 50 mg Trazodone HCl (Trazodone Hcl 50 Mg Tab) 50 mg PO HS PRN PRN Reason: Insomnia Stop: 07/18/23 19:37 Last Admin: 06/20/23 20:47 Dose: 50 mg (2) CKD (chronic kidney disease), stage III Chronic kidney disease stage 3 subtype: unspecified whether 3a or 3b Qualified Code(s): N18.30 - Chronic kidney disease, stage 3 unspecified
--- NOTE | 2023-06-22 08:33 | Discharge Summary ---
Date of Service June 21, 2023 Admission HPI Per Admitting Provider 62-year-old female PMH HLD, HTN, osteoarthritis, depression, anxiety, former tobacco use, and other problems listed below who presents to the ED for evaluation of right-sided weakness. History is obtained from the patient and review of outpatient PCP records. Patient reports that 6 days ago, she developed right arm and right leg weakness. Symptoms have been progressively getting worse. Patient reports difficulty ambulating. Yesterday, she reports she developed right cheek numbness and a right-sided headache. She has had some intermittent difficulty swallowing and feels as though her speech is abnormal. Patient was seen by PCP today and sent to the ED for further evaluation. Patient denies headache and blurred vision. No lightheadedness, dizziness, diaphoresis, syncopal events. She denies chest pain or shortness of breath. No abdominal pain, nausea, vomiting, diarrhea. Denies any other recent illnesses, fevers, chills. No urinary symptoms. In the ED, labs are unremarkable. Head CT negative for acute findings. Patient was given full dose aspirin. Admission Exam Per Admitting Provider Constitutional: WD/WN, vitals as above no acute distress Eyes: PERRL, conjunctivae normal, anicteric sclerae ENMT: external ear and nose normal, oropharynx normal Respiratory: normal respiratory effort, lungs clear to auscultation Cardiovascular: Rate/Rhythm: regular rate and regular rhythm Vessels: normal peripheral pulses Extremities: no edema Gastrointestinal (Abdomen): normal bowel sounds, soft, nontender, no hepatosplenomegaly Musculoskeletal: Extremities: no cyanosis and no clubbing Skin: no rashes, warm and dry Neurologic: PERRL, EOMI, accommodation nl, no face palsy, no dysarthria moves all extremities Motor/Sensory: + sensory deficit (Decree sensation right cheek); no pronator drift Coordination: + abnormal [id number] test (slower on right, no ataxia) and + abnormal [id number] test (slower on right, no ataxia) mild RLE weakness, strength 4/5 RLE, 5/5 LLE Psychiatric: A+Ox3, euthymic affect Principal Diagnosis Right-sided weakness, old punctate lacunar infarct in the right basal ganglia and left thalamus, chronic kidney disease, hypertension Discharge Exam Walking around in the room without any acute distress Constitutional well developed, well nourished and + ill appearing Eyes PERRL, conjunctivae normal, anicteric sclerae ENMT external ear and nose normal, oropharynx normal Neck trachea midline, no thyromegaly Respiratory no respiratory distress Auscultation: lungs clear to auscultation bilaterally Cardiovascular Rate/Rhythm: regular rate and regular rhythm; not tachycardic Heart Sounds: normal S1 and normal S2; no murmur Extremities: no edema Gastrointestinal (Abdomen) Inspection/Auscultation: normal bowel sounds; abdomen not distended Percussion/Palpation: abdomen soft; abdomen nontender Neurologic normal touch/pain/proprioception, moves all extremities and + focal motor deficit (Minimal weakness involving the right upper and lower extremities) Discharge Data Allergies Allergy/AdvReac Type Severity Reaction Status Date / Time No Known Allergies Allergy Unverified 06/18/23 16:30 Consultations 06/18/23 15:54 ED Decision to Admit Stat 06/19/23 10:25 Consult Neurology Routine Ordered Studies 06/18/23 13:49 CT head/brain wo con Stat 06/18/23 16:30 MRI Brain [MR brain wo con] Routine 06/18/23 19:38 US carotid doppler BI Routine 06/19/23 13:28 MR angio neck wo con Urgent Hospital Course (1) Right sided weakness: Patient presenting by referral PCPs office for evaluation of right-sided weakness and right facial numbness x 6 days. Has had minimal dysarthria but no problem with swallowing or visual disturbances CT scan of the head did show old punctate lacunar infarct in the right basal ganglia and left thalamus She has been feeling a little improved this morning and he still has the presenting symptoms of weakness in the right side Brain MRI-surprisingly did not show any infarction Carotid ultrasound unremarkable Echo of the heart showed-normal LV with concentric LVH, LV wall motion is normal with EF 65 to 70%, aortic valve sclerosis without significant stenosis, focal calcification and thickening of the the noncoronary cusp, trace mitral regurgitation and trace tricuspid regurgitation, Doppler finding do not suggest pulmonary hypertension, interatrial septum is intact with no evidence of ASD and injection of contrast did not show any increase in interatrial shunt Lipids profile have been unremarkable, hemoglobin A1c 5.5 Will check TSH tomorrow S/p full dose aspirin in the ED, continue with home ASA 81mg and statin Appreciate neurology input and recommendation-will have at least 21 days of DAPT treatment. She has been already on statin. Will get TSH done TSH has been normal at 0.738 She has had physical therapy and did very well and recommended can go home She will be discharged home this afternoon Lower back pain Mostly on the right side of the lower back with some tenderness Has had some physical activity prior to admission Complains to radiation but clinically no radiation Will give diclofenac locally to decrease the inflammation Back pain is controlled and does not have radiation (2) CKD (chronic kidney disease), stage III: Creatinine 1.5, at baseline Monitor renal functions Advised to drink more fluid Creatinine has been improving from 1.7-1.39 Remains stable at 1.33 (3) HTN (hypertension): BP intermittently elevated ED, may be situational Continue home amlodipine, labetalol, losartan for now, making adjustments as needed (4) Depression: (5) Generalized anxiety disorder: Chronic, stable Continue home meds DVT PROPHYLAXIS SCDs for now Heparin Total Time Total Time Spent Total Time Spent (In Minutes): 40 minutes Discharge Plan Discharge Items Patient Disposition: Home - Home Health Services Reason For Visit: STROKE SYMPTOMS Discharge Diagnosis: Right-sided weakness, old punctate lacunar infarct in the right basal ganglia and left thalamus, chronic kidney disease, hypertension Condition on Discharge: Good Activity: Resume your previous activity Non-emergency contact: Primary Care Provider Call non-emergency contact if: you have any medication questions and your symptoms worsen Follow-up/Referrals: Sunshine Capellan DO [Primary Care Provider] - (Date & Time 06/28/2023 2:00 PM Provider Srinivasa Buckner MD Department Family Medicine [facility] ) Diet: Heart Healthy Addtl Attending Provider Instructions: Please take precautions to avoid falls Use the walker when ambulant You will be taking Plavix and aspirin for 21 days and after that continue with aspirin only Please keep follow-up appointment with your healthcare provider Pending Studies at Discharge: No Stand-Alone Forms: My [employer], Smoking Cessation, Medications to Prevent Stroke Medications and DC Order Prescriptions: New clopidogrel 75 mg Tablet 75 mg PO QAM Qty: 19 0RF diclofenac sodium [Voltaren Arthritis Pain] 1 % Gel 2 g EXT QID Qty: 50 0RF Continued hydroxyzine pamoate 50 mg capsule 50 mg PO Q6 PRN (Reason: Anxiety) aspirin 81 mg tablet,delayed release (DR/EC) 81 mg PO QAM escitalopram oxalate 20 mg tablet 20 mg PO QAM atorvastatin 40 mg tablet 40 mg PO QAM buspirone 15 mg tablet 15 mg PO TID losartan 50 mg tablet 50 mg PO QAM labetalol 200 mg tablet 200 mg PO DAILY trazodone 50 mg tablet 50 mg PO HS PRN (Reason: Insomnia) amlodipine 10 mg tablet 10 mg PO QAM Discharge Orders: Discharge Order (Routine); Ordered 06/21/23 Ordered By: Miguel A Moody Admission Data Admit Date/Time: 06/21/23 11:03 Attending Provider: Miguel A Moody Admit Provider: Rachelle Lamb Primary Care Provider: Sunshine Capellan Other Providers: Rachelle Lamb; Mellisa Romero; Arpan Kaur; Mellisa Brown; Enoc Rapp; Leobardo Yepez; Lenny Phelps; Kennedy Pham; Kelley Hoover; Logan Alford; Adis Reagan; Danny Maxwell; Lee Avila; Anna Marie Salazar; Pau Dominguez; Kennedy Howell Other Interventions: Discharge Summary Assessment (RN) Last Done: 06/21/23 16:08
== END 2023-06-21 16:46 | disposition home health service (06) ==
LOC: ED 13:11 → EDINP 13:11 → SUATTDRO 16:03 → 2S 19:39

== ENCOUNTER 2023-11-09 20:10 | Inpatient (IN) ==
--- NOTE | 2023-11-09 21:27 | Emergency Department Note ---
Impression & Plan Right sided abdominal pain, UTI (urinary tract infection), Elevated troponin, CRF (chronic renal failure) ED Provider Note NAME: CARTER GERARDO AGE: 63 SEX: F : 1960 ARRIVES VIA: Ambulance INFORMANT: [Patient][caser] ED PROVIDER(S): [Deny Soctt MD] CHIEF COMPLAINT: Abdominal pain, mental status change HISTORY OF PRESENT ILLNESS: The patient is a 63-year-old female who is typically at [facility] for [facility]. This is a rehab center, she was there permanently but there was a recent incident and she broke the contract. She is now staying at a motel in [place]. She went to the [facility] earlier today for 5 days of right-sided abdominal pain, she was told that she had enteritis. The patient is persisting with discomfort. Her caser now feels that she is at a mental status change. The patient admits to fever and chills, she has had nausea without vomiting, no diarrhea, no urinary complaints. No cough or congestion. Taking a deep breath does make her pain in the right abdomen worse. PMHx/PSHx/Social Hx: See Below PHYSICAL EXAM: GENERAL: Patient is in no acute distress. HEENT: No acute trauma, normocephalic atraumatic, mucous membranes moist, no nasal congestion. NECK: No stridor, no adenopathy, no meningismus, trachea is midline. LUNGS: Clear to auscultation bilaterally, no wheeze, no rhonchi, breath sounds equal. HEART: Without murmurs gallops or rubs, regular rate and rhythm. ABDOMEN: Soft, tender along the entire right side of the abdomen, no significant distention, no peritonitis. EXTREMITIES: No cyanosis, full range of motion of all the joints without pain or difficulty. NEUROLOGIC: Awake and alert, excellent historian, no acute motor or sensory deficits, no focal weakness. SKIN: No jaundice, no diaphoresis. DIFFERENTIAL DIAGNOSIS: Biliary colic, pancreatitis, appendicitis, diverticulitis, renal colic, UTI, musculoskeletal pain, intracranial bleeding, medication reaction, among others. EMERGENCY DEPARTMENT PROCEDURES: MEDICAL DECISION MAKING: There is no leukocytosis. A very subtle anemia was seen. There was a normal platelet count. There was evidence for renal insufficiency/failure, the patient has a history of the same. No electrolyte abnormality in need of emergent correction. No concerning liver enzyme elevation. No evidence for pancreatitis. ECG showed a normal sinus rhythm. There were some inverted T waves seen laterally. No acute ST elevation. Cardiac enzyme testing x 1 was slightly elevated although stable on delta testing. This troponin elevation could be secondary to mismatch or potentially cardiac injury. Urinalysis did show findings of infection. Chest x-ray did not show pneumonia or free air. Abdominal and pelvis CT showed some mesenteric swelling on the right, no bowel obstruction. No acute surgical pathology by CT imaging. Brain CT showed no acute bleed or mass effect. On exam, patient did not seem toxic, she was not febrile. There were no focal neurologic findings. The patient was given IV Tylenol, she received oral aspirin. The aspirin was given because of the elevated troponin. She received IV ceftriaxone for her UTI, she was given IV saline. The patient is feeling improved. Given the findings on CT, given the UTI, given her troponin elevation and the need for a second ER evaluation in the same day--hospitalization, further care and workup were warranted. I spoke with the patient, I spoke with her caser, I did speak with our case management team. The on-call hospitalist was consulted. Prior/Outside records/notes reviewed: Today's notes from the [place] ED visit describing her presentation and treatment plan. ECG per my interpretation: Indication was abdominal pain. The ECG shows a normal sinus rhythm with a rate of 65. There are some inverted T waves seen in the lateral leads. There is no acute ST elevation, no PVCs. The QTc is 453. Continuous Cardiac Monitoring per my interpretation: An order was placed for continuous cardiac monitoring. The monitor shows a rate of 76 with normal sinus rhythm. Imaging/x-ray results per my interpretation: Chest x-ray does not show mediastinal widening, or free air or pneumothorax. There is no pneumonia. Chronic Medical/Social conditions affecting care: Chronic mental health issues. Care/Management discussed with: Psychiatry case management. Level of care consideration(s): After review of the information above and other included data: --I believe the patient requires escalation of care to admission DISPOSITION: Admission Past Med/Surg History Problem List (Updated 11/10/23 @ 02:00 by Deny Scott MD) CRF (chronic renal failure) (Acute) Elevated troponin (Acute) UTI (urinary tract infection) (Acute) Right sided abdominal pain (Acute) TIA (transient ischemic attack) CKD (chronic kidney disease), stage III (Acute) Right sided weakness (Acute) Depression Hyperlipidemia (Acute) Medical History Generalized anxiety disorder HTN (hypertension) History of tobacco use Surgical History History of endometrial ablation Social History Smoking Status: Former smoker Second Hand Exposure: Yes; Do You Dip or Chew Tobacco: No; Hx Alcohol Use: No Hx Substance Use: No Preferred Language: Danish Communication Ability: Effective Documentation Lead Required: No Beliefs That Will Affect Care: None Current Living Situation: Rehab Current Living Situation Comment: halfway Feels Safe at Home: No Is there a partner from a previous relationship who is making you feel unsafe now?: No Assistive Devices: None Allergies Allergies Allergy/AdvReac Type Severity Reaction Status Date / Time No Known Allergies Allergy Verified 11/09/23 22:00 Home Meds Home Medications Medication Instructions Recorded Confirmed amlodipine 10 mg tablet 10 mg PO QAM 06/18/23 11/09/23 aspirin 81 mg tablet,delayed 81 mg PO QAM 06/18/23 11/09/23 release atorvastatin 40 mg tablet 40 mg PO QAM 06/18/23 11/09/23 buspirone 15 mg tablet 15 mg PO TID 06/18/23 11/09/23 escitalopram oxalate 20 mg tablet 20 mg PO QAM 06/18/23 11/09/23 hydroxyzine pamoate 50 mg capsule 50 mg PO QID PRN Anxiety 06/18/23 11/09/23 labetalol 200 mg tablet 200 mg PO DAILY 06/18/23 11/09/23 losartan 50 mg tablet 50 mg PO QAM 06/18/23 11/09/23 diclofenac sodium 1 % topical gel 2 g EXT QID PRN JOINT PAIN 11/09/23 11/09/23 (Voltaren Arthritis Pain) dicyclomine 10 mg capsule 10 mg PO TID PRN ABD PAIN 11/09/23 11/09/23 trazodone 100 mg tablet 100 mg PO HS PRN Sleep 11/09/23 11/09/23 Results & Data (ED) Vital Signs Vital Signs - 24 hr 11/09/23 20:16 11/09/23 20:46 11/09/23 21:19 Temperature 36.7 C Temperature Source Temporal Artery Scan Pulse Rate 75 Pulse Rate [Right Finger] 68 Respiratory Rate 18 Respiratory Effort / Characteristics Non-Labored Spontaneous Respiratory Depth Normal Respiratory Pattern Regular Blood Pressure 108/61 Blood Pressure [Right Arm] 120/91 Blood Pressure Mean 76 Blood Pressure Mean [Right Arm] 100 Pulse Oximetry 97 96 95 Oxygen Delivery Method Room Air Room Air Room Air Sepsis Recent Fever Within 48 Hours No Sepsis New/Unexplained Change in Mental Status No Sepsis Action Taken by Nursing No Action Required 11/09/23 21:38 11/10/23 01:19 Temperature Temperature Source Pulse Rate 76 73 Pulse Rate [Right Finger] Respiratory Rate Respiratory Effort / Characteristics Respiratory Depth Respiratory Pattern Blood Pressure Blood Pressure [Right Arm] Blood Pressure Mean Blood Pressure Mean [Right Arm] Pulse Oximetry Oxygen Delivery Method Sepsis Recent Fever Within 48 Hours Sepsis New/Unexplained Change in Mental Status Sepsis Action Taken by Detention Medications Current Medication List: was personally reviewed by me Laboratory Data Attestation: I reviewed the patient's lab results. 11/09/23 20:55 11/09/23 20:55 Lab Results 11/09/23 11/09/23 Range/Units 20:55 22:52 WBC 9.22 (4.8-10.8) K/ul RBC 4.04 L (4.20-5.40) M/uL Hgb 11.7 L (12.0-16.0) g/dl Hct 35.4 L (37.0-47.0) % MCV 87.6 (80.0-100.0) fL MCH 29.0 (25.0-34.0) pg MCHC 33.1 (32.0-36.0) g/dL RDW Std Deviation 40.5 (36.4-46.3) fL RDW Coeff of Kho[place] 12.6 (11.5-14.5) % Plt Count 253 (130-400) K/uL MPV 9.6 (9.4-12.4) fL Immature Gran % (Auto) 0.4 % Neut % (Auto) 62.3 % Lymph % (Auto) 21.8 % [place] % (Auto) 12.7 % Eos % (Auto) 2.0 % Baso % (Auto) 0.8 % Neut # (Auto) 5.75 (1.40-6.50) K/uL Lymph # (Auto) 2.01 (1.20-3.40) K/uL [place] # (Auto) 1.17 H (0.11-0.59) K/uL Eos # (Auto) 0.18 (0.00-0.50) K/uL Baso # (Auto) 0.07 (0.00-0.20) K/uL Immature Gran # (Auto) 0.04 (0.01-0.20) K/uL Sodium 136 (136-145) mmol/L Potassium 3.9 (3.5-5.1) mmol/L Chloride 104 (98-107) mmol/L Carbon Dioxide 23 (21-32) mmol/L Anion Gap 9 (3-11) BUN 24 H (6-23) mg/dl Creatinine 1.74 H (0.6-1.2) mg/dl Est Cr Clr Drug Dosing 34.4 ml/min Est GFR ( Amer) 36.0 ml/min Est GFR (Non-Af Amer) 31.1 ml/min BUN/Creatinine Ratio 13.8 (10-20) Glucose 121 H (70-99(Fasting)) mg/dl Calcium 9.1 (8.6-10.3) mg/dl Magnesium 1.7 (1.7-2.4) mg/dl Total Bilirubin 0.9 (0.2-1.0) mg/dl AST 21 (13-39) U/L ALT 14 (7-52) U/L Alkaline Phosphatase 61 (34-104) U/L Troponin I High Sens 87.3 H* 87.8 H* (0-14) pg/ml Total Protein 7.0 (6.0-8.3) gm/dl Albumin 4.5 (3.4-5.0) gm/dl Globulin 2.5 (2.5-4.0) gm/dl Albumin/Globulin Ratio 1.8 (0.9-2) Lipase 28 (11-82) U/L Urine Color Yellow Urine Appearance Cloudy A (Clear) Urine pH 5.5 (4.5-7.5) Ur Specific [place] 1.014 (1.000-1.030) Urine Protein Negative (Negative) Urine Glucose (UA) Negative (Negative) Urine Ketones Negative (Negative) Urine Blood Negative (Negative) Urine Nitrite Negative (Negative) Urine Bilirubin Negative (Negative) Urine Urobilinogen Negative (Negative) Ur Leukocyte Esterase 3+ H (Negative) Urine WBC (Auto) 21-50 H (0-5) /hpf Urine RBC (Auto) 0-2 (0-2) /hpf U Hyaline Cast (Auto) 3-5 H (0-2) /lpf U Epithel Cells (Auto) 3-5 H (0-2) /hpf Urine Bacteria (Auto) 1+ H (None Seen) Administered Medications Discontinued Medications Aspirin (Aspirin Chew 324 Mg) 324 mg PO NOW STA Stop: 11/09/23 23:28 Last Admin: 11/10/23 00:11 Dose: 324 mg Documented By: OSMANY Sodium Chloride (Nss) 500 mls @ 999 mls/hr IV .Q31M STA Stop: 11/09/23 21:49 Last Infusion: 11/09/23 22:22 Dose: Infused Documented By: Admin: 11/09/23 21:37 Dose: 999 mls/hr Documented By: SHAYNE Acetaminophen (Ofirmev) 1,000 mg in 100 mls @ 400 mls/hr IV NOW STA Stop: 11/09/23 21:33 Last Infusion: 11/09/23 22:22 Dose: Infused Documented By: Admin: 11/09/23 21:37 Dose: 400 mls/hr Documented By: SHAYNE Ceftriaxone Sodium (Rocephin) 2,000 mg in 50 mls @ 100 mls/hr IV NOW STA Stop: 11/10/23 00:18 Last Infusion: 11/10/23 00:45 Dose: Infused Documented By: Admin: 11/10/23 00:11 Dose: 100 mls/hr Documented By: OSMANY Imaging Data Radiologist's Impression: Head CT 11/09/23 21:19 Exam(s): CT HEAD Without Contrast EXAM: CT Head Without Intravenous Contrast CLINICAL HISTORY: Reason for exam: confusion. TECHNIQUE: Axial computed tomography images of the head/brain without intravenous contrast. Automated exposure control was utilized for the study. A dose lowering technique was utilized adhering to the principles of ALARA. COMPARISON: Comparison made to prior brain MRI from June 18, 2023. FINDINGS: Brain: Remote ischemic injury of the bilateral capsules. Remote ischemic injury of the left cerebellum. Remote ischemic injuries of the thalami. No hemorrhage. No significant white matter disease. No edema. Ventricles: Unremarkable. No ventriculomegaly. Bones/joints: Unremarkable. No acute fracture. Soft tissues: Unremarkable. Sinuses: Unremarkable as visualized. No acute sinusitis. Mastoid air cells: Unremarkable as visualized. No mastoid effusion. IMPRESSION: No evidence of acute intracranial pathology. Electronically signed by: Jillian Daily MD 11/10/23 01:51 AM Abdomen/Pelvis CT 11/09/23 21:20 Exam(s): CT ABDOMEN + PELVIS Without Contrast EXAM: CT Abdomen and Pelvis Without Intravenous Contrast CLINICAL HISTORY: Reason for exam: right sided pain, crf. TECHNIQUE: Axial computed tomography images of the abdomen and pelvis without intravenous contrast. Automated exposure control was utilized for the study. A dose lowering technique was utilized adhering to the principles of ALARA. COMPARISON: No relevant prior studies available. FINDINGS: Lung bases: Unremarkable. No mass. No consolidation. ABDOMEN: Liver: Unremarkable. Gallbladder and bile ducts: Unremarkable. No calcified stones. No ductal dilation. Pancreas: Unremarkable. No ductal dilation. Spleen: Unremarkable. No splenomegaly. Adrenals: Unremarkable. No mass. Kidneys and ureters: Unremarkable. No obstructing stones. No hydronephrosis. Stomach and bowel: Diverticulosis, without acute diverticulitis. No small bowel obstruction. No free intraperitoneal air. PELVIS: Appendix: No findings to suggest acute appendicitis. Bladder: Unremarkable. No stones. Reproductive: Unremarkable as visualized. ABDOMEN and PELVIS: Intraperitoneal space: Unremarkable. No free air. No significant fluid collection. Bones/joints: Degenerative changes of the spine. No acute fracture. No dislocation. Soft tissues: Mild mesenteric edema in the RIGHT side of the abdomen, consider follow-up exam with intravenous contrast for further evaluation. Vasculature: Atherosclerotic changes of the aorta. No abdominal aortic aneurysm. Lymph nodes: Unremarkable. No enlarged lymph nodes. IMPRESSION: 1. Mild mesenteric edema in the RIGHT side of the abdomen, consider follow-up exam with intravenous contrast for further evaluation. 2. Diverticulosis, without acute diverticulitis. No small bowel obstruction. No free intraperitoneal air. Electronically signed by: Sergio Narayan MD 11/10/23 01:07 AM Discharge Plan Visit Data Chief Complaint: Abdominal Pain Stated Complaint: ABDOMINAL PAIN ED Provider: Deny Scott Discharge Problem: Right sided abdominal pain, UTI (urinary tract infection), Elevated troponin, CRF (chronic renal failure) Patient Disposition: Admitted As Inpatient Condition: Fair Forms Stand Alone Forms: [facility] [employer] Prescriptions Prescriptions: No Action hydroxyzine pamoate 50 mg capsule 50 mg PO QID PRN (Reason: Anxiety) aspirin 81 mg tablet,delayed release (DR/EC) 81 mg PO QAM escitalopram oxalate 20 mg tablet 20 mg PO QAM atorvastatin 40 mg tablet 40 mg PO QAM buspirone 15 mg tablet 15 mg PO TID losartan 50 mg tablet 50 mg PO QAM labetalol 200 mg tablet 200 mg PO DAILY amlodipine 10 mg tablet 10 mg PO QAM trazodone 100 mg tablet 100 mg PO HS PRN (Reason: Sleep) dicyclomine 10 mg Capsule 10 mg PO TID PRN (Reason: ABD PAIN) Rx Instructions: PER PT "DID NOT START YET". diclofenac sodium [Voltaren Arthritis Pain] 1 % gel 2 g EXT QID PRN (Reason: JOINT PAIN) Referrals Referrals: Sunshine Capellan DO [Primary Care Provider] - Discharge Problem: UTI (urinary tract infection) Qualifiers: Urinary tract infection type: acute cystitis Hematuria presence: without hematuria Qualified Code(s): N30.00 - Acute cystitis without hematuria CRF (chronic renal failure) Qualifiers: Chronic kidney disease stage: unspecified stage Qualified Code(s): N18.9 - Chronic kidney disease, unspecified
[2023-11-09] MEDS: ACETAMINOPHEN 1,000 MG/100 ML VIAL IV STA (21:37)
[2023-11-09] MEDS: SODIUM CHLORIDE 0.9% 500 ML IV STA (21:37)
[2023-11-09 21:53] LABS: Basophils # (auto) 0.07 K/uL (0.00-0.20); Basophils % (auto) 0.8 %; Eosinophils # (auto) 0.18 K/uL (0.00-0.50); Hematocrit (blood only) 35.4 % (37.0-47.0); Hemoglobin 11.7 g/dl (12.0-16.0); Immature Granulocytes # (auto) 0.04 K/uL (0.01-0.20); Immature Granulocytes % (auto) 0.4 %; Lymphocytes # (auto) 2.01 K/uL (1.20-3.40); Lymphocytes % (auto) 21.8 %; Mean Corpuscular Hgb Conc 33.1 g/dL (32.0-36.0); Mean Corpuscular Volume 87.6 fL (80.0-100.0); Mean Platelet Volume 9.6 fL (9.4-12.4); Monocytes # (auto) 1.17 K/uL (0.11-0.59); Monocytes % (auto) 12.7 %; Neutrophils # (auto) 5.75 K/uL (1.40-6.50); Neutrophils % (auto) 62.3 %; Platelet Count 253 K/uL (130-400); RDW Coefficient of Variation 12.6 % (11.5-14.5); RDW Standard Deviation 40.5 fL (36.4-46.3); Red Blood Count 4.04 M/uL (4.20-5.40); White Blood Count 9.22 K/ul (4.8-10.8)
[2023-11-09 22:10] LABS: Albumin Globulin Ratio 1.8 (0.9-2); Albumin Level 4.5 gm/dl (3.4-5.0); BUN Creatinine Ratio 13.8 (10-20); Bilirubin,Total 0.9 mg/dl (0.2-1.0); Calcium 9.1 mg/dl (8.6-10.3); Creatinine Clr Calc Pharmacy 34.4 ml/min; Est GFR (Non-African American) 31.1 ml/min; Globulin 2.5 gm/dl (2.5-4.0); Magnesium 1.7 mg/dl (1.7-2.4); Potassium 3.9 mmol/L (3.5-5.1)
[2023-11-09 22:27] LABS: Troponin I High Sensitivity 87.3 pg/ml (0-14)
[2023-11-09 23:14] LABS: Appearance Urine Cloudy (Clear); Bacteria Urine Automated 1+ (None Seen); Bilirubin Urine Negative (Negative); Blood Urine Negative (Negative); Color Urine Yellow; Glucose Urine UA Negative (Negative); Ketones Urine Negative (Negative); Leukocyte Esterase Urine 3+ (Negative); Nitrite Urine Negative (Negative); Protein Urine Negative (Negative); RBC Urine Automated 0-2 /hpf (0-2); Specific Gravity Urine 1.014 (1.000-1.030); Urobilinogen Urine Negative (Negative); WBC Urine Automated 21-50 /hpf (0-5); pH Urine 5.5 (4.5-7.5)
[2023-11-10] MEDS: ASPIRIN CHEW 324 MG PO STA (00:11)
[2023-11-10] MEDS: cefTRIAXone SODIUM 2,000 MG/50 ML BAG IV STA (00:11)
--- NOTE | 2023-11-10 01:08 | CT Scan Report ---
Exam(s): CT ABDOMEN + PELVIS Without Contrast EXAM: CT Abdomen and Pelvis Without Intravenous Contrast CLINICAL HISTORY: Reason for exam: right sided pain, crf. TECHNIQUE: Axial computed tomography images of the abdomen and pelvis without intravenous contrast. Automated exposure control was utilized for the study. A dose lowering technique was utilized adhering to the principles of ALARA. COMPARISON: No relevant prior studies available. FINDINGS: Lung bases: Unremarkable. No mass. No consolidation. ABDOMEN: Liver: Unremarkable. Gallbladder and bile ducts: Unremarkable. No calcified stones. No ductal dilation. Pancreas: Unremarkable. No ductal dilation. Spleen: Unremarkable. No splenomegaly. Adrenals: Unremarkable. No mass. Kidneys and ureters: Unremarkable. No obstructing stones. No hydronephrosis. Stomach and bowel: Diverticulosis, without acute diverticulitis. No small bowel obstruction. No free intraperitoneal air. PELVIS: Appendix: No findings to suggest acute appendicitis. Bladder: Unremarkable. No stones. Reproductive: Unremarkable as visualized. ABDOMEN and PELVIS: Intraperitoneal space: Unremarkable. No free air. No significant fluid collection. Bones/joints: Degenerative changes of the spine. No acute fracture. No dislocation. Soft tissues: Mild mesenteric edema in the RIGHT side of the abdomen, consider follow-up exam with intravenous contrast for further evaluation. Vasculature: Atherosclerotic changes of the aorta. No abdominal aortic aneurysm. Lymph nodes: Unremarkable. No enlarged lymph nodes. IMPRESSION: 1. Mild mesenteric edema in the RIGHT side of the abdomen, consider follow-up exam with intravenous contrast for further evaluation. 2. Diverticulosis, without acute diverticulitis. No small bowel obstruction. No free intraperitoneal air. Electronically signed by: Sergio Narayan MD 11/10/23 01:07 AM
--- NOTE | 2023-11-10 01:52 | CT Scan Report ---
Exam(s): CT HEAD Without Contrast EXAM: CT Head Without Intravenous Contrast CLINICAL HISTORY: Reason for exam: confusion. TECHNIQUE: Axial computed tomography images of the head/brain without intravenous contrast. Automated exposure control was utilized for the study. A dose lowering technique was utilized adhering to the principles of ALARA. COMPARISON: Comparison made to prior brain MRI from June 18, 2023. FINDINGS: Brain: Remote ischemic injury of the bilateral capsules. Remote ischemic injury of the left cerebellum. Remote ischemic injuries of the thalami. No hemorrhage. No significant white matter disease. No edema. Ventricles: Unremarkable. No ventriculomegaly. Bones/joints: Unremarkable. No acute fracture. Soft tissues: Unremarkable. Sinuses: Unremarkable as visualized. No acute sinusitis. Mastoid air cells: Unremarkable as visualized. No mastoid effusion. IMPRESSION: No evidence of acute intracranial pathology. Electronically signed by: Jillian Daily MD 11/10/23 01:51 AM
--- NOTE | 2023-11-10 03:05 | History & Physical Report ---
Date of Service November 10, 2023 Assessment & Plan (1) Right sided abdominal pain: Plan: 63-year-old female with past medical history significant for Hyperlipidemia, hypertension, CKD stage III, generalized osteoarthritis, depression, general anxiety disorder, history of pneumonia, history of alcohol use, history of tobacco use presents with right-sided abdominal pain and found to UTI and also troponins are elevated.Per ER patient is typically at [facility] which is a rehab center. She was there permanently but seems there was a recent incident and she broke the contract. Seems now she is staying at a motel in [place]. Last few days she is having right sided abdominal pain and went to [facility] today and was she was told that she has enteritis. But the pain was persisting. Her rn case mgr thought that she has having some confusion and brought here. Patient currently seems comfortable. States her pain is improving. She says she had fever and chills. She states micturating okay. Bowels are moving okay. No nausea. Denies chest pain. Denies shortness of breath. States uses oxygen all the time. Denies any headache currently. Vision is not great and states need to see eye doctor. Has some runny nose. Has some sore throat and cough.. States appetite has been down. Ambulating okay. Currently hemodynamics are okay. In June 2023 patient was admitted for right-sided weakness. 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 MRI brain was okay. Neurology recommended DAPT for 21 days. Patient is already on statin. right-sided abdominal pain seems improving now. CT abdomen pelvis showing mild mesenteric edema in the right side of the abdomen recommends follow-up with IV contrast study to keep her n.p.o., IV fluids GI consult in a.m. for further recommendations acute UTI ER started on Rocephin will follow cultures elevated troponin initial troponin 87.3 and repeat is 87.8 denies any chest pain EKG no acute findings will follow serial cardiac enzymes, repeat EKG and echo if any concerns will consult cardiology HERMILO on CKD stage III baseline creatinine around 1.6 presented creatinine 1.7 avoid nephrotoxic agents will hold losartan for now follow repeat labs hyperlipidemia on statin hypertension on labetalol, amlodipine holding losartan will monitor depression generalized anxiety disorder on buspirone, Lexapro hydroxyzine as needed DVT prophylaxis heparin subcu disposition med/telemetry full code History of Present Illness Chief Complaint: Abdominal pain Primary Care Provider: Sunshine Capellan DO 63-year-old female with past medical history significant for Hyperlipidemia, hypertension, CKD stage III, generalized osteoarthritis, depression, general anxiety disorder, history of pneumonia, history of alcohol use, history of tobacco use presents with right-sided abdominal pain and found to UTI and also troponins are elevated.Per ER patient is typically at [facility] which is a rehab center. She was there permanently but seems there was a recent incident and she broke the contract. Seems now she is staying at a motel in [place]. Last few days she is having right sided abdominal pain and went to [facility] today and was she was told that she has enteritis. But the pain was persisting. Her rn case mgr thought that she has having some confusion and brought here. Patient currently seems comfortable. States her pain is improving. She says she had fever and chills. She states micturating okay. Bowels are moving okay. No nausea. Denies chest pain. Denies shortness of breath. States uses oxygen all the time. Denies any headache currently. Vision is not great and states need to see eye doctor. Has some runny nose. Has some sore throat and cough.. States appetite has been down. Ambulating okay. Currently hemodynamics are okay. In June 2023 patient was admitted for right-sided weakness. 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 MRI brain was okay. Neurology recommended DAPT for 21 days. Patient is already on statin. Past medical history. As mentioned above past surgical history. Hysteroscopy with endometrial ablation. Social history. Quit smoking 2022. Smoked half pack a day for 31 years. Sometimes vapes. History of heavy alcohol use in the past. Not currently as per Citizen.VC. No drug use. Family history. Father had cancer. Hypertension. Allergies Allergy/AdvReac Type Severity Reaction Status Date / Time No Known Allergies Allergy Verified 11/09/23 22:00 Home Medications Medication Instructions Recorded Confirmed Type amlodipine 10 mg tablet 10 mg PO QAM 06/18/23 11/09/23 History aspirin 81 mg tablet,delayed 81 mg PO QAM 06/18/23 11/09/23 History release atorvastatin 40 mg tablet 40 mg PO QAM 06/18/23 11/09/23 History buspirone 15 mg tablet 15 mg PO TID 06/18/23 11/09/23 History escitalopram oxalate 20 mg tablet 20 mg PO QAM 06/18/23 11/09/23 History hydroxyzine pamoate 50 mg capsule 50 mg PO QID PRN Anxiety 06/18/23 11/09/23 History labetalol 200 mg tablet 200 mg PO DAILY 06/18/23 11/09/23 History losartan 50 mg tablet 50 mg PO QAM 06/18/23 11/09/23 History diclofenac sodium 1 % topical gel 2 g EXT QID PRN JOINT PAIN 11/09/23 11/09/23 History (Voltaren Arthritis Pain) dicyclomine 10 mg capsule 10 mg PO TID PRN ABD PAIN 11/09/23 11/09/23 History trazodone 100 mg tablet 100 mg PO HS PRN Sleep 11/09/23 11/09/23 History Past Med/Surg History Problem List (Updated 11/10/23 @ 02:00 by Deny Scott MD) CRF (chronic renal failure) (Acute) Elevated troponin (Acute) UTI (urinary tract infection) (Acute) Right sided abdominal pain (Acute) TIA (transient ischemic attack) CKD (chronic kidney disease), stage III (Acute) Right sided weakness (Acute) Depression Hyperlipidemia (Acute) Medical History Generalized anxiety disorder HTN (hypertension) History of tobacco use Surgical History History of endometrial ablation Social History Smoking Status: Former smoker Second Hand Exposure: Yes; Do You Dip or Chew Tobacco: No; Hx Alcohol Use: Yes (1 year sober) Hx Substance Use: No Preferred Language: Thai Communication Ability: Effective Relay Worker Required: No Beliefs That Will Affect Care: None Current Living Situation: Homeless Current Living Situation Comment: custodial Feels Safe at Home: Declines to Answer Assistive Devices: Glasses Review of Systems Review of Systems: All systems reviewed & are unremarkable except as noted in HPI & below Physical Exam Physical Exam: General- Not in distress Head- atraumatic Eyes- PERRL. ENT- oropharynx clear Neck- supple, no JVD. Lungs- clear to auscultation no wheezing or crackles Heart- regular rate and rhythm; no murmur, no gallop. Abdomen- normal bowel sounds, soft, mild diffuse discomfort no distension Extremities- no pretibial edema, no erythema seen. Neuro- alert, oriented PERRL, no facial palsy; no dysarthria; moves extremities Results & Data Results & Data Vital Signs (Past 12 Hours) Vital Signs Temp Pulse Pulse Resp BP BP Pulse Ox 11/10/23 01:19 73 11/09/23 21:38 76 11/09/23 21:19 95 11/09/23 20:46 68 18 120/91 96 11/09/23 20:16 36.7 C 75 108/61 97 O2 Del Method 11/10/23 01:19 11/09/23 21:38 11/09/23 21:19 Room Air 11/09/23 20:46 Room Air 11/09/23 20:16 Room Air Diagnostic Findings Laboratory Results WBC 9.22 K/ul (4.8-10.8) 11/09/23 20:55 RBC 4.04 M/uL (4.20-5.40) L 11/09/23 20:55 Hgb 11.7 g/dl (12.0-16.0) L 11/09/23 20:55 Hct 35.4 % (37.0-47.0) L 11/09/23 20:55 MCV 87.6 fL (80.0-100.0) 11/09/23 20:55 MCH 29.0 pg (25.0-34.0) 11/09/23 20:55 MCHC 33.1 g/dL (32.0-36.0) 11/09/23 20:55 RDW Std Deviation 40.5 fL (36.4-46.3) 11/09/23 20:55 RDW Coeff of Khoa 12.6 % (11.5-14.5) 11/09/23 20:55 Plt Count 253 K/uL (130-400) 11/09/23 20:55 MPV 9.6 fL (9.4-12.4) 11/09/23 20:55 Immature Gran % (Auto) 0.4 % 11/09/23 20:55 Neut % (Auto) 62.3 % 11/09/23 20:55 Lymph % (Auto) 21.8 % 11/09/23 20:55 Refugio % (Auto) 12.7 % 11/09/23 20:55 Eos % (Auto) 2.0 % 11/09/23 20:55 Baso % (Auto) 0.8 % 11/09/23 20:55 Neut # (Auto) 5.75 K/uL (1.40-6.50) 11/09/23 20:55 Lymph # (Auto) 2.01 K/uL (1.20-3.40) 11/09/23 20:55 Refugio # (Auto) 1.17 K/uL (0.11-0.59) H 11/09/23 20:55 Eos # (Auto) 0.18 K/uL (0.00-0.50) 11/09/23 20:55 Baso # (Auto) 0.07 K/uL (0.00-0.20) 11/09/23 20:55 Immature Gran # (Auto) 0.04 K/uL (0.01-0.20) 11/09/23 20:55 Sodium 136 mmol/L (136-145) 11/09/23 20:55 Potassium 3.9 mmol/L (3.5-5.1) 11/09/23 20:55 Chloride 104 mmol/L (98-107) 11/09/23 20:55 Carbon Dioxide 23 mmol/L (21-32) 11/09/23 20:55 Anion Gap 9 (3-11) 11/09/23 20:55 BUN 24 mg/dl (6-23) H 11/09/23 20:55 Creatinine 1.74 mg/dl (0.6-1.2) H 11/09/23 20:55 Est Cr Clr Drug Dosing 34.4 ml/min 11/09/23 20:55 Est GFR ( Amer) 36.0 ml/min 11/09/23 20:55 Est GFR (Non-Af Amer) 31.1 ml/min 11/09/23 20:55 BUN/Creatinine Ratio 13.8 (10-20) 11/09/23 20:55 Glucose 121 mg/dl (70-99(Fasting)) H 11/09/23 20:55 Calcium 9.1 mg/dl (8.6-10.3) 11/09/23 20:55 Magnesium 1.7 mg/dl (1.7-2.4) 11/09/23 20:55 Total Bilirubin 0.9 mg/dl (0.2-1.0) 11/09/23 20:55 AST 21 U/L (13-39) 11/09/23 20:55 ALT 14 U/L (7-52) 11/09/23 20:55 Alkaline Phosphatase 61 U/L (34-104) 11/09/23 20:55 Troponin I High Sens 87.8 pg/ml (0-14) H* 11/09/23 22:52 Total Protein 7.0 gm/dl (6.0-8.3) 11/09/23 20:55 Albumin 4.5 gm/dl (3.4-5.0) 11/09/23 20:55 Globulin 2.5 gm/dl (2.5-4.0) 11/09/23 20:55 Albumin/Globulin Ratio 1.8 (0.9-2) 11/09/23 20:55 Lipase 28 U/L (11-82) 11/09/23 20:55 Urine Color Yellow 11/09/23 22:52 Urine Appearance Cloudy (Clear) A 11/09/23 22:52 Urine pH 5.5 (4.5-7.5) 11/09/23 22:52 Ur Specific Callahan 1.014 (1.000-1.030) 11/09/23 22:52 Urine Protein Negative (Negative) 11/09/23 22:52 Urine Glucose (UA) Negative (Negative) 11/09/23 22:52 Urine Ketones Negative (Negative) 11/09/23 22:52 Urine Blood Negative (Negative) 11/09/23 22:52 Urine Nitrite Negative (Negative) 11/09/23 22:52 Urine Bilirubin Negative (Negative) 11/09/23 22:52 Urine Urobilinogen Negative (Negative) 11/09/23 22:52 Ur Leukocyte Esterase 3+ (Negative) H 11/09/23 22:52 Urine WBC (Auto) 21-50 /hpf (0-5) H 11/09/23 22:52 Urine RBC (Auto) 0-2 /hpf (0-2) 11/09/23 22:52 U Hyaline Cast (Auto) 3-5 /lpf (0-2) H 11/09/23 22:52 U Epithel Cells (Auto) 3-5 /hpf (0-2) H 11/09/23 22:52 Urine Bacteria (Auto) 1+ (None Seen) H 11/09/23 22:[address] 11/09/23 21:19 Exam(s): CT HEAD Without Contrast EXAM: CT Head Without Intravenous Contrast CLINICAL HISTORY: Reason for exam: confusion. TECHNIQUE: Axial computed tomography images of the head/brain without intravenous contrast. Automated exposure control was utilized for the study. A dose lowering technique was utilized adhering to the principles of ALARA. COMPARISON: Comparison made to prior brain MRI from June 18, 2023. FINDINGS: Brain: Remote ischemic injury of the bilateral capsules. Remote ischemic injury of the left cerebellum. Remote ischemic injuries of the thalami. No hemorrhage. No significant white matter disease. No edema. Ventricles: Unremarkable. No ventriculomegaly. Bones/joints: Unremarkable. No acute fracture. Soft tissues: Unremarkable. Sinuses: Unremarkable as visualized. No acute sinusitis. Mastoid air cells: Unremarkable as visualized. No mastoid effusion. IMPRESSION: No evidence of acute intracranial pathology. Electronically signed by: Jillian Daily MD 11/10/23 01:51 AM Abdomen/Pelvis CT 11/09/23 21:20 Exam(s): CT ABDOMEN + PELVIS Without Contrast EXAM: CT Abdomen and Pelvis Without Intravenous Contrast CLINICAL HISTORY: Reason for exam: right sided pain, crf. TECHNIQUE: Axial computed tomography images of the abdomen and pelvis without intravenous contrast. Automated exposure control was utilized for the study. A dose lowering technique was utilized adhering to the principles of ALARA. COMPARISON: No relevant prior studies available. FINDINGS: Lung bases: Unremarkable. No mass. No consolidation. ABDOMEN: Liver: Unremarkable. Gallbladder and bile ducts: Unremarkable. No calcified stones. No ductal dilation. Pancreas: Unremarkable. No ductal dilation. Spleen: Unremarkable. No splenomegaly. Adrenals: Unremarkable. No mass. Kidneys and ureters: Unremarkable. No obstructing stones. No hydronephrosis. Stomach and bowel: Diverticulosis, without acute diverticulitis. No small bowel obstruction. No free intraperitoneal air. PELVIS: Appendix: No findings to suggest acute appendicitis. Bladder: Unremarkable. No stones. Reproductive: Unremarkable as visualized. ABDOMEN and PELVIS: Intraperitoneal space: Unremarkable. No free air. No significant fluid collection. Bones/joints: Degenerative changes of the spine. No acute fracture. No dislocation. Soft tissues: Mild mesenteric edema in the RIGHT side of the abdomen, consider follow-up exam with intravenous contrast for further evaluation. Vasculature: Atherosclerotic changes of the aorta. No abdominal aortic aneurysm. Lymph nodes: Unremarkable. No enlarged lymph nodes. IMPRESSION: 1. Mild mesenteric edema in the RIGHT side of the abdomen, consider follow-up exam with intravenous contrast for further evaluation. 2. Diverticulosis, without acute diverticulitis. No small bowel obstruction. No free intraperitoneal air. Electronically signed by: Sergio Narayan MD 11/10/23 01:07 AM ECG Additional Comments: ECG. Normal sinus rhythm with rate of 65. Nonspecific T wave abnormality. Code Status & VTE Plan VTE Prophylaxis Plan VTE Prophylaxis will be ordered: Yes
[2023-11-10] MEDS ORDERED: NITROGLYCERIN SL 0.4 MG/TAB TAB SL PRN (03:14)
[2023-11-10] MEDS ORDERED: DICYCLOMINE HCL 10 MG CAP PO PRN (03:14)
[2023-11-10] MEDS ORDERED: POLYETHYLENE (MIRALAX) 17 GM PACK PO PRN (03:14)
[2023-11-10] MEDS ORDERED: DICLOFENAC SOD 1% GEL 100 GM TUBE EXT PRN (03:14)
[2023-11-10] MEDS: SODIUM CHLORIDE 0.9% 1,000 ML IV SCH (03:40)
[2023-11-10] MEDS: HEPARIN SOD 5,000 UNIT/0.5 ML VIAL SQ SCH (05:58)
[2023-11-10 06:26] LABS: Basophils # (auto) 0.07 K/uL (0.00-0.20); Basophils % (auto) 0.8 %; Eosinophils # (auto) 0.28 K/uL (0.00-0.50); Eosinophils % (auto) 3.2 %; Hematocrit (blood only) 35.3 % (37.0-47.0); Hemoglobin 11.7 g/dl (12.0-16.0); Immature Granulocytes # (auto) 0.04 K/uL (0.01-0.20); Immature Granulocytes % (auto) 0.5 %; Lymphocytes # (auto) 1.69 K/uL (1.20-3.40); Lymphocytes % (auto) 19.5 %; Mean Corpuscular Hemoglobin 29.3 pg (25.0-34.0); Mean Corpuscular Hgb Conc 33.1 g/dL (32.0-36.0); Mean Corpuscular Volume 88.5 fL (80.0-100.0); Mean Platelet Volume 9.1 fL (9.4-12.4); Monocytes # (auto) 1.08 K/uL (0.11-0.59); Monocytes % (auto) 12.5 %; Neutrophils # (auto) 5.51 K/uL (1.40-6.50); Neutrophils % (auto) 63.5 %; Platelet Count 220 K/uL (130-400); RDW Coefficient of Variation 12.3 % (11.5-14.5); RDW Standard Deviation 40.2 fL (36.4-46.3); Red Blood Count 3.99 M/uL (4.20-5.40); White Blood Count 8.67 K/ul (4.8-10.8)
[2023-11-10 06:40] LABS: BUN Creatinine Ratio 14.8 (10-20); Calcium 8.9 mg/dl (8.6-10.3); Creatinine Clr Calc Pharmacy 42.2 ml/min; Est GFR (African American) 46.1 ml/min; Est GFR (Non-African American) 39.8 ml/min; Magnesium 1.7 mg/dl (1.7-2.4); Potassium 4.1 mmol/L (3.5-5.1)
--- NOTE | 2023-11-10 06:45 | XRay Report ---
XR chest 1V portable CLINICAL HISTORY: Abdominal pain. COMPARISON STUDY: Chest radiograph November 03, 2016. FINDINGS: Lung volumes are normal. Lungs are clear. There is no pneumothorax or pleural effusion. Car diac size is normal. Mediastinal contours are normal. There is no evidence for pulmonary edema. IMPRESSION: No acute cardiopulmonary findings. ACT 112: Negative or not required by law. Electronically signed by: Aj Licona M.D. 11/10/2023 6:43 AM
[2023-11-10 06:48] LABS: Troponin I High Sensitivity 58.5 pg/ml (0-14)
--- OUTSIDE RECORDS SUMMARY | 2023-11-10 07:59 | External Medical Summary | Summary of Care ---
Author Name Unknown Organization [facility] Address [address] [facility] [place] [address] Phone [phone] Care Team Providers Care Gasket Former Name Role Phone Sunshine Capellan DO Primary Care Provider + [phone] Reason for Visit * Reason Onset Date Comments Home Health 07/21/2023 Encounter Details Date Type Department Care Team (Late st Contact Info) Description 07/21/2023 Telephone Family Medicine [address] [place] [phone] Sunshine Capellan DO [address] [place] [address] [place] [phone] Home Health Allergies No known active allergiesdocumented as of this encounter (statuses as of 10/20/2023) Medications Medication Sig Dispensed Refills Start Date End Date Status oxygen IN GAS Administer 2 L/min(Oxygen) into nostril continuous. 1 Each 02/03/2023 Active busPIRone HCl 15 MG Oral Tablet (Buspar) Take 1 Tablet by mouth in the morning and 1 Tablet at noon and 1 Tablet in the evening. 03/16/2023 Active hydrOXYzine HCl 50 MG Oral Tablet Take 1 Tablet by mouth every 6 hours as needed for Anxiety. 03/16/2023 Active Escitalopram Oxalate 20 MG Oral Tablet (Lexapro) Take 1 Tablet by mouth in the morning. 04/02/2023 Active Diclofenac Sodium 1 % External Gel (Voltaren) Apply 2 g topically to affected area 4 times a day as needed for Pain. 06/21/2023 Active documented as of this encounter (statuses as of 10/20/2023) Active Problems Problem Noted Date Diagnosed Date Cerebrovascular disease, arteriosclerotic, post- stroke 09/14/2023 Stage 3b chronic kidney disease (CKD) 06/28/2023 Abnormal CXR 03/16/2023 History of pneumonia 02/16/2023 [...] as of this encounter (statuses as of 10/20/2023) Resolved Problems Problem Noted Date Diagnosed Date Resolved Date Chronic kidney disease, stage 3b 06/28/2023 07/29/2023 Overview: Per CKD protocol Alcohol abuse 02/16/2023 02/16/2023 Shortness of breath 02/03/2023 02/17/20 23 HTN, goal below 140/90 03/22 Overview: Modified per HTN Taxonomy. Adjustment disorder with depressed mood 02/16/2023 documented as of this encounter (statuses as of 10/20/2023) Immunizations Name Administration Dates Next Due Pneumococcal Conjugate Vaccine, 20-valent (Prevn ar20) 03/16/2023 Pneumococcal Polysaccharide PPV23 (Pneumovax) Seasonal Influenza, PF, 6 M & above, IM , (FluLaval or Fluzone) 03/05/2023 Seasonal Influenza, Split, IIV3, With Preserve, Inj 04/11/2010 TDAP, Age 7 and older, IM (Adacel) 08/15/2008 documented as of this encounter Social History Tobacco Use Types Packs/Day Years Used Date Smoking Tobacco: Former Cigarettes 0.5 31 0 09/1991 - 09/2022 Smokeless Tobacco: Never Comments:age 18, did [...] encounter Miscellaneous Notes * Telephone Encounter - Kadi Lott LPN - 07/21/2023 12:07 PM EST HH Discharge ROGER Conrad, Calling from: [facility] Patient is/has been discharged from [facility] on 07/21/23 All goals have been met and patient is safe at home. Pt reported to Anamaria that she is still having urinary sx (frequency and dysuria) but sx are improved this week compared to last week and urine color is lightening. Pt was educated on the importance of hydration. Made Anamaria aware the urine culture showed no bacteria growth. VS: Temp- 97.4 P- 72 RR- 20 BP- 142/86 SP02- 99% RA FYI to PCP. documented in this encounter Plan of Treatment Upcoming Encounters Date Type Department Care Team (Latest Contact Info) Description 12/30/2023 1:00 PM EDT Hospital Encounter ENDO [facility], Endoscopy Room [facility] [address] [facility] [place] [phone] Brooklyn Daniels MD [address] [place] [address] 12/30/2023 1:00 PM EDT - 12/30/2023 1:30 PM EDT Surgery ENDO [facility], Endoscopy Room [facility] [address] [place] [phone] Brooklyn Daniels MD [address] [place] [address] COLONOSCOPY FLEXIBLE PROXIMAL DIAGNOSTIC 04/25/2024 8:30 AM EST Office Visit Family Medicine [address] [place] [phone] [address] [place] [address] 06/14/2024 11:00 AM EST Office Visit Nephrology, Demi Echeverria [address] [facility] [place] [id number] Marquez Arrieta MD [address] [place] [id number] Scheduled Procedures Name Priority Associated Diagnoses Date/Ti me COLONOSCOPY FLEXIBLE PROXIMAL DIAGNOSTIC Special screening for malignant neoplasms, colon 12/30/2023 1:00 PM EDT Health Maintenance Due Date Last Done Comments HIV Screening 1977 Hepatitis C Screening 1980 HPV/Co-Test 1992 Cologuard 2007 Colonoscopy 2007 Colorectal Cancer Screening 2007 Fecal Occult Blood Test 2007 Sigmoidoscopy 2007 Cervical Cancer Screening 07/20/2011 Pap Smear 07/20/2011 07/19/2008 (Done elsewhere) Zoster Vaccines (1 of 2) 2012 DTaP,Tdap,and Td Vaccines (2 - Td or Tdap) 08/15/2018 08/15/2008 COVID-19 Vaccine ( - season) 2023 GFR 03/15/2024 09/14/2023, 12/2023, 04/02/2023, Additional history exists Albumin/Creatinine Ratio 03/16/2024 03/16/2023, 07/2022 Mammogram 05/24/2024 05/24/2023, 07/15, 10/01/2011, Additional history exists Diabetes Screening 09/13/2026 09/14/2023, 0 06/19/2023, 05/24/2023, Additional history exists Influenza Vaccine (FLU shot) Completed , 03/05/2023, 04/11/2010, Additional history exists Pneumococcal Vaccine: Pediatrics (0 to 5 Years) [...] as of this encounter Care Teams Gasket Former Relationship Specialty Start Date End Date Sunshine Capellan DO [address] [place] [address] [place] [phone] PCP - General Internal Medicine 02/16/23 documented as of this encounter
--- OUTSIDE RECORDS SUMMARY | 2023-11-10 07:59 | External Medical Summary | Summary of Care ---
Author Name Unknown Organization [facility] Address [address] [facility] [address] Phone [phone] Care Team Providers Care Medical And Scientific Illustrator Name Role Phone Sunshine Capellan DO Primary Care Provider [phone] Reason for Visit * Reason Comments Return Visit Chronic Kidney Disease (CKD) Hypertension Encounter Details Date Type Department Care Team (Late st Contact Info) Description 10/15/2023 2:30 PM EDT Office Visit Nephrology, Demi Echeverria [address] [place] [id number] Glendy King PA-C [address] [place] [address] Stage 3b chronic kidney disease (CKD) (HCC)*; HTN, GOAL BELOW 140/90; Complex renal cyst Allergies No known active allergiesdocumented as of this encounter (statuses as of 10/15/2023) Medications Medication Sig Dispensed Refills Start Date [...] day as needed for Pain. 06/21/2023 Active amLODIPine Besylate 10 MG Oral Tablet (Norvasc) Take 1 Tablet by mouth in the morning. 90 Tablet 1 08/19/2023 Active Atorvastatin Calcium 40 MG Oral Tablet (Lipitor) Take 1 Tablet by mouth in the morning. 90 Tablet 1 08/19/2023 Active Losartan Potassium 50 MG Oral Tablet (Cozaar) Take 1 Tablet by mouth in the morning. 90 Tablet 1 08/19/2023 Active Labetalol HCl 200 MG Oral Tablet (Normodyne) Take 1 Tablet by mouth daily. 90 Tablet 1 08/19/2023 Active Additional Information Patient taking differently:200 mg OralDaily(AM), Reported on 10/15/2023 Aspirin 81 MG Oral Tablet Delayed Release (Aspirin 81) Take 1 Tablet by mouth in the morning. 90 Tablet 1 08/20/2023 Active traZODone HCl 100 MG Oral Tablet (Desyrel) Take 1 Tablet by mouth at bedtime. 09/08/2023 Active documented as of this encounter (statuses as of 10/15/2023) Active Problems Problem Noted Date Diagnosed Date [...] as of this encounter (statuses as of 10/15/2023) Resolved Problems Problem Noted Date Diagnosed Date Resolved Date Chronic kidney disease, stage 3b 06/28/2023 07/29/2023 Overview: Per CKD protocol Alcohol abuse 02/16/2023 02/16/2023 Shortness of breath 02/03/2023 02/17/20 23 HTN, goal below 140/90 03/22 Overview: Modified per HTN Taxonomy. Adjustment disorder with depressed mood 02/16/2023 documented as of this encounter (statuses as of 10/15/2023) Immunizations Name Administration Dates Next Due Pneumococcal [...] Sign Reading Time Taken Comments Blood Pressure 147/86 10/15/2023 2:32 PM EDT Pulse 59 10/15/2023 2:32 PM EDT Temperature 36.8 C (98.2 F) 10/15/2023 2:30 PM ED T Respiratory Rate 22 10/15/2023 2:30 PM EDT Oxygen Saturation 99% 10/15/2023 2:30 PM EDT Inhaled Oxygen Concentration - - Weight 74.7 kg (164 lb 11.2 oz) 10/15/2023 2:30 PM EDT Height - - Body Mass Index 29.93 04/12/2023 2:24 PM EST documented in this encounter Progress Notes * Glendy King PA-C - 10/15/2023 2:30 PM EDT Chief Complaint Patient presents with Return Visit Chronic Kidney Disease (CKD) Hypertension SUBJECTIVE: HPI:Patient is a 63 year old female with nonprotienuric CKD 3 with hx of HERMILO 02/2023. Past medical history of hypertension, osteoarthritis, anxiety, ex-smoker quit in December 2022 and recent hospitalization for colitis complicated by acute kidney injury with creatinine peak of 1.9 on 02/23/2023. Patient also received CT for contrast as well as Ketoralac for pain the same day. She wason ibuprofen for her chronic pain but stopped a month ago. Now on tylenol. She was then admitted in [place] for Pneumonia in March 2023 Does not drink enough fluids. No urinary symptoms and no shortness of breath. Since last visit 04/12/23-Denies any recent procedures or infections. Recent hospitalization in Jun for for 6 days of weakness and right sided facial numbness Currently trying to get disability and noted bp ws elevated at the time of appt Patent reports not checking bp at home Reports no major changes to medications but was advised to start ASA 81 mg post hospitalization. NSAID: No Herbal Medication: No Urinary Complaints: more frequently HISTORY: Current Outpatient Medications Medication Sig Dispense Refill oxygen IN GAS Administer 2 L/min(Oxygen) into nostril continuous. 1 Each 0 busPIRone HCl 15 MG Oral Tablet (Buspar) Take 1 Tablet by mouth in the morning and 1 Tablet at noonand 1 Tablet in the evening. hydrOXYzine HCl 50 MG Oral Tablet Take 1 Tablet by mouth every 6 hours as needed for Anxiety. Escitalopram Oxalate 20 MG Oral Tablet (Lexapro) Take 1 Tablet by mouth in the morning. Diclofenac Sodium 1 % External Gel (Voltaren) Apply 2 g topically to affected area 4 times a day asneeded for Pain. amLODIPine Besylate 10 MG Oral Tablet (Norvasc) Take 1 Tablet by mouth in the morning. 90 Tablet 1 Atorvastatin Calcium 40 MG Oral Tablet (Lipitor) Take 1 Tablet by mouth in the morning. 90 Tablet 1 Losartan Potassium 50 MG Oral Tablet (Cozaar) Take 1 Tablet by mouth in the morning. 90 Tablet 1 Labetalol HCl 200 MG Oral Tablet (Normodyne) Take 1 Tablet by mouth daily. (Patient taking differently: Take 1 Tablet by mouth in the morning.) 90 Tablet 1 Aspirin 81 MG Oral Tablet Delayed Release (Aspirin 81) Take 1 Tablet by mouth in the morning. 90 Tablet 1 traZODone HCl 100 MG Oral Tablet (Desyrel) Take 1 Tablet by mouth at bedtime. No current facility-administered medications for this visit. 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 HYSTEROSCOPY;ENDOMETRIAL ABLAT 02/21/2009 IO MRI LUMBAR SPINE WO CONTRAST 12/09/2009 Lower lumbar degenerative changes, with herniations MAMMOGRAM SCREENING-BILATERAL 07/23/2008 category 1 normal Family History Problem Relation Name Age of Onset Cancer Father Hypertension Father No Past Hx None NO FM HX of [employer] [place] Social History Socioeconomic History Marital status: Spouse name: Not on file Number of children: Not on file Years of education: Not on file Highest education level: Not on file Occupational History Not on file Tobacco Use Smoking status: Former Current packs/day: 0.00 Average packs/day: 0.5 packs/day for 31.0 years (15.5 ttl pk-yrs) Types: Cigarettes Start date: 09/1991 Quit date: 09/2022 Years since quittin.0 Smokeless tobacco: Never Tobacco comments: age 18, did quit in Vaping Use Vaping status: Some Days Substances: THC Substance and Sexual Activity Alcohol [...] on file Housing Stability: Not on file Ambulation: Without assisted device REVIEW OF SYSTEMS General: No fatigue, No change in weight Head: No significant headache Respiratory: No cough,No wheezing,+ shortness of breath with exertion Cardiovascular:No chest pain, No palpitations, and No syncope Gastrointestinal: No nausea, vomiting, diarrhea No blood in stools Urinary: No dysuira, No hematuria. No flank pain Musculoskeletal: +muscle/joint pains , No edema Skin: No itching All other systems were reviewed and were negative. OBJECTIVE: BP 147/86 (BP Site: Right Arm, BP Position: Sitting, BP Cuff Size: Large) | Pulse 59 | Temp 36.8 C (98.2 F) (Tympanic) | Resp 22 | Wt 74.7 kg (164 lb 11.2 oz) | SpO2 99% | BMI 29.93 kg/m | BSA 1.81 m Wt Readings from Last 1 Encounters: 10/15/23 74.7 kg (164 lb 11.2 oz) General appearance: alert, no apparent distress. HEAD: Normocephalic, No masses, lesions, tenderness Respiratory: clear to auscultation, no wheezes, and no crackles Heart: regular rate and regular rhythm Abdomen: abdomen soft, non-tender, and no CVA tenderness EXTREMITIES: no edema, Skin: skin color, texture, turgor are normal NEURO: alert & oriented x 3 with fluent speech, No tremor Patient is a reliable historian of events Last 4 BP Readings: BP Readings from Last 4 Encounters: 10/15/23 147/86 09/14/23 128/74 06/28/23 138/80 06/18/23 146/94 Last 3 Weights: Wt Readings from Last 3 Encounters: 10/15/23 74.7 kg (164 lb 11.2 oz) 09/14/23 74.2 kg (163 lb 9.6 oz) 06/28/23 70.8 kg (156 lb 1.6 oz) Estimated body mass index is 29.93 kg/m as calculated from the following: Height as of 04/12/23: 1.58 m (5' 2.21"). Weight as of this encounter: 74.7 kg (164 lb 11.2 oz). LABS: Latest Reference Range & Units 03/03/23 00:00 03/16/23 13:49 03/26/23 00:00 04/02/23 13:12 05/24/23 14:30 09/14/23 14:18 Sodium 135 - 146 mmol/L 139 143 140 141 Potassium 3.5 - 5.1 mmol/L 5.1 4.6 4.7 4.9 POTASSIUM-OUTSIDE LAB 3.5 - 5.1 MMOL/L 4.5 (E) 4.5 (E) Chloride 98 - 107 mmol/L 106 106 103 104 CO2 22 - 32 mmol/L 23 24 22 25 BUN 6 - 20 mg/dL 31 (H) 45 (H) 33 (H) 30 (H) Creatinine 0.5 - 1.0 mg/dL 1.5 (H) 1.6 (H) 1.5 (H) 1.5 (H) CREATININE-OUTSIDE LAB 0.55 - 1.02 MG/DL 1.36 ! (E) 1.96 ! (E) Estimated Glomerular Filtration Rate >=60 mL/min 39 (L) 37 (L) 41 (L) 40 (L) EGFR-OUTSIDE LAB >=60 ML/MIN 45 ! (E) 29 ! (E) Anion Gap 7 - 15 mmol/L 10 13 15 12 Glucose 70 - 120 mg/dL 82 70 86 98 GLUCOSE-OUTSIDE LAB 70 - 110 MG/DL 90 (E) 97 (E) Calcium 8.4 - 10.2 mg/dL 9.4 9.9 9.3 10.2 Phosphorus 2.5 - 4.8 mg/dL 4.8 (H): Data is abnormally high !: Data is abnormal (L): Data is abnormally low (E): External lab result Latest Reference Range & Units 02/16/23 10:56 03/16/23 13:49 05/24/23 14:30 Albumin / Creatinine Ratio, Urine <30 mg/g Creat <26 <13 Protein/ Creatinine Ratio, Urine <150 mg/g 133 IMAGING: EXAM US RENAL-03/23/2023 2:49 pm HISTORY new onset ckd TECHNIQUE Real time sonographic imaging. COMPARISON None. FINDINGS RIGHT KIDNEY: 9.1 cmx3.8 cmx3.8 cm. No hydronephrosis. No shadowing calculus. A 4 mm cyst is present in lateral cortex of the interpolar region. A 5 mm cyst is present medial cortex of the interpolarregion. Normal cortical echogenicity. LEFT KIDNEY: 9.2 cmx4.4 cmx4.3 cm. No hydronephrosis. No shadowing calculus. 9 mm anechoic to hypoechoic lesion with echogenic rim is present in the anterior cortex of the interpolar region without internal vascularity probably a cyst with peripheral calcification. 13 mm anechoic lesion with septation is present in the posterior cortex of the lower pole without internal vascularity representing aseptated cyst. A 7 mm anechoic lesion with echogenic rim is present in the lateral cortex of the lower pole most likely a cyst with peripheral calcification. Normal cortical echogenicity. BLADDER: No gross intraluminal bladder mass or calculus. AORTA: No abdominal aortic aneurysm. IMPRESSION IMPRESSION 1. No hydronephrosis or shadowing calculus. 2. Multiple left renal cortical lesions as above. Follow-up ultrasound is recommended in 6 months. 3. Details as above. ASSESSMENT/PLAN: The patient's most recent labs (from 1 months ago) were reviewed. 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 New baseline creatinine is around 1.6 which is downtrending from 1 Patient with recent worsening renal function other etiologies for worsening renal function include NSAID use and infection. Discussed need to avoid NSAIDs going forward. Patient will increase water intake aiming for at least 64 oz of fluids daily. - BASIC METABOLIC PANEL; Future; Expected date: 02/15/2024 - URINALYSIS WITH MICROSCOPIC EXAM; Future; Expected date: 02/15/2024 - ALBUMIN / CREATININE RATIO, URINE; Future; Expected date: 02/15/2024 HTN, GOAL BELOW 140/90 BP elevated today in office and reports bout of elevation with another visit Will order bp cuff for monitoring. Note placed for NV for BP check and cuff validation - DURABLE MEDICAL EQUIPMENT Complex renal cyst Patient with multiple left renal cortical lesions follow-up ultrasound was recommended - US RENAL; Future; Expected date: 10/15/2023 Labs placed for assessment No changes to meds Monitor bp NV for bp check Avoid medicines like aleve, advil, ibuprofen, aspirin more than 81 mg daily and other NSAIDS which are not good for kidney patients. Take only tylenol (acetaminophen) up to 2000 mg daily as needed for pain or as directed by your primary care provider. Reviewed previous status of kidney function and goals of care. All questions were answered. Follow-up: Return in about 6 months (around 04/15/2024). | Check-out note: [facility] [address] documented in this encounter Nursing Notes * Martha Gage LPN - 10/15/2023 2:28 PM EDT Patient identified by verbal name and date of .Return visit Pt was seen ED to inpatient in [facility] for ?TIA Notes SOB and lower extremity edema Last labs 09/14/23 documented in this encounter Plan of Treatment Upcoming Encounters Date Type Department Care Team (Latest Contact Info) Description 10/20/2023 1:15 PM EDT Imaging Radiology [address] [place] [address] 12/30/2023 1:00 PM EDT Hospital Encounter [facility], [facility] [address] [place] [phone] Brooklyn Daniels MD [address] [place] [address] 12/30/2023 1:00 PM EDT - 12/30/2023 1:30 PM EDT Surgery [facility], [facility] [address] [place] [phone] Brooklyn Daniels MD [address] [place] [address] COLONOSCOPY FLEXIBLE PROXIMAL DIAGNOSTIC 04/25/2024 8:30 AM EST Office Visit Family Medicine [address] [place] [phone] [facility] [address] [facility] [place] [address] 06/14/2024 11:00 AM EST Office Visit Nephrology, Demi Echeverria 200 [facility] [place] [address] Marquez Arrieta MD [address] [place] [address] Scheduled Orders Name Type Priority Associated Diagnoses Orde r Schedule US RENAL Medical Imaging Routine Complex renal cyst Expected: 10/15/2023, Expires: 11/13/2024 BASIC METABOLIC PANEL Lab Routine Stage 3b chronic kidney disease (CKD) (HCC) Expected: 02/15/2024, Expires: 10/14/2024 URINALYSIS WITH MICROSCOPIC EXAM Lab Routine Stage 3b chronic kidney disease (CKD) (HCC) Expected: 02/15/2024, Expires: 10/14/2024 ALBUMIN / CREATININE RATIO, URINE Lab Routine Stage 3b chronic kidney disease (CKD) (HCC) Expected: 02/15/2024, Expires: 10/14/2024 Scheduled Procedures Name Priority Associated Diagnoses Date/Ti [...] Tdap) 08/15/2018 08/15/2008 COVID-19 Vaccine ( - 2022-24 season) 2023 GFR 03/15/2024 09/14/2023, 12/2023, 04/02/2023, [...] Diagnoses Diagnosis Stage 3b chronic kidney disease (CKD) (HCC)- Primary HTN, GOAL BELOW 140/90 Unspecified essential hypertension Complex renal cyst Other specified congenital cystic kidney disease Special screening for malignant neoplasms, colon documented in this encounter Care Teams Medical And Scientific Illustrator Relationship Specialty Start Date End Date Sunshine Capellan DO [address] [place] [address] [place] [address] PCP - General Internal Medicine 02/16/23 documented as of this encounter
--- OUTSIDE RECORDS SUMMARY | 2023-11-10 07:59 | External Medical Summary | Summary of Care ---
Author Name Unknown Organization [facility] Address [address] [facility] [place] [address] Phone [phone] Care Team Providers Care Supply Chain Coordinator Name Role Phone Sunshine Capellan DO Primary Care Provider + [phone] Reason for Visit * Reason Onset Date Comments Home Health 06/23/2023 Encounter Details Date Type Department Care Team (Late st Contact Info) Description 06/23/2023 Telephone Family Medicine [address] [place] [phone] Sunshine Capellan DO [address] [place] [address] [place] [phone] Home Health Allergies No known active allergiesdocumented as of this encounter (statuses as of 09/22/2023) Medications Medication Sig Dispensed Refills Start Date End Date Status oxygen IN GAS Administer 2 L/min(Oxygen) into nostril continuous. 1 Each 0 02/03/2023 Active busPIRone HCl 15 MG Oral Tablet (Buspar) Take 1 Tablet by mouth in the morning and 1 Tablet at noon and 1 Tablet in the evening. 0 03/16/2023 Active hydrOXYzine HCl 50 MG Oral Tablet Take 1 Tablet by mouth every 6 hours as needed for Anxiety. 0 03/16/2023 Active Escitalopram Oxalate 20 MG Oral Tablet (Lexapro) Take 1 Tablet by mouth in the morning. 0 04/02/2023 Active Diclofenac Sodium 1 % External Gel (Voltaren) Apply 2 g topically to affected area 4 times a day as needed for Pain. 0 06/21/2023 Active documented as of this encounter (statuses as of 09/22/2023) Active Problems Problem Noted Date Diagnosed Date [...] as of this encounter (statuses as of 09/22/2023) Resolved Problems Problem Noted Date Diagnosed Date Resolved Date Chronic kidney disease, stage 3b 06/28/2023 07/29/2023 Overview: Per CKD protocol Alcohol abuse 02/16/2023 02/16/2023 Shortness of breath 02/03/2023 02/17/20 23 HTN, goal below 140/90 03/22 Overview: Modified per HTN Taxonomy. Adjustment disorder with depressed mood 02/16/2023 documented as of this encounter (statuses as of 09/22/2023) Immunizations Name Administration Dates Next Due Pneumococcal [...] encounter Miscellaneous Notes * Telephone Encounter - Rosie Borrego LPN - 06/23/2023 1:49 PM EST Admission/Start of Care Admission/Start of Care: Anamaria DURAN, Calling from: [facility] Patient was Admitted to: [facility], for: TIA Referral received for: Nursing Home, PT, OT, and Speech Planned start of care date:Yes, Date 06/23/ Vitals: T 97.5 P 80 RR 20 BP 126/72 SP O2 99 Advised that orders will be signed by Dr capellan and to fax to the office for signature. documented in this encounter Plan of Treatment Upcoming Encounters Date Type Department Care Team (Latest Contact Info) Description 10/15/2023 2:30 PM EDT Office Visit Nephrology, [facility] [address] [facility] [place] [address] ZeGlendy armendariz PA-C 200 [facility] [place] [address] 12/30/2023 1:00 PM EDT Hospital Encounter ENDO [facility], Endoscopy Room [facility] [address] [facility] [place] [phone] Brooklyn Daniels MD [address] [place] [address] [place] [address] 12/30/2023 1:00 PM EDT - 12/30/2023 1:30 PM EDT Surgery ENDO [facility], Endoscopy Room [facility] [address] [place] [phone] Brooklyn Daniels MD [address] [place] [address] COLONOSCOPY FLEXIBLE PROXIMAL DIAGNOSTIC 04/25/2024 8:30 AM EST Office Visit Family Medicine [address] [place] [phone] [address] [place] [address] Scheduled Procedures Name Priority Associated Diagnoses Date/Ti [...] filedocumented as of this encounter Care Teams Supply Chain Coordinator Relationship Specialty Start Date End Date Sunshine Capellan DO [address] [place] [address] [place] [address] PCP - General Internal Medicine 02/16/23 documented as of this encounter
--- OUTSIDE RECORDS SUMMARY | 2023-11-10 07:59 | External Medical Summary | Summary of Care ---
Author Name Unknown Organization [facility] Address [address] [facility] [place] [address] Phone [phone] Care Team Providers Care Hand Screen Printer Name Role Phone Sunshine Capellan DO Primary Care Provider [phone] Reason for Visit * Reason Onset Date Comments Durable Medical Equipment 10/18/2023 Encounter Details Date Type Department Care Team (Late st Contact Info) Description 10/18/2023 Telephone NephrologyDemi [address] [place] [address] Marquez Arrieta MD 200 [facility] [place] [address] Durable Medical Equipment Allergies No known active allergiesdocumented as of this encounter (statuses as of 10/18/2023) Medications Medication Sig Dispensed Refills Start Date [...] as of this encounter (statuses as of 10/18/2023) Active Problems Problem Noted Date Diagnosed Date [...] as of this encounter (statuses as of 10/18/2023) Resolved Problems Problem Noted Date Diagnosed Date Resolved Date Chronic kidney disease, stage 3b 06/28/2023 07/29/2023 Overview: Per CKD protocol Alcohol abuse 02/16/2023 02/16/2023 Shortness of breath 02/03/2023 02/17/20 23 HTN, goal below 140/90 03/22 Overview: Modified per HTN Taxonomy. Adjustment disorder with depressed mood 02/16/2023 documented as of this encounter (statuses as of 10/18/2023) Immunizations Name Administration Dates Next Due Pneumococcal [...] Telephone Encounter - Chelsea Galvan RN - 10/18/2023 2:15 PM EDT Order placed through [employer]. * Telephone Encounter - Aurelia Schneider LPN - 10/18/2023 8:52 AM EDT Pt lives in [place] and is scheduled for f/u at with Dr Arrieta. * Telephone Encounter - Aurelia Schneider LPN - 10/18/2023 8:51 AM EDT ----- Message from Glendy King sent at 10/15/2023 3:47 PM EDT ----- Regarding: BP cuff Please place order for bp cuff with [facility] Zeel Pleas also arrange pt to have nurse visit for bp check And a NV cuff validation (once she has it) (Patient was seen in [place] office) Glendy King PA-C documented in this encounter Plan of Treatment Upcoming Encounters Date Type Department Care Team (Latest Contact Info) Description 10/20/2023 1:15 PM EDT Imaging Radiology [address] [place] [address] 12/30/2023 1:00 PM EDT Hospital Encounter ENDO [facility], Endoscopy Room [facility] [address] [place] [phone] Brooklyn Daniels MD [address] [place] [address] 12/30/2023 1:00 PM EDT - 12/30/2023 1:30 PM EDT Surgery ENDO [facility], Endoscopy Room [facility] [address] [place] [phone] Brooklyn Daniels MD [address] [place] [address] COLONOSCOPY FLEXIBLE PROXIMAL DIAGNOSTIC 04/25/2024 8:30 AM EST Office Visit Family Medicine [address] [place] [phone] Sunshine Capellan [address] [place] [address] 06/14/2024 11:00 AM EST Office Visit Nephrology, Demi Echeverria [address] [place] [address] Marquez Arrieta MD [address] [place] [address] Scheduled Procedures Name Priority Associated Diagnoses Date/Ti [...] filedocumented as of this encounter Care Teams Hand Screen Printer Relationship Specialty Start Date End Date Sunshine Capellan DO [address] [place] [address] [place] [phone] PCP - General Internal Medicine 02/16/23 documented as of this encounter
--- OUTSIDE RECORDS SUMMARY | 2023-11-10 08:00 | External Medical Summary | Summary of Care ---
Author Name Unknown Organization [facility] Address [address] [facility] [place] [address] Phone [phone] Care Team Providers Care Sewer Line Photo Inspector Name Role Phone Sunshine Capellan DO Primary Care Provider + [phone] Reason for Visit * Reason Comments Re-Check Pt c/o was seen at he eye doctor and her eyes worsened significantly in 6 months, and had to get new lenses, she's wondering if it's due to trazodone. Encounter Details Date Type Department Care Team (Late st Contact Info) Description 09/14/2023 1:50 PM EDT Office Visit Family Medicine [address] [place] [address] Sunshine Capellan [address] [place] [address] Stage 3b chronic kidney disease (CKD) ([facility])*; Cerebrovascular disease, arteriosclerotic, post-stroke; Need for gyrfanjzyo-xpexxpm-uh rtussis (Tdap) vaccine; HTN, GOAL BELOW 140/90 Allergies No known active allergiesdocumented as of this encounter (statuses as of 09/14/2023) Medications Medication Sig Dispensed Refills Start Date [...] as needed for Pain. 0 06/21/2023 Active amLODIPine Besylate 10 MG Oral [...] mouth daily. 90 Tablet 1 08/19/2023 Active Aspirin 81 MG Oral Tablet Delayed Release (Aspirin 81) Take 1 Tablet by mouth in the morning. 90 Tablet 1 08/20/2023 Active traZODone HCl 100 MG Oral Tablet (Desyrel) Take 1 Tablet by mouth at bedtime. 0 09/08/2023 Active Xkjabof-Weefmj-O cell Pertussis 5-2.5-18.5 LF-MCG/0.5 Suspension Prefilled Syringe (Boostrix) Inject 0.5 mL into a large muscle once for 1 dose. As directed 0.5 mL 0 09/14/2023 4 Active traZODone HCl 50 MG Oral Tablet (Desyrel) Take 1 Tablet by mouth at bedtime. 30 Tablet 0 02/16/2023 4 Discontinued Clopidogrel Bisulfate 75 MG Oral Tablet (pLAVix) Take 1 Tablet by mouth in the morning. 0 06/21/2023 4 Discontinued documented as of this encounter (statuses as of 09/14/2023) Active Problems Problem Noted Date Diagnosed Date [...] as of this encounter (statuses as of 09/14/2023) Resolved Problems Problem Noted Date Diagnosed Date Resolved Date Chronic kidney disease, stage 3b 06/28/2023 07/29/2023 Overview: Per CKD protocol Alcohol abuse 02/16/2023 02/16/2023 Shortness of breath 02/03/2023 02/17/20 23 HTN, goal below 140/90 03/22 Overview: Modified per HTN Taxonomy. Adjustment disorder with depressed mood 02/16/2023 documented as of this encounter (statuses as of 09/14/2023) Immunizations Name Administration Dates Next Due Pneumococcal [...] Sign Reading Time Taken Comments Blood Pressure 128/74 09/14/2023 1:34 PM EDT Pulse 66 09/14/2023 1:34 PM EDT Temperature 36.1 C (96.9 F) 09/14/2023 1:34 PM ED T Respiratory Rate - - Oxygen Saturation 97% 09/14/2023 1:34 PM EDT Inhaled Oxygen Concentration - - Weight 74.2 kg (163 lb 9.6 oz) 09/14/2023 1:34 P M EDT Height - - Body Mass Index 29.73 04/12/2023 2:24 PM EST documented in this encounter Progress Notes * Sunshine Capellan, - 09/14/2023 1:46 PM EDT Subjective: Cynthia Whittaker is a 63 year old female. Chief Complaint Patient presents with Re-Check Pt c/o was seen at the eye doctor and her eyes worsened significantly in 6 months, and had to get new lenses, she's wondering if it's due to trazodone. HPI: Cynthia Whittaker presents today for routine follow up. Since her last visit she had a lacunar infarct with ride-sided weakness. She has noticed significant improvement in her weakness but is not quite back to normal. She took her plavix for 21 days afterher stroke. She does have cataracts on her eyes but they do not need to be removed yet. She also notes that hereyes changed significantly and she had to get new glasses 6 months after getting her previous ones.She saw that trazodone can affect her vision and wonders if this may have contributed to her visionchanges. She is trying to get SSI disability. She is seeing a separate physician for her disability evaluation. She has gained about 20# since her last appointment 6 months ago. She does not think she is eating more food and is slightly more active than she used to be. She is only using her oxygen as needed based on her pulse oximeter or symptoms. BP is well controlled here today. She had to reschedule her colonoscopy due to a scheduling conflict. PMH: Patient Active Problem List Diagnosis Code Tobacco use disorder F17.200 Generalized osteoarthritis M15.9 Generalized anxiety disorder F41.1 HTN, GOAL BELOW 140/90 I10 Degeneration of lumbosacral intervertebral disc M51.37 History of pneumonia Z87.01 Hyperlipidemia with target LDL less than 100 E78.5 Major depressive disorder in partial remission (HCC) F32.4 History of alcohol abuse F10.11 History of tobacco use Z87.891 Abnormal CXR R93.89 Stage 3b chronic kidney disease (CKD) (HCC) N18.32 Cerebrovascular disease, arteriosclerotic, post-stroke I67.2, Z86.73 Current Outpatient Medications Medication Sig Dispense Refill [...] 1 Tablet by mouth in the morning. amLODIPine Besylate 10 MG Oral Tablet (Norvasc) [...] Tablet by mouth daily. 90 Tablet 1 Aspirin 81 MG Oral Tablet Delayed Release (Aspirin 81) Take 1 Tablet by mouth in the morning. 90 Tablet 1 traZODone HCl 100 MG Oral Tablet (Desyrel) Take 1 Tablet by mouth at bedtime. Whlagrh-Qbyhig-Gpkqa Pertussis 5-2.5-18.5 LF-MCG/0.5 Suspension Prefilled Syringe (Boostrix) Inject0.5 mL into a large muscle once for 1 dose. As directed 0.5 mL 0 Diclofenac Sodium 1 % External Gel (Voltaren) Apply 2 g topically to affected area 4 times a day asneeded for Pain. No current facility-administered medications for this visit. Review of patient's allergies indicates: No Known Allergies Objective: BP 128/74 | Pulse 66 | Temp 36.1 C (96.9 F) | Wt 74.2 kg (163 lb 9.6 oz) | SpO2 97% | BMI 29.73kg/m | BSA 1.8 m General: alert, healthy, no distress, well [...] normal, no rashes or significant lesions ASSESSMENT/PLAN: Stage 3b chronic kidney disease (CKD) (HCC) (Primary) - BASIC METABOLIC PANEL; Future; Expected date: 09/14/2023 - CBC WITH WBC DIFFERENTIAL AND ANEMIA REFLEX WORKUP; Future; Expected date: 09/14/2023 Cerebrovascular disease, arteriosclerotic, post-stroke - continue ASA and atorvastatin. She completed her 21 days of Need for hwqsntgxvi-kxdvonc-ssdezbzmt (Tdap) vaccine HTN, GOAL BELOW 140/90 - well controlled. Other orders - Nhgdsns-Wgwdze-Wsrhl Pertussis 5-2.5-18.5 LF-MCG/0.5 Suspension Prefilled Syringe (Boostrix); Inject 0.5 mL into a large muscle once for 1 dose. As directed Follow-up: Return in about 6 months (around 03/15/2024). | Check-out note: Labs today. Sunshine Capellan DO documented in this encounter Plan of Treatment Upcoming Encounters Date Type Department Care Team (Latest Contact Info) Description 10/15/2023 2:30 PM EDT Office Visit Nephrology, Demi Echeverria [address] [place] [address] ZemaGlendy hill PA-C [address] [place] [address] 12/30/2023 1:00 PM EDT Hospital Encounter [facility], End[facility] [address] [place] [address] Brooklyn Daniels MD [address] [place] [address] 12/30/2023 1:00 PM EDT - 12/30/2023 1:30 PM EDT Surgery ENDO [facility], Endoscopy Room [facility] [address] [place] [phone] Brooklyn Daniels MD [address] [place] [address] COLONOSCOPY FLEXIBLE PROXIMAL DIAGNOSTIC 04/25/2024 8:30 AM EST Office Visit Family Medicine [address] [place] [phone] Sunshine Capellan[address] [place] [address] Pending Results Name Type Priority Associated Diagnoses Date /Time BASIC METABOLIC PANEL Lab Routine Stage 3b chronic kidney disease (CKD) (HCC) 09/14/2023 2:18 PM EDT CBC WITH WBC DIFFERENTIAL AND ANEMIA REFLEX WORKUP Lab Routine Stage 3b chronic kidney disease (CKD) (HCC) 09/14/2023 2:18 PM EDT Scheduled Orders Name Type Priority Associated Diagnoses Orde r Schedule BASIC METABOLIC PANEL Lab Routine Stage 3b chronic kidney disease (CKD) (HCC) Expected: 09/14/2023 (Approximate), Expires: 09/13/2024 CBC WITH WBC DIFFERENTIAL AND ANEMIA REFLEX WORKUP Lab Routine Stage 3b chronic kidney disease (CKD) (HCC) Expected: 09/14/2023 (Approximate), Expires: 09/13/2024 Scheduled Procedures Name Priority Associated Diagnoses Date/Ti [...] Td or Tdap) 08/15/2018 08/15/2008 COVID-19 Vaccine (1 - 24 season) 2023 GFR 11/22/2023 05/24/2023, 03/17, 03/26/2023, Additional history exists Albumin/Creatinine Ratio 03/16/2024 03/16/2023, 1007/2022 Mammogram 05/24/2024 05/24/2023, 07/15, 10/01/2011, Additional history exists Diabetes Screening 06/19/2026 06/19/2023, 0 05/24/2023, 04/02/2023, Additional history exists Influenza Vaccine (FLU shot) [...] 3b chronic kidney disease (CKD) (HCC)- Primary Cerebrovascular disease, arteriosclerotic, post-stroke Cerebral atherosclerosis Need for nrcitxmcwl-ppwpiki-cwwzdqwcb (Tdap) vaccine Need for prophylactic vaccination with combined fvztkgtuez-fskrmca-zdfrxwedb (DTP) vaccine HTN, GOAL BELOW 140/90 Unspecified essential hypertension Special screening for malignant neoplasms, colon documented in this encounter Care Teams Sewer Line Photo Inspector Relationship Specialty Start Date End Date Sunshine Capellan DO [address] [place] [address] [place] [phone] PCP - General Internal Medicine 02/16/23 documented as of this encounter"
--- OUTSIDE RECORDS SUMMARY | 2023-11-10 08:00 | External Medical Summary ---
Author Name Unknown Address Unknown Organization [id number]:LABORATORY [facility] [place] - [address] [place] [address] Laboratory Report Ordering Provider Test Date Status ASHELYBEGUM 09/14/2023 14:18:18 Final Observation Date Value Abnormality Reference (Units ) Status Folic Acid 09/14/2023 14:18:18 >20.0 >4.5 (ng/ mL) Final Performing Location LABORATORY [facility] [place] - [address] [place] [address]
--- OUTSIDE RECORDS SUMMARY | 2023-11-10 08:00 | External Medical Summary ---
Author Name Unknown Address Unknown Organization [id number]:LABORATORY [facility] [place] - [address] [place] [address] Laboratory Report Ordering Provider Test Date Status KEL LUND 09/14/2023 14:18:18 Final Observation Date Value Abnormality Reference (Units ) Status Iron 09/14/2023 14:18:18 64 33-151 (ug /dL) Final Iron-binding capacity 09/14/2023 14:18:18 319 250-425 (ug/dL) Final Transferrin Sat % 09/14/2023 14:18:18 20 15 -55 (%) Final Performing Location LABORATORY [facility] – [place] - [address] [place] [address]
--- OUTSIDE RECORDS SUMMARY | 2023-11-10 08:00 | External Medical Summary ---
Author Name Unknown Address Unknown Organization [id number][place] [facility] [place] [address] [place] [address] Laboratory Report Ordering Provider Test Date Status ASHELYJUANIS RAYGOZAON 09/14/2023 14:18:18 Final Observation Date Value Abnormality Reference (Units ) Status TSH 09/14/2023 14:18:18 1.78 0.27-4.20 (uIU/mL) Final Performing Location LABORATORY [facility] - [address] [place] [address]
--- OUTSIDE RECORDS SUMMARY | 2023-11-10 08:00 | External Medical Summary ---
Author Name Unknown Address Unknown Organization [id number][place] [place] [address] [place] [address] Laboratory Report Ordering Provider Test Date Status KEL LUND 09/14/2023 14:18:18 Final Observation Date Value Abnormality Reference (Units ) Status Ferritin 09/14/2023 14:18:18 56 13-150 (ng /mL) Final Postmenopausal women have hi gher ferritin levels than pre-menopausal women. The above reference interval is based on pre-menopausal women. Performing Location LABORATORY [facility] - [address] [place] [address]
--- OUTSIDE RECORDS SUMMARY | 2023-11-10 08:00 | External Medical Summary | Summary of Care ---
Author Name Unknown Organization [facility] Address [address] [facility] [place] [address] Phone [phone] Care Team Providers Care Three Dimensional Map Modeler Name Role Phone Ashely Begum DO Primary Care Provider + [phone] Reason for Visit * Reason Onset Date Comments Medication Refill 08/19/2023 Encounter Details Date Type Department Care Team (Late st Contact Info) Description 08/19/2023 Refill Family Medicine [address] [place] [address] Ashely Begum DO [address] [place] [address] [place] [phone] Allergies No known active allergiesdocumented as of this encounter (statuses as of 08/20/2023) Medications Medication Sig Dispensed Refills Start Date End Date Status oxygen IN GAS Administer 2 L/min(Oxygen) into nostril continuous. 1 Each 0 02/03/2023 Active traZODone HCl 50 MG Oral Tablet (Desyrel) Take 1 Tablet by mouth at bedtime. 30 Tablet 0 02/16/2023 Active busPIRone HCl 15 MG Oral Tablet [...] as needed for Pain. 0 06/21/2023 Active Clopidogrel Bisulfate 75 MG Oral Tablet (pLAVix) Take 1 Tablet by mouth in the morning. 0 06/21/2023 Active Aspirin 81 MG Oral Tablet Delayed Release (Aspirin 81) Take 1 Tablet by mouth in the morning. 90 Tablet 1 08/20/2023 Active Aspirin 81 MG Oral Tablet Delayed Release (Aspirin 81) Take 1 Tablet by mouth in the morning. 90 Tablet 1 02/25/2023 08/19/2023 Discontinued (Refill) documented as of this encounter (statuses as of 08/20/2023) Active Problems Problem Noted Date Diagnosed Date Stage 3b chronic kidney disease (CKD) 06/28/2023 [...] as of this encounter (statuses as of 08/20/2023) Resolved Problems Problem Noted Date Diagnosed Date Resolved Date Chronic kidney disease, stage 3b 06/28/2023 07/29/2023 Overview: Per CKD protocol Alcohol abuse 02/16/2023 02/16/2023 Shortness of breath 02/03/2023 02/17/20 23 HTN, goal below 140/90 03/22 Overview: Modified per HTN Taxonomy. Adjustment disorder with depressed mood 02/16/2023 documented as of this encounter (statuses as of 08/20/2023) Immunizations Name Administration Dates Next Due Pneumococcal [...] Telephone Encounter - Ashely Begum DO - 08/20/2023 1:20 PM EDTSigned Prescriptions: Disp Refills Aspirin 81 MG Oral Tablet Delayed Release *90 Tab*1 Sig: Take 1 Tablet by mouth in the morning. Authorizing Provider: ASHELY BEGUM * Telephone Encounter - Kristina Alvarado CPhT - 08/19/2023 3:23 PM EDT Did you pend patient's preferred pharmacy and medication before forwarding?yes Pharmacy: [id number] [id number] [facility] Pending Prescriptions: Disp Refills Aspirin 81 MG Oral Tablet Delayed Release*90 Tab*1 Sig: Take 1 Tablet by mouth in the morning. Last Visit: 06/28/2023 (in office), Visit date not found (telemedicine) Next Visit: 09/14/2023 If no future appointments scheduled, and last appointment is greater than a year ago, please schedule patient for a follow-up appointment Last date the medication was ordered: 02/25/2023 Is this request for a controlled substance?No Urine Drug Screen:No results found for this or any previous visit. Patient Phone Numbers Labs: Lab Results Component Value Date/Time CREAT 1.5 (H) 05/24/2023 02:30 PM CREAT 1.96 (A) 03/26/2023 12:00 AM POTASSIUM 4.7 05/24/2023 02:30 PM POTASSIUM 4.5 03/26/2023 12:00 AM POTASSIUM 4.5 02/13/2009 11:10 AM TSH 2.980 03/03/2023 12:00 AM TSH 1.12 10/31/2008 10:15 AM LDLCALC 56 06/19/2023 12:00 AM LDLCALC 82 10/22/2008 03:14 PM ALT 21 02/03/2023 09:03 AM HGBA1C 5.5 06/19/2023 12:00 AM documented in this encounter Plan of Treatment Upcoming Encounters Date Type Department Care Team (Latest Contact Info) Description 09/14/2023 1:50 PM EDT Office Visit Family Medicine [address] [place] [address] Ashely Begum[address] [place] [address] 10/15/2023 2:30 PM EDT Office Visit NephrologyDemi [address] [place] [address] ZeGlendy armendariz PA-C [address] [place] [address] 12/30/2023 1:00 PM EDT Hospital Encounter [facility], [facility] [address] [place] [address] [place] [address] Brooklyn Daniels MD [address] [place] [address] 12/30/2023 1:00 PM EDT - 12/30/2023 1:30 PM EDT Surgery END[facility], Endoscopy Room [facility] [address] [place] [phone] Brooklyn Daniels MD [address] [place] [address] COLONOSCOPY FLEXIBLE PROXIMAL DIAGNOSTIC Scheduled Procedures Name Priority Associated Diagnoses Date/Ti me COLONOSCOPY FLEXIBLE PROXIMAL DIAGNOSTIC Special screening for malignant neoplasms, colon 12/30/2023 1:00 PM EDT Health Maintenance Due Date Last Done Comments Depression Screening 1974 HIV Screening 1977 Hepatitis C Screening 1980 HPV/Co-Test 1992 Cologuard 2007 Colonoscopy 2007 Colorectal Cancer Screening 2007 Fecal Occult Blood Test 2007 Sigmoidoscopy 2007 Cervical Cancer Screening 07/20/2011 Pap Smear 07/20/2011 07/19/2008 (Done elsewhere) Zoster Vaccines (1 of 2) 2012 DTaP,Tdap,and Td Vaccines (2 - Td or Tdap) 08/15/2018 08/15/2008 COVID-19 Vaccine ( season) 2023 GFR 11/22/2023 05/24/2023, 03/17, 03/26/2023, Additional history exists Albumin/Creatinine Ratio 03/16/2024 03/16/2023, 1007/2022 Mammogram 05/24/2024 05/24/2023, 07/15, 10/01/2011, Additional history exists Diabetes Screening 06/19/2026 06/19/2023, 0 05/24/2023, 04/02/2023, Additional history exists Lipid Panel 06/19/2028 06/19/2023, 02/14, 01/16/2023, Additional history exists Influenza Vaccine (FLU shot) Completed 03/05/2023, 04/11/2010 [...] filedocumented as of this encounter Care Teams Three Dimensional Map Modeler Relationship Specialty Start Date End Date Ashely Begum DO [address] [place] [address] [place] [address] PCP - General Internal Medicine 02/16/23 documented as of this encounter
--- OUTSIDE RECORDS SUMMARY | 2023-11-10 08:00 | External Medical Summary ---
Author Name Unknown Address Unknown Organization K01:LABORATORY [place] [address] [facility] [place] [address] Laboratory Report Ordering Provider Test Date Status KEL LUND 09/14/2023 14:18:18 Final Observation Date Value Abnormality Reference (Units ) Status Retic, % (auto) 09/14/2023 14:18:18 1.44 0.80-1.90 (%) Final Reticulocytes, Absolute 09/14/2023 14:18:18 57.5 31.3-100.1 (K/uL) Final Reticulocyte fraction, immature 09/14/2023 14:18:18 11.6 2.5-20.6 (%) Final Reticulocyte HGB 09/14/2023 14:18:18 32.7 29.7-37.4 (pg) Final Performing Location [facility] [place] [facility] [place] [address]
--- OUTSIDE RECORDS SUMMARY | 2023-11-10 08:00 | External Medical Summary ---
Author Name Unknown Address Unknown Organization K01[place] [facility] [place] [address] [place] [address] Laboratory Report Ordering Provider Test Date Status KEL LUND 09/14/2023 14:18:18 Final Observation Date Value Abnormality Reference (Units ) Status Vitamin B12 09/14/2023 14:18:18 493 108-2645 (pg/mL) Final Performing Location [place] [facility] [place] [address] [place] [address]
--- OUTSIDE RECORDS SUMMARY | 2023-11-10 08:00 | External Medical Summary ---
Author Name Unknown Address Unknown Organization K01:LABORATORY [facility] [place] - [address] [place] [address] Laboratory Report Ordering Provider Test Date Status KEL LUND 09/14/2023 14:18:18 Final Observation Date Value Abnormality Reference (Units ) Status WBC, Total 09/14/2023 14:18:18 6.93 4.00-10.8 0 (K/uL) Final RBC 09/14/2023 14:18:18 3.97 3.85-5.15 (M/uL) Final Hemoglobin 09/14/2023 14:18:18 11.7 Below low normal 12 .0-15.3 (g/dL) Final Anemia reflex testing trigge rs on a HGB < 12.0 for Females and HGB < 13.0 for Males in accordance with the WHO Anemia Guidelines
Anemia reflex testing triggers on a HGB < 12.0 for Females and HGB < 13.0 for Males in accordance with the WHO Anemia Guidelines HCT 09/14/2023 14:18:18 37.0 36.0-45.2 (%) Final MCV 09/14/2023 14:18:18 93.2 81.5-97.5 (fL) Final MCH 09/14/2023 14:18:18 29.5 27.0-34.0 (pg) Final MCHC 09/14/2023 14:18:18 31.6 32.0-36.0 (g/dL) Final RDW 09/14/2023 14:18:18 13.2 11.5-15.5 (%) Final Platelets 09/14/2023 14:18:18 246 140-400 (K /uL) Final MPV 09/14/2023 14:18:18 10.0 6.6-11.1 ( fL) Final Nucleated erythrocytes/100 leukocytes [Ratio] in Blood by Automated count 09/14/2023 14:18:18 0 <=0 (/100 WBCs) [facility] Performing Location LABORATORY [facility] [place] - [facility] [address] [facility] [address]
--- OUTSIDE RECORDS SUMMARY | 2023-11-10 08:00 | External Medical Summary | Summary of Care ---
Author Name Unknown Organization [facility] Address [address] [facility] [place] [address] Phone [phone] Care Team Providers Care Database Manager Name Role Phone Sunshine Capellan DO Primary Care Provider [phone] Reason for Visit * Reason Onset Date Comments Home Health 08/04/2023 Order Request 08/04/2023 Encounter Details Date Type Department Care Team (Late st Contact Info) Description 08/04/2023 Telephone Family Medicine [address] [address] Sunshine Capellan DO [address] [place] [address] [place] [address] [facility]; Order Request Allergies No known active allergiesdocumented as of this encounter (statuses as of 08/10/2023) Medications Medication Sig Dispensed Refills Start Date [...] 90 Tablet 1 02/25/2023 Active busPIRone HCl 15 MG Oral Tablet [...] mouth in the morning. 0 06/21/2023 Active documented as of this encounter (statuses as of 08/10/2023) Active Problems Problem Noted Date Diagnosed Date [...] as of this encounter (statuses as of 08/10/2023) Resolved Problems Problem Noted Date Diagnosed Date Resolved Date Chronic kidney disease, stage 3b 06/28/2023 07/29/2023 Overview: Per CKD protocol Alcohol abuse 02/16/2023 02/16/2023 Shortness of breath 02/03/2023 02/17/20 23 HTN, goal below 140/90 03/22 Overview: Modified per HTN Taxonomy. Adjustment disorder with depressed mood 02/16/2023 documented as of this encounter (statuses as of 08/10/2023) Immunizations Name Administration Dates Next Due Pneumococcal [...] Telephone Encounter - Kadi Lott LPN - 08/04/2023 2:28 PM EDT Ania from [facility] is calling. States that home health orders were faxed to the office on 08/02/23 to [phone]. Will signatures for: Supplement orders for- 07/04/23 documented in this encounter Plan of Treatment Upcoming Encounters Date Type Department Care Team (Latest Contact Info) Description 09/14/2023 1:50 PM EDT Office Visit Family Medicine [address] [address] Sunshine Capellan [address] [place] [address] 10/15/2023 2:30 PM EDT Office Visit Nephrology, [place] [address] [place] [address] Z[place], Glendy Hinton PA-C [address] [place] [address] 12/30/2023 1:00 PM EDT Hospital Encounter [facility], Endoscopy Room [facility] [address] [place] [address] Brooklyn Daniels MD [address] [place] [id number] 12/30/2023 1:00 PM EDT - 12/30/2023 1:30 PM EDT Surgery [facility], Endoscopy Room [facility] [address] [facility] [place] [phone] Brooklyn Daniels MD [address] [place] [id number] COLONOSCOPY FLEXIBLE PROXIMAL DIAGNOSTIC Scheduled Procedures Name [...] Td or Tdap) 08/15/2018 08/15/2008 COVID-19 Vaccine (2022-24 season) 2023 GFR 11/22/2023 05/24/2023, 03/17, 03/26/2023, [...] filedocumented as of this encounter Care Teams Database Manager Relationship Specialty Start Date End Date Sunshine Capellan DO [address] [place] [address] [place] [phone] PCP - General Internal Medicine 02/16/23 documented as of this encounter
--- OUTSIDE RECORDS SUMMARY | 2023-11-10 08:00 | External Medical Summary | Summary of Care ---
Author Name Unknown Organization [facility] Address 100 [facility] [address] Phone [phone] Care Team Providers Care Oil Recovery Unit Operator Name Role Phone Ashely Begum DO Primary Care Provider + [phone] Reason for Visit * Reason Onset Date Comments Medication Refill 08/19/2023 Encounter Details Date Type Department Care Team (Late st Contact Info) Description 08/19/2023 Refill Family Medicine [address] [place] [address] Ashely Begum DO [address] [place] [address] [place] [address] Allergies No known active allergiesdocumented as of this encounter (statuses as of 08/19/2023) Medications Medication Sig Dispensed Refills Start Date [...] mouth in the morning. 0 06/21/2023 Active amLODIPine Besylate 10 MG [...] mouth daily. 90 Tablet 1 08/19/2023 Active amLODIPine Besylate 10 MG Oral Tablet (Norvasc) Take 1 Tablet by mouth in the morning. 90 Tablet 1 02/16/2023 08/19/2023 Discontinued (Refill) Atorvastatin Calcium 40 MG Oral Tablet (Lipitor) Take 1 Tablet by mouth in the morning. 90 Tablet 1 02/16/2023 08/19/2023 Discontinued (Refill) Labetalol HCl 200 MG Oral Tablet (Normodyne) Take 1 Tablet by mouth daily. 90 Tablet 1 02/16/2023 08/19/2023 Discontinued (Refill) Losartan Potassium 50 MG Oral Tablet (Cozaar) Take 1 Tablet by mouth in the morning. 90 Tablet 1 02/16/2023 08/19/2023 Discontinued (Refill) documented as of this encounter (statuses as of 08/19/2023) Active Problems Problem Noted Date Diagnosed Date [...] as of this encounter (statuses as of 08/19/2023) Resolved Problems Problem Noted Date Diagnosed Date Resolved Date Chronic kidney disease, stage 3b 06/28/2023 07/29/2023 Overview: Per CKD protocol Alcohol abuse 02/16/2023 02/16/2023 Shortness of breath 02/03/2023 02/17/20 23 HTN, goal below 140/90 03/22 Overview: Modified per HTN Taxonomy. Adjustment disorder with depressed mood 02/16/2023 documented as of this encounter (statuses as of 08/19/2023) Immunizations Name Administration Dates Next Due Pneumococcal [...] encounter Miscellaneous Notes * Telephone Encounter - Joao Eng RP - 08/19/2023 4:08 PM EDT Signed Prescriptions: Disp Refills amLODIPine Besylate 10 MG Oral Tablet (Nor*90 Tab*1 Sig: Take 1 Tablet by mouth in the morning.Authorizing Provider: ASHELY BEGUM User: JOAO ENG Atorvastatin Calcium 40 MG Oral Tablet (Li*90 Tab*1 Sig: Take 1 [facility].Authorizing Provider: ASHELY BEGUM User: JOAO ENG Losartan Potassium 50 MG Oral Tablet (Coza*90 Tab*1 Sig: Take 1 Tablet by mouth in the morning.Authorizing Provider: ASHELY BEGUM User: JOAO ENG Labetalol HCl 200 MG Oral Tablet (Normodyn*90 Tab*1 Sig: Take 1 Tablet by mouth daily.Authorizing Provider: SAHELY BEGUM User: JOAO ENG * Telephone Encounter - Kristina Alvarado CPhT - 08/19/2023 3:19 PM EDT Requesting priority Did you pend patient's preferred pharmacy and medication before forwarding?yes Pharmacy: [id number] Pending Prescriptions: Disp Refills amLODIPine Besylate 10 MG Oral Tablet (No*90 Tab*1 Sig: Take 1 Tablet by mouth in the morning. Atorvastatin Calcium 40 MG Oral Tablet (L*90 Tab*1 Sig: Take 1 Tablet by mouth in the morning. Losartan Potassium 50 MG Oral Tablet (Coz*90 Tab*1 Sig: Take 1 Tablet by mouth in the morning. Labetalol HCl 200 MG Oral Tablet (Normody*90 Tab*1 Sig: Take 1 Tablet by mouth daily. Last Visit: 06/28/2023 (in office), Visit date not found (telemedicine) Next Visit: 09/14/2023 If no future appointments scheduled, and last appointment is greater than a year ago, please schedule patient for a follow-up appointment Last date the medication was ordered: 02/16/2023 Is this request for a controlled substance?No [...] 1:50 PM EDT Office Visit Family Medicine [address] [place] [phone] [place] [address] 10/15/2023 2:30 PM EDT [facility] [address] [place] [address] ZeGlendy armendariz PA-C [address] [place] [address] [address] 12/30/2023 1:00 PM EDT Hospital Encounter ENDO [facility], Endoscopy Room [facility] [address] [facility] [place] [phone] Brooklyn Daniels MD [facility] [address] [place] [address] 12/30/2023 1:00 PM EDT - 12/30/2023 1:30 PM EDT Surgery ENDO [facility], Endoscopy Room [facility] 132 [facility] [place] [phone] Brooklyn Daniels MD [address] [place] [address] COLONOSCOPY FLEXIBLE PROXIMAL DIAGNOSTIC Scheduled Procedures Name [...] Tdap) 08/15/2018 08/15/2008 COVID-19 Vaccine (1 - 2022- season) 2023 GFR 11/22/2023 05/24/2023, 03/17, 03/26/2023, [...] filedocumented as of this encounter Care Teams Oil Recovery Unit Operator Relationship Specialty Start Date End Date Ashely Begum DO [address] [place] [address] [place] [phone] PCP - General Internal Medicine 02/16/23 documented as of this encounter
--- OUTSIDE RECORDS SUMMARY | 2023-11-10 08:00 | External Medical Summary ---
Author Name Unknown Address Unknown Organization K01:LABORATORY [facility] - [facility] [address] [place] [address] [facility] [address] Laboratory Report Ordering Provider Test Date Status KEL LUND 09/14/2023 14:18:18 Final Observation Date Value Abnormality Reference (Units ) Status BUN 09/14/2023 14:18:18 30 Above high normal 6-20 (mg/dL) Final Creatinine 09/14/2023 14:18:18 1.5 Above high normal 0.5-1.0 (mg/dL) Final Glomerular filtration rate/1.73 sq M.predicted [Volume Rate/Area] in Serum, Plasma or Blood by Creatinine-based formula (CKD-EPI) 09/14/2023 14:18:18 40 Below low normal >=60 (mL/min) Final eGFR is calculated based on the CKD-EPI 2020 equation Sodium 09/14/2023 14:18:18 141 135-146 (m mol/L) Final Potassium 09/14/2023 14:18:18 4.9 3.5-5.1 (m mol/L) Final Cl 09/14/2023 14:18:18 104 98-107 (mm ol/L) Final CO2 09/14/2023 14:18:18 25 22-32 (mmo l/L) Final Anion gap 09/14/2023 14:18:18 12 7-15 (mmol /L) Final Glucose 09/14/2023 14:18:18 98 70-120 (mg /dL) Final Calcium 09/14/2023 14:18:18 10.2 8.4-10.2 ( mg/dL) Final Performing Location LABORATORY [facility] - [facility] [address] [place] [address]
--- OUTSIDE RECORDS SUMMARY | 2023-11-10 08:00 | External Medical Summary ---
Author Name Unknown Address Unknown Organization K01:LABORATORY [facility] - 100 [facility] [address] Laboratory Report Ordering Provider Test Date Status KEL LUND 09/14/2023 14:18:18 Final Observation Date Value Abnormality Reference (Units ) Status SYNC LEUKOCYTES IN BLOOD BY AUTOMATED COUNT 09/14/2023 14:18:18 6.93 4.00-10.80 (K/uL) Final Segs 09/14/2023 14:18:18 58.4 40.0-75.0 (%) Final Lymphs % 09/14/2023 14:18:18 23.1 18.0-42.0 (%) Final Monos 09/14/2023 14:18:18 13.0 Above high normal 1.0-11.0 (%) Final Eosinophils 09/14/2023 14:18:18 3.9 0.0-6.0 (%) Final Basos 09/14/2023 14:18:18 1.3 0.0-2.0 (%) Final Immature Granulocyte, Percent 09/14/2023 14:18:18 0.3 0.0-2.0 (%) Final Absolute Segs 09/14/2023 14:18:18 4.05 1.80-7.70 (K/uL) Final Lymphs, absolute 09/14/2023 14:18:18 1.60 1.00-4.80 (K/ul) Final Monos, Abs 09/14/2023 14:18:18 0.90 0.00-1.10 (K/uL) Final Eos, Abs 09/14/2023 14:18:18 0.27 0.00-0.70 (K/uL) Final Basos, Abs 09/14/2023 14:18:18 0.09 0.00-0.20 (K/uL) Final Immature Granulocytes, Number 09/14/2023 14:18:18 0.02 0.00-0.20 (K/uL) Final Performing Location LABORATORY [facility] - [facility] [place] [address]
--- OUTSIDE RECORDS SUMMARY | 2023-11-10 08:00 | External Medical Summary | Summary of Care ---
Author Name Unknown Organization [facility] Address [address] [place] [address] Phone [phone] Care Team Providers Care Physical Director Name Role Phone Sunshine Capellan Primary Care Provider [phone] Reason for Visit * Reason Onset Date Comments Appointment 07/21/2023 Encounter Details Date Type Department Care Team (Late st Contact Info) Description 07/21/2023 Telephone Gastroenterology, [facility] [address] [facility] [address] Services, Scheduling [address] [place] [address] Appointment Allergies No known active allergiesdocumented as of this encounter (statuses as of 07/21/2023) Medications Medication Sig Dispensed Refills Start Date [...] as of this encounter (statuses as of 07/21/2023) Active Problems Problem Noted Date Diagnosed Date Stage 3b chronic kidney disease (CKD) 06/28/2023 Chronic kidney disease, stage 3b 06/28/2023 Overview: Per CKD protocol Abnormal CXR 03/16/2023 History of pneumonia 02/16/2023 [...] as of this encounter (statuses as of 07/21/2023) Resolved Problems Problem Noted Date Diagnosed Date Resolved Date Alcohol abuse 02/16/2023 02/16/2023 Shortness of breath 02/03/2023 02/17/20 23 HTN, goal below 140/90 03/22 Overview: Modified per HTN Taxonomy. Adjustment disorder with depressed mood 02/16/2023 documented as of this encounter (statuses as of 07/21/2023) Immunizations Name Administration Dates Next Due Pneumococcal [...] encounter Miscellaneous Notes * Telephone Encounter - Roberta Jones OSA - 07/21/2023 3:17 PM EST Spoke to pt, res'd to 12/30/23. * Telephone Encounter - Sandy Vega OSA - 07/21/2023 2:54 PM EST Patient is scheduled for August [address] Card and needs to cancel and reschedule. documented in this encounter Plan of Treatment Upcoming Encounters Date Type Department Care Team (Latest Contact Info) Description 09/14/2023 1:50 PM EDT Office Visit [address] [phone] [address] [place] [address] 10/15/2023 2:30 PM EDT Office Visit Nephrology, [place] [address] [place], [place] [address] Zemaitis, Glendy Hintno PA-C [address] [place] [address] 12/30/2023 1:00 PM EDT Hospital Encounter ENDO [facility], Endoscopy Room [facility] [address] [place] [phone] Brooklyn Daniels MD [address] [place] [address] 12/30/2023 1:00 PM EDT - 12/30/2023 1:30 PM EDT Surgery ENDO [facility], Endoscopy Room [facility] [address] [place] [phone] Brooklyn Daniels MD [address] [place] [phone] COLONOSCOPY FLEXIBLE PROXIMAL DIAGNOSTIC Scheduled Procedures Name [...] Vaccine ( - 2022-24 season) 2023 GFR 11/22/2023 05/24/2023, 03/17, 03/26/2023, Additional history exists Albumin/Creatinine Ratio 03/16/2024 03/16/2023, 07/2022 CKD PHOS USE SMARTSET 56367 03/16/2024 03/16/2023, 0 01/16/2023 CKD HGB USE SMARTSET 45260 03/26/202403/26, 03/03/2023, 02/03/2023, Additional history exists Mammogram 05/24/2024 05/24/2023, 07/15, [...] filedocumented as of this encounter Care Teams Physical Director Relationship Specialty Start Date End Date Sunshine Capellan DO [address] [place] [address] [place] [address] PCP - General Internal Medicine 02/16/23 documented as of this encounter
--- OUTSIDE RECORDS SUMMARY | 2023-11-10 08:00 | External Medical Summary | Summary of Care ---
Author Name Unknown Organization [facility] Address 100 [facility] [address] Phone [phone] Care Team Providers Care Shank Tapper Name Role Phone Sunshine Capellan Primary Care Provider [phone] Reason for Visit * Reason Comments Outpatient Testing Encounter Details Date Type Department Care Team (Late st Contact Info) Description 09/14/2023 2:30 PM EDT Laboratory Laboratory [address] [place] [phone] [place], Lab [address] [place] [address] Stage 3b chronic kidney disease (CKD) (HCC) Allergies No known active allergiesdocumented as [...] by mouth at bedtime. 0 09/08/2023 Active Emoqosp-Rrftvr-Foo ll Pertussis 5-2.5-18.5 LF-MCG/0.5 Suspension Prefilled Syringe (Boostrix) Inject 0.5 mL into a large muscle once for 1 dose. As directed 0.5 mL 0 09/14/2023 09/14/2023 Active documented as of this encounter (statuses [...] Nephrology, [facility] [address] [place] [address] [address] Glendy King PA-C [address] [place] [address] 12/30/2023 1:00 PM EDT Hospital Encounter ENDO [facility], Endoscopy Room [facility] 132 [facility] [place] [address] Brooklyn Daniels MD [address] [place] [address] 12/30/2023 1:00 PM EDT - 12/30/2023 1:30 PM EDT Surgery ENDO [facility], Endoscopy Room [facility] [address] [place] [address] Brooklyn Daniels MD [address] [place] [address] COLONOSCOPY FLEXIBLE PROXIMAL DIAGNOSTIC 04/25/2024 8:30 AM EST Office Visit Family [address] [place] [phone] Sunshine Capellan[address] [place] [address] Pending Results Name Type Priority Associated Diagnoses Date /Time BASIC METABOLIC PANEL Lab Routine Stage 3b chronic kidney disease (CKD) ([facility]) 09/14/2023 2:18 PM EDT CBC WITH WBC DIFFERENTIAL AND ANEMIA REFLEX WORKUP Lab Routine Stage 3b chronic kidney disease (CKD) ([facility]) 09/14/2023 2:18 PM EDT ANEMIA CBC Lab Routine Stage 3b chronic kidney disease (CKD) ([facility]) 09/14/2023 2:18 PM EDT DIFFERENTIAL, AUTOMATED Lab Routine Stage 3b chronic kidney disease (CKD) ([facility]) 09/14/2023 2:18 PM EDT ANEMIA REFLEX CHEMISTRY HOLD Lab Routine Stage 3b chronic kidney disease (CKD) ([facility]) 09/14/2023 2:18 PM EDT Scheduled Procedures Name Priority Associated Diagnoses Date/Ti [...] Tdap) 08/15/2018 08/15/2008 COVID-19 Vaccine (1 - season) 2023 GFR 11/22/2023 05/24/2023, 03/17, 03/26/2023, [...] Diagnosis Stage 3b chronic kidney disease (CKD) (HCC) Special screening for malignant neoplasms, colon documented in this encounter Care Teams Shank Tapper Relationship Specialty Start Date End Date Sunshine Capellan DO [address] [place] [address] [place] [address] PCP - General Internal Medicine 02/16/23 documented as of this encounter
--- OUTSIDE RECORDS SUMMARY | 2023-11-10 08:01 | External Medical Summary | Summary of Care ---
Author Name Unknown Organization [facility] Address 100 [facility] [place] [address] Phone [phone] Care Team Providers Care Hemodialysis Technician Name Role Phone Sunshine Capellan DO Primary Care Provider [phone] Reason for Visit * Reason Onset Date Comments Home Health 07/13/2023 FYI 07/13/2023 Encounter Details Date Type Department Care Team (Late st Contact Info) Description 07/13/2023 Telephone Family Medicine [address] [address] Sunshine Capellan DO [address] [place] [address] [place] [address] Home Health; Allergies No known active allergiesdocumented as of this encounter (statuses as of 07/15/2023) Medications Medication Sig Dispensed Refills Start Date [...] as of this encounter (statuses as of 07/15/2023) Active Problems Problem Noted Date Diagnosed Date [...] as of this encounter (statuses as of 07/15/2023) Resolved Problems Problem Noted Date Diagnosed Date Resolved Date Alcohol abuse 02/16/2023 02/16/2023 Shortness of breath 02/03/2023 02/17/20 23 HTN, goal below 140/90 03/22 Overview: Modified per HTN Taxonomy. Adjustment disorder with depressed mood 02/16/2023 documented as of this encounter (statuses as of 07/15/2023) Immunizations Name Administration Dates Next Due Pneumococcal [...] Telephone Encounter - Yuriy Ward LPN - 07/15/2023 12:04 PM EST She is aware of Note below and No further questions at this time * Telephone Encounter - Sunshine Capellan DO - 07/14/2023 1:49 PM EST She can stop the Plavix after 21 days per the discharge summary. * Telephone Encounter - Olivia Ta LPN - 07/14/2023 11:59 AM EST HH Concerns Anamaria RN, Calling from: Jeison Mukherjee Report/Concerns of: Medication Related Symptoms: lightheaded Vitals: T 98.5 P 68 RR 18 BP 106/66 SP O2 97% RA Lung sounds- Clear Narrative: Anamaria calling in to let PCP know that patient was unable to urinate while she was there for visit, someone may be dropping the specimen off at the lab today. If it does not get done today, she will follow up with patient tomorrow to collect specimen. Patient was prescribed Plavix in the hospital for a 21 day supply, Anamaria is not sure if PCP was going to continue medication. Patient is concerned that her BP is too low while on the medication, it it causing lightheadedness and causing fear of falling. Patient has moved her bowels, she was not able to move them in the last 4-5 day. Anamaria was going to D/C patient from but will kepp her on for another week to monitor if she getsprescribed an antibiotic. Please advise Call back patient with any advice * Telephone Encounter - Margy Dos Santos LPN - 07/14/2023 9:55 AM EST Anamaria calling from [facility]. Given message. Verbalized understanding. Was going to discharge her today, will keep her on for one more week. * Telephone Encounter - Sunshine Capellan DO - 07/13/2023 4:23 PM EST UA/urine culture orders placed. Notify home health. * Telephone Encounter - Vianney Martin LPN - 07/13/2023 2:11 PM EST Concerns Melodie OT, Calling from: [place] Report/Concerns of: Light headed, nausea, lower back pain that is radiating to her groin urinary frequency and urgency and dysuria Symptoms: See above Vitals: T 97.8 P 65 RR 18 BP 120/50 - pts diastolic is not usually this low SP O2 99% R/A Lung sounds - N/A Weight - N/A Blood sugar - N/A Narrative: Melodie states that patient has not been feeling well since last week, 07/06. She has been light headed, nausea, lower back pain that is radiating to her groin urinary frequency and urgency and dysuria and cramping in her bladder area. Patient is also having the chills but has been afebrile. retirement is scheduled to see patient tomorrow Melodie is asking for an order for UA C&S No need to call anyone back unless there is new advice Please fax new orders to [phone] documented in this encounter Plan of Treatment Upcoming Encounters Date Type Department Care Team (Latest Contact Info) Description 08/05/2023 1:00 PM EDT Hospital Encounter ENDO [facility], Endoscopy Room [facility] [address] [place] [phone] Blair Card MD [address] [place] [address] 08/05/2023 1:00 PM EDT - 08/05/2023 1:30 PM EDT Surgery ENDO OSS, Endoscopy Room [facility] [address] [place] [phone] Blair Card MD [address] [place] [address] COLONOSCOPY FLEXIBLE PROXIMAL DIAGNOSTIC 09/14/2023 1:50 PM EDT Office Visit Family Medicine [address] [place] [phone] Sunshine Capellan [address] [place] [address] 10/15/2023 2:30 PM EDT Office Visit Nephrology, [place]chever[place] 200 [facility] [place], [place] [address] ZemaGlendy hill PA-C 200 [facility] [place] [address] Scheduled Orders Name Type Priority Associated Diagnoses Orde r Schedule URINALYSIS, REFLEX TO MICROSCOPIC Lab Routine Urinary frequency Expected: 07/13/2023, Expires: 07/13/2024 CULTURE, URINE, QUANTITATIVE Lab Routine Urinary frequency Expected: 07/13/2023, Expires: 07/13/2024 Scheduled Procedures Name Priority Associated Diagnoses Date/Ti [...] 03/16/2024 03/16/2023, 07/2022 CKD PHOS USE SMARTSET 78352 03/16/2024 03/16/2023, 0 01/16/2023 CKD HGB USE SMARTSET 09162 03/26/202403/26, 03/03/2023, 02/03/2023, Additional history exists Mammogram [...] as of this encounter Visit Diagnoses Diagnosis Urinary frequency- Primary Special screening for malignant neoplasms, colon documented in this encounter Care Teams Hemodialysis Technician Relationship Specialty Start Date End Date Sunshine Capellan DO [address] [place] [address] [place] [address] PCP - General Internal Medicine 02/16/23 documented as of this encounter
--- OUTSIDE RECORDS SUMMARY | 2023-11-10 08:01 | External Medical Summary | Summary of Care ---
Author Name Unknown Organization [facility] Address 100 [facility] [place] [address] Phone [phone] Care Team Providers Care Arch Support Maker Name Role Phone Sunshine Capellan Primary Care Provider [phone] Encounter Details Date Type Department Care Team (Late st Contact Info) Description 07/15/2023 Result Scan Unspecified Department <No scans attached> Allergies No known active allergiesdocumented as of this encounter (statuses as of 07/20/2023) Medications Medication Sig Dispensed Refills Start Date [...] as of this encounter (statuses as of 07/20/2023) Active Problems Problem Noted Date Diagnosed Date [...] as of this encounter (statuses as of 07/20/2023) Resolved Problems Problem Noted Date Diagnosed Date Resolved Date Alcohol abuse 02/16/2023 02/16/2023 Shortness of breath 02/03/2023 02/17/20 23 HTN, goal below 140/90 03/22 Overview: Modified per HTN Taxonomy. Adjustment disorder with depressed mood 02/16/2023 documented as of this encounter (statuses as of 07/20/2023) Immunizations Name Administration Dates Next Due Pneumococcal [...] EDT Hospital Encounter ENDO [facility], Endoscopy Room [facility] [address] [place] [phone] Blair Card MD [address] [place] [address] 08/05/2023 1:00 PM EDT - 08/05/2023 1:30 PM EDT Surgery ENDO [facility], Endoscopy Room [facility] [address] [place] [phone] Blair Card MD [address] [place] [address] COLONOSCOPY FLEXIBLE PROXIMAL DIAGNOSTIC 09/14/2023 1:50 PM EDT Office Visit Family Medicine [address] [place] [phone] Sunshine Capellan [address] [place] [address] 10/15/2023 2:30 PM EDT Office Visit Nephrology, Demi Echeverria [address] [place], [place] [address] ZeGlendy armendariz PA-C 200 [facility] [place] [address] Scheduled Procedures Name Priority Associated Diagnoses Date/Ti [...] COVID-19 Vaccine ( - season) 2023 GFR 11/22/2023 05/24/2023, 03/17, 03/26/2023, Additional history exists Albumin/Creatinine Ratio 03/16/2024 03/16/2023, 1007/2022 CKD PHOS USE SMARTSET 62002 03/16/2024 03/16/2023, 0 01/16/2023 CKD HGB USE SMARTSET 46639 03/26/202403/26, 03/03/2023, 02/03/2023, Additional history exists Mammogram [...] Name Priority Date/Time Associated Diagnosis Comments OUTSIDE LAB RESULTS 07/15/2023 documented in this encounter Results * OUTSIDE LAB RESULTS (07/15/2023) 07/15/2023 No Physician Data Unknown LABORATORY documented in this encounter Care Teams Arch Support Maker Relationship Specialty Start Date End Date Sunshine Capellan DO [address] [place] [address] [place] [phone] PCP - General Internal Medicine 02/16/23 documented as of this encounter
--- OUTSIDE RECORDS SUMMARY | 2023-11-10 08:01 | External Medical Summary | Summary of Care ---
Author Name Unknown Organization [facility] [address] [facility] [address] Phone [phone] Care Team Providers Care Sales Representative [employer] Name Role Phone Sunshine Capellan DO Primary Care Provider + [phone] Reason for Visit * Reason Onset Date Comments Encounter Created in Error 07/14/2023 Encounter Details Date Type Department Care Team (Late st Contact Info) Description 07/14/2023 Telephone Family [address] [phone] Sunshine Capellan DO [address] [place] [address] [place] [phone] Encounter Created in Error Allergies No known active allergiesdocumented as of this encounter (statuses as of 07/14/2023) Medications Medication Sig Dispensed Refills Start Date [...] as of this encounter (statuses as of 07/14/2023) Active Problems Problem Noted Date Diagnosed Date [...] as of this encounter (statuses as of 07/14/2023) Resolved Problems Problem Noted Date Diagnosed Date Resolved Date Alcohol abuse 02/16/2023 02/16/2023 Shortness of breath 02/03/2023 02/17/20 23 HTN, goal below 140/90 03/22 Overview: Modified per HTN Taxonomy. Adjustment disorder with depressed mood 02/16/2023 documented as of this encounter (statuses as of 07/14/2023) Immunizations Name Administration Dates Next Due Pneumococcal [...] EDT Hospital Encounter ENDO [facility], Endoscopy Room [facility] [address] [place] [phone] Blair Card MD [address] [place] [address] 08/05/2023 1:00 PM EDT - 08/05/2023 1:30 PM EDT Surgery ENDO [facility], Endoscopy Room [facility] [address] [place] [phone] Blair Card MD [address] [place] [address] COLONOSCOPY FLEXIBLE PROXIMAL DIAGNOSTIC 09/14/2023 1:50 PM EDT Office Visit Family Medicine [address] [place] [phone] [place] [address] 10/15/2023 2:30 PM EDT Office Visit Nephrology, Demi Echeverria [facility] [address] ZeGlendy armnedariz PA-C [facility] [address] Scheduled Procedures Name Priority Associated Diagnoses Date/Ti [...] 03/16/2024 03/16/2023, 1007/2022 CKD PHOS USE SMARTSET 80908 03/16/2024 03/16/2023, 0 01/16/2023 CKD HGB USE SMARTSET 92056 03/26/202403/26, 03/03/2023, 02/03/2023, Additional history exists Mammogram [...] filedocumented as of this encounter Care Teams Sales Representative [employer] Relationship Specialty Start Date End Date Sunshine Capellan DO [address] [place] [address] [place] [address] PCP - General Internal Medicine 02/16/23 documented as of this encounter
--- OUTSIDE RECORDS SUMMARY | 2023-11-10 08:01 | External Medical Summary | Summary of Care ---
Author Name Unknown Organization [facility] Address [address] [facility] [place] [address] Phone [phone] Care Team Providers Care Liability Claims Examiner Name Role Phone Sunshine Capellan DO Primary Care Provider [phone] Reason for Visit * Reason Onset Date Comments Home Health 07/07/2023 Encounter Details Date Type Department Care Team (Late st Contact Info) Description 07/07/2023 Telephone Family Medicine [address] [place] [phone] Sunshine Capellan DO [address] [place] [address] [place] [phone] Home Health Allergies No known active allergiesdocumented as of this encounter (statuses as of 07/18/2023) Medications Medication Sig Dispensed Refills Start Date [...] as of this encounter (statuses as of 07/18/2023) Active Problems Problem Noted Date Diagnosed Date [...] as of this encounter (statuses as of 07/18/2023) Resolved Problems Problem Noted Date Diagnosed Date Resolved Date Alcohol abuse 02/16/2023 02/16/2023 Shortness of breath 02/03/2023 02/17/20 23 HTN, goal below 140/90 03/22 Overview: Modified per HTN Taxonomy. Adjustment disorder with depressed mood 02/16/2023 documented as of this encounter (statuses as of 07/18/2023) Immunizations Name Administration Dates Next Due Pneumococcal [...] Telephone Encounter - Sunshine Capellan DO - 07/18/2023 5:16 PM EST Addressed in a separate encounter. * Telephone Encounter - Kadi Lott LPN - 07/07/2023 11:36 AM EST HH Concerns ROGER Conrad, Calling from: Jeison Mukherjee Report/Concerns of: BP and Weakness/numbness/pain to right arm and leg Symptoms: dizziness Vitals: T 98.3 P 68 RR 18 BP 114/76- pt reported that this was low for her and is having some dizziness/lightheadedness. 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 Reports that the pt has been having a gradual increase of right arm and right leg weakness/numbness/pain. Pt rated pain a 7/10. Took Tylenol which improved the pain from a 7/10 to 4/10. Pt believes this is related to a pinched nerve. Educated pt to change positions slowly. Pt has not had a BM since 07/04/23. Also educated the pt hydrate and increasing activity. Pt is not taking anything to help move her bowels. Education was also provided to monitor for worsening sx. Call back Anamaria with any advice or orders at [phone] Please fax new orders to [phone] Please advise. documented in this encounter Plan of Treatment Upcoming Encounters Date Type Department Care Team (Latest Contact Info) Description 08/05/2023 1:00 PM EDT Hospital Encounter ENDO [facility], Endoscopy Room [facility] [address] [place] [phone] Blair Card MD [address] [place] [address] 08/05/2023 1:00 PM EDT - 08/05/2023 1:30 PM EDT Surgery ENDO [facility], Endoscopy Room [facility] [address] [place] [phone] Blair Card MD [address] [place] [address] COLONOSCOPY FLEXIBLE PROXIMAL DIAGNOSTIC 09/14/2023 1:50 PM EDT Office Visit Family Medicine [address] [place] [phone] [place] [address] 10/15/2023 2:30 PM EDT Office Visit Nephrology, [address] [place] [address] Glendy King PA-C [address] [place] [address] Scheduled Procedures Name Priority Associated Diagnoses Date/Ti [...] 03/16/2024 03/16/2023, 07/2022 CKD PHOS USE SMARTSET 04249 03/16/2024 03/16/2023, 0 01/16/2023 CKD HGB USE SMARTSET 96045 03/26/202403/26, 03/03/2023, 02/03/2023, Additional history exists Mammogram [...] filedocumented as of this encounter Care Teams Liability Claims Examiner Relationship Specialty Start Date End Date Sunshine Capellan DO [address] [place] [address] [place] [phone] PCP - General Internal Medicine 02/16/23 documented as of this encounter
--- OUTSIDE RECORDS SUMMARY | 2023-11-10 08:01 | External Medical Summary | Summary of Care ---
Author Name Unknown Organization [facility] Address [address] [facility] [place] [address] Phone [phone] Care Team Providers Care Adjunct Professor Of English Name Role Phone Sunshine Capellan Primary Care Provider [phone] Reason for Visit * Reason Onset Date Comments Hospital Follow-Up 06/22/2023 [facility] Encounter Details Date Type Department Care Team (Late st Contact Info) Description 06/22/2023 Telephone Ancillary [address] [place] [address] Olivia Valderrama, RN Hospital Follow-Up ([facility]) Allergies No known active allergiesdocumented as of this encounter (statuses as of 06/22/2023) Medications Medication Sig Dispensed Refills Start Date [...] as of this encounter (statuses as of 06/22/2023) Active Problems Problem Noted Date Diagnosed Date [...] as of this encounter (statuses as of 06/22/2023) Resolved Problems Problem Noted Date Diagnosed Date Resolved Date Alcohol abuse 02/16/2023 02/16/2023 Shortness of breath 02/03/2023 02/17/20 23 HTN, goal below 140/90 03/22 Overview: Modified per HTN Taxonomy. Adjustment disorder with depressed mood 02/16/2023 documented as of this encounter (statuses as of 06/22/2023) Immunizations Name Administration Dates Next Due Pneumococcal [...] encounter Miscellaneous Notes * Telephone Encounter - Olivia Valderrama RN - 06/22/2023 2:16 PM EST Transitions of Care Note Reason for Referral:Recent Admission Phone visit for follow up: [facility] Admitted to: [facility], Date: 06/18/2023 Discharged to: Home, Date: 06/21/2023 Diagnosis driving hospitalization: Stroke Symptoms Source/Contact: Patient SUBJECTIVE Consent: Verbal consent for review of hospital discharge: Yes REVIEW OF SYSTEMS Patient/Other Reports: Current patient/caregiver problems or concerns: patient states that she is doing well, states that she is trying to get her strength back CV: Denies problems Pulmonary: Denies problems Chills/Sweats/Fever:Denies chills/sweats Denies fever Appetite:Denies problems such as nausea, vomiting, burning, decreased appetite Current diet: Easy to chew with thin liquids Bowel: denies problems Bladder: denies problems Wound (If applicable): N/A Pain:Denies Sleep:Denies problems FUNCTIONAL STATUS: ADL'S: Needs Assistance With:N/A as pt is independent IADL'S: Needs Assistance With:Grocery Shopping, Cooking food, Routine Housework, Taking medications, and Attending to safety Cognitive and Mental Health: denies problems, alert and oriented x 3, and able to communicate, understand instructions, process information. MEDICATION RECONCILIATION Medications: Discharge med list reviewed with patient or caregiver Reviewed and updated all prescription and OTC medications in Epic New medication(s) filled since hospitalization- clopidogrel, diclofenac sodium Reports all medications taken as prescribed. Denies side effects Medications reconciled: reviewed with facility provider ASSESSMENT Medication Risk Assessment: Taking sedatives/hypnotics/narcotic analgesics and increased fall risk Did patient fail outpatient treatment? No Discharge instructions available for review? Yes PLAN Symptom Monitoring Interventions:Member/caregiver education - signs and symptoms to contact PrimaryCare (DO NOT DELETE-Three burrows symptoms patient is to report to PCP) 1. Lightheadedness/Dizziness 2. SOB 3. Fever/chills Military Technology ManagerLaundry Aide of Care interventions/Action Plan: Medication reconciliation and 5 - 7 day follow-up with PCP in place - Date: 06/28/2023 Educated on role of [facility] completed with patient/caregiver. Educated patient/caregiver on patient right to have input on [facility] plan of care. Verification of Home Health/DME if indicated: YES [facility] for PT/OT Identified Care Gaps: Yes Care Gaps closed this call: Appointment made or confirmed, Medication adherence, Medication monitoring, Medication optimization, Plan of care optimization, Post discharge appointment, Services in place, Safety and self care issues addressed, and Transition of Care follow-up communication Re-evaluation of Plan of Care and progress towards goals achievement: Patient education this visit: Verbal, see above Plan to follow-up as previously scheduled, instructed to call Primary Care Provider with change in symptoms or as needed before next follow-up, discharge needs met, verbalizes understanding and agrees with plan. Olivia Valderrama RN documented in this encounter Plan of Treatment Upcoming Encounters Date Type Department Care Team (Latest Contact Info) Description 06/28/2023 2:00 PM EST Office Visit Family Medicine [address] [place] [phone] Srinivasa Buckner MD [address] [place] [address] [place] [address] 08/05/2023 1:00 PM EDT Hospital Encounter [facility]O [facility], Endoscopy Room [facility] [address] [place] [phone] Blair Card MD [address] [place] [address] 08/05/2023 1:00 PM EDT - 08/05/2023 1:30 PM EDT Surgery ENDO [facility], Endoscopy Room [facility] [address] [place] [phone] Blair Card MD [address] [place] [address] COLONOSCOPY FLEXIBLE PROXIMAL DIAGNOSTIC 09/14/2023 1:50 PM EDT Office Visit Family Medicine [address] [place] [phone] [address] [place] [address] 10/15/2023 2:30 PM EDT Office Visit Nephrology, Demi Echeverria [facility] [address] ZemaitisGlendy PA-C [address] [place] [address] Scheduled Procedures Name Priority Associated Diagnoses Date/Ti [...] filedocumented as of this encounter Care Teams Adjunct Professor Of English Relationship Specialty Start Date End Date Sunshine Capellan DO [address] [place] [address] [place] [address] PCP - General Internal Medicine 02/16/23 documented as of this encounter
--- OUTSIDE RECORDS SUMMARY | 2023-11-10 08:01 | External Medical Summary | Summary of Care ---
Author Name Unknown Organization [facility] Address [address] [facility] [place] [address] Phone [phone] Care Team Providers Care Structural Worker Name Role Phone Sunshine Capellan Primary Care Provider [phone] Encounter Details Date Type Department Care Team (Late st Contact Info) Description 07/15/2023 Orders Only PATIENT PORTAL DO NOT DELETE THIS DEPT USED BY [place] BARRIENTOS [id number] Allergies No known active allergiesdocumented as of [...] EDT Hospital Encounter ENDO [facility], Endoscopy Room [facility] [address] [place] [phone] Blair Card MD [address] [place] [address] 08/05/2023 1:00 PM EDT - 08/05/2023 1:30 PM EDT Surgery ENDO [facility], Endoscopy Room [facility] [address] [place] [phone] Blair Card MD [address] [place] [address] COLONOSCOPY FLEXIBLE PROXIMAL DIAGNOSTIC 09/14/2023 1:50 PM EDT Office Visit Family Medicine [address] [place] [phone] Sunshine Capellan [address] [place] [address] 10/15/2023 2:30 PM EDT Office Visit Nephrology, Demi Echeverria [facility] [address] Glendy King PA-C [address] [facility] [place] [address] Scheduled Procedures Name Priority Associated Diagnoses Date/Ti [...] 03/16/2024 03/16/2023, 1007/2022 CKD PHOS USE SMARTSET 91405 03/16/2024 03/16/2023, 0 01/16/2023 CKD HGB USE SMARTSET 55564 03/26/202403/26, 03/03/2023, 02/03/2023, Additional history exists Mammogram [...] filedocumented as of this encounter Care Teams Structural Worker Relationship Specialty Start Date End Date Sunshine Capellan DO [address] [place] [address] [place] [address] PCP - General Internal Medicine 02/16/23 documented as of this encounter
--- OUTSIDE RECORDS SUMMARY | 2023-11-10 08:01 | External Medical Summary | Summary of Care ---
Author Name Unknown Organization [facility] Address [address] [place] [address] Phone [phone] Care Team Providers Care Supply Planner Name Role Phone Sunshine Capellan Primary Care Provider + [phone] Reason for Visit * Reason Comments Hospital Follow-Up Pt states feeling "b karla", still has some weakness, raynaud has been worse, was not able to feel 3 fingers; pt was prescribed plavix for 3 weeks, Encounter Details Date Type Department Care Team (Late st Contact Info) Description 06/28/2023 2:00 PM EST Office Visit Family Medicine [address] [phone] Srinivasa Buckner MD [address] [place] [address] [place] [address] Sequela of lacunar infarction*; HTN, GOAL BELOW 140/90; Stage 3b chronic kidney disease (CKD) (HCC); Hyperlipidemia with target LDL less than 100 Allergies No known active allergiesdocumented as of this encounter (statuses as of 06/28/2023) Medications Medication Sig Dispensed Refills Start Date [...] mouth in the morning. 0 06/21/2023 Active Diclofenac Sodium 1 % External Gel (Voltaren) 4 times a day. 0 06/21/2023 Discontinued documented as of this encounter (statuses as of 06/28/2023) Active Problems Problem Noted Date Diagnosed Date [...] as of this encounter (statuses as of 06/28/2023) Resolved Problems Problem Noted Date Diagnosed Date Resolved Date Alcohol abuse 02/16/2023 02/16/2023 Shortness of breath 02/03/2023 02/17/20 23 HTN, goal below 140/90 03/22 Overview: Modified per HTN Taxonomy. Adjustment disorder with depressed mood 02/16/2023 documented as of this encounter (statuses as of 06/28/2023) Immunizations Name Administration Dates Next Due Pneumococcal [...] Sign Reading Time Taken Comments Blood Pressure 138/80 06/28/2023 2:06 PM EST Pulse 66 06/28/2023 2:06 PM EST Temperature 36.2 C (97.1 F) 06/28/2023 2:06 PM ES T Respiratory Rate - - Oxygen Saturation 98% 06/28/2023 2:06 PM EST Inhaled Oxygen Concentration - - Weight 70.8 kg (156 lb 1.6 oz) 06/28/2023 2:06 P M EST Height - - Body Mass Index 28.36 04/12/2023 2:24 PM EST documented in this encounter Progress Notes * Srinivasa Buckner MD - 06/28/2023 2:00 PM EST Cynthia was in [facility] 06/18 to 06/21 for right sided weakness. CT suggested old punctate lacunar infarcts and MRI was surprisingly normal. She is right handed, has retired from working at the [employer]. She is applying for SSI I think. She is getting PT now. Her LDL was 60, hgba1c was 5.5. she is still having a little trouble word finding and speech seems slow to me. The weakness has lessened. Past Medical History: Diagnosis Date Adjustment disorder with depressed mood Degeneration of lumbosacral intervertebral disc 10/21/2009 L4-5 Generalized anxiety disorder Generalized osteoarthritis HTN, goal below 140/90 Right sided weakness 06/18/2023 [facility] Tobacco use disorder . Past Surgical History: Procedure Laterality Date CHG CT HEAD/BRAIN W/O CONTRAST MATERIAL 06/18/2023 old punctate lacunar infarct of right basal ganglia and left thalamus HYSTEROSCOPY;ENDOMETRIAL ABLAT 02/21/2009 [facility] MRI LUMBAR SPINE WO CONTRAST 12/09/2009 Lower lumbar degenerative changes, with herniations MAMMOGRAM SCREENING-BILATERAL 07/23/2008 category 1 normal Patient Active Problem List Diagnosis Code Tobacco [...] Medications Medication Sig Dispense Refill Escitalopram Oxalate 20 MG Oral Tablet (Lexapro) Take 1 Tablet by mouth in the morning. Diclofenac Sodium 1 % External Gel (Voltaren) Apply 2 g topically to affected area 4 times a day asneeded for Pain. Clopidogrel Bisulfate 75 MG Oral Tablet (pLAVix) [...] No current facility-administered medications for this visit. Immunization History Administered Date(s) Administered Pneumococcal Conjugate Vaccine, 20-valent ([id number]) 03/16/2023 Pneumococcal Polysaccharide PPV23 (Pneumovax) 10/22/2008 Seasonal Influenza, PF, 6 M & above, IM , (FluLaval or Fluzone) 03/05/2023 Seasonal Influenza, Split, IIV3, With Preserve, Inj 04/11/2010 TDAP (age 11 and older)(Adacel) 08/15/2008 Results for orders placed or performed in visit on 05/24/23 BASIC METABOLIC PANEL Result Value Ref Range BUN 33 (H) 6 - 20 mg/dL Creatinine 1.5 (H) 0.5 - 1.0 mg/dL Estimated Glomerular Filtration Rate 41 (L) >=60 mL/min Sodium 140 135 - 146 mmol/L Potassium 4.7 3.5 - 5.1 mmol/L Chloride 103 98 - 107 mmol/L CO2 22 22 - 32 mmol/L Anion Gap 15 7 - 15 mmol/L Glucose 86 70 - 120 mg/dL Calcium 9.3 8.4 - 10.2 mg/dL Lab Results Component Value Date/Time TSH - [facility] 1.61 02/03/2023 09:03 AM TSH - [facility] 1.12 10/31/2008 10:15 AM TSH - [facility] 0.87 10/22/2008 03:14 PM TSH - [facility] 2.980 03/03/2023 12:00 AM TSH - [facility] 1.130 01/16/2023 12:00 AM She was on hctz at some point and it was stopped because of kidneys? She was told to eat a heart healthy diet so we went over what that could mean. Also, she does not have diabetes O: Blood pressure 138/80, pulse 66, temperature 36.2 C (97.1 F), weight 70.8 kg (156 lb 1.6 oz), SpO2 98%. General appearance: well developed, well nourished and in no acute distress. Neck is supple without adenopathy or thyromegaly. Chest is symmetrical and moves normally. The lungs are clear without wheezes, rales, rhonchi or rubs, and the heart is regular without murmurs or gallops, or ectopy. PMI not displaced. A: Sequela of lacunar infarction (Primary) HTN, GOAL BELOW 140/90 Stage 3b chronic kidney disease (CKD) (HCC) Hyperlipidemia with target LDL less than 100 Continue other meds as before. She is to take aspirin and Plavix, should avoid ibuprofen Limit salt. Follow Up: Return if symptoms worsen or fail to improve. documented in this encounter Plan of Treatment Upcoming Encounters Date Type Department Care Team (Latest Contact Info) Description 08/05/2023 1:00 PM EDT Hospital Encounter [facility]O [facility], Endoscopy Room [facility] [address] [place] [phone] Blair Card MD 132 [place] [address] 08/05/2023 1:00 PM EDT - 08/05/2023 1:30 PM EDT Surgery [facility]O [facility], Endoscopy Room [facility] [address] [place] [phone] Blair Card MD 132 [place] [address] COLONOSCOPY FLEXIBLE PROXIMAL DIAGNOSTIC 09/14/2023 1:50 PM EDT Office Visit [address] [phone] Sunshine Capellan, [address] [place] [address] 10/15/2023 2:30 PM EDT Office Visit Nephrology, Demi Echeverria [address] [place] [address] ZemaGlendy hill PA-C [address] [place] [address] Scheduled Procedures Name Priority Associated Diagnoses Date/Ti [...] - Td or Tdap) 08/15/2018 08/15/2008 GFR 11/22/2023 05/24/2023, 03/17, 03/26/2023, Additional history exists Albumin/Creatinine Ratio 03/16/2024 03/16/2023, 07/2022 Mammogram 05/24/2024 05/24/2023, 07/15, 10/01/2011, Additional history exists Diabetes Screening 05/24/2026 05/24/2023, 1 06/02/2022, 03/26/2023, [...] as of this encounter Visit Diagnoses Diagnosis Sequela of lacunar infarction- Primary HTN, GOAL BELOW 140/90 Unspecified essential hypertension Stage 3b chronic kidney disease (CKD) (HCC) Hyperlipidemia with target LDL less than 100 Other and unspecified hyperlipidemia Special screening for malignant neoplasms, colon documented in this encounter Care Teams Supply Planner Relationship Specialty Start Date End Date Sunshine Capellan DO [address] [place] [address] [place] [address] PCP - General Internal Medicine 02/16/23 documented as of this encounter
--- OUTSIDE RECORDS SUMMARY | 2023-11-10 08:01 | External Medical Summary | Summary of Care ---
Author Name Unknown Organization [facility] Address [address] [facility] [place] [address] Phone [phone] Care Team Providers Care Physical Therapy Aid Name Role Phone Sunshine Capellan DO Primary Care Provider [phone] Encounter Details Date Type Department Care Team (Late st Contact Info) Description 2023 Orders Only Family Medicine [address] [place] [phone] Sunshine Capellan [address] [place] [address] Allergies No known active allergiesdocumented as of this encounter (statuses as of 2023) Medications Medication Sig Dispensed Refills Start Date [...] as of this encounter (statuses as of 2023) Active Problems Problem Noted Date Diagnosed Date [...] as of this encounter (statuses as of 2023) Resolved Problems Problem Noted Date Diagnosed Date Resolved Date Alcohol abuse 02/16/2023 02/16/2023 Shortness of breath 02/03/2023 02/17/20 23 HTN, goal below 140/90 03/22 Overview: Modified per HTN Taxonomy. Adjustment disorder with depressed mood 02/16/2023 documented as of this encounter (statuses as of 2023) Immunizations Name Administration Dates Next Due Pneumococcal [...] EDT Hospital Encounter ENDO [facility], Endoscopy Room [facility] [address] [place] [phone] Blair Card MD [address] [place] [address] 08/05/2023 1:00 PM EDT - 08/05/2023 1:30 PM EDT Surgery ENDO [facility], Endoscopy Room [facility] [address] [place] [phone] Blair Card MD [address] [place] [address] COLONOSCOPY FLEXIBLE PROXIMAL DIAGNOSTIC 09/14/2023 1:50 PM EDT Office Visit [address] [phone] Sunshine Capellan DO [facility] [place] [address] 10/15/2023 2:30 PM EDT Office Visit Nephrology, Demi Echeverria [address] [facility] [place] [address] ZemaitisGlendy PA-C [address] [place] [address] Scheduled Procedures Name Priority Associated Diagnoses Date/Ti [...] 10/01/2011, Additional history exists Diabetes Screening 05/24/2026 06/19/2023, 0 05/24/2023, 04/02/2023, Additional history exists Lipid Panel 03/03/2028 06/19/2023, 02/14, 01/16/2023, Additional history exists Influenza [...] Priority Date/Time Associated Diagnosis Comments CHEMISTRY-OUTSIDE Routine 06/19/2023 documented in this encounter Results * CHEMISTRY-OUTSIDE (06/19/2023) Not all results display below - see scan for full detail OUTSIDE LAB (SEE SCANNED REPORT) Comment:SCAN INCLUDES: LIPID PANEL, HGB A1C CREATININE-OUTSID E LAB OUTSIDE LAB (SEE SCANNED REPORT) EGFR-OUTSIDE LAB OUT SIDE LAB (SEE SCANNED REPORT) POTASSIUM-OUTSIDE LAB OUTSIDE LAB (SEE SCANNED REPORT) GLUCOSE-OUTSIDE LAB OUTSIDE LAB (SEE SCANNED REPORT) HOURS FASTING OUTSID E LAB (SEE SCANNED REPORT) TRIGLYCERIDES-OUT SIDE LAB 126 0 - 150 MG/DL OUTSIDE LAB (SEE SCANNED REPORT) CHOLESTEROL-OUTSI DE LAB 141 0 - 200 MG/DL OUTSIDE LAB (SEE SCANNED REPORT) HDL-OUTSIDE LAB 60 MG/DL OUTS [facility] (SEE SCANNED REPORT) CHOL/HDL RATIO-OUTSIDE LAB 2.4 0 - 5 OUTSIDE LA B (SEE SCANNED REPORT) LDL (CALCULATED)-OUTS [facility] 56 MG/DL OUTSIDE LAB (SEE SCANNED REPORT) LDL (DIRECT MEASURE)-OUTSIDE LAB OUTSIDE LAB (SEE SCANNED REPORT) HEMOGLOBIN, D2N-QMFUJFN LAB 5.5 4.5 - 5.6 % OUTSIDE LAB (SEE SCANNED REPORT) PHOSPHORUS-OUTSID E LAB OUTSIDE LAB (SEE SCANNED REPORT) PTH-OUTSIDE LAB OUTS [facility] (SEE SCANNED REPORT) MICROALBUMIN RATIO-OUTSIDE LAB OUTSIDE LA B (SEE SCANNED REPORT) PROTEIN, UA-OUTSIDE LAB OUTSIDE LAB (SEE SCANNED REPORT) HEMOGLOBIN-OUTSID E LAB OUTSIDE LAB (SEE SCANNED REPORT) 06/19/2023 Miguel A Moody MD LABORATORY OUTSIDE LAB (SEE SCANNED REPORT) documented in this encounter Care Teams Physical Therapy Aid Relationship Specialty Start Date End Date Sunshine Capellan DO [address] [place] [address] [place] [phone] PCP - General Internal Medicine 02/16/23 documented as of this encounter
--- OUTSIDE RECORDS SUMMARY | 2023-11-10 08:01 | External Medical Summary | Summary of Care ---
Author Name Unknown Organization [facility] Address [address] [facility] [place] [address] Phone [phone] Care Team Providers Care Seo Strategist Name Role Phone Sunshine Capellan DO Primary Care Provider [phone] Encounter Details Date Type Department Care Team (Late st Contact Info) Description 07/19/2023 Orders Only Family Medicine [address] [place] [phone] Sunshine Capellan [address] [place] [address] Urinary frequency Allergies No known active allergiesdocumented as of this encounter (statuses as of 07/19/2023) Medications Medication Sig Dispensed Refills Start Date [...] as of this encounter (statuses as of 07/19/2023) Active Problems Problem Noted Date Diagnosed Date [...] as of this encounter (statuses as of 07/19/2023) Resolved Problems Problem Noted Date Diagnosed Date Resolved Date Alcohol abuse 02/16/2023 02/16/2023 Shortness of breath 02/03/2023 02/17/20 23 HTN, goal below 140/90 03/22 Overview: Modified per HTN Taxonomy. Adjustment disorder with depressed mood 02/16/2023 documented as of this encounter (statuses as of 07/19/2023) Immunizations Name Administration Dates Next Due Pneumococcal [...] EDT Hospital Encounter ENDO [facility], Endoscopy Room [facility] [address] [place] [phone] Blair Card MD [address] [place] [address] 08/05/2023 1:00 PM EDT - 08/05/2023 1:30 PM EDT Surgery [facility]O [facility], Endoscopy Room [facility] [address] [place] [phone] Blair Card MD [address] [place] [address] COLONOSCOPY FLEXIBLE PROXIMAL DIAGNOSTIC 09/14/2023 1:50 PM EDT Office Visit Family Medicine [address] [place] [phone] Sunshine Capellan, [address] [place] [address] 10/15/2023 2:30 PM EDT Office Visit Nephrology, Demi Echeverria [address] [facility] [place] [address] ZemaitisGlendy PA-C [address] [facility] [place] [address] Scheduled Procedures Name Priority Associated Diagnoses Date/Ti [...] 03/16/2024 03/16/2023, 1007/2022 CKD PHOS USE SMARTSET 45590 03/16/2024 03/16/2023, 0 01/16/2023 CKD HGB USE SMARTSET 91072 03/26/202403/26, 03/03/2023, 02/03/2023, Additional history exists Mammogram [...] Procedure Name Priority Date/Time Associated Diagnosis Comments URINALYSIS, REFLEX TO MICROSCOPIC Routine 07/15/2023 Urinary frequency documented in this encounter Results * (ABNORMAL) URINALYSIS, REFLEX TO MICROSCOPIC (07/15/2023) PROTEIN, UA-OUTSIDE LAB TRACE(A) NEG OUTSIDE LAB (SEE SCANNED REPORT) Urine Urine specimen obtained by clean catch procedure / Unknown 07/15/2023 Sunshine Capellan DO LAB URINE ORDERABLES OUTSIDE LAB (SEE SCANNED REPORT) documented in this encounter Visit Diagnoses Diagnosis Urinary frequency Special screening for malignant neoplasms, colon documented in this encounter Care Teams Seo Strategist Relationship Specialty Start Date End Date Sunshine Capellan DO [address] [place] [address] [place] [address] PCP - General Internal Medicine 02/16/23 documented as of this encounter
[2023-11-10] MEDS: busPIRone 15 MG TAB PO SCH (08:57)
[2023-11-10] MEDS: ATORVASTATIN 40 MG TAB PO SCH (08:57)
[2023-11-10] MEDS: LABETALOL HCL 200 MG TAB PO SCH (08:57)
[2023-11-10] MEDS: ASPIRIN 81 MG ECTAB PO SCH (08:57)
[2023-11-10] MEDS: ESCITALOPRAM OXALATE 20 MG TAB PO SCH (08:57)
[2023-11-10] MEDS: amLODIPine BESYLATE 5 MG TAB PO SCH (09:00)
--- NOTE | 2023-11-10 10:12 | Electrocardiogram Report ---
Test Reason : Blood Pressure : / mmHG Vent. Rate : 065 BPM Atrial Rate : 065 BPM P-R Int : 158 ms QRS Dur : 078 ms QT Int : 436 ms P-R-T Axes : 062 017 -06 degrees QTc Int : 453 ms Normal sinus rhythm Nonspecific T wave abnormality Anterolateral leads Abnormal ECG When compared with ECG of 18-JUN-2023 13:33, Nonspecific T wave abnormality now evident in Anterolateral leads Confirmed by Kennedy Still ([id number]) on 11/10/2023 10:12:18 AM Referred By: REFERRED SELF Confirmed By:Kennedy Still
--- NOTE | 2023-11-10 12:30 | Gastrointestinal Consultation ---
Date of Consultation November 10, 2023 Assessment & Plan (1) Right sided abdominal pain: 63 year old female admitted with abd pain, which has since resolved since starting treatment of UTI - CT imaging showing mesenteric edema. Can repeat CT w/ contrast if able to better evaluate for colleen mesentery vs mesenteric lymphadenitis etc. As her pain as resolved, no plan for inpatient endoscopic evaluation. She can follow up with her regular GI service at discharge. Thank you for allowing us to participate in the care of this patient. Please call with any acute changes, questions or concerns. Please see addendum below with additional recommendation from my supervising physician. Supervising Physician Co-Signing Physician Notes I examined the patient and reviewed patient's chart , laboratory data and imaging studies. I agree with with assessment and plan of care as suggested by advanced practice provider. 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 Uncertain relation to patient's symptoms of abdominal pain. Recommend to observe the patient. Possibly repeat CT scan in 6 to 12 months. Follow-up in the office as needed History of Present Illness Reason for Consultation: abdominal pain, mesenteric edema Requesting Physician: Anmol Attending Physician: Vivian Corea MD History of Present Illness 63 year old female with history of Hyperlipidemia, hypertension, CKD stage III, generalized osteoarthritis, depression, general anxiety disorder, history of pneumonia, history of alcohol use, history of tobacco use presents with right- sided abdominal pain and found to UTI - GI asked to evaluate for abdominal pain. Pt was seen and evaluated, chart reviewed. She is a poor historian, has difficulty with event recall on evaluation this AM. Notes that she has had abd pain for a few days now. She tells me this is actualyl improved now. She notes the pain was severe, sharp when it would occur. No nausea, vomiting. Does not recall any issues with diarrhea or constipation. No black or boody stools. She is not sure when her last EGD/Colonoscopy were. She was in the ED at OSH and was told she had some inflammation in her abdomen. CT here showing mild mesenteric edema She is on IV ABX for UTI Denies ETOH or drug use to me CTAP 2023: Liver: Unremarkable. Gallbladder and bile ducts: Unremarkable. No calcified stones. No ductal dilation. Pancreas: Unremarkable. No ductal dilation. Stomach and bowel: Diverticulosis, without acute diverticulitis. No small bowel obstruction. No free intraperitoneal air. Soft tissues: Mild mesenteric edema in the RIGHT side of the abdomen, consider follow-up exam with intravenous contrast for further evaluation. Allergies Allergy/AdvReac Type Severity Reaction Status Date / Time No Known Allergies Allergy Verified 11/09/23 22:00 Home Medications Medication Instructions Recorded Confirmed Type amlodipine 10 mg tablet 10 mg PO QAM 06/18/23 11/09/23 History aspirin 81 mg tablet,delayed 81 mg PO QAM 06/18/23 11/09/23 History release atorvastatin 40 mg tablet 40 mg PO QAM 06/18/23 11/09/23 History buspirone 15 mg tablet 15 mg PO TID 06/18/23 11/09/23 History escitalopram oxalate 20 mg tablet 20 mg PO QAM 06/18/23 11/09/23 History hydroxyzine pamoate 50 mg capsule 50 mg PO QID PRN Anxiety 06/18/23 11/09/23 History labetalol 200 mg tablet 200 mg PO DAILY 06/18/23 11/09/23 History losartan 50 mg tablet 50 mg PO QAM 06/18/23 11/09/23 History diclofenac sodium 1 % topical gel 2 g EXT QID PRN JOINT PAIN 11/09/23 11/09/23 History (Voltaren Arthritis Pain) dicyclomine 10 mg capsule 10 mg PO TID PRN ABD PAIN 11/09/23 11/09/23 History trazodone 100 mg tablet 100 mg PO HS PRN Sleep 11/09/23 11/09/23 History Patient History Medical History Generalized anxiety disorder HTN (hypertension) History of tobacco use Surgical History History of endometrial ablation Social History Smoking Status: Former smoker Second Hand Exposure: Yes; Do You Dip or Chew Tobacco: No; Hx Alcohol Use: Yes (1 year sober) Hx Substance Use: No Preferred Language: Macedonian Communication Ability: Effective Bus And Rail Operator Required: No Beliefs That Will Affect Care: None Current Living Situation: Homeless Current Living Situation Comment: [facility] Feels Safe at Home: Declines to Answer Assistive Devices: Glasses Review of Systems Review of Systems: All other findings negative except as noted in HPI. Physical Exam Constitutional: WD/WN, vitals as above Respiratory: normal respiratory effort, lungs clear to auscultation Cardiovascular: Rate/Rhythm: regular rate and regular rhythm Gastrointestinal (Abdomen): normal bowel sounds, soft, nontender, no hepatosplenomegaly Skin: no rashes, warm and dry Results & Data Vital Signs (Past 12 Hours) Vital Signs Pulse Pulse Resp BP BP Pulse Ox Pulse Ox 11/10/23 11:01 82 19 122/90 95 11/10/23 09:01 11/10/23 08:06 62 19 169/133 H 95 11/10/23 07:13 60 11/10/23 06:00 87 20 96 11/10/23 06:00 80 16 149/87 H 94 11/10/23 04:30 79 21 182/106 H 93 11/10/23 03:14 94 11/10/23 03:03 57 L 18 148/75 H 98 11/10/23 02:00 91 H 18 129/72 93 11/10/23 01:19 73 O2 Del Method O2 Del Method 11/10/23 11:01 Room Air 11/10/23 09:01 Room Air 11/10/23 08:06 Room Air 11/10/23 07:13 11/10/23 06:00 11/10/23 06:00 11/10/23 04:30 11/10/23 03:14 Room Air 11/10/23 03:03 11/10/23 02:00 11/10/23 01:19 Laboratory Results 11/10/23 11/10/23 11/09/23 Range/Units 11:19 06:11 22:52 WBC 8.67 (4.8-10.8) K/ul RBC 3.99 L (4.20-5.40) M/uL Hgb 11.7 L (12.0-16.0) g/dl Hct 35.3 L (37.0-47.0) % MCV 88.5 (80.0-100.0) fL MCH 29.3 (25.0-34.0) pg MCHC 33.1 (32.0-36.0) g/dL RDW Std Deviation 40.2 (36.4-46.3) fL RDW Coeff of Khoa 12.3 (11.5-14.5) % Plt Count 220 (130-400) K/uL MPV 9.1 L (9.4-12.4) fL Immature Gran % (Auto) 0.5 % Neut % (Auto) 63.5 % Lymph % (Auto) 19.5 % Lipscomb % (Auto) 12.5 % Eos % (Auto) 3.2 % Baso % (Auto) 0.8 % Neut # (Auto) 5.51 (1.40-6.50) K/uL Lymph # (Auto) 1.69 (1.20-3.40) K/uL Lipscomb # (Auto) 1.08 H (0.11-0.59) K/uL Eos # (Auto) 0.28 (0.00-0.50) K/uL Baso # (Auto) 0.07 (0.00-0.20) K/uL Immature Gran # (Auto) 0.04 (0.01-0.20) K/uL Sodium 138 (136-145) mmol/L Potassium 4.1 (3.5-5.1) mmol/L Chloride 109 H (98-107) mmol/L Carbon Dioxide 20 L (21-32) mmol/L Anion Gap 9 (3-11) BUN 21 (6-23) mg/dl Creatinine 1.42 H D (0.6-1.2) mg/dl Est Cr Clr Drug Dosing 42.2 ml/min Est GFR ( Amer) 46.1 ml/min Est GFR (Non-Af Amer) 39.8 ml/min BUN/Creatinine Ratio 14.8 (10-20) Glucose 117 H (70-99(Fasting)) mg/dl Calcium 8.9 (8.6-10.3) mg/dl Magnesium 1.7 (1.7-2.4) mg/dl Total Bilirubin (0.2-1.0) mg/dl AST (13-39) U/L ALT (7-52) U/L Alkaline Phosphatase (34-104) U/L Troponin I High Sens 44.3 H D 58.5 H* D 87.8 H* (0-14) pg/ml Total Protein (6.0-8.3) gm/dl Albumin (3.4-5.0) gm/dl Globulin (2.5-4.0) gm/dl Albumin/Globulin Ratio (0.9-2) Lipase (11-82) U/L Urine Color Yellow Urine Appearance Cloudy A (Clear) Urine pH 5.5 (4.5-7.5) Ur Specific [place] 1.014 (1.000-1.030) Urine Protein Negative (Negative) Urine Glucose (UA) Negative (Negative) Urine Ketones Negative (Negative) Urine Blood Negative (Negative) Urine Nitrite Negative (Negative) Urine Bilirubin Negative (Negative) Urine Urobilinogen Negative (Negative) Ur Leukocyte Esterase 3+ H (Negative) Urine WBC (Auto) 21-50 H (0-5) /hpf Urine RBC (Auto) 0-2 (0-2) /hpf U Hyaline Cast (Auto) 3-5 H (0-2) /lpf U Epithel Cells (Auto) 3-5 H (0-2) /hpf Urine Bacteria (Auto) 1+ H (None Seen) 11/09/23 Range/Units 20:55 WBC 9.22 (4.8-10.8) K/ul RBC 4.04 L (4.20-5.40) M/uL Hgb 11.7 L (12.0-16.0) g/dl Hct 35.4 L (37.0-47.0) % MCV 87.6 (80.0-100.0) fL MCH 29.0 (25.0-34.0) pg MCHC 33.1 (32.0-36.0) g/dL RDW Std Deviation 40.5 (36.4-46.3) fL RDW Coeff of Khoa 12.6 (11.5-14.5) % Plt Count 253 (130-400) K/uL MPV 9.6 (9.4-12.4) fL Immature Gran % (Auto) 0.4 % Neut % (Auto) 62.3 % Lymph % (Auto) 21.8 % Lipscomb % (Auto) 12.7 % Eos % (Auto) 2.0 % Baso % (Auto) 0.8 % Neut # (Auto) 5.75 (1.40-6.50) K/uL Lymph # (Auto) 2.01 (1.20-3.40) K/uL Lipscomb # (Auto) 1.17 H (0.11-0.59) K/uL Eos # (Auto) 0.18 (0.00-0.50) K/uL Baso # (Auto) 0.07 (0.00-0.20) K/uL Immature Gran # (Auto) 0.04 (0.01-0.20) K/uL Sodium 136 (136-145) mmol/L Potassium 3.9 (3.5-5.1) mmol/L Chloride 104 (98-107) mmol/L Carbon Dioxide 23 (21-32) mmol/L Anion Gap 9 (3-11) BUN 24 H (6-23) mg/dl Creatinine 1.74 H (0.6-1.2) mg/dl Est Cr Clr Drug Dosing 34.4 ml/min Est GFR ( Amer) 36.0 ml/min Est GFR (Non-Af Amer) 31.1 ml/min BUN/Creatinine Ratio 13.8 (10-20) Glucose 121 H (70-99(Fasting)) mg/dl Calcium 9.1 (8.6-10.3) mg/dl Magnesium 1.7 (1.7-2.4) mg/dl Total Bilirubin 0.9 (0.2-1.0) mg/dl AST 21 (13-39) U/L ALT 14 (7-52) U/L Alkaline Phosphatase 61 (34-104) U/L Troponin I High Sens 87.3 H* (0-14) pg/ml Total Protein 7.0 (6.0-8.3) gm/dl Albumin 4.5 (3.4-5.0) gm/dl Globulin 2.5 (2.5-4.0) gm/dl Albumin/Globulin Ratio 1.8 (0.9-2) Lipase 28 (11-82) U/L Urine Color Urine Appearance (Clear) Urine pH (4.5-7.5) Ur Specific [place] (1.000-1.030) Urine Protein (Negative) Urine Glucose (UA) (Negative) Urine Ketones (Negative) Urine Blood (Negative) Urine Nitrite (Negative) Urine Bilirubin (Negative) Urine Urobilinogen (Negative) Ur Leukocyte Esterase (Negative) Urine WBC (Auto) (0-5) /hpf Urine RBC (Auto) (0-2) /hpf U Hyaline Cast (Auto) (0-2) /lpf U Epithel Cells (Auto) (0-2) /hpf Urine Bacteria (Auto) (None Seen) PG Care Time/CCT Total # of Minutes Spent Total Time Spent with Patient: Total time spent is greater than 50% in coordination of care (as documented) at patient's floor/unit and/or counseling patient: Coding Level of Care Code None Diagnoses Right sided abdominal pain R10.9
--- NOTE | 2023-11-10 15:51 | Communication Note ---
Date of Service: November 10, 2023 63-year-old lady with PMH of HLD, HTN, CKD stage III, generalized osteoarthritis, depression, general anxiety disorder, pneumonia, alcohol use, tobacco use presented with right-sided abdominal pain for 2 days, fever for 2 days. Patient was found to have UTI presentation. Patient denied chest pain, reported urinary frequency at presentation. She is being managed for the following: right-sided abdominal pain Admitting CTAP with mild mesenteric edema in the right side of the abdomen. Already improving by bedside exam today. GI evaluated, recommends CT with contrast. Clear liquid diet, advance diet as tolerated. Patient agreeable to contrast, patient explained the risks of kidney injury in the setting of contrast use, patient agreeable. Will send CTAP with IV contrast. Follow. Gentle NSS and labs in AM. Acute UTI: Patient noted to have UTI presentation, follow cultures. Continue with Rocephin 11/08. Elevated troponin: Troponin down trended, patient with no chest pain, EKG with no acute finding. Likely demand ischemia. Continue telemetry monitoring. CKD stage III: Baseline creatinine of around 1.5, admitting creatinine of 1.7, creatinine today 1.4. Other chronic medical conditions: continue/resume home meds as and when able. HLD, continue with a statin HTN, continue with losartan, labetalol and amlodipine. Depression Generalized anxiety disorderstatus continue buspirone and Lexapro, as needed hydralazine. DVT prophylaxis: Heparin subcu Disposition: Medicine/telemetry Full code
[2023-11-10] MEDS: OPTIRAY 320 100ml IV ONE (16:08)
--- NOTE | 2023-11-10 16:38 | CT Scan Report ---
CT abd pelvis IV con only CLINICAL HISTORY: f/u study for mesenteric edema on CTAP wo con. TECHNIQUE: Helical axial images of the abdomen and pelvis were obtained and displayed. Automated dose lowering techniques and/or adjustment according to patient size were utilized for this exam. This e xam was performed with intravenous contrast. CT DOSE: 958.29 mGy.cm COMPARISON: Comparison is made to CT abdomen pelvis 11/09/2023 FINDINGS: Lower chest: Bibasilar atelectasis versus scarring is seen. Liver: Unremarkable. No focal lesions are seen. Gallbladder and biliary tree: No calcified gallstones. Normal caliber wall. No intra- or extrahepatic biliary ductal dilation. Pancreas: Unremarkable, no focal lesions. Spleen: Splenule is incidentally noted. Adrenals: Unremarkable. Kidneys and ureters: Renal cysts measure up to 16 mm. Bladder: Diffuse homogeneous wall thickening is seen. Reproductive organs: Unremarkable. Bowel: Diverticulosis is seen without diverticulitis. The appendix is normal. Lymph nodes Retroperitoneal: Unremarkable. Pelvic: Unremarkable. Mesenteric: Subcentimeter lymph nodes are noted. Peritoneum: Mild right upper quadrant mesenteric fat stranding is seen. Vessels: Atherosclerotic calcifications are seen. Abdominal wall: Unremarkable. Bones: Minimal degenerative changes are seen. IMPRESSION: Redemonstration of right upper quadrant mesenteric fat stranding. A few associated mesenteric lymph n odes are seen. Findings may represent sclerosing mesenteritis. Otherwise no acute abnormalities are s een. ACT 112: Negative or not required by law. Electronically signed by: Adan Fonseca M.D. 11/10/2023 4:37 PM
[2023-11-10] MEDS: ACETAMINOPHEN 325 MG TAB PO PRN (21:06)
[2023-11-10] MEDS: cefTRIAXone SODIUM 2,000 MG/50 ML BAG IV SCH (21:54)
[2023-11-10] MEDS: traZODone HCL 100 MG TAB PO PRN (21:56)
[2023-11-11 08:23] LABS: Hematocrit (blood only) 36.3 % (37.0-47.0); Mean Corpuscular Hemoglobin 29.2 pg (25.0-34.0); Mean Corpuscular Hgb Conc 33.1 g/dL (32.0-36.0); Mean Corpuscular Volume 88.3 fL (80.0-100.0); Mean Platelet Volume 9.5 fL (9.4-12.4); Platelet Count 226 K/uL (130-400); RDW Coefficient of Variation 12.2 % (11.5-14.5); RDW Standard Deviation 39.8 fL (36.4-46.3); Red Blood Count 4.11 M/uL (4.20-5.40); White Blood Count 7.96 K/ul (4.8-10.8)
[2023-11-11 08:40] LABS: BUN Creatinine Ratio 12.9 (10-20); Calcium 9.2 mg/dl (8.6-10.3); Creatinine Clr Calc Pharmacy 59.2 ml/min; Est GFR (African American) 69.6 ml/min; Magnesium 1.6 mg/dl (1.7-2.4); Phosphorus 3.3 mg/dl (2.5-4.9); Potassium 3.8 mmol/L (3.5-5.1)
[2023-11-11] MEDS: MAGNESIUM SULFATE / D5W 1 GM/100 ML BAG IV SCH (10:18)
--- NOTE | 2023-11-11 10:56 | Electrocardiogram Report ---
Test Reason : Blood Pressure : / mmHG Vent. Rate : 064 BPM Atrial Rate : 064 BPM P-R Int : 142 ms QRS Dur : 086 ms QT Int : 408 ms P-R-T Axes : 000 024 019 degrees QTc Int : 420 ms Normal sinus rhythm Normal ECG When compared with ECG of 09-NOV-2023 21:34, Nonspecific T wave abnormality no longer evident in Anterolateral leads Confirmed by Kennedy Still ([id number]) on 11/11/2023 10:55:31 AM Referred By: REFERRED SELF Confirmed By:Kennedy Still
--- NOTE | 2023-11-11 14:14 | Hospitalist Progress Note ---
Date of Service November 11, 2023 Assessment & Plan (1) Right sided abdominal pain: Plan 63-year-old lady with PMH of HLD, HTN, CKD stage III, generalized osteoarthritis, depression, general anxiety disorder, pneumonia, alcohol use, tobacco use presented with right-sided abdominal pain for 2 days, fever for 2 days. Patient was found to have UTI presentation. Patient denied chest pain, reported urinary frequency at presentation. She is being managed for the following: right-sided abdominal pain Focal sclerosing mesenteritis Admitting CTAP with mild mesenteric edema in the right side of the abdomen. CTAP w/ iv con also reviewed. GI evaluated, repeat CT in 6-12 months, f/u GI as OP. Advance diet as tolerated. Pt reports improvement in symptoms. Acute UTI: Patient noted to have UTI at presentation, follow cultures. Continue with Rocephin 11/08. Elevated troponin: Troponin down trended, patient with no chest pain, EKG with no acute finding. Likely demand ischemia. Continue telemetry monitoring. CKD stage III: Baseline creatinine of around 1.5, admitting creatinine of 1.7, creatinine today 1.4. Other chronic medical conditions: continue/resume home meds as and when able. HLD, continue with a statin HTN, continue with losartan, labetalol and amlodipine. Depression Generalized anxiety disorderstatus continue buspirone and Lexapro, as needed hydralazine. DVT prophylaxis: Heparin subcu Disposition: Medicine/telemetry. PT/OT. likely dc in 1-2 days. CM to assist. Full code Admission and Anticipated Discharge Date Admission Date: November 10, 2023 Subjective Patient was seen and examined at bedside. Patient was lying in bed, on room air, NAD, resting comfortably. Patient reports improving right-sided abdominal pain, denies nausea, vomiting. Will advance diet and monitor overnight. Patient reports working her placement with director of casework services, case management consulted. Physical Exam Physical Exam: General- Not in distress Head- atraumatic Eyes- PERRL. ENT- oropharynx clear Neck- supple, no JVD. Lungs- clear to auscultation no wheezing or crackles Heart- regular rate and rhythm; no murmur, no gallop. Abdomen- normal bowel sounds, soft, mild diffuse discomfort --improving. no distension Extremities- no pretibial edema, no erythema seen. Neuro- alert, oriented PERRL, no facial palsy; no dysarthria; moves extremities Results & Data Results & Data Vital Signs (Past 12 Hours) Vital Signs Temp Pulse Resp BP Pulse Ox O2 Del Method O2 Del Method 11/11/23 11:48 36.9 C 69 18 129/80 95 Room Air 11/11/23 08:15 36.6 C 80 18 157/88 H 93 Room Air 11/11/23 03:40 37 C 78 14 162/95 H 94 Room Air 11/11/23 03:14 Room Air
[2023-11-11] MEDS: hydrOXYzine HCl 25 MG TAB PO PRN (15:05)
--- NOTE | 2023-11-12 08:32 | Electrocardiogram Report ---
Test Reason : Blood Pressure : / mmHG Vent. Rate : 059 BPM Atrial Rate : 059 BPM P-R Int : 158 ms QRS Dur : 084 ms QT Int : 422 ms P-R-T Axes : 072 035 027 degrees QTc Int : 417 ms Sinus bradycardia Otherwise normal ECG When compared with ECG of 11-NOV-2023 06:10, No significant change was found Confirmed by Kennedy Still ([id number]) on 11/12/2023 8:32:07 AM Referred By: REFERRED SELF Confirmed By:Kennedy Still
[2023-11-12] MEDS: MAGNESIUM SULFATE / D5W 1 GM/100 ML BAG IV SCH (10:42)
[2023-11-12] MEDS ORDERED: CALCIUM CARBONATE 500 MG CHEWABLE TAB PO PRN (12:34)
--- NOTE | 2023-11-12 12:38 | Hospitalist Progress Note ---
Date of Service November 12, 2023 Assessment & Plan (1) Right sided abdominal pain: Plan 63-year-old lady with PMH of HLD, HTN, CKD stage III, generalized osteoarthritis, depression, general anxiety disorder, pneumonia, alcohol use, tobacco use presented with right-sided abdominal pain for 2 days, fever for 2 days. Patient was found to have UTI presentation. Patient denied chest pain, reported urinary frequency at presentation. She is being managed for the following: right-sided abdominal pain Focal sclerosing mesenteritis Admitting CTAP with mild mesenteric edema in the right side of the abdomen. CTAP w/ iv con also reviewed. GI evaluated, repeat CT in 6-12 months, f/u GI as OP. Advance diet as tolerated. Pt reports improvement in symptoms. Acute UTI: Patient noted to have UTI at presentation. Continue with Rocephin 11/08 - about 5 days of atb tx. add probiotic 11/11. Elevated troponin: Troponin down trended, patient with no chest pain, EKG with no acute finding. Likely demand ischemia. Continue telemetry monitoring. CKD stage III: Baseline creatinine of around 1.5, admitting creatinine of 1.7, creatinine today 1.4. Other chronic medical conditions: continue/resume home meds as and when able. HLD, continue with a statin HTN, continue with losartan, labetalol and amlodipine. Depression Generalized anxiety disorderstatus continue buspirone and Lexapro, as needed hydralazine. DVT prophylaxis: Heparin subcu Disposition: Medicine/telemetry. PT/OT. complicated placement issues. CM to assist. Full code Admission and Anticipated Discharge Date Admission Date: November 10, 2023 Subjective Patient was seen and examined at bedside. Patient was lying in bed, on room air, NAD, resting comfortably. Patient reports improving right-sided abdominal pain, denies nausea, vomiting. Appears tolerating diet, reports some heartburn, will add pepcid and prn tums. Pt reports feeling weak and some dizziness w/ standing today. Will get ortho vitals. PT/OT has been consulted. She reports having 4 loose stools yesterday, none today. Will add probiotic. Physical Exam Physical Exam: General- Not in distress Head- atraumatic Eyes- PERRL. ENT- oropharynx clear Neck- supple, no JVD. Lungs- clear to auscultation no wheezing or crackles Heart- regular rate and rhythm; no murmur, no gallop. Abdomen- normal bowel sounds, soft, mild diffuse discomfort --improving. no distension Extremities- no pretibial edema, no erythema seen. Neuro- alert, oriented PERRL, no facial palsy; no dysarthria; moves extremities Results & Data Results & Data Vital Signs (Past 12 Hours) Vital Signs Temp Pulse Pulse Resp BP Pulse Ox O2 Del Method 11/12/23 11:48 36.7 C 59 L 18 122/74 95 Room Air 11/12/23 07:36 58 L 11/12/23 06:37 36.6 C 76 20 144/85 H 94 Room Air 11/12/23 04:59 37.2 C 76 20 157/78 H 93 Room Air
[2023-11-12] MEDS: FAMOTIDINE 10 MG TABLET PO SCH (13:18)
[2023-11-12] MEDS: ADVANCED PROBIOTIC 625 MG CAPSULE PO SCH (13:18)
[2023-11-13 07:13] LABS: BUN Creatinine Ratio 15.4 (10-20); Calcium 9.2 mg/dl (8.6-10.3); Creatinine Clr Calc Pharmacy 51.4 ml/min; Est GFR (African American) 58.2 ml/min; Est GFR (Non-African American) 50.3 ml/min; Phosphorus 4.4 mg/dl (2.5-4.9); Potassium 4.4 mmol/L (3.5-5.1)
[2023-11-13] MEDS: LOSARTAN POTASSIUM 50 MG TAB PO SCH (10:43)
--- NOTE | 2023-11-13 15:02 | Hospitalist Progress Note ---
Date of Service November 13, 2023 Assessment & Plan (1) Right sided abdominal pain: Plan 63-year-old lady with PMH of HLD, HTN, CKD stage III, generalized osteoarthritis, depression, general anxiety disorder, pneumonia, alcohol use, tobacco use presented with right-sided abdominal pain for 2 days, fever for 2 days. Patient was found to have UTI presentation. Patient denied chest pain, reported urinary frequency at presentation. She is being managed for the following: Right-sided abdominal pain Focal sclerosing mesenteritis Admitting CTAP with mild mesenteric edema in the right side of the abdomen. CTAP w/ iv con also reviewed. GI evaluated, repeat CT in 6-12 months, f/u GI as OP. Tolerating diet well. Pt reports improvement in symptoms. Acute UTI: Patient noted to have UTI at presentation. Continue with Rocephin 11/08 - about 5 days of atb tx. add probiotic 11/11. Elevated troponin: Troponin down trended, patient with no chest pain, EKG with no acute finding. Likely demand ischemia. Continue telemetry monitoring. CKD stage III: Baseline creatinine of around 1.5, admitting creatinine of 1.7, creatinine today 1.4. Other chronic medical conditions: continue/resume home meds as and when able. HLD, continue with a statin HTN, continue with losartan, labetalol and amlodipine. Depression Generalized anxiety disorderstatus continue buspirone and Lexapro, as needed hydralazine. DVT prophylaxis: Heparin subcu Disposition: Medicine/surg. PT/OT. complicated placement issues. CM to assist. Full code Admission and Anticipated Discharge Date Admission Date: November 10, 2023 Subjective Patient was seen and examined at bedside. Patient was lying in bed, on room air, NAD, resting comfortably. Patient reports improved right-sided abdominal pain, denies nausea, vomiting. Appears tolerating diet, reports improvement in heartburn, ortho vitals +ve, pt explained slow transition during change in position. She reports stool forming up and frequency decreasing. Physical Exam Physical Exam: General- Not in distress Head- atraumatic Eyes- PERRL. ENT- oropharynx clear Neck- supple, no JVD. Lungs- clear to auscultation no wheezing or crackles Heart- regular rate and rhythm; no murmur, no gallop. Abdomen- normal bowel sounds, soft, mild diffuse discomfort --improving. no distension Extremities- no pretibial edema, no erythema seen. Neuro- alert, oriented PERRL, no facial palsy; no dysarthria; moves extremities Results & Data Results & Data Vital Signs (Past 12 Hours) Vital Signs Temp Pulse Pulse Resp BP Pulse Ox O2 Del Method 11/13/23 11:31 36.7 C 64 17 130/78 91 Room Air 11/13/23 08:00 88 11/13/23 06:37 36.5 C 68 18 170/90 H 96 Room Air 11/13/23 03:17 36.7 C 73 14 174/84 H 93 Room Air
[2023-11-14] MEDS: MoRPHine SULFATE 2 MG/ML CARP IV STA (00:07)
[2023-11-14 07:39] LABS: BUN Creatinine Ratio 18.4 (10-20); Calcium 9.2 mg/dl (8.6-10.3); Creatinine Clr Calc Pharmacy 52.7 ml/min; Est GFR (African American) 60.1 ml/min; Est GFR (Non-African American) 51.9 ml/min; Magnesium 1.9 mg/dl (1.7-2.4); Potassium 3.9 mmol/L (3.5-5.1)
[2023-11-14 07:46] LABS: Troponin I High Sensitivity 4.5 pg/ml (0-14)
--- NOTE | 2023-11-14 07:48 | Electrocardiogram Report ---
Test Reason : Blood Pressure : / mmHG Vent. Rate : 054 BPM Atrial Rate : 054 BPM P-R Int : 172 ms QRS Dur : 080 ms QT Int : 454 ms P-R-T Axes : 069 032 018 degrees QTc Int : 430 ms Sinus bradycardia Otherwise normal ECG When compared with ECG of 12-NOV-2023 05:43, No significant change was found Confirmed by Livan Nieto ([id number]) on 11/14/2023 7:47:49 AM Referred By: REFERRED SELF Confirmed By:Livan Nieto
--- NOTE | 2023-11-14 13:48 | Hospitalist Progress Note ---
Date of Service November 14, 2023 Assessment & Plan (1) Right sided abdominal pain: Plan 63-year-old lady with PMH of HLD, HTN, CKD stage III, generalized osteoarthritis, depression, general anxiety disorder, pneumonia, alcohol use, tobacco use presented with right-sided abdominal pain for 2 days, fever for 2 days. Patient was found to have UTI presentation. Patient denied chest pain, reported urinary frequency at presentation. She is being managed for the following: Right-sided abdominal pain Focal sclerosing mesenteritis Admitting CTAP with mild mesenteric edema in the right side of the abdomen. CTAP w/ iv con also reviewed. GI evaluated, repeat CT in 6-12 months, f/u GI as OP. Tolerating diet well. Pt reports improvement in symptoms. Acute UTI: Patient noted to have UTI at presentation. Continue with Rocephin 11/08 - about 5 days of atb tx. add probiotic 11/11. Elevated troponin: Troponin down trended, patient with no chest pain, EKG with no acute finding. Likely demand ischemia. Continue telemetry monitoring. CKD stage III: Baseline creatinine of around 1.5, admitting creatinine of 1.7, creatinine today 1.4. Other chronic medical conditions: continue/resume home meds as and when able. HLD, continue with a statin HTN, continue with losartan, labetalol and amlodipine. Depression Generalized anxiety disorderstatus continue buspirone and Lexapro, as needed hydralazine. DVT prophylaxis: Heparin subcu Disposition: Medicine/surg. PT/OT. complicated placement issues. CM to assist. Full code Admission and Anticipated Discharge Date Admission Date: November 10, 2023 Subjective Patient was seen and examined at bedside. Patient was lying in bed, on room air, NAD, resting comfortably. Patient reports minimal right-sided abdominal pain, denies nausea, vomiting. Appears tolerating diet, reports improvement in heartburn. She reports no diarrhea since last evening. Physical Exam Physical Exam: General- Not in distress Head- atraumatic Eyes- PERRL. ENT- oropharynx clear Neck- supple, no JVD. Lungs- clear to auscultation no wheezing or crackles Heart- regular rate and rhythm; no murmur, no gallop. Abdomen- normal bowel sounds, soft, mild diffuse discomfort --improved. no distension Extremities- no pretibial edema, no erythema seen. Neuro- alert, oriented PERRL, no facial palsy; no dysarthria; moves extremities Results & Data Results & Data Vital Signs (Past 12 Hours) Vital Signs Temp Pulse Resp BP Pulse Ox O2 Del Method 11/14/23 07:50 36.5 C 73 17 152/91 H 95 Room Air 11/14/23 07:30 Room Air
--- NOTE | 2023-11-15 14:21 | Hospitalist Progress Note ---
Date of Service November 15, 2023 Assessment & Plan (1) Right sided abdominal pain: Plan 63-year-old lady with PMH of HLD, HTN, CKD stage III, generalized osteoarthritis, depression, general anxiety disorder, pneumonia, alcohol use, tobacco use presented with right-sided abdominal pain for 2 days, fever for 2 days. Patient was found to have UTI presentation. Patient denied chest pain, reported urinary frequency at presentation. She is being managed for the following: Right-sided abdominal pain Focal sclerosing mesenteritis Admitting CTAP with mild mesenteric edema in the right side of the abdomen. CTAP w/ iv con also reviewed. GI evaluated, repeat CT in 6-12 months, f/u GI as OP. Tolerating diet well. Pt reports improvement in symptoms. Acute UTI: Patient noted to have UTI at presentation. Continue with Rocephin 6/25 - s/p 5 days course. Elevated troponin: Troponin down trended, patient with no chest pain, EKG with no acute finding. Likely demand ischemia. Continue telemetry monitoring. CKD stage III: Baseline creatinine of around 1.5, admitting creatinine of 1.7. Resolved. Other chronic medical conditions: continue/resume home meds as and when able. HLD, continue with a statin HTN, continue with losartan, labetalol and amlodipine. Depression Generalized anxiety disorderstatus continue buspirone and Lexapro, as needed hydralazine. DVT prophylaxis: Heparin subcu Disposition: Medicine/surg. PT/OT. complicated placement issues. CM to assist. Full code Admission and Anticipated Discharge Date Admission Date: November 10, 2023 Subjective Patient was seen and examined at bedside. Patient was lying in bed, on room air, NAD, resting comfortably. Patient reports minimal right-sided abdominal pain, denies nausea, vomiting. She reports no diarrhea. Physical Exam Physical Exam: General- Not in distress Head- atraumatic Eyes- PERRL. ENT- oropharynx clear Neck- supple, no JVD. Lungs- clear to auscultation no wheezing or crackles Heart- regular rate and rhythm; no murmur, no gallop. Abdomen- normal bowel sounds, soft, mild diffuse discomfort --improved. no distension Extremities- no pretibial edema, no erythema seen. Neuro- alert, oriented PERRL, no facial palsy; no dysarthria; moves extremities Results & Data Results & Data Vital Signs (Past 12 Hours) Vital Signs Temp Pulse Resp BP Pulse Ox O2 Del Method 11/15/23 14:05 36.8 C 65 17 133/81 92 Room Air 11/15/23 10:17 95 11/15/23 07:26 36.8 C 82 17 137/84 96 Room Air
[2023-11-16 08:23] LABS: Calcium 8.9 mg/dl (8.6-10.3); Potassium 4.3 mmol/L (3.5-5.1)
[2023-11-16 08:29] LABS: BUN Creatinine Ratio 22.3 (10-20); Creatinine Clr Calc Pharmacy 46.2 ml/min; Est GFR (African American) 51.3 ml/min; Est GFR (Non-African American) 44.2 ml/min
--- NOTE | 2023-11-16 10:14 | Hospitalist Progress Note ---
Date of Service November 16, 2023 Assessment & Plan (1) Right sided abdominal pain: Plan Per previous hospitalist progress notes with daily updates/addendum: Cynthia Whittaker is a 63y/o F with PMHx of HLD, HTN, CKD stage III, generalized osteoarthritis, depression, general anxiety disorder, pneumonia, alcohol use, tobacco use and other problems listed below who presented with right-sided abdominal pain x 2 days, fever x 2 days. Patient was found to have an acute UTI on presentation. She is being managed for the following: Right-Sided Abdominal Pain Focal Sclerosing Mesenteritis -Admitting CTAP with mild mesenteric edema in the right side of the abdomen. -CTAP w/ IV contrast also reviewed. GI evaluated, repeat CT in 6-12 months, f/u GI as OP. Tolerating diet well. Patient reports overall improvement in symptoms. Acute UTI: Patient noted to have UTI at presentation; she completed a 5-day course of IV Rocephin on 11/13. Elevated troponin: Troponin down trended, patient with no chest pain; EKG with no acute finding. Likely demand ischemia. EKG w/ chest pain PRN. CKD Stage III Baseline creatinine of around 1.5, creatinine of 1.74 on admission. Wednesday, 11/15: -Cr 1.30, increased from 1.14 yesterday -BUN elevated from 18.4 [yesterday] --> 22.3 [today] Other Chronic Medical Conditions: continue/resume home meds as and when able. HLD, continue with a statin HTN, continue with losartan, labetalol and amlodipine. Depression Generalized anxiety disorderstatus continue buspirone and Lexapro, as needed hydralazine. DVT Prophylaxis: SQ Heparin Code Status: FULL CODE PCP: Sunshine Capellan DO Dispo: Admitted in Med/Surg - Complicated placement issues, CM continuing to assist with placement. Waiting to hear from CM regarding potential placement location - ? D/C tomorrow Patient seen in collaboration with Dr. Corea. Please see addendum. I spent a total of 45 minutes coordinating, documenting, and providing care for this patient excluding time spent in the performance of separately billed services. This included personally reviewing all current laboratories and imaging studies, medical reconciliation, outpatient chart review and discussion with specialists. This chart was completed in part utilizing Speech Voice Recognition Software. Grammatical errors, random word insertions, pronoun errors, and incomplete sentences are an occasional consequence of this system due to software limitations, ambient noise, and hardware issues. Any formal questions or concerns about the content, text, or information contained within the body of this dictation should be directly addressed to the provider for clarification. Admission and Anticipated Discharge Date Admission Date: November 10, 2023 Subjective Patient was seen and examined at bedside in room W356-2. Patient was resting in bed comfortably, easy to arouse. She is c/o some R-sided and lower abdominal pain. Mentions the pain got a little worse after eating breakfast this morning. Currently reporting crampy, 3/10 abdominal pain. Had some Tylenol this morning and that seemed to help. She denies any N/V or diarrhea. No recent bowel movements. Has been urinating just fine, denies any dysuria or hematuria. Reminded patient on the importance of wearing her compression stockings. She currently denies any lightheadedness or dizziness. Review of Systems Review of Systems: At least ten systems reviewed and negative, except as noted in the HPI. Physical Exam Physical Exam: General: WD/WN, vitals as above, NAD, sitting up in bed, pleasant, conversing appropriately. A+Ox3, euthymic affect. HEENT: Normocephalic, atraumatic. EOMI, PERRL, conjunctivae normal, anicteric sclerae. External ear and nose normal, oropharynx normal. Respiratory: Normal respiratory effort, lungs clear to auscultation, no wheeze, rales, rhonchi. No accessory muscle use. Cardiovascular: Regular rate, rhythm, no murmur, normal peripheral pulses, no BLE edema. Vessels: No JVD. Abdomen/GI: Normal bowel sounds, some mild abdominal discomfort in R-sided and lower abdominal regions. No distention, rebound or guarding. Extremities/Musculoskeletal: No cyanosis or clubbing, extremities motor strength intact, moves all extremities. Neurologic: PERRL, EOMI, accommodation nl, no face palsy, no dysarthria, CN's II-XI intact bilaterally and moves all extremities Skin: No rashes, normal color, warm/dry. Pt not currently wearing her compression stockings. Results & Data Results & Data Vital Signs (Past 12 Hours) Vital Signs Temp Pulse Resp BP Pulse Ox O2 Del Method 11/16/23 07:30 Room Air 11/16/23 07:21 36.7 C 61 16 132/85 94 Room Air Laboratory Results [facility] 11/16/23 07:09 Sodium 138 Potassium 4.3 Chloride 105 Carbon Dioxide 26 BUN 29 H Creatinine 1.30 H Glucose 105 H Calcium 8.[address] 11/09/23 21:19 Exam(s): CT HEAD Without Contrast EXAM: CT Head Without Intravenous Contrast CLINICAL HISTORY: Reason for exam: confusion. TECHNIQUE: Axial computed tomography images of the head/brain without intravenous contrast. Automated exposure control was utilized for the study. A dose lowering technique was utilized adhering to the principles of ALARA. COMPARISON: Comparison made to prior brain MRI from June 18, 2023. FINDINGS: Brain: Remote ischemic injury of the bilateral capsules. Remote ischemic injury of the left cerebellum. Remote ischemic injuries of the thalami. No hemorrhage. No significant white matter disease. No edema. Ventricles: Unremarkable. No ventriculomegaly. Bones/joints: Unremarkable. No acute fracture. Soft tissues: Unremarkable. Sinuses: Unremarkable as visualized. No acute sinusitis. Mastoid air cells: Unremarkable as visualized. No mastoid effusion. IMPRESSION: No evidence of acute intracranial pathology. Electronically signed by: Jillian Daily MD 11/10/23 01:51 AM Abdomen/Pelvis CT 11/09/23 21:20 Exam(s): CT ABDOMEN + PELVIS Without Contrast EXAM: CT Abdomen and Pelvis Without Intravenous Contrast CLINICAL HISTORY: Reason for exam: right sided pain, crf. TECHNIQUE: Axial computed tomography images of the abdomen and pelvis without intravenous contrast. Automated exposure control was utilized for the study. A dose lowering technique was utilized adhering to the principles of ALARA. COMPARISON: No relevant prior studies available. FINDINGS: Lung bases: Unremarkable. No mass. No consolidation. ABDOMEN: Liver: Unremarkable. Gallbladder and bile ducts: Unremarkable. No calcified stones. No ductal dilation. Pancreas: Unremarkable. No ductal dilation. Spleen: Unremarkable. No splenomegaly. Adrenals: Unremarkable. No mass. Kidneys and ureters: Unremarkable. No obstructing stones. No hydronephrosis. Stomach and bowel: Diverticulosis, without acute diverticulitis. No small bowel obstruction. No free intraperitoneal air. PELVIS: Appendix: No findings to suggest acute appendicitis. Bladder: Unremarkable. No stones. Reproductive: Unremarkable as visualized. ABDOMEN and PELVIS: Intraperitoneal space: Unremarkable. No free air. No significant fluid collection. Bones/joints: Degenerative changes of the spine. No acute fracture. No dislocation. Soft tissues: Mild mesenteric edema in the RIGHT side of the abdomen, consider follow-up exam with intravenous contrast for further evaluation. Vasculature: Atherosclerotic changes of the aorta. No abdominal aortic aneurysm. Lymph nodes: Unremarkable. No enlarged lymph nodes. IMPRESSION: 1. Mild mesenteric edema in the RIGHT side of the abdomen, consider follow-up exam with intravenous contrast for further evaluation. 2. Diverticulosis, without acute diverticulitis. No small bowel obstruction. No free intraperitoneal air. Electronically signed by: Sergio Narayan MD 11/10/23 01:07 AM Chest X-Ray 11/09/23 21:20 XR chest 1V portable CLINICAL HISTORY: Abdominal pain. COMPARISON STUDY: Chest radiograph November 03, 2016. FINDINGS: Lung volumes are normal. Lungs are clear. There is no pneumothorax or pleural effusion. Cardiac size is normal. Mediastinal contours are normal. There is no evidence for pulmonary edema. IMPRESSION: No acute cardiopulmonary findings. ACT 112: Negative or not required by law. Electronically signed by: Aj Licona M.D. 11/10/2023 6:43 AM Abdomen/Pelvis CT 11/10/23 15:50 CT abd pelvis IV con only CLINICAL HISTORY: f/u study for mesenteric edema on CTAP wo con. TECHNIQUE: Helical axial images of the abdomen and pelvis were obtained and displayed. Automated dose lowering techniques and/or adjustment according to patient size were utilized for this exam. This exam was performed with intravenous contrast. CT DOSE: 958.29 mGy.cm COMPARISON: Comparison is made to CT abdomen pelvis 11/09/2023 FINDINGS: Lower chest: Bibasilar atelectasis versus scarring is seen. Liver: Unremarkable. No focal lesions are seen. Gallbladder and biliary tree: No calcified gallstones. Normal caliber wall. No intra- or extrahepatic biliary ductal dilation. Pancreas: Unremarkable, no focal lesions. Spleen: Splenule is incidentally noted. Adrenals: Unremarkable. Kidneys and ureters: Renal cysts measure up to 16 mm. Bladder: Diffuse homogeneous wall thickening is seen. Reproductive organs: Unremarkable. Bowel: Diverticulosis is seen without diverticulitis. The appendix is normal. Lymph nodes Retroperitoneal: Unremarkable. Pelvic: Unremarkable. Mesenteric: Subcentimeter lymph nodes are noted. Peritoneum: Mild right upper quadrant mesenteric fat stranding is seen. Vessels: Atherosclerotic calcifications are seen. Abdominal wall: Unremarkable. Bones: Minimal degenerative changes are seen. IMPRESSION: Redemonstration of right upper quadrant mesenteric fat stranding. A few associated mesenteric lymph nodes are seen. Findings may represent sclerosing mesenteritis. Otherwise no acute abnormalities are seen. ACT 112: Negative or not required by law. Electronically signed by: Adan Fonseca M.D. 11/10/2023 4:37 PM Medications Administered Acetaminophen (Acetaminophen 325 Mg Tab) 650 mg PO Q4H PRN PRN Reason: Pain or Fever Stop: 12/10/23 03:13 Last Admin: 11/16/23 07:40 Dose: 650 mg Documented By: Admin: 11/15/23 12:45 Dose: 650 mg Documented By: Admin: 11/15/23 08:14 Dose: 650 mg Documented By: Admin: 11/14/23 18:36 Dose: 650 mg Documented By: Admin: 11/14/23 12:39 Dose: 650 mg Documented By: Admin: 11/13/23 15:57 Dose: 650 mg Documented By: Admin: 11/13/23 06:35 Dose: 650 mg Documented By: Admin: 11/12/23 10:07 Dose: 650 mg Documented By: Admin: 11/11/23 15:05 Dose: 650 mg Documented By: Admin: 11/10/23 21:06 Dose: 650 mg Documented By: SARAH Amlodipine Besylate (Amlodipine Besylate 5 Mg Tab) 10 mg PO [facility] Stop: 12/10/23 08:59 Last Admin: 11/15/23 08:15 Dose: 10 mg Documented By: Admin: 11/14/23 08:46 Dose: 10 mg Documented By: Admin: 11/13/23 08:24 Dose: 10 mg Documented By: Admin: 11/12/23 08:37 Dose: 10 mg Documented By: Admin: 11/11/23 08:32 Dose: 10 mg Documented By: Admin: 11/10/23 09:00 Dose: 10 mg Documented By: SOFIYA Aspirin (Aspirin 81 Mg Ectab) 81 mg PO [facility] Stop: 12/10/23 08:59 Last Admin: 11/16/23 08:12 Dose: 81 mg Documented By: Admin: 11/15/23 08:15 Dose: 81 mg Documented By: Admin: 11/14/23 08:46 Dose: 81 mg Documented By: Admin: 11/13/23 08:25 Dose: 81 mg Documented By: Admin: 11/12/23 08:37 Dose: 81 mg Documented By: Admin: 11/11/23 08:32 Dose: 81 mg Documented By: Admin: 11/10/23 08:57 Dose: 81 mg Documented By: SOFIYA Atorvastatin Calcium (Atorvastatin 40 Mg Tab) 40 mg PO QAM MARIAH Stop: 12/10/23 08:59 Last Admin: 11/16/23 08:12 Dose: 40 mg Documented By: Admin: 11/15/23 08:16 Dose: 40 mg Documented By: Admin: 11/14/23 08:46 Dose: 40 mg Documented By: Admin: 11/13/23 08:25 Dose: 40 mg Documented By: Admin: 11/12/23 08:37 Dose: 40 mg Documented By: Admin: 11/11/23 08:32 Dose: 40 mg Documented By: Admin: 11/10/23 08:57 Dose: 40 mg Documented By: SOFIYA Buspirone HCl (Buspirone 15 Mg Tab) 15 mg PO TID MARIAH Stop: 12/10/23 08:59 Last Admin: 11/16/23 08:12 Dose: 15 mg Documented By: Admin: 11/15/23 20:02 Dose: 15 mg Documented By: Admin: 11/15/23 15:14 Dose: 15 mg Documented By: Admin: 11/15/23 08:16 Dose: 15 mg Documented By: Admin: 11/14/23 20:30 Dose: 15 mg Documented By: Admin: 11/14/23 15:29 Dose: 15 mg Documented By: Admin: 11/14/23 08:46 Dose: 15 mg Documented By: Admin: 11/13/23 20:38 Dose: 15 mg Documented By: Admin: 11/13/23 15:54 Dose: 15 mg Documented By: Admin: 11/13/23 08:25 Dose: 15 mg Documented By: Admin: 11/12/23 21:30 Dose: 15 mg Documented By: Admin: 11/12/23 15:09 Dose: 15 mg Documented By: Admin: 11/12/23 08:37 Dose: 15 mg Documented By: Admin: 11/11/23 21:03 Dose: 15 mg Documented By: Admin: 11/11/23 15:05 Dose: 15 mg Documented By: Admin: 11/11/23 08:32 Dose: 15 mg Documented By: Admin: 11/10/23 21:05 Dose: 15 mg Documented By: Admin: 11/10/23 13:27 Dose: 15 mg Documented By: Admin: 11/10/23 08:57 Dose: 15 mg Documented By: SOFIYA Escitalopram Oxalate (Escitalopram Oxalate 20 Mg Tab) 20 mg PO QAM MARIAH Stop: 12/10/23 08:59 Last Admin: 11/16/23 08:12 Dose: 20 mg Documented By: Admin: 11/15/23 08:16 Dose: 20 mg Documented By: Admin: 11/14/23 08:46 Dose: 20 mg Documented By: Admin: 11/13/23 08:25 Dose: 20 mg Documented By: Admin: 11/12/23 08:37 Dose: 20 mg Documented By: Admin: 11/11/23 08:32 Dose: 20 mg Documented By: Admin: 11/10/23 08:57 Dose: 20 mg Documented By: SOFIYA Famotidine (Famotidine 10 Mg Tablet) 10 mg PO BID MARIAH Stop: 12/12/23 12:44 Last Admin: 11/16/23 08:12 Dose: 10 mg Documented By: Admin: 11/15/23 20:02 Dose: 10 mg Documented By: Admin: 11/15/23 08:16 Dose: 10 mg Documented By: Admin: 11/14/23 20:29 Dose: 10 mg Documented By: Admin: 11/14/23 08:46 Dose: 10 mg Documented By: Admin: 11/13/23 20:37 Dose: 10 mg Documented By: Admin: 11/13/23 08:25 Dose: 10 mg Documented By: Admin: 11/12/23 21:29 Dose: 10 mg Documented By: Admin: 11/12/23 13:18 Dose: 10 mg Documented By: PUSHPA Heparin Sodium (Porcine) (Heparin Sod 5,000 Unit/0.5 Ml Vial) 5,000 units SQ Q8 MARIAH Stop: 12/10/23 05:59 Last Admin: 11/16/23 05:58 Dose: 5,000 units Documented By: Admin: 11/15/23 22:34 Dose: 5,000 units Documented By: DPHoney Admin: 11/15/23 13:18 Dose: 5,000 units Documented By: Admin: 11/15/23 06:03 Dose: 5,000 units Documented By: Admin: 11/14/23 22:20 Dose: 5,000 units Documented By: Admin: 11/14/23 15:29 Dose: 5,000 units Documented By: Admin: 11/14/23 06:27 Dose: 5,000 units Documented By: Admin: 11/13/23 20:38 Dose: 5,000 units Documented By: Admin: 11/13/23 15:54 Dose: 5,000 units Documented By: Admin: 11/13/23 05:10 Dose: 5,000 units Documented By: Admin: 11/12/23 21:30 Dose: 5,000 units Documented By: Admin: 11/12/23 15:09 Dose: 5,000 units Documented By: Admin: 11/12/23 05:48 Dose: 5,000 units Documented By: Admin: 11/11/23 21:03 Dose: 5,000 units Documented By: Admin: 11/11/23 15:06 Dose: 5,000 units Documented By: Admin: 11/11/23 06:03 Dose: 5,000 units Documented By: Admin: 11/10/23 21:56 Dose: 5,000 units Documented By: Admin: 11/10/23 13:27 Dose: 5,000 units Documented By: Admin: 11/10/23 05:58 Dose: 5,000 units Documented By: OSMANY Hydroxyzine HCl (Hydroxyzine Hcl 25 Mg Tab) 50 mg PO QID PRN PRN Reason: Anxiety Stop: 12/10/23 03:13 Last Admin: 11/15/23 13:21 Dose: 50 mg Documented By: Admin: 11/14/23 15:29 Dose: 50 mg Documented By: Admin: 11/13/23 15:57 Dose: 50 mg Documented By: Admin: 11/12/23 15:11 Dose: 50 mg Documented By: Admin: 11/11/23 15:05 Dose: 50 mg Documented By: PUSHPA Labetalol HCl (Labetalol Hcl 200 Mg Tab) 200 mg PO DAILY MARIAH Stop: 12/10/23 08:59 Last Admin: 11/16/23 08:12 Dose: 200 mg Documented By: Admin: 11/15/23 08:16 Dose: 200 mg Documented By: Admin: 11/14/23 08:46 Dose: 200 mg Documented By: Admin: 11/13/23 08:25 Dose: 200 mg Documented By: Admin: 11/12/23 08:37 Dose: 200 mg Documented By: Admin: 11/11/23 08:32 Dose: 200 mg Documented By: Admin: 11/10/23 08:57 Dose: 200 mg Documented By: SOFIYA Lactobacillus Acidophilus (Advanced Probiotic 625 Mg Capsule) 1,250 mg PO DAILY [facility] Stop: 12/12/23 12:44 Last Admin: 11/16/23 08:12 Dose: 1,250 mg Documented By: Admin: 11/15/23 08:16 Dose: 1,250 mg Documented By: Admin: 11/14/23 08:46 Dose: 1,250 mg Documented By: Admin: 11/13/23 08:25 Dose: 1,250 mg Documented By: Admin: 11/12/23 13:18 Dose: 1,250 mg Documented By: PUSHPA Losartan Potassium (Losartan Potassium 50 Mg Tab) 50 mg PO QAM MARIAH Stop: 12/13/23 08:59 Last Admin: 11/16/23 08:13 Dose: 50 mg Documented By: Admin: 11/15/23 08:16 Dose: 50 mg Documented By: Admin: 11/14/23 08:46 Dose: 50 mg Documented By: Admin: 11/13/23 10:43 Dose: 50 mg Documented By: PUSHPA Trazodone HCl (Trazodone Hcl 100 Mg Tab) 100 mg PO HS PRN PRN Reason: Sleep Stop: 12/10/23 03:13 Last Admin: 11/15/23 22:34 Dose: 100 mg Documented By: Admin: 11/14/23 20:31 Dose: 100 mg Documented By: Admin: 11/13/23 20:37 Dose: 100 mg Documented By: Admin: 11/12/23 21:33 Dose: 100 mg Documented By: Admin: 11/11/23 21:03 Dose: 100 mg Documented By: Admin: 11/10/23 21:56 Dose: 100 mg Documented By: CORY Discontinued Medications Aspirin (Aspirin Chew 324 Mg) 324 mg PO NOW STA Stop: 11/09/23 23:28 Last Admin: 11/10/23 00:11 Dose: 324 mg Documented By: OSMANY Sodium Chloride (Nss) 500 mls @ 999 mls/hr IV .Q31M STA Stop: 11/09/23 21:49 Last Infusion: 11/09/23 22:22 Dose: Infused Documented By: Admin: 11/09/23 21:37 Dose: 999 mls/hr Documented By: SHAYNE Acetaminophen (Ofirmev) 1,000 mg in 100 mls @ 400 mls/hr IV NOW STA Stop: 11/09/23 21:33 Last Infusion: 11/09/23 22:22 Dose: Infused Documented By: Admin: 11/09/23 21:37 Dose: 400 mls/hr Documented By: SHAYNE Ceftriaxone Sodium (Rocephin) 2,000 mg in 50 mls @ 100 mls/hr IV NOW STA Stop: 11/10/23 00:18 Last Infusion: 11/10/23 00:45 Dose: Infused Documented By: Admin: 11/10/23 00:11 Dose: 100 mls/hr Documented By: OSMANY Sodium Chloride (Nss) 1,000 mls @ 60 mls/hr IV .[id number] AMRIAH Stop: 12/10/23 03:13 Last Infusion: 11/11/23 15:06 Dose: Infused Documented By: Admin: 11/11/23 06:02 Dose: 60 mls/hr Documented By: Infusion: 11/11/23 06:02 Dose: Infused Documented By: Infusion: 11/10/23 21:55 Dose: 60 mls/hr Documented By: Admin: 11/10/23 13:31 Dose: 100 mls/hr Documented By: Infusion: 11/10/23 13:31 Dose: Infused Documented By: Admin: 11/10/23 03:40 Dose: 100 mls/hr Documented By: HB Ceftriaxone Sodium (Rocephin) 2,000 mg in 50 mls @ 100 mls/hr IV Q24H MARIAH Stop: 11/20/23 21:59 Last Infusion: 11/14/23 23:44 Dose: Infused Documented By: Admin: 11/14/23 22:20 Dose: 100 mls/hr Documented By: Infusion: 11/13/23 21:17 Dose: Infused Documented By: Admin: 11/13/23 20:40 Dose: 100 mls/hr Documented By: Infusion: 11/12/23 22:07 Dose: Infused Documented By: Admin: 11/12/23 21:31 Dose: 100 mls/hr Documented By: Infusion: 11/11/23 21:31 Dose: Infused Documented By: Admin: 11/11/23 21:01 Dose: 100 mls/hr Documented By: Infusion: 11/10/23 23:09 Dose: Infused Documented By: Admin: 11/10/23 21:54 Dose: 100 mls/hr Documented By: CORY Magnesium Sulfate/Dextrose (Magnesium Sulfate / D5w) 1 gm in 100 mls @ 50 mls/hr IV Q2H MARIAH Stop: 11/11/23 12:59 Last Infusion: 11/11/23 15:06 Dose: Infused Documented By: Admin: 11/11/23 12:25 Dose: 50 mls/hr Documented By: Infusion: 11/11/23 12:18 Dose: Infused Documented By: Admin: 11/11/23 10:18 Dose: 50 mls/hr Documented By: PUSHPA Magnesium Sulfate/Dextrose (Magnesium Sulfate / D5w) 1 gm in 100 mls @ 50 mls/hr IV Q2H MARIAH Stop: 11/12/23 12:59 Last Infusion: 11/12/23 18:17 Dose: Infused Documented By: Admin: 11/12/23 13:16 Dose: 50 mls/hr Documented By: Infusion: 11/12/23 13:16 Dose: Infused Documented By: Admin: 11/12/23 10:42 Dose: 50 mls/hr Documented By: PUSHPA Ioversol (Optiray 320 100ml) 91 ml IV ONCE ONE Stop: 11/10/23 16:08 Last Admin: 11/10/23 16:08 Dose: 91 ml Documented By: WILI Morphine Sulfate (Morphine Sulfate 2 Mg/Ml Carp) 2 mg IV NOW STA Stop: 11/14/23 00:02 Last Admin: 11/14/23 00:07 Dose: Not Given Documented By: SIERRA
--- NOTE | 2023-11-16 13:38 | Discharge Summary ---
Date of Service November 17, 2023 Admission HPI Per Admitting Provider 63-year-old female with past medical history significant for Hyperlipidemia, hypertension, CKD stage III, generalized osteoarthritis, depression, general anxiety disorder, history of pneumonia, history of alcohol use, history of tobacco use presents with right-sided abdominal pain and found to UTI and also troponins are elevated.Per ER patient is typically at [facility] which is a rehab center. She was there permanently but seems there was a recent incident and she broke the contract. Seems now she is staying at [place] Last few days she is having right sided abdominal pain and went to [facility] today and was she was told that she has enteritis. But the pain was persisting. Her assistant case manager thought that she has having some confusion and brought here. Patient currently seems comfortable. States her pain is improving. She says she had fever and chills. She states micturating okay. Bowels are moving okay. No nausea. Denies chest pain. Denies shortness of breath. States uses oxygen all the time. Denies any headache currently. Vision is not great and states need to see eye doctor. Has some runny nose. Has some sore throat and cough.. States appetite has been down. Ambulating okay. Currently hemodynamics are okay. In June 2023 patient was admitted for right-sided weakness. 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 MRI brain was okay. Neurology recommended DAPT for 21 days. Patient is already on statin. Past medical history. As mentioned above past surgical history. Hysteroscopy with endometrial ablation. Social history. Quit smoking 2022. Smoked half pack a day for 31 years. Sometimes vapes. History of heavy alcohol use in the past. Not currently as per [employer] No drug use. Family history. Father had cancer. Hypertension. Admission Exam Per Admitting Provider General- Not in distress Head- atraumatic Eyes- PERRL. ENT- oropharynx clear Neck- supple, no JVD. Lungs- clear to auscultation no wheezing or crackles Heart- regular rate and rhythm; no murmur, no gallop. Abdomen- normal bowel sounds, soft, mild diffuse discomfort no distension Extremities- no pretibial edema, no erythema seen. Neuro- alert, oriented PERRL, no facial palsy; no dysarthria; moves extremities Principal Diagnosis Focal Sclerosing Mesenteritis Acute Urinary Tract Infection (UTI) Discharge Exam General: WD/WN, vitals as above, NAD, sitting up in bed, pleasant, conversing appropriately. A+Ox3, euthymic affect. HEENT: Normocephalic, atraumatic. EOMI, PERRL, conjunctivae normal, anicteric sclerae. External ear and nose normal, oropharynx normal. Respiratory: Normal respiratory effort, lungs clear to auscultation, no wheeze, rales, rhonchi. No accessory muscle use. Cardiovascular: Regular rate, rhythm, no murmur, normal peripheral pulses, no BLE edema. Vessels: No JVD. Abdomen/GI: Normal bowel sounds, no distention, mild discomfort in lower abdominal pain, pain well-controlled. Extremities/Musculoskeletal: No cyanosis or clubbing, moves all extremities, ambulates without issue. Neurologic: Accommodation nl, no face palsy, no dysarthria, CN's II-XI not formally tested but appear grossly intact. Skin: No rashes, normal color, warm/dry. Discharge Data Allergies Allergy/AdvReac Type Severity Reaction Status Date / Time No Known Allergies Allergy Verified 11/09/23 22:00 Consultations 11/10/23 01:21 ED Decision to Admit Stat 11/10/23 08:00 Consult Gastroenterology Routine Ordered Studies 11/09/23 21:19 CT head/brain wo con Stat 11/09/23 21:20 CT abd pelvis wo con Stat 11/10/23 15:50 CT Abd and Pelvis [CT abd pelvis IV con only] Routine Hospital Course (1) Right sided abdominal pain: (2) UTI (urinary tract infection): Plan Right-Sided Abdominal Pain Focal Sclerosing Mesenteritis Cynthia Whittaker is a 63y/o F with PMHx of HLD, HTN, CKD stage III, generalized osteoarthritis, depression, general anxiety disorder, pneumonia, alcohol use and tobacco use who presented to the ED on 11/09 with right-sided abdominal pain fever x 2 days and was found to have focal sclerosing mesenteritis on admitting CTAP. GI was evaluated during her hospitalization; patient will need to have a repeat CTAP in 6-12 months. GI also mentioned that the patient can follow-up with their office on a PRN basis; no need to schedule a routine GI follow-up appointment at time of discharge. Patient tolerating regular diet very well and her abdominal pain has significantly improved; labs stable at time of discharge. Acute UTI: Patient was found to have an acute UTI on presentation. She was subsequently treated with a 5-day course of IV Rocephin. Urine culture showing NGTD overall - "More than three types of organisms present, all moderate counts mixed probable skin angely. No further identifications or sensitivities to follow." Elevated Troponin: Troponin was elevated at 87.3 on admission; downtrended to 4.5 at time of discharge. EKG with no acute findings, more than likely was 2/2 demand ischemia. CKD Stage III: Baseline creatinine ~1.5, creatinine stable at 1.3 at time of discharge. Other Chronic Medical Conditions: * HLD - Patient can continue statin therapy at time of discharge. * HTN - Patient can continue her losartan, labetalol and amlodipine at time of discharge. * Depression, MAY - Patient can continue her buspirone, Lexapro and PRN hydralazine at time of discharge. PCP: Sunshine Capellan, Dispo: Patient is being discharged to home. Patient seen in collaboration with Dr. Corea. Please see addendum. I spent a total of 50 minutes coordinating, documenting, and providing care for this patient excluding time spent in the performance of separately billed services. This included personally reviewing all current laboratories and imaging studies, medical reconciliation, outpatient chart review and discussion with specialists. This chart was completed in part utilizing Speech Voice Recognition Software. Grammatical errors, random word insertions, pronoun errors, and incomplete sentences are an occasional consequence of this system due to software limitations, ambient noise, and hardware issues. Any formal questions or concerns about the content, text, or information contained within the body of this dictation should be directly addressed to the provider for clarification. Home Health Attestation I certify that this patient is under my care and that I, or a physicians oceanographer assistant working with me, had a face to-face encounter that meets the home health [id number] encounter requirements with this patient. The encounter with the patient was in whole, or in part, for the following medical condition, which is the primary reason for home health care (list medic al condition): I certify that, based on my findings, the following services are medically necessary home health services: My clinical findings support the need for the above services because: Further, I certify that my clinical findings support that this patient is homebound (i.e. absences from home require considerable and taxing effort and are for medical reasons or restorationist services or infrequently or of short duration when for other reasons) because: Certification for Home Health Services: Based on the above findings, I certify that this patient is confined to the home and needs intermittent longterm care, physical therapy and/or speech therapy or continues to need occupational therapy. The patient is under my care, and I have initiated the establishment of the plan of care. This patient will be followed by a physician who will periodically review the plan of care. Total Time Total Time Spent Total Time Spent (In Minutes): 50 Discharge Plan Discharge Items Patient Disposition: Home - Self-Care Reason For Visit: ABDOMINAL PAIN, UTI, ELEVATED TROP Discharge Diagnosis: Focal Sclerosing Mesenteritis Acute Urinary Tract Infection (UTI) Condition on Discharge: Fair Activity: Resume your previous activity Non-emergency contact: Primary Care Provider Call non-emergency contact if: you have any medication questions Follow-up/Referrals: Sunshine Capellan DO [Primary Care Provider] - (Date & Time 11/26/2023 11:10 AM Provider Sunshine Capellan DO Department Family Medicine [facility] ) Diet: Regular Addtl Attending Provider Instructions: You were admitted to the hospital for abdominal pain and were found to have an acute urinary tract infection (UTI). You were seen by gastroenterology during your hospitalization. It is recommended that you have have a repeat CT scan of your abdomen in the next 6-12 months. You do not need to see gastroenterology for a follow-up appointment at this time. Please see your primary care provider (PCP) at your earliest convenience. You were found to have orthostatic hypotension [low blood pressure upon standing] throughout your hospitalization. For your orthostatic hypotension: 1. Avoid triggers [heat exposure, overexertion, alcohol, hot tubs, dehydration]. 2. Caution with Valsalva like maneuvers [avoiding straining with defecation, urination]. 3. Avoid prolonged sitting or standing. If prolonged inactivity, do ankle pumps and cross/uncross legs. 4. Avoid abrupt change from lying to standing [diabetes, seat at edge of the bed for a minute before standing] or sitting to standing. 5. Rise gradually from sitting to standing [that is, after being inactive or sitting on the toilet]. 6. Leg compression stocking [example, ankle to hips compression stocking at 22- 32 mmHg, not just calves or thighs]. Please take your AMLODIPINE (blood pressure medication) at NIGHT as prescribed. Please take your LOSARTAN (blood pressure medication) and LABETALOL (blood pressure medication) in the MORNING as prescribed. Seek medical attention if you have: * temperature above 101 * chest pain or trouble breathing * abdominal pain, nausea, vomiting * diarrhea, dark stools or bloody stools * any unanswered questions or concerns Call 911 if symptoms are severe. Please take good care of yourself. It has been a pleasure taking care of you. Please take care of yourself. If you have any questions regarding your recent hospitalization please contact [facility] and request Ruthann Wisemanist @ [phone]. Pending Studies at Discharge: No Stand-Alone Forms: [facility], Smoking Cessation Medications and DC Order Prescriptions: Continued hydroxyzine pamoate 50 mg capsule 50 mg PO QID PRN (Reason: Anxiety) aspirin 81 mg tablet,delayed release (DR/EC) 81 mg PO QAM escitalopram oxalate 20 mg tablet 20 mg PO QAM atorvastatin 40 mg tablet 40 mg PO QAM buspirone 15 mg tablet 15 mg PO TID losartan 50 mg tablet 50 mg PO QAM trazodone 100 mg tablet 100 mg PO HS PRN (Reason: Sleep) dicyclomine 10 mg Capsule 10 mg PO TID PRN (Reason: ABD PAIN) Rx Instructions: PER PT "DID NOT START YET". diclofenac sodium [Voltaren Arthritis Pain] 1 % gel 2 g EXT QID PRN (Reason: JOINT PAIN) Changed labetalol 200 mg tablet 200 mg PO QAM Qty: 0 0RF amlodipine 10 mg tablet 10 mg PO HS Qty: 0 0RF Discharge Orders: Discharge Order (Routine); Ordered 11/17/23 Ordered By: Vivian Wolfe/Other Patient Handouts: Abdominal Pain, CKD Dc Admission Data Admit Date/Time: 11/10/23 02:38 Attending Provider: Vivian Corea Admit Provider: Donell Jimenez Primary Care Provider: Sunshine Capellan Other Providers: Donell Jimenez; Case,Enrique Torrez Supervising Physician Co-Signing Physician Notes Pt was seen and examined at bedside, pt is stable and feels back to baseline. She is hemodynamically stable. She states she is ok with being discharged. On exam, pt on RA, H/L/A exam wnl. I have seen and examined the patient and have discussed the case with the humza chicas above. I agree with the assessment and plan as stated.
--- NOTE | 2023-11-17 10:07 | Hospitalist Progress Note ---
Date of Service November 16, 2023 Assessment & Plan (1) Right sided abdominal pain: (2) UTI (urinary tract infection): Plan Right-Sided Abdominal Pain Focal Sclerosing Mesenteritis Cynthia Whittaker is a 63y/o F with PMHx of HLD, HTN, CKD stage III, generalized osteoarthritis, depression, general anxiety disorder, pneumonia, alcohol use and tobacco use who presented to the ED on 11/09 with right-sided abdominal pain fever x 2 days and was found to have focal sclerosing mesenteritis on admitting CTAP. GI was evaluated during her hospitalization; patient will need to have a repeat CTAP in 6-12 months. GI also mentioned that the patient can follow-up with their office on a PRN basis; no need to schedule a routine GI follow-up appointment at time of discharge. Patient tolerating regular diet very well and her abdominal pain has significantly improved. Acute UTI: Patient was found to have an acute UTI on presentation. She was subsequently treated with a 5-day course of IV Rocephin. Elevated Troponin: Troponin was elevated at 87.3 on admission; downtrended to 4.5 at time of discharge. EKG with no acute findings, more than likely was 2/2 demand ischemia. CKD Stage III: Baseline creatinine ~1.5, creatinine stable at 1.3 at time of discharge. Other Chronic Medical Conditions: * HLD - Patient can continue statin therapy at time of discharge. * HTN - Patient can continue her losartan, labetalol and amlodipine at time of discharge. * Depression, MAY - Patient can continue her buspirone, Lexapro and PRN hydralazine at time of discharge. PCP: Sunshine Capellan, This chart was completed in part utilizing Speech Voice Recognition Software. Grammatical errors, random word insertions, pronoun errors, and incomplete sentences are an occasional consequence of this system due to software limitations, ambient noise, and hardware issues. Any formal questions or concern s about the content, text, or information contained within the body of this dictation should be directly addressed to the provider for clarification. Admission and Anticipated Discharge Date Admission Date: November 10, 2023 Subjective pt lying in bed, on RA, nad, no new complaints, no new interval events. Physical Exam Physical Exam: General- Not in distress Head- atraumatic Eyes- PERRL. ENT- oropharynx clear Neck- supple, no JVD. Lungs- clear to auscultation no wheezing or crackles Heart- regular rate and rhythm; no murmur, no gallop. Abdomen- normal bowel sounds, soft, mild diffuse discomfort --improved. no distension Extremities- no pretibial edema, no erythema seen. Neuro- alert, oriented PERRL, no facial palsy; no dysarthria; moves extremities Results & Data Results & Data Vital Signs (Past 12 Hours) Vital Signs Temp Pulse Resp BP Pulse Ox O2 Del Method O2 Del Method 11/17/23 08:06 36.7 C 80 16 129/89 95 Room Air 11/17/23 07:30 Room Air 11/17/23 03:00 Room Air (2) UTI (urinary tract infection) Hematuria presence: without hematuria Urinary tract infection type: acute cystitis Qualified Code(s): N30.00 - Acute cystitis without hematuria
[2023-11-17] MEDS ORDERED: amLODIPine BESYLATE 5 MG TAB PO SCH (21:00)
== END 2023-11-17 15:26 | disposition home or self-care (01) | DRG 394 ==
LOC: ED 20:10 → EDINP 11-10 02:38 → 2W 11-10 21:33 → 3W 11-13 23:05